=== PATIENT | female | born 1940 | race Caucasian/White ===

== ENCOUNTER 2017-06-22 13:00 | Outpatient (RCR) | payer MEDICARE, OTHER, SELFPAY ==
--- NOTE | 2017-05-19 13:55 | HP.PTEVAL_ITS ---
Patient's Visit Information YARITZA CHRISTINA is a 76 year old F referred to Physical Therapy by Fouzia PATRICK with a diagnosis of BACK PAIN. Date of Evaluation: 05/19/17 Physical Therapist: Satya Helms PT, - Visit Plan Frequency: 2x /Week Duration: 4 Weeks Plan: POSTURAL EX'S ,DLS,FLEXION.MODALITIES PRN - Subjective Subjective: This 76 y/o female presents physical therapy with back pain for many years. Patient has symmtrical lumbar pain with radicular symptoms left leg with. Seen Dr Adame for pain managemnt for epidural injections also had MRI.Patient symptoms worse with standing 10mins,walking,but with pushing cart better,lifting ,bending.Symptoms better with sitting,resting. Denies parathesia/ tingling. Bowel/bladder good. Sleeping good at night. No prior treatment otherthan epidural injection. NO trauma. SOCIAL: . VOCATION: retired - Pain Bilateral Back Pain Intensity (Out of 10): 4 Pain Intensity Range: 10 Left Lower Extremity Pain Intensity (Out of 10): 4 Pain Intensity Range: 10 - Objective POSTURE: mild foward posture,rounded shoulders. PALAPTION: tender paraspinals/ erector spinals. GAIT: normal lesly,reciprocal patten. NEURO: reflexes L3-4, L4-5,L5-S1,2/3 DENIES PARATHESIA/TINGLING. SYMMTRIES : align. MMT: quads/hams 4/5,4-/5 hip flexion,ankle 4/5. LUMBAR ROM: flexion min loss,extension mod loss ,side glides MOD pain left. FLEXABLITY: hams min tight - Special Tests L/S Slump test left side: Negative L/S Slump test right side: Negative L/S Left Straight Leg Raise: Negative L/S Right Straight Leg Raise: Negative Lumbar Standing: Flexion - Mechanical Response: No effect Lumbar Standing: Flexion - Symptoms During Testing: No effect Lumbar Standing: Flexion - Symptoms After Testing: No effect Lumbar Standing: Extension - Mechanical Response: No effect Lumbar Standing: Extension - Symptoms During Testing: Increases Lumbar Standing: Extension - Symptoms After Testing: No worse - Goals Goal 1:: Independant with HEP Goal Time Frame: 4-6 Weeks Goal 2:: 4Independant with posture/body mechanics for ADL'S Goal Time Frame: 4-6 Weeks Goal 3:: Decrease lumbar pain by 50% or greateer to improve with ADL'S Goal Time Frame: 4-6 Weeks Goal 4:: Patient to improve lumbar ROM WFL for function of recovery Goal Time Frame: 4-6 Weeks Goal 5:: Patient perform ADL'S and and light housework taskls with min limitations - Rehabilitation Potential Physical Therapy Diagnosis: This patient has lumbar pain and radicular symptoms left 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 Rehabilitation Potential: Good - Anticipated Interventions Patient/Client Instruction: Educate patient on: Condition, Plan of Care For the Purpose of:: To decrease pain, To increase ROM, To improve muscle performance and motor function, To improve ability to perform ADL's, To increase tolerance to activity/condition/position, To improve performance and independence with ADL's, To improve health of tissue, To decrease soft tissue restriction, To increase flexibility/ROM, To reduce risk of recurrence, To improve ability to perform tasks related to life management Therapeutic Exercise to Include: Strength training, Postural training, Flexibilty training, Dynamic Lumbar Stabilization For the Purpose of:: To decrease pain, To increase ROM, To improve muscle performance and motor function, To improve ability to perform ADL's, To increase tolerance to activity/condition/position, To improve ability of physical actions for home/community/work/leisure, To improve health of tissue, To decrease soft tissue restriction, To increase flexibility/ROM, To foster healthy habits, To improve ability to perform tasks related to life management TENS: Yes Cryotherapy (ice pack, ice massage): Yes Thermo therapy (hot pack): Yes Ultrasound (thermal/non thermal): Yes For the Purpose of:: To decrease pain, To improve nutrient delivery to tissue, To increase oxygenation perfusion, To improve muscle performance and motor function, To improve health of tissue, To decrease soft tissue restriction Thank you for the opportunity to evaluate your patient. For Medicare and Medicare HMO plans, please review the plan of care and approve it. It will need to be FAXED BACK to us at [phone] for Medicare purposes. Please let me know if there are questions or concerns regarding this plan of care. Physician Signature: Date:
--- NOTE | 2017-06-22 13:34 | HP.PTDCSUM ---
HP - PT D/C Summary It has been my pleasure to treat YARITZA CHRISTINA under orders from DR.ABASAL Myles for the diagnosis of BACK PAIN for a total of 9 visit(s). Discharge Date: 06/22/17 Please see the following information for a summary of their discharge status. - Subjective Subjective: Doing some better today. Can walk and stand longer ..with less pain but fave to have freguent rest and to ex's. Plan for nother injection - Pain Bilateral Back Pain Intensity (Out of 10): 3 Left Lower Extremity Pain Intensity (Out of 10): 3 - Overall Improvement % Improvement: 60 - Objective Objective/Function: POSTURE: ROUNDED SHOULDERS HEAD FOWARD. PALAPTION: TENDER RIGHT L-S. GAIT: NORMAL CADANCE. MMT: QUADS/HAMS 4/5,HIP 4-/5. LUMBAR ROM: FLEXION MIN LOSS,EXTENSION MOD LOSS - Goals Goal 1:: Independant with HEP Goal Progress: Goal Met Goal 2:: 4Independant with posture/body mechanics for ADL'S Goal Progress: Goal Met Goal 3:: Decrease lumbar pain by 50% or greateer to improve with ADL'S Goal Progress: Goal Met Goal 4:: Patient to improve lumbar ROM WFL for function of recovery Goal Progress: Progressing Goal 5:: Patient perform ADL'S and and light housework taskls with min limitations Goal Progress: Progressing - Plan Plan: D/C PLAN FOR ANOTHER INJECTION AND HEP - D/C Information Discharge Comments: HEP If there are questions or concerns regarding this patient's physical therapy, please feel free to call me at [phone]. Thank you for the referral of this patient. Sincerely, Satya Helms, PT,
== END 2017-06-22 19:00 | disposition home or self-care (01) ==
LOC: PT 13:00
PROVIDERS: Family Provider Internal Medicine; PCP Internal Medicine; Visit Provider Anesthesiology Pain Medicine
DX: M54.9 Dorsalgia, unspecified (principal)
CPT/HCPCS: 97035; 97110; 97162; 97530

== ENCOUNTER → 2017-06-25 08:27 | Outpatient (CLI) | payer MEDICARE, OTHER, SELFPAY ==
[2017-06-25 09:32] LABS: AST(SGOT) 18 U/L (15-37); Alanine Aminotransfer ALT/SGPT 18 U/L (13-56); Albumin, Serum 3.5 g/dL (3.2-5.0); Alkaline Phosphatase 84 U/L (45-117); Bilirubin, Direct 0.11 mg/dL (0.00-0.30); Cholesterol 148 mg/dL (200); Globulin 4.4 g/dL (2.2-4.2); High Density Lipoprotein 57 mg/dL; Protein, Total 7.9 g/dL (6.4-8.2); Triglycerides 77 mg/dL; Very Low Density Lipoprotein 15 mg/dL (5-40)
== END ==
PROVIDERS: Family Provider Internal Medicine; PCP Internal Medicine; Visit Provider Physician Assistant Medical
DX: E78.5 Hyperlipidemia, unspecified (principal); I10 Essential (primary) hypertension; I71.4 Abdominal aortic aneurysm, without rupture; R01.1 Cardiac murmur, unspecified; I34.8 Other nonrheumatic mitral valve disorders; I25.10 Atherosclerotic heart disease of native coronary artery without angina pectoris; Z79.899 Other long term (current) drug therapy
CPT/HCPCS: 36415; 80061; 80076

== ENCOUNTER → 2017-08-24 09:55 | Outpatient (CLI) | payer MEDICARE, OTHER, SELFPAY ==
--- NOTE | 2017-08-24 09:56 | RAD_ITS ---
STUDY: X-RAY - LUMBAR SPINE REASON FOR EXAM: Female, 76 years old. Low back pain TECHNIQUE: 7 view(s) of the lumbar spine were obtained. COMPARISON: None FINDINGS: Normal lumbar lordosis. There is no substantial scoliosis. There is a normal alignment of the vertebrae. Aortobiiliac stent graft. Degenerative findings of the hips. Loss of intervertebral disc height at L5-S1. Vacuum disc phenomenon at L5-S1. There is multilevel endplate spondylosis of the lumbar vertebrae. There is multi-level degenerative disc disease with multi-level disc space narrowing. There are atherosclerotic vascular calcifications. The soft tissue structures are unremarkable. RAD/L/S Spine Comp/w Bending Views IMPRESSION: Degenerative changes of the spine, as detailed above. Electronically Signed: Corbin Gandhi MD at 17:07 EDT , Service support ,
== END ==
PROVIDERS: Family Provider Internal Medicine; PCP Internal Medicine; Visit Provider Orthopaedic Surgery
DX: M54.5 Low back pain (principal)
CPT/HCPCS: 72114

== ENCOUNTER → 2017-09-10 07:50 | Outpatient (CLI) | payer MEDICARE, OTHER, SELFPAY ==
--- NOTE | 2017-09-10 07:54 | AAVD_ITS ---
Reason For Study: AAA with repair Aorta Measurements Aorta Doppler Measurements Proximal aorta measures2.0 x 1.9cm. in cross- Peak systolic flow velocities within the proximal sectional axis. aorta measure 32.6 cm/sec. Proximal aorta measures1.9cm. in longitudinal Prox stent - 92.1 cm/s axis. Dist stent - 95.8 cm/s Mid/Dist AAA measuring 4.6 x 4.4 cm with visible Post stent - 42.9 cm/s. patent stent. Left Iliac Artery Left iliac artery measures 1.1 cm. in the longitudinal axis. Left iliac artery measures 1.2 x 1.2 cm. in the cross-sectional axis. Peak systolic velocity in the left iliac artery measures 50.4 cm/sec. Right Iliac Artery Right iliac artery measures 1.3 cm. in the longitudinal axis. Right iliac artery measures 1.2 x 1.3 cm. in the cross-sectional axis. Peak systolic velocity in the right iliac artery measures 51.5 cm/sec. Procedure Aorta IVC Iliac vasculature or bypass grafts 45626. Exam performed in department. Interpretation Summary 1. 4.6cm aortic aneurysm. Ordering Physician: KAYA DELCID Referring Physician: KAYA DELCID Performed By: Meme Arguello RVT
== END ==
PROVIDERS: Family Provider Internal Medicine; PCP Internal Medicine; Visit Provider Surgery Vascular Surgery
DX: I71.4 Abdominal aortic aneurysm, without rupture (principal)
CPT/HCPCS: 93978

== ENCOUNTER → 2017-12-28 14:17 | Outpatient (CLI) | payer MEDICARE, OTHER, SELFPAY | PROVIDERS: Family Provider Internal Medicine; PCP Internal Medicine; Visit Provider Orthopaedic Surgery | DX: M54.5 Low back pain (principal) | CPT/HCPCS: 72114 ==

== ENCOUNTER → 2018-02-08 15:08 | Outpatient (CLI) | payer MEDICARE, OTHER, SELFPAY ==
--- NOTE | 2018-02-08 15:10 | RAD_ITS ---
STUDY: X-RAY - LUMBAR SPINE REASON FOR EXAM: Female, 77 years old. Postop. TECHNIQUE: 2 weightbearing view(s) of the lumbar spine were obtained. COMPARISON: 6 images of the lumbar spine December 28, 2017. FINDINGS: Again seen are prior L4 and L5 laminectomies as well as prior posterior bilateral fusion L3-S1 with metal hardware. Transpedicular screws at those levels are connected on either side by longitudinal rods, and there are numerous bone graft chips surrounding the posterior elements L3-S1. Normal lumbar lordosis. There is a stable S-shaped scoliosis, with 21 degree levoscoliosis centered at L2 and 30 degree dextroscoliosis centered at L3. There is borderline anterolisthesis of L2 on L3, and stable 2 mm retrolisthesis of L3 on L4. There is stable mild leftward subluxation of L2 on L3. There is multilevel endplate spondylosis of the lumbar vertebrae. There is multi-level degenerative disc disease with multi-level disc space narrowing. There is no demonstrated fracture. Note again made of a bifurcating aortoiliac endograft RAD/Lumbar Spine 2 or 3 Views IMPRESSION: Stable x-ray examination of the lumbar spine since December 28, 2017, as noted. Electronically Signed: Ab Cabrera MD at 18:10 EDT , Service support ,
== END ==
PROVIDERS: Family Provider Internal Medicine; PCP Internal Medicine; Referring Provider Orthopaedic Surgery; Visit Provider Orthopaedic Surgery
DX: M54.5 Low back pain (principal)
CPT/HCPCS: 72100

== ENCOUNTER 2018-04-14 12:00 | Outpatient (RCR) | payer MEDICARE, OTHER, SELFPAY ==
--- NOTE | 2018-02-16 14:00 | HP.PTEVAL ---
Patient's Visit Information YARITZA CHRISTINA is a 77 year old F referred to Physical Therapy by Michelle Bernstein with a diagnosis of S/P L3-S1 LAMINECTOMY/FUSION. Date of Evaluation: 02/16/18 Physical Therapist: Satya Helms, PT, - Visit Plan Frequency: 2x /Week Duration: 4 Weeks Plan: POSTURAL EX'S,DLS ABD/BACK, LE STRENNGTHENING,LE FLEXABLITY - Subjective Subjective: This 77 y/o female presents to physical therapy with s/p L3 -S1 LAMINECTOMY /FUSION with michael /srews November [address] [place] [address] November 04 2017. Patient d/c home fww and bone stimulator. Patient went to sister n law home until end of November. Patient stopped using fww and currently no device and return to home. Patient has lumbar pain with radicular symptoms many years. Tried PT and pain injections,then MRI. Bowel/bladder -. Denies parathesia/tingling.Coughing/Sneezing-.Symptoms decribed as stiffness and ust weakness. Patient surgery affects QOL and fubction at home.Precaution: NO BLT. SOCIAL: single. VOCATION: reired - Objective POSTURE: mild foward posture. GAIT: noraml lesly reciprocal pattern. NEURO: reflexes 2/3 L3-4,L4-5,L5-S1. PALAPTION: unremarkable. MMT: quad/hams 4/5,hip flexion 4-/5,ankle 4/5. LUMBAR ROM: flexon mod loss,extnsion severe loss,side glides mod loss. FLEXABLITY: HAMS MIN TIGHT - Special Tests L/S Slump test left side: Negative L/S Slump test right side: Negative L/S Left Straight Leg Raise: Negative L/S Right Straight Leg Raise: Negative - Goals Goal 1:: Patient to be Independant with HEP Goal Time Frame: 4-6 Weeks Goal 2:: Patient to improve posture for ADLS' Goal Time Frame: 4-6 Weeks Goal 3:: Patient increase strength BLE by 4+/5 to improve function with gait and ADL'S Goal Time Frame: 4-6 Weeks Goal 4:: Patient improve ADL'S and housework tasks with min limiations Goal Time Frame: 4-6 Weeks Goal 5:: Patient improve back owestry score by 5 points to improve QOL. Goal Time Frame: 4-6 Weeks - Rehabilitation Potential Physical Therapy Diagnosis: Patient underwent s/p L3-S1 LAMINECTOMY/FUSION on November 01 with decrease function and ADL's with weakness thus benifit from skilled PT Rehabilitation Potential: Good - Anticipated Interventions Patient/Client Instruction: Educate patient on: Condition, Plan of Care For the Purpose of:: To decrease pain, To increase ROM, To improve muscle performance and motor function, To improve ability to perform ADL's, To increase tolerance to activity/condition/position, To improve performance and independence with ADL's, To improve ability of physical actions for home/community/work/leisure, To increase flexibility/ROM, To improve ability to perform tasks related to life management Therapeutic Exercise to Include: Strength training, Body mechanics, Postural training, Flexibilty training, Dynamic Lumbar Stabilization For the Purpose of:: To decrease pain, To increase ROM, To improve muscle performance and motor function, To increase tolerance to activity/condition/position, To improve ability of physical actions for home/community/work/leisure, To improve health of tissue, To decrease soft tissue restriction, To improve ability to perform tasks related to life management Cryotherapy (ice pack, ice massage): Yes Thermo therapy (hot pack): Yes For the Purpose of:: To decrease pain, To increase ROM, To improve nutrient delivery to tissue, To increase oxygenation perfusion, To improve health of tissue, To decrease soft tissue restriction Thank you for the opportunity to evaluate your patient. For Medicare and Medicare HMO plans, please review the plan of care and approve it. It will need to be FAXED BACK to us at [phone] for Medicare purposes. Please let me know if there are questions or concerns regarding this plan of care. Physician Signature: Date:
--- NOTE | 2018-03-17 12:54 | HP.PTREVAL ---
Michelle Bernstein, It has been my pleasure to treat YARITZA CHRISTINA over the last 10 visits for S/P L3-S1 LAMINECTOMY/FUSION. Please see the progress note below for an update on the physical therapy plan of care! Subjective: Patient reports overall better with ADL'S and function. with housework tasks.. limited with walking extexnded Objective/Function: POSTURE: mild foward posture. GAIT: mild foward posture reciprocal pattern. NEURO: denies parathesia/tingling,reflexes L3-4,L4-5,L5-S1. MMT: 4/5 quads/hams ,hip flexion 4/5 ankle 4/5. LUMBAR ROM: flexion min/mod loss,extension mod loss. -SLR Plan Plan: POSTURAL EX'S,DLS ABD/BACK, LE STRENGTHENING,LE FLEXIBLITY Goals Goal 1:: Patient to be Independant with HEP Goal Time Frame: 4-6 Weeks Goal Progress: Progressing Goal 2:: Patient to improve posture for ADLS' Goal Time Frame: 4-6 Weeks Goal Progress: Progressing Goal 3:: Patient increase strength BLE by 4+/5 to improve function with gait and ADL'S Goal Time Frame: 4-6 Weeks Goal Progress: Progressing Goal 4:: Patient improve ADL'S and housework tasks with min limiations Goal Time Frame: 4-6 Weeks Goal Progress: Progressing Goal 5:: Patient improve back owestry score by 5 points to improve QOL. Goal Time Frame: 4-6 Weeks Goal Progress: Progressing Anticipated Interventions Patient/Client Instruction: Educate patient on: Condition, Plan of Care For the Purpose of:: To decrease pain, To increase ROM, To improve muscle performance and motor function, To improve ability to perform ADL's, To increase tolerance to activity/condition/position, To improve performance and independence with ADL's, To improve ability of physical actions for home/community/work/leisure, To increase flexibility/ROM, To improve ability to perform tasks related to life management Therapeutic Exercise to Include: Strength training, Body mechanics, Postural training, Flexibilty training, Dynamic Lumbar Stabilization For the Purpose of:: To decrease pain, To increase ROM, To improve muscle performance and motor function, To increase tolerance to activity/condition/position, To improve ability of physical actions for home/community/work/leisure, To improve health of tissue, To decrease soft tissue restriction, To improve ability to perform tasks related to life management Cryotherapy (ice pack, ice massage): Yes Thermo therapy (hot pack): Yes For the Purpose of:: To decrease pain, To increase ROM, To improve nutrient delivery to tissue, To increase oxygenation perfusion, To improve health of tissue, To decrease soft tissue restriction Please do not hesitate to contact me at [phone] by phone or if you have questions or concerns regarding this new plan of care! Sincerely, Satya Helms PT,
--- NOTE | 2018-04-14 13:39 | HP.PTDCSUM ---
HP - PT D/C Summary It has been my pleasure to treat YARITZA CHRISTINA under orders from Michelle Bernstein, for the diagnosis of S/P L3-S1 LAMINECTOMY/FUSION for a total of 17 visit(s). Discharge Date: 04/14/18 Please see the following information for a summary of their discharge status. - Subjective Subjective: Doing well .. Patient staed return to all ADL'S and housework tasks. - Pain Back Pain Intensity (Out of 10): 2 Hip Soreness Pain Intensity (Out of 10): 2 - Overall Improvement % Improvement: 70 - Objective Objective/Function: POSTURE: mild foward. GAIT: normal lesly reciprocal pattern. MMT: quads/hams/hip flexion 4/5 ,ankle 4/5. LUMBAR ROM: flexion min ,extension mod loss. FLEXABLITY: hams min - Goals Goal 1:: Patient to be Independant with HEP Goal Progress: Goal Met Goal 2:: Patient to improve posture for ADLS' Goal Progress: Goal Met Goal 3:: Patient increase strength BLE by 4+/5 to improve function with gait and ADL'S Goal Progress: Goal Met Goal 4:: Patient improve ADL'S and housework tasks with min limiations Goal Progress: Goal Met Goal 5:: Patient improve back owestry score by 5 points to improve QOL. Goal Progress: Goal Met - Plan Plan: D/C TO HEP - D/C Information Discharge Comments: HEP If there are questions or concerns regarding this patient's physical therapy, please feel free to call me at [phone]. Thank you for the referral of this patient. Sincerely, Satya Helms, PT,
== END 2018-04-14 19:00 | disposition home or self-care (01) ==
LOC: PT 12:00
PROVIDERS: Family Provider Internal Medicine; PCP Internal Medicine; Referring Provider Orthopaedic Surgery; Visit Provider Orthopaedic Surgery
DX: Z98.890 Other specified postprocedural states (principal)
CPT/HCPCS: 97110; 97162; 97530

== ENCOUNTER → 2018-04-26 14:52 | Outpatient (CLI) | payer MEDICARE, OTHER, SELFPAY ==
[2018-01-03 13:03] VITALS: BMI 27.4
--- NOTE | 2018-04-26 14:54 | RAD_ITS ---
STUDY: X-RAY - LUMBAR SPINE REASON FOR EXAM: Female, 77 years old. Pain TECHNIQUE: 2 view(s) of the lumbar spine were obtained. COMPARISON: 02/08/2018 FINDINGS: There are stable postsurgical changes from prior L4 and L5 laminectomies and prior posterior bilateral fusion L3-S1. The hardware is intact and alignment is satisfactory. There is no acute fracture or dislocation. There are stable multilevel degenerative changes. Again noted is an aortoiliac endograft RAD/Lumbar Spine 2 or 3 Views IMPRESSION: No acute fracture or dislocation in the lumbar spine. Stable postsurgical and degenerative changes. Electronically Signed: Kory Sauceda, at 15:26 EST Tel , Service support ,
--- OUTSIDE RECORDS SUMMARY | 2018-06-12 20:41 | XMS RPT_ITS ---
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 - Goals Goal 1:: Patient to be Independant with HEP Goal Progress: Goal Met Goal 2:: Patient to improve posture for ADLS' Goal Progress: Goal Met Goal 3:: Patient increase strength BLE by 4+/5 to improve function with gait and ADL'S Goal Progress: Goal Met Goal 4:: Patient improve ADL'S and housework tasks with min limiations Goal Progress: Goal Met Goal 5:: Patient improve back owestry score by 5 points to improve QOL. Goal Progress: Goal Met - Plan Plan: D/C TO HEP - D/C Information Discharge Comments: HEP If there are questions or concerns regarding this patient's physical therapy, please feel free to call me at [phone]. Thank you for the referral of this patient. Sincerely, Satya Helms PT, <Electronically signed by Satya Helms PT, Cert. MDT, OCS> 04/14/18 1539 CC: Michelle Bernstein MD; Dianna Stokes DO JOLEENA Signed RE-EVALUATION - PT (1) Observed: 03/21/2018 Status: F Source: [place] 7:02 PM [facility] REPOSITORY [facility] [address] [place] [address]. [address] [place] [address] Fax REEVALUATION / MEDICARE RECERTIFICATION PHYSICAL THERAPY MR#: [id number] Acct: [id number] Name: MYESHA CHRISTINA Rep #: [id number] : 1940 77 From: Satya Helms PT, Cert. 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 Please see the progress note below for an update on the physical therapy plan of care! Subjective: Patient reports overall better with ADL'S and function. with housework tasks.. limited with walking extexnded Objective/Function: POSTURE: mild foward posture. GAIT: mild foward posture reciprocal pattern. NEURO: denies parathesia/tingling,reflexes L3-4,L4-5,L5-S1. MMT: 4/5 quads/hams ,hip flexion 4/5 ankle 4/5. LUMBAR ROM: flexion min/mod loss,extension mod loss. -SLR Plan Plan: POSTURAL EX'S,DLS ABD/BACK, LE STRENGTHENING,LE FLEXIBLITY Goals Goal 1:: Patient to be Independant with HEP Goal Time Frame: 4-6 Weeks Goal Progress: Progressing Goal 2:: Patient to improve posture for ADLS' Goal Time Frame: 4-6 Weeks Goal Progress: Progressing Goal 3:: Patient increase strength BLE by 4+/5 to improve function with gait and ADL'S Goal Time Frame: 4-6 Weeks Goal Progress: Progressing Goal 4:: Patient improve ADL'S and housework tasks with min limiations Goal Time Frame: 4-6 Weeks Goal Progress: Progressing Goal 5:: Patient improve back owestry score by 5 points to improve QOL. Goal Time Frame: 4-6 Weeks Goal Progress: Progressing Anticipated Interventions Patient/Client Instruction: Educate patient on: Condition, Plan of Care For the Purpose of:: To decrease pain, To increase ROM, To improve muscle performance and motor function, To improve ability to perform ADL's, To increase tolerance to activity/condition/position, To improve performance and independence with ADL's, To improve ability of physical actions for home/community/work/leisure, To increase flexibility/ROM, To improve ability to perform tasks related to life management Therapeutic Exercise to Include: Strength training, Body mechanics, Postural training, Flexibilty training, Dynamic Lumbar Stabilization For the Purpose of:: To decrease pain, To increase ROM, To improve muscle performance and motor function, To increase tolerance to activity/condition/position, To improve ability of physical actions for home/community/work/leisure, To improve health of tissue, To decrease soft tissue restriction, To improve ability to perform tasks related to life management Cryotherapy (ice pack, ice massage): Yes Thermo therapy (hot pack): Yes For the Purpose of:: To decrease pain, To increase ROM, To improve nutrient delivery to tissue, To increase oxygenation perfusion, To improve health of tissue, To decrease soft tissue restriction Please do not hesitate to contact me at [phone] by phone or if you have questions or concerns regarding this new plan of care! Sincerely, Satya Helms PT, <Electronically signed by Cert. SAM Blum PT, OCS> 03/21/181901 CC: Michelle Bernstein MD; Dianna Stokes DO YARI Signed For Medicare only, by signing this I certify the plan of care. Physicians Signature Date INITAL EVALUATION (1) Observed: 02/18/2018 Status: F Source: [place] [facility] 7:58 AM [facility] REPOSITORY [facility] [address] [place] [address] Fax REHABILITATION SERVICES INITIAL EVALUATION MR#: [id number] Acct: [id number] Name: MYESHA CHRISTINA Rep #: [id number] : 1940 77 From: Cert. 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 Date of Evaluation: 02/16/18 Physical Therapist: Satya Helms PT, - Visit Plan Frequency: 2x /Week Duration: 4 Weeks Plan: POSTURAL EX'S,DLS ABD/BACK, LE STRENNGTHENING,LE FLEXABLITY - Subjective Subjective: This 77 y/o female presents to physical therapy with s/p L3 -S1 LAMINECTOMY /FUSION with michael /srews November [address] [place] [address] November 04 2017. Patient d/c home fww and bone stimulator. Patient went to sister n law home until end of November. Patient stopped using fww and currently no device and return to home. Patient has lumbar pain with radicular symptoms many years. Tried PT and pain injections,then MRI. Bowel/bladder -. Denies parathesia/tingling.Coughing/Sneezing-.Symptoms decribed as stiffness and ust weakness. Patient surgery affects QOL and fubction at home.Precaution: NO BLT. SOCIAL: single. VOCATION: reired - Objective POSTURE: mild foward posture. GAIT: [place] lesly reciprocal pattern. NEURO: reflexes 2/3 L3-4,L4-5,L5-S1. PALAPTION: unremarkable. MMT: quad/hams 4/5,hip flexion 4-/5,ankle 4/5. LUMBAR ROM: flexon mod loss,extnsion severe loss,side glides mod loss. FLEXABLITY: HAMS MIN TIGHT - Special Tests L/S Slump test left side: Negative L/S Slump test right side: Negative L/S Left Straight Leg Raise: Negative L/S Right Straight Leg Raise: Negative - Goals Goal 1:: Patient to be Independant with HEP Goal Time Frame: 4-6 Weeks Goal 2:: Patient to improve posture for ADLS' Goal Time Frame: 4-6 Weeks Goal 3:: Patient increase strength BLE by 4+/5 to improve function with gait and ADL'S Goal Time Frame: 4-6 Weeks Goal 4:: Patient improve ADL'S and housework tasks with min limiations Goal Time Frame: 4-6 Weeks Goal 5:: Patient improve back owestry score by 5 points to improve QOL. Goal Time Frame: 4-6 Weeks - Rehabilitation Potential Physical Therapy Diagnosis: Patient underwent s/p L3-S1 LAMINECTOMY/FUSION on November 01 with decrease function and ADL's with weakness thus benifit from skilled PT Rehabilitation Potential: Good - Anticipated Interventions Patient/Client Instruction: Educate patient on: Condition, Plan of Care For the Purpose of:: To decrease pain, To increase ROM, To improve muscle performance and motor function, To improve ability to perform ADL's, To increase tolerance to activity/condition/position, To improve performance and independence with ADL's, To improve ability of physical actions for home/community/work/leisure, To increase flexibility/ROM, To improve ability to perform tasks related to life management Therapeutic Exercise to Include: Strength training, Body mechanics, Postural training, Flexibilty training, Dynamic Lumbar Stabilization For the Purpose of:: To decrease pain, To increase ROM, To improve muscle performance and motor function, To increase tolerance to activity/condition/position, To improve ability of physical actions for home/community/work/leisure, To improve health of tissue, To decrease soft tissue restriction, To improve ability to perform tasks related to life management Cryotherapy (ice pack, ice massage): Yes Thermo therapy (hot pack): Yes For the Purpose of:: To decrease pain, To increase ROM, To improve nutrient delivery to tissue, To increase oxygenation perfusion, To improve health of tissue, To decrease soft tissue restriction Thank you for the opportunity to evaluate your patient. For Medicare and Medicare HMO plans, please review the plan of care and approve it. It will need to be FAXED BACK to us at [phone] for Medicare purposes. Please let me know if there are questions or concerns regarding this plan of care. Physician Signature: Date: <Electronically signed by Satya Helms PT, Cert. SAM, OCS> 02/18/18 0758 CC: Michelle Bernstein MD; Dianna Stokes DO YARI Signed For Medicare only, by signing this I certify the plan of care. Physicians Signature Date ORTHOPEDIC VISIT Observed: 02/13/2018 Status: F Source: [place] 3:29 PM [facility] REPOSITORY [facility] Orthopaedics AND Sports Medicine [address] [place] [address] [address] [address] OFFICE VISIT Date of Service: 02/08/18 MR#: [id number] Acct: [id number] Name: MYESHA CHRISTINA Rep #: [id number] : 1940 Provider: Michelle Bernstein MD Age/Sex: 77/F Location: [facility] Status: Signed Intake Intake Visit Reasons: LOW BACK Is patient in pain?: Yes Allergies atorvastatin [From Lipitor] Adverse Reaction (Severe, Verified 02/08/18 15:50) myalgias ciprofloxacin [From Cipro] Adverse Reaction (Unknown, Verified 02/08/18 15:50) Unknown Medications amlodipine 2.5 mg tablet 2.5 mg PO QDAY #90 tab 06/18/17 [Rx Confirmed 01/03/18] aspirin 81 mg tablet,delayed release 81 mg PO QDAY tab 06/28/17 [History Confirmed 01/03/18] coenzyme Q10 100 mg capsule 100 mg PO QDAY 06/28/17 [History Confirmed 01/03/18] nitroglycerin 0.4 mg sublingual tablet 0.4 mg SUBLINGUAL Q5M PRN 06/28/17 [History Confirmed 01/03/18] rizatriptan 10 mg tablet 10 mg PO QDAY PRN tab 06/28/17 [History Confirmed 01/03/18] sertraline 50 mg tablet 50 mg PO QDAY 06/28/17 [History Confirmed 01/03/18] cholecalciferol (vitamin D3) 50,000 unit capsule 50,000 unit PO .2xweek cap 06/30/17 [History Confirmed 01/03/18] hydrocodone 5 mg-acetaminophen 325 mg tablet 1 tab PO QDAY PRN tab 06/30/17 [History Confirmed 01/03/18] rosuvastatin 10 mg tablet 10 mg PO QDAY #90 tab 11/23/17 [Rx Confirmed 01/03/18] clopidogrel 75 mg tablet 75 mg PO QDAY #90 tab 07/12/18 [Rx Confirmed 01/03/18] lisinopril 20 mg tablet 20 mg PO QDAY #90 tab 12/14/17 [Rx Confirmed 01/03/18] metoprolol succinate ER 25 mg tablet,extended release 24 hr 25 mg PO QDAY #90 tab 02/08/18 [Rx] [facility] Medical History Presence of stent in coronary artery (Chronic 11/2010) SVT (supraventricular tachycardia) (Acute) Palpitations (Acute) Mitral valve annular calcification (Chronic) Heart murmur, systolic (Chronic) Premature ventricular contraction (Acute) Atherosclerotic heart disease of [place] coronary artery without angina pectoris (Chronic) HLD (hyperlipidemia) (Chronic) Benign essential HTN (Chronic) Abdominal aortic aneurysm without rupture (Chronic) COPD (chronic obstructive pulmonary disease) (Acute) Family history of ischemic heart disease (Acute) History of upper gastrointestinal bleeding (Acute) Osteoarthritis (Acute) Peptic ulcer disease (Acute) Spinal stenosis (Acute) Family history of hypertension (Chronic) Family history of sudden cardiac (Chronic) CAD (coronary artery disease) (Inactive) COLD (chronic obstructive lung disease) (Inactive) History of upper gastrointestinal bleeding (Inactive) Hx of peptic ulcer (Inactive) Surgical History History of hemorrhoidectomy (Resolved) Hx of appendectomy (Resolved) Family History Mother Sudden cardiac Father CAD (coronary artery disease) CVA (cerebral vascular accident) Social History Smoking Status: Former smoker alcohol intake: never substance use type: does not use HPI LOW BACK: Details: Ms. Christina returns today in follow up 3 months status post L3-S1 laminectomy with instrumented fusion dos 11/01/17 at [facility]. She is improved from preop and her left leg pain is resolved. She does have right sided back pain and thigh discomfort. She is overall pleased. She denies bowel or bladder issues, fevers or chills. Patient notes that she continues to wear her bone stimulator for 2 hours a day. Patient takes tylenol for her pain. Denies numbness, tingling or other associated symptoms. ROS Const Reports system reviewed and no additional complaints, except as docu Eyes Reports system reviewed and no additional complaints, except as docu ENT Reports system reviewed and no additional complaints, except as docu Card Reports system reviewed and no additional complaints, except as docu Resp Reports system reviewed and no additional complaints, except as docu GI Reports system reviewed and no additional complaints, except as docu Reports system reviewed and no additional complaints, except as docu Musc Reports back pain, Reports muscle weakness, Reports radiating pain into limb Skin/Breast Reports system reviewed and no additional complaints, except as docu Neuro Yes system reviewed and no additional complaints, except as docu Psych Reports system reviewed and no additional complaints, except as docu Endo Reports system reviewed and no additional complaints, except as docu Ortho Exam Spine Neuro: Yes Straight Leg Raise (negative bilaterally) General: alert, oriented x3 Skin: Yes healed Capillary Refill <2sec: Yes Gait: normal gait, other (able to heel and toe walk) Motor: strength 5/5 throughout Sensory Exam: no sensory deficits noted DTR's: Rt Patellar: 1+, Lt Patellar: 1+, Rt Ankle: 1+, Lt Ankle: 1+ SPINE TESTING CERVICAL THORACIC LUMBAR SLR: Negative Musculoskeletal General: Yes normal gait Thoracic/Lumbar Spine: surgical scar(s) present, thoraco-lumbar ROM limited, other (no significant tenderness throughout the lumbar spine) Strength 0=absent - 5=normal R Hip Flexor (L1-3): 5, L Hip Flexor (L1-3): 5, R Quadriceps (L2-4): 5, L Quadriceps (L2-4): 5, R Anterior Tibialis (L4-5): 5, L Anterior Tibialis (L4-5): 5, R Hamstrings (L5-S1): 5, L Hamstrings (L5-S1): 5, GS (S1): 5, L GS (S1): 5, R Peroneals (S1): 5, L Peroneals (S1): 5 Assessment AND Plan Problems 1. S/P lumbar fusion Z98.1 Plan Imaging: XR lumbar spine 02/08/2018 - stable instrumentation I/R/P: 1. status post L3-S1 laminectomy with instrumented fusion, 11/01/2017 2. history of AAA with stent 3. history of cardiac stent on plavix Ms. Christina is doing well. Recommend initiation of physical therapy. She will gradually increase her activities as tolerated. Follow up in 3 months with standing lumbar radiographs, AP and lateral, or sooner if issues arise. Plan of care discussed. All questions answered. She is in understanding. Orders Orders: Coding Level of Care Code Off vis,est,level 4 Diagnoses S/P lumbar fusion Z98.1 02/13/18 1529 <Electronically signed by Michelle Bernstein MD> Date Michelle Bernstein MD Cosigner Signature: Date (if applicable) CC: Fouzia Adame MD LUMBAR SPINE 2 OR 3 Observed: 02/08/2018 Status: F Source: [place] VIEWS 3:10 PM [facility] REPOSITORY [facility] Imaging Services [address] [place] [address] Lumbar Spine 2 or 3 Views MR#: [id number] Acct: [id number] Name: MYESHA CHRISTINA Rep #: [id number] : 1940 F 77 From: Davi Cabrera MD PCP: Dianna Stokes DO Status: REG CLI Study: Lumbar Spine 2 or 3 Views Date of Exam: 02/08/18 Exam# [id number] Ordering Dr: Michelle Bernstein MD STUDY: X-RAY - LUMBAR SPINE REASON FOR EXAM: Female, 77 years old. Postop. TECHNIQUE: 2 weightbearing view(s) of the lumbar spine were obtained. COMPARISON: 6 images of the lumbar spine December 28, 2017. FINDINGS: Again seen are prior L4 and L5 laminectomies as well as prior posterior bilateral fusion L3-S1 with metal hardware. Transpedicular screws at those levels are connected on either side by longitudinal rods, and there are numerous bone graft chips surrounding the posterior elements L3-S1. Normal lumbar lordosis. There is a stable S-shaped scoliosis, with 21 degree levoscoliosis centered at L2 and 30 degree dextroscoliosis centered at L3. There is borderline anterolisthesis of L2 on L3, and stable 2 mm retrolisthesis of L3 on L4. There is stable mild leftward subluxation of L2 on L3. There is multilevel endplate spondylosis of the lumbar vertebrae. There is multi-level degenerative disc disease with multi-level disc space narrowing. There is no demonstrated fracture. Note again made of a bifurcating aortoiliac endograft RAD/Lumbar Spine 2 or 3 Views IMPRESSION: Stable x-ray examination of the lumbar spine since December 28, 2017, as noted. Electronically Signed: Ab Cabrera MD at 18:10 EDT , Service support , CC: Michelle Bernstein MD; Dianna Stokes DO Patroller: Signed CARDIOLOGY VISIT Observed: 01/04/2018 Status: F Source: [place] REPORT 7:56 AM [facility] REPOSITORY [facility] [address] [place] [address] OFFICE VISIT Date of Service: 01/03/18 MR#: [id number] Acct: [id number] Name: MYESHA CHRISTINA Rep #: [id number] : 1940 Provider: FELIX Zeng Age/Sex: 77/F Location: [facility] Status: Signed HPI HPI Details: MYESHA CHRISTINA, is a 77 F who presents to the office today for a cardiovascular outpatient follow-up. She has a history of coronary artery disease with stenting to her circumflex and RCA in 2010, aortic valve stenosis, SVT, hypertension, hyperlipidemia, and abdominal aortic aneurysm repair by Dr. Powers of [facility] in 2014. Pt. denies chest, arm, jaw, or neck discomfort. Her exercise tolerance is stable. Pt. denies symptoms of CHF, palpitations, lightheadedness, dizziness, near syncope, or syncopal episodes. Pt. denies edema or claudication issues. Pt. denies orthopnea, PND, fever, chills, blood in urine, blood in stool, or myalgia. Her energy level is improving. She states since her back surgery her pain has completely resolved. She denies any cardiac issues during or after her surgery. Intake Vital Signs01/03/18 Height 5 ft 3 in 01/03/18 Weight: 155 lb 01/03/18 Body Mass Index (BMI) 27.4 01/03/18 Blood Pressure 118/64 01/03/18 Blood Pressure Location Lt brachial Intake Visit Reasons: 6 M FU Security And Compliance Project Manager Required: No Accompanied by: none Is patient in pain?: No Allergies atorvastatin [From Lipitor] Adverse Reaction (Severe, Verified 01/03/18 13:04) myalgias ciprofloxacin [From Cipro] Adverse Reaction (Unknown, Verified 01/03/18 13:04) Unknown Medications amlodipine 2.5 mg tablet 2.5 mg PO QDAY #90 tab 06/18/17 [Rx Confirmed 01/03/18] aspirin 81 mg tablet,delayed release 81 mg PO QDAY tab 06/28/17 [History Confirmed 01/03/18] coenzyme Q10 100 mg capsule 100 mg PO QDAY 06/28/17 [History Confirmed 01/03/18] metoprolol succinate ER 25 mg tablet,extended release 24 hr 25 mg PO QDAY tab 06/28/17 [History Confirmed 01/03/18] nitroglycerin 0.4 mg sublingual tablet 0.4 mg SUBLINGUAL Q5M PRN 06/28/17 [History Confirmed 01/03/18] rizatriptan 10 mg tablet 10 mg PO QDAY PRN tab 06/28/17 [History Confirmed 01/03/18] sertraline 50 mg tablet 50 mg PO QDAY 06/28/17 [History Confirmed 01/03/18] cholecalciferol (vitamin D3) 50,000 unit capsule 50,000 unit PO .2xweek cap 06/30/17 [History Confirmed 01/03/18] hydrocodone 5 mg-acetaminophen 325 mg tablet 1 tab PO QDAY PRN tab 06/30/17 [History Confirmed 01/03/18] rosuvastatin 10 mg tablet 10 mg PO QDAY #90 tab 11/23/17 [Rx Confirmed 01/03/18] clopidogrel 75 mg tablet 75 mg PO QDAY #90 tab 11/25/17 [Rx Confirmed 01/03/18] lisinopril 20 mg tablet 20 mg PO QDAY #90 tab 12/14/17 [Rx Confirmed 01/03/18] [facility] Medical History Presence of stent in coronary artery (Chronic 11/2010) SVT (supraventricular tachycardia) (Acute) Palpitations (Acute) Mitral valve annular calcification (Chronic) Heart murmur, systolic (Chronic) Premature ventricular contraction (Acute) Atherosclerotic heart disease of [place] coronary artery without angina pectoris (Chronic) HLD (hyperlipidemia) (Chronic) Benign essential HTN (Chronic) Abdominal aortic aneurysm without rupture (Chronic) COPD (chronic obstructive pulmonary disease) (Acute) Family history of ischemic heart disease (Acute) History of upper gastrointestinal bleeding (Acute) Osteoarthritis (Acute) Peptic ulcer disease (Acute) Spinal stenosis (Acute) Family history of hypertension (Chronic) Family history of sudden cardiac (Chronic) CAD (coronary artery disease) (Inactive) COLD (chronic obstructive lung disease) (Inactive) History of upper gastrointestinal bleeding (Inactive) Hx of peptic ulcer (Inactive) Surgical History History of hemorrhoidectomy (Resolved) Hx of appendectomy (Resolved) Family History Mother Sudden cardiac Father CAD (coronary artery disease) CVA (cerebral vascular accident) Social History Smoking Status: Former smoker alcohol intake: never substance use type: does not use ROS Const Const: Negative for fatigue, weakness, body ache, fever(s) or chills ENT ENT: Negative for dizziness Cardio Chest Pain: No Palpitations: No Edema: None Muscle aches with walking: None Resp Respiratory: Negative for SOB with activity, SOB at rest, SOB orthopnea\SOB lying down or paroxysmal nocturnal dyspnea GI GI: Negative nausea, black,tarry stools, bright, red blood in stools or vomiting blood/hematemesis : Negative for hematuria or frequent nighttime urination/ nocturia Musc Musc: Negative for muscle aches/ myalgia Skin Skin: Negative non-healing lesions or rash Neuro Neuro: Negative for weakness, dizziness, lightheadedness, near syncope, syncope or orthostatic symptoms Endo Endo: Negative for fatigue Allergy Allergy/Immunology: Negative for rash Cardiology Exam Const Appearance: cooperative, healthy appearing, comfortable, no acute distress, well developed and well groomed Nutritional Appearance: average body habitus Orientation: alert, awake and oriented x3 Head Head: normal to inspection, normocephalic and atraumatic Ears: hearing grossly normal bilaterally Nose: external nose normal Face and Sinus: face symmetric Mouth: oral mucosae normal Eyes General: appearance normal, both eyes and all related structures Eyelids: eyelids normal Conjunctivae: conjunctivae normal Pupils: PERRL EOM: EOM intact bilaterally Neck Neck: normal visual inspection and full ROM Carotids: normal carotid upstroke Chest Chest inspection: normal inspection of the chest and symmetric chest movement Auscultation: Bilateral: Clear to Auscultation Cardio Palpation: normal PMI Rate: regular rate Rhythm: regular rhythm Heart sounds: S1 normal, S2 normal and positive S4 Murmur: Grade 3/6, harsh, mid systolic, LLSB, LVOT and sternal notch GI GI: normal to inspection, soft, no hepatosplenomegaly and bowel sounds present Neuro General: alert, awake and oriented x3 Skin Skin: no rashes or lesions noted Extremities Pulses: Normal: Right Radial Pulse, Left Radial Pulse Lower Extremity Edema: None: Bilateral Musculoskel back discomfort Psych Psychological: normal affect Supplemental Info As you may recall she had a transthoracic echocardiogram performed on 02/02/2017. She had left ventricular regional wall motion abnormalities with an overall preserved LVEF of 65%. There was mild left atrial enlargement with mild mitral annular calcification, mild MR, mild to moderate TR, and mild aortic valve stenosis. There was trivial NV. She had a calcified aortic root. Her estimated RV systolic pressure was 25 mmHg. She had a stress test performed on 11/28/2013. This was a pharmacologic stress nuclear imaging study. It was considered negative for myocardial ischemia or previous myocardial injury/infarction. She had a diagnostic cardiac catheterization performed on 11/21/2010. At that time her left ventricle had hypokinesis of the basal inferior segment with an estimated LVEF of 60%, the left main was normal, the LAD had proximal 50-75% stenosis, the left circumflex had distal subtotal occlusion leading to distal small vascular branches filling late and potentially from an element of right to left collateral flow. The OM 2 had proximal 95% stenosis. The RCA was a dominant vessel with proximal 75% stenosis and subsequent proximal to mid 95% stenosis. There was ywyol-cv-[id number] collateral flow to the LCx distribution. A PINEDA vessel was noted to be patent. She has had previous percutaneous intervention in the past. This was performed at [facility] in [place], [place]. At that point in time she received a successful PCI of the OM vessel with a drug-eluting stent superimposed upon notation of a previous PCI and patent stent to the RCA. She also had an abdominal CT scan performed on 11/01/2014. At that point time according to the report she had an aortobiiliac stent graft with no evidence of endoleak. Holter monitor performed in September 2010. At that time she was in sinus rhythm with an average heart rate of approximately 92 bpm. She had a rare PACs and PVCs and one 5 beat run of a probable atrial tachycardia. She had no wide-complex runs. There were no prolonged pauses. Assessment AND Plan 1. Atherosclerosis of [place] coronary artery of [place] heart without angina pectoris I25.10 PTCA/RAYSHAWN to L CFX AND RCA 11/24 Plan Patient denies any chest pain, arm pain, jaw pain, neck pain, shortness of breath, or fatigue suggestive of angina at this time. We will continue to monitor this. We will not make any medication regimen changes and will continue risk factor modification. It is unclear if patient has undergone bypass surgery. Her report states patent PINEDA. However, patient denies any previous bypass surgery. 2. Presence of stent in coronary artery Z95.5 PTCA/RAYSHAWN to L CFX AND RCA 11/24 Plan She will continue current treatment plan as outlined above. 3. Abdominal aortic aneurysm without rupture I71.4 Plan This was evaluated most recently August 2017 prior to back surgery. Per report her aortic aneurysm measured 4.6 cm. She will continue to follow-up with [facility] for further/ongoing evaluation. We will continue both blood pressure and heart rate support. 4. Nonrheumatic aortic valve stenosis I35.0 Plan Her echocardiogram in January 2017 showed ejection fraction of 65% and mild mitral valve stenosis. Her activity level is improving. She denies any shortness of breath, chest pain, or dizziness. She will continue current medications and we will continue to monitor this through history, exam, and repeat echocardiogram. 5. SVT (supraventricular tachycardia) I47.1 Plan She denies any known recurrence or palpitations. She will continue current medications and we will continue to monitor. 6. Benign essential HTN I10 Plan Patient's blood pressure is well-controlled today in the office. We will continue to monitor this. We will not make any medication regimen changes. 7. Hyperlipidemia, unspecified hyperlipidemia type E78.5 Plan Her lipid panel March 2018 showed cholesterol: 148, HDL: 57, LDL: 76, and triglycerides: 77. She is expected to repeat both liver and lipid panel at her earliest convenience. She will continue with current statin medication. We will wait for results of these laboratory tests for further recommendation. Plan Detail Additional Comments Thank you for allowing us to participate in the patient's plan of care, if you have any questions please do not hesitate to call. This note was generated using a voice recognition system and there may be incorrect words, spelling, or punctuation that were not noted upon reviewing the office note prior to saving. Follow Up 14 Months (PFM) 6 Months (GLOVE EXAMINER/PA) Coding Level of Care Code Off vis,est,level 3 Diagnoses Atherosclerosis of [place] coronary artery of [place] heart without angina pectoris I25.10 Jackson vs. 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 transplanted heart: [place] heart Presence of stent in coronary artery Z95.5 Abdominal aortic aneurysm without rupture I71.4 Nonrheumatic aortic valve stenosis I35.0 SVT (supraventricular tachycardia) I47.1 Benign essential HTN I10 Hyperlipidemia, unspecified hyperlipidemia type E78.5 Hyperlipidemia type: unspecified 01/04/18 0756 <Electronically signed by Felipe PEREZ> Date Felipe PREEZ Cosigner Signature: Date (if applicable) CC: Dianna Stokes DO ORTHOPEDIC VISIT Observed: 01/01/2018 Status: F Source[facility] Orthopaedics AND Sports Medicine [address] [facility] [address] [place] [address] OFFICE VISIT Date of Service: 12/28/17 MR#: [id number] Acct: [id number] Name: MYESHA CHRISTINA Rep #: [id number] : 1940 Provider: Michelle Bernstein MD Age/Sex: 77/F Location: [facility].SMO Status: Signed Intake Intake Visit Reasons: lumbar back Allergies atorvastatin [From Lipitor] Adverse Reaction (Severe, Verified 08/24/17 10:05) myalgias ciprofloxacin [From Cipro] Adverse Reaction (Unknown, Verified 08/24/17 10:05) Unknown Medications amlodipine 2.5 mg tablet 2.5 mg PO QDAY #90 tab 06/18/17 [Rx Confirmed 06/30/17] aspirin 81 mg tablet,delayed release 81 mg PO QDAY tab 06/28/17 [History Confirmed 06/30/17] coenzyme Q10 100 mg capsule 100 mg PO QDAY 06/28/17 [History Confirmed 06/30/17] gabapentin 300 mg capsule 300 mg PO QDAY cap 06/28/17 [History Confirmed 06/30/17] metoprolol succinate ER 25 mg tablet,extended release 24 hr 25 mg PO QDAY tab 06/28/17 [History Confirmed 06/30/17] nitroglycerin 0.4 mg sublingual tablet 0.4 mg SUBLINGUAL Q5M PRN 06/28/17 [History Confirmed 06/30/17] rizatriptan 10 mg tablet 10 mg PO QDAY PRN tab 06/28/17 [History Confirmed 06/30/17] sertraline 50 mg tablet 50 mg PO QDAY 06/28/17 [History Confirmed 06/30/17] cholecalciferol (vitamin D3) 50,000 unit capsule 50,000 unit PO .2xweek cap 06/30/17 [History Confirmed 06/30/17] hydrocodone 5 mg-acetaminophen 325 mg tablet 1 tab PO QDAY PRN tab 06/30/17 [History Confirmed 06/30/17] rosuvastatin 10 mg tablet 10 mg PO QDAY #90 tab 11/23/17 [Rx] clopidogrel 75 mg tablet 75 mg PO QDAY #90 tab 11/25/17 [Rx] lisinopril 20 mg tablet 20 mg PO QDAY #90 tab 12/14/17 [Rx] PFSH Medical History Presence of stent in coronary artery (Chronic 11/2010) SVT (supraventricular tachycardia) (Acute) Palpitations (Acute) Mitral valve annular calcification (Chronic) Heart murmur, systolic (Chronic) Premature ventricular contraction (Acute) Atherosclerotic heart disease of [place] coronary artery without angina pectoris (Chronic) HLD (hyperlipidemia) (Chronic) Benign essential HTN (Chronic) Abdominal aortic aneurysm without rupture (Chronic) COPD (chronic obstructive pulmonary disease) (Acute) Family history of ischemic heart disease (Acute) History of upper gastrointestinal bleeding (Acute) Osteoarthritis (Acute) Peptic ulcer disease (Acute) Spinal stenosis (Acute) Family history of hypertension (Chronic) Family history of sudden cardiac (Chronic) CAD (coronary artery disease) (Inactive) COLD (chronic obstructive lung disease) (Inactive) History of upper gastrointestinal bleeding (Inactive) Hx of peptic ulcer (Inactive) Surgical History History of hemorrhoidectomy (Resolved) Hx of appendectomy (Resolved) Family History Mother Sudden cardiac Father CAD (coronary artery disease) CVA (cerebral vascular accident) Social History Smoking Status: Former smoker alcohol intake: never substance use type: does not use HPI lumbar back: Details: MYESHA CHRISTINA returns today in follow up nearly 2 months status post L3-S1 laminectomy with instrumented fusion on 08/24/2017. She is doing well with 99% improvement of her preoperative symptoms. She denies fevers or chills or bowel or bladder issues. She states she has not been bending, twisting or lifting. Ortho Exam Spine Neuro: Yes Straight Leg Raise (negative bilaterally) General: alert, oriented x3 Skin: Yes healed Gait: normal gait Motor: strength 5/5 throughout DTR's: Rt Patellar: 2+, Lt Patellar: 2+, Rt Ankle: 2+, Lt Ankle: 2+ Coordination: Romberg test normal SPINE TESTING CERVICAL THORACIC LUMBAR SLR: Negative Musculoskeletal General: Yes normal gait and normal posture Thoracic/Lumbar Spine: surgical scar(s) present (healed lumbar incision), other (no significant tenderness over the lumbar spine) Strength 0=absent - 5=normal R Hip Flexor (L1-3): 5, L Hip Flexor (L1-3): 5, R Quadriceps (L2-4): 5, L Quadriceps (L2-4): 5, R Anterior Tibialis (L4-5): 5, L Anterior Tibialis (L4-5): 5, R Hamstrings (L5-S1): 5, L Hamstrings (L5-S1): 5, GS (S1): 5, L GS (S1): 5, R Peroneals (S1): 5, L Peroneals (S1): 5 Assessment AND Plan Problems 1. S/P spinal fusion Z98.1 Plan Imaging: XR lumbar spine - 12/28/2017 stable instrumentation I/R/P: 1. s/p L3-S1 laminectomy with instrumented fusion, 11/01/2017 2. history of AAA with stent 3. history of cardiac stent on plavix Ms. Christina is doing well. Her radiographs are stable with stable deformity and instrumentation. Continue restrictions. Follow up in 1 month with lumbar radiographs or sooner if issues arise. Plan of care discussed. All questions answered. She is in understanding. Orders Orders: Coding Level of Care Code Global Post Op Diagnoses S/P spinal fusion Z98.1 01/01/181 <Electronically signed by Michelle Bernstein MD> Date Michelle Bernstein MD Cosigner Signature: Date (if applicable) CC: Fouzia Adame MD L/S SPINE COMP/W Observed: 12/28/2017 Status: F Source: [place] [facility] 2:22 PM [facility] REPOSITORY [facility] Imaging Services [address] [place] [address] L/S Spine Comp/w Bending Views MR#: [id number] Acct: [id number] Name: MYESHA CHRISTINA Rep #: [id number] : 1940 F 77 From: George Marin MD PCP: Dianna Stokes DO Status: REG CLI Study: L/S Spine Comp/w Bending Views Date of Exam: 12/28/17 Exam# [id number] Ordering Dr: Michelle Bernstein MD STUDY: X-RAY - LUMBOSACRAL SPINE REASON FOR EXAM: Female, 77 years old. Postop TECHNIQUE: 6 view(s) of the lumbosacral spine were obtained. COMPARISON: Prior study of August 24, 2017 FINDINGS: There is straightening of the normal lumbar lordosis. There is a mild thoracolumbar levoscoliosis. There is normal alignment of the vertebrae. There are posterior spinal fusion changes with interpeduncular screws from L3 to S1. There is multilevel disc space narrowing. Normal bilateral sacral ala, sacroiliac joints, and visualized sacrum. There is an aortoiliac endograft. RAD/L/S Spine Comp/w Bending Views IMPRESSION: Posterior spinal fusion changes with interpeduncular screws noted from L3 to S1. Multilevel disc space narrowing. Minimal thoracolumbar levoscoliosis. Vertebral body alignment appears similar to the previous study. There is no evidence of fracture or spondylolisthesis. An aortoiliac endograft is incidentally noted. Electronically Signed: George Marin MD at 23:16 EDT , Service support , CC: Michelle Bernstein MD; Dianna Stokes DO Patroller: Signed HEMOGRAM (CBC AND Collected: 11/04/2017 Status: F Source: [facility]) 1:36 AM [facility] REPOSITORY TYPE CODE TESTS RESULT OUT OF REFERENCE UNITS RANGE LAB WBC 3.98-10.04 K/uL WBC Count High 14.33 LAB RBC 3.93-5.22 M/uL Low RBC Count 2.97 LAB HGB 11.2-15.7 g/dL Low Hemoglobin 9.1 LAB HCT 34.1-44.9 % Low Hematocrit 29.1 LAB MCV 79.4-94.8 fL Mean Cell High Volume 98.0 LAB MCH 25.6-32.2 pg Mean Cell Hgb 30.6 LAB MCHC 32.2-35.5 g/dL Low Mean Cell Hgb Conc 31.3 LAB RDW 11.7-14.4 % RBC High Distribution 14.7 LAB PLT 182-369 K/uL Platelet Count 220 LAB MPV 9.4-12.3 fL Mean Platelet Volume 9.6 LAB NRBC 0.0-0.2 /100 WBC NUCLEATED RBC 0.0 Performed By: #### HEMOGC, PTPTT, C7C, IPB, MGO #### [facility] [address] [place] [address] [place] [address] PT*PTT Collected: 11/04/2017 Status: F Source: [facility] 1:36 AM [facility] REPOSITORY TYPE CODE TESTS RESULT OUT OF RANGE REFERENCE UNITS LAB PT 11.9-14.2 sec High PT 15.0 LAB INR 0.9-1.1 High INR 1.2 LAB PTT 24.0-34.3 sec High PTT 34.9 Performed By: #### HEMOGC, PTPTT, C7C, IPB, MGO #### [facility] [address] [place] [address] [place] [address] CHM7,CA Collected: 11/04/2017 Status: F Source: [facility] 1:36 AM [facility] REPOSITORY TYPE CODE TESTS RESULT OUT OF REFERENCE UNITS RANGE LAB BUN 7-22 mg/dL BUN 13 LAB NA 133-143 mmol/L Sodium 138 LAB K 3.5-5.0 mmol/L Potassium 3.7 LAB CL 98-108 mmol/L Chloride 104 LAB CO2 22-30 mmol/L Carbon Dioxide 25 LAB GLUC 70-99 mg/dL Glucose High 115 LAB CREA 0.50-1.20 mg/dL Creatinine 0.63 LAB GAP 7-17 mmol/L Anion Gap 13 LAB BC BUN/CREA Ratio 21 LAB CA 8.6-10.5 mg/dL Calcium 8.8 LAB OSMC 278-305 mOsm/kg Osmolality 290 (Calc) LAB GFR >60 mL/min/1.73 sqM Est GFR,non >60 [place] LAB GFRA >60 mL/min/1.73 sqM Est GFR, >60 Performed By: #### HEMOGC, PTPTT, C7C, IPB, MGO #### [facility] [address] [place] [id number] [place] [address] [place] [id number] INORGANIC PHOSPHATE Collected: 11/04/2017 Status: F Source: [facility] 1:36 AM [facility] REPOSITORY TYPE CODE TESTS RESULT OUT OF REFERENCE UNITS RANGE LAB IP 2.2-4.6 mg/dL Low Inorg Phosphate 1.4 Performed By: #### HEMOGC, PTPTT, C7C, IPB, MGO #### [facility] [address] [place] [id number] [place] [address] [address] [place] [id number] MAGNESIUM Collected: 11/04/2017 Status: F Source: [facility] 1:36 AM [facility] REPOSITORY TYPE CODE TESTS RESULT OUT OF REFERENCE UNITS RANGE LAB MG 1.6-2.6 mg/dL Magnesium 2.0 Performed By: #### HEMOGC, PTPTT, C7C, IPB, MGO #### [facility] [address] [place] [address] [facility] [address] [place] [id number] HEMOGRAM (CBC AND Collected: 11/03/2017 Status: F Source: [facility] PL[facility]LET) 12:09 AM [facility] REPOSITORY TYPE CODE TESTS RESULT OUT OF REFERENCE UNITS RANGE LAB WBC 3.98-10.04 K/uL WBC Count High 13.38 LAB RBC 3.93-5.22 M/uL Low RBC Count 2.89 LAB HGB 11.2-15.7 g/dL Low Hemoglobin 9.0 LAB HCT 34.1-44.9 % Low Hematocrit 28.9 LAB MCV 79.4-94.8 fL Mean Cell High Volume 100.0 LAB MCH 25.6-32.2 pg Mean Cell Hgb 31.1 LAB MCHC 32.2-35.5 g/dL Low Mean Cell Hgb Conc 31.1 LAB RDW 11.7-14.4 % RBC High Distribution 14.7 LAB PLT 182-369 K/uL Platelet Count 201 LAB MPV 9.4-12.3 fL Mean Platelet Volume 9.9 LAB NRBC 0.0-0.2 /100 WBC NUCLEATED RBC 0.0 Performed By: #### HEMOGC, C7C, IPB, MGO, PTPTT #### [facility] [address] [place] [id number] [place] [address] [address] [place] [address] CHM7,CA Collected: 11/03/2017 Status: F Source: [facility] 12:09 AM [facility] REPOSITORY TYPE CODE TESTS RESULT OUT OF REFERENCE UNITS RANGE LAB BUN 7-22 mg/dL BUN 21 LAB NA 133-143 mmol/L Sodium 135 LAB K 3.5-5.0 mmol/L Potassium 3.9 LAB CL 98-108 mmol/L Chloride 103 LAB CO2 22-30 mmol/L Carbon Dioxide 23 LAB GLUC 70-99 mg/dL Glucose High 128 LAB CREA 0.50-1.20 mg/dL Creatinine 0.81 LAB GAP 7-17 mmol/L Anion Gap 13 LAB BC BUN/CREA Ratio 26 LAB CA 8.6-10.5 mg/dL Calcium 8.7 LAB OSMC 278-305 mOsm/kg Osmolality 288 (Calc) LAB GFR >60 mL/min/1.73 sqM Est GFR,non >60 [place] LAB GFRA >60 mL/min/1.73 sqM Est GFR, >60 Performed By: #### HEMOGC, C7C, IPB, MGO, PTPTT #### [facility] [address] [place] [address] [address] [place] [id number] INORGANIC PHOSPHATE Collected: 11/03/2017 Status: F Source: [facility] 12:09 AM [facility] REPOSITORY TYPE CODE TESTS RESULT OUT OF REFERENCE UNITS RANGE LAB IP 2.2-4.6 mg/dL Inorg Phosphate 2.3 Performed By: #### HEMOGC, C7C, IPB, MGO, PTPTT #### [facility] [address] [place] [id number] [place] [address] [address] [place] [id number] MAGNESIUM Collected: 11/03/2017 Status: F Source: [facility] 12:09 AM [facility] REPOSITORY TYPE CODE TESTS RESULT OUT OF REFERENCE UNITS RANGE LAB MG 1.6-2.6 mg/dL Magnesium 1.8 Performed By: #### HEMOGC, C7C, IPB, MGO, PTPTT #### [facility] [address] [place] [id number] [facility] [address] [place] [address] PT*PTT Collected: 11/03/2017 Status: F Source: [facility] 12:09 AM [facility] REPOSITORY TYPE CODE TESTS RESULT OUT OF RANGE REFERENCE UNITS LAB PT 11.9-14.2 sec High PT 15.0 LAB INR 0.9-1.1 High INR 1.2 LAB PTT 24.0-34.3 sec High PTT 34.7 Performed By: #### HEMOGC, C7C, IPB, MGO, PTPTT #### [facility] [address] [place] [address] [place] [address] XR SPINE LUMBOSACRAL 5 Observed: 11/02/2017 Status: F Source: [facility] VIEWS 5:47 PM [facility] REPOSITORY EXAM: XR SPINE LUMBOSACRAL 4 VIEWS, 11/02/2017 17:19 PM COMPARISON: October 06, 2017 CLINICAL INDICATIONS: postop RELEVANT CLINICAL HISTORY: AP/LAT and oblique; FINDINGS: 4 views obtained. Posterior instrumentation has been performed from L3 through S1 with bilateral rods and paired pedicle screws at L3, L4, L5, and S1. Laminectomy is noted with a dorsal drain in place. Retrolisthesis of L3 on L4 is noted measuring approximately 4.5 mm. Multilevel degenerative disc disease is evident. IMPRESSION: Posterior instrumentation from L3 to S1 as described. CHEST PORTABLE Observed: 11/02/2017 Status: F Source: [facility] 11:08 AM [facility] REPOSITORY EXAM: XR CHEST PORTABLE, 11/02/2017 10:33 AM COMPARISON: No prior studies available for comparison. CLINICAL INDICATIONS: post op O2 requirement FINDINGS: (Adequate technique) Life Support Devices: None Chest Wall: Normal Katharine: Normal Mediastinum: Normal contour. Retrocardiac lucency which could relate to a hiatal hernia. Pleural Spaces: No definite pleural effusion. No definite pneumothorax. Lungs: Clear Cardiac Silhouette: Normal, without overall or specific chamber enlargement, or abnormal calcification Thoracic Aorta: Normal Pulmonary Vessels: Normal, without PVH IMPRESSION: No acute cardiopulmonary findings. Moderate-sized hiatal hernia. I personally viewed and interpreted these images and I have reviewed and approved this report. *PTT Collected: 11/02/2017 Status: X Source: [facility] 2:14 AM [facility] REPOSITORY TYPE CODE TESTS RESULT OUT OF REFERENCE UNITS RANGE LAB PTPTT PT*PTT This result has been cancelled. Performed By: #### PTPTT #### [facility] (DEFAULT) [address] [place] [address] PROGRESS Observed: 10/30/2017 Status: COMPLETED Source: [place] 10:19 AM [facility] REPOSITORY HNO ID: [id number] Author: Gianfranco Powers Service: (none) Author Type: Physician Type: Progress Notes Filed: 10/30/2017 10:23 AM Note Text: This patient is seen today to discuss her recent testing for her abdominal aortic aneurysm. She had a recent study performed which shows that her aneurysm sac has not changed in size. She has no evidence of any type of abdominal or back pain and given the fact that she has no evidence of sac growth we can probably follow this at another year. I discussed with her the fact that this is a good sign and the fact that her aneurysm is not growing will allow us to continue to follow the fashion that we are doing currently. I tell her next follow-up will be in 1 year. I tell her that since we are able to follow-up with ultrasound this year and it showed no growth we can do that next year but that should growth occurred any time we will have to resort to CT scanning. Much of the visit is spent in discussion of her issues with her back that she is going to have treated with some what sounds like a relatively significant procedure at [facility] next week. She states that she is confident that this is going to help her get back on to her feet and that she is looking forward to being in less pain. We discussed the intricacies of back surgery and I cautioned her not to be too disappointed if she even gets partial relief of her pain because that sometimes is all that can be done especially and degenerative conditions. She is very upbeat about the whole process and I'm hoping that she is going to do very well I tell her that we will put her in the computer to call her in 1 year and follow up with her with another abdominal aortic ultrasound at that time.I spent 15 minutes in the visit, with more than 50% of the total ubdx-fc-[id number] time of the visit in counseling / coordination of care. DEXTER Observed: 10/29/2017 Status: COMPLETED Source: [place] 12:00 PM [facility] REPOSITORY Office Visit (KOBEMIL) MYESHA CHRISTINA ([id number]) 1940 F Date Time Provider Department 10/29/17 12:00 PM GIANFRANCO POWERS During your visit today, we recorded the following information about you: Pulse Respiration Blood pressure Weight 78/minute 16/minute 118/66 70.3 kg Height 1.6 m Gianfranco Powers MD 10/30/2017 10:23 AM Signed This patient is seen today to discuss her recent testing for her abdominal aortic aneurysm. She had a recent study performed which shows that her aneurysm sac has not changed in size. She has no evidence of any type of abdominal or back pain and given the fact that she has no evidence of sac growth we can probably follow this at another year. I discussed with her the fact that this is a good sign and the fact that her aneurysm is not growing will allow us to continue to follow the fashion that we are doing currently. I tell her next follow-up will be in 1 year. I tell her that since we are able to follow-up with ultrasound this year and it showed no growth we can do that next year but that should growth occurred any time we will have to resort to CT scanning. Much of the visit is spent in discussion of her issues with her back that she is going to have treated with some what sounds like a relatively significant procedure at [facility] next week. She states that she is confident that this is going to help her get back on to her feet and that she is looking forward to being in less pain. We discussed the intricacies of back surgery and I cautioned her not to be too disappointed if she even gets partial relief of her pain because that sometimes is all that can be done especially and degenerative conditions. She is very upbeat about the whole process and I'm hoping that she is going to do very well I tell her that we will put her in the computer to call her in 1 year and follow up with her with another abdominal aortic ultrasound at that time.I spent 15 minutes in the visit, with more than 50% of the total loav-ll-tvla time of the visit in counseling / coordination of care. Referring Provider: DIANNA STOEKS [[id number]] Allergies As of Date: 10/29/2017 Noted Allergy Reaction CIPROCINONIDE 11/07/2015 16 - Unknown LIPITOR (ATORVASTATIN CALCIUM) 11/07/2015 16 - Unknown Date Reviewed: 10/29/2017 Reviewed by: Daiana Johnson LPN - Fully Assessed Reason for Visit: Aneurysm [496] Cmt: Myesha is here for yearly pykp2av up AAA. Abd Aortic us done 09/10/17 Primary Visit Diagnosis:History of abdominal aortic aneurysm (AAA) repair [Z98.890] Other Visit Diagnosis:AAA (abdominal aortic aneurysm) without rupture (HCC) [I71.4] Order(s):US IVC [[id number]] Order #: [id number] FUTURE Prescriptions as of 10/29/2017 Sig: GABAPENTIN 300 MG CAPSULE METOPROLOL SUCCINATE ER 25 MG* NITROSTAT 0.4 MG SUBLINGUAL T* CRESTOR 10 MG TABLET Take 10 mg by mouth once gretchen* LISINOPRIL 20 MG TABLET Take 20 mg by mouth twice karoline* RIZATRIPTAN 10 MG TABLET 1 tablet(s) at onset of heada* AMLODIPINE 2.5 MG TABLET Take 2.5 mg by mouth once karoline* VITAMIN D2 ORAL Take 1.25 mg by mouth once da* ASPIRIN ORAL Take 81 mg by mouth once gretchen* COENZYME Q10 100 MG TABLET Take 1 tablet by mouth once d* CLOPIDOGREL 75 MG TABLET Take 75 mg by mouth once gretchen* KENALOG 0.1 % TOPICAL OINTMENT Apply to eczema rash eruption* ALEVE 220 MG TABLET 1 capsule(s) By mouth Daily p* ZOLOFT 50 MG TABLET Take one(1) tablet daily. HYDROCODONE 5 MG-ACETAMINOPHE* MELOXICAM 7.5 MG TABLET METOPROLOL TARTRATE ORAL Take by mouth once daily. 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 Follow-up and Disposition History Recorded Letter Text Encounter Status:Closed by GIANFRANCO POWERS MD on 10/30/17 MRI SPINE CERVICAL Observed: 10/07/2017 Status: F Source: [facility] WITHOUT CONTRAST 1:13 PM [facility] REPOSITORY EXAM: MRI SPINE CERVICAL WITHOUT CONTRAST, 10/06/2017 17:06 PM COMPARISON: None. CLINICAL INDICATIONS: 77 years Female Neck pain, chronic, xray bone or disc margin destruction; M54.2:Cervicalgia TECHNIQUE: A series of sagittal and axial multisequence images of the cervical spine were obtained using standard protocol without the administration of gadolinium-based intravenous contrast. FINDINGS: Prevertebral and paraspinal soft tissues are unremarkable. Limited evaluation of the posterior fossa contents demonstrates no gross abnormality. Seven nonrib-bearing cervical type vertebrae are identified. Reversal of the normal cervical lordosis centered at C4. There is a 3 mm anterolisthesis of C3-C4, and 2 mm anterolistheses of C4-5 and C7-T1. The vertebral bodies demonstrate normal height and signal. There are mild degenerative changes manifested by osteophytosis. No suspicious focal lesions. Moderate degenerative changes of the intervertebral discs are noted, manifested by signal and height loss. The visualized portions of the spinal cord are normal in signal and morphology. Level by level evaluation: C1-C2: Atlanto-axial relationship is within normal limits. C2-C3: No significant disc herniation or central canal stenosis. No significant neural foraminal narrowing. C3-C4: A disc osteophyte complex and 2-3 mm anterolisthesis are present which exert mass effect on the ventral aspect of the thecal sac, and partially efface the CSF overlying the cord. Bony osteophytic spurs are present near the neural foramen bilaterally, right greater than left. No stenosis of the central canal. Facet and uncovertebral hypertrophy result in moderate-severe right and moderate left neural foraminal narrowing. C4-C5: An 3 mm anterolisthesis, in conjunction with posterior element hypertrophy, results in at least moderate stenosis of the central canal, which measures as narrow as 7 mm in anteroposterior dimension. Facet and uncovertebral hypertrophy result in moderate bilateral neural foraminal narrowing. C5-C6: A small disc osteophyte complex and 3 mm anterolisthesis result in severe stenosis of the central canal which measures as narrow as 6 mm in anteroposterior dimension. Facet and uncovertebral hypertrophy result in severe right and moderate left neural foraminal narrowing. C6-C7: A disc herniation is present which exerts mass effect on the ventral aspect of the thecal sac, and partially effaces the CSF overlying the cord. No stenosis of the central canal. Facet and uncovertebral hypertrophy result in moderate right and mild left neural foraminal narrowing. C7-T1: A 2 mm anterolisthesis results in mild unroofing of the intervertebral disc. No central canal stenosis. No significant neural foraminal narrowing. IMPRESSION: Multilevel degenerative changes of the cervical spine, worst at C4-5 and C5-6 where there are moderate and severe central canal stenoses, respectively. No underlying cord signal abnormality. Varying degrees of neural foraminal narrowing are present throughout the cervical spine, detailed above. I personally viewed and interpreted these images and I have reviewed and approved this report. SPINE LUMBOSACRAL 5 Observed: 10/06/2017 Status: F Source: [facility] VIEWS 5:16 PM [facility] REPOSITORY EXAM: XR SPINE LUMBOSACRAL 5 VIEWS, 10/06/2017 16:39 PM COMPARISON: August 24, 2017 CLINICAL INDICATIONS: standing ap, lateral, flexion and extension RELEVANT CLINICAL HISTORY: M48.062:Spinal stenosis, lumbar region with neurogenic claudication FINDINGS: 5 images obtained flexion and extension views were obtained There are 5 lumbar vertebral bodies identified. Bony mineralization is diminished. There is a stable compression deformity of L2. There is multilevel disc disease, osteophyte formation and facet disease. On the frontal film there is a dextroscoliotic curve. No spondylolysis or spondylolisthesis. No spinal instability with flexion or extension. An aortic and iliac graft is in place. IMPRESSION: Osteopenia Multilevel disc disease, osteophyte formation and facet disease No spinal instability with flexion or extension Stable compression deformity of L2 with a dextroscoliotic curve. Observed: 10/06/2017 Status: F Source: [facility] TYPE AND CROSS - 2:55 PM [facility] PRE-OP [facility] REPOSITORY ABO/RH(D): A NEGATIVE ANTIBODY SCREEN: NEGATIVE UNIT NUMBER: [id number] BLOOD COMPONENT TYPE: Apheresis Red Cells, Leukoreduced_[id number] STATUS OF UNIT: REL FROM [facility]OC TRANSFUSION STATUS: OK TO TRANSFUSE CROSSMATCH RESULT: Electronically Compatible Performed By: #### XMPO #### [facility] [address] [place] [address] [address] [place] [address] URINALYSIS W REFLEX Collected: 10/06/2017 Status: F Source: [facility] CULTURE -DEN RD 2:14 PM [facility] REPOSITORY TYPE CODE TESTS RESULT OUT OF RANGE REFERENCE UNITS LAB WEB CONTENT COORDINATOR Clear Appearance Urine Clear LAB SPGR 1.001-1.035 Specific [place] urine 1.020 LAB UGL Negative mg/dL Glucose Urine Negative LAB UKET Negative Ketones Abnormal Urine Trace LAB UBLD Negative Blood Urine Negative LAB UPH 5.0-7.0 pH Urine 5.5 LAB UPR Negative mg/dL Protein Urine Negative LAB UNTR Negative Nitrites Urine Negative LAB ULEU Negative Leukocyte Abnormal Esterase Trace LAB COLR Yellow Color Yellow LAB UURO <2.0 EU/dL Urobilinogen 0.2 urine LAB UWBC 0-5 /HPF WBC Urine Abnormal 6-9 LAB URBC 0-2 /HPF RBC Urine 0-2 LAB BACT Absent Bacteria Abnormal Trace LAB EPIS /HPF Squamous Epithelial 1+ LAB UCOM COMMENT URINE Mucus Performed By: #### URN1C #### [facility], [place] [address] [place], [place] [address] Observed: 10/06/2017 Status: F Source: [facility] URINE CULTURE -E 2:14 PM [facility] REPOSITORY SOURCE: URINE-CLEAN CATCH: RESULT: NO SIGNIFICANT GROWTH. Routine cultures are evaluated for significant uropathogens >10,000 CFU/mL. REPORT STATUS: 10/08/2017 FINAL Performed By: #### UR #### [address] [address] Blood Cultures processed at: [facility] PT/PTT - STAR Collected: 10/06/2017 Status: F Source: [facility] 2:13 PM [facility] REPOSITORY TYPE CODE TESTS RESULT OUT OF RANGE REFERENCE UNITS LAB PT 11.9-14.2 sec PT 13.5 LAB INR 0.9-1.1 INR 1.0 LAB PTT 24.0-34.3 sec PTT 25.6 Performed By: #### PTPTTC, A1CB #### [facility] [address] [place] [address] [facility] [address] [place], [place] [address] #### CBCDFM, CAC, CHM7C, IPC, MGCC #### [facility] [address] [place] [id number] CBC WITH DIFF Collected: 10/06/2017 Status: F Source: [facility] 2:13 PM [facility] REPOSITORY TYPE CODE TESTS RESULT OUT OF REFERENCE UNITS RANGE LAB WBC 3.98-10.04 K/uL WBC Count 8.86 LAB RBC 3.93-5.22 M/uL RBC Count 3.94 LAB HGB 11.2-15.7 g/dL Hemoglobin 12.3 LAB HCT 34.1-44.9 % Hematocrit 39.2 LAB MCV 79.4-94.8 fL Mean Cell 99.5 High Volume LAB MCH 25.6-32.2 pg Mean Cell 31.2 Hgb LAB MCHC 32.2-35.5 g/dL Mean Cell 31.4 Low Hgb Conc LAB RDW 11.7-14.4 % RBC 14.4 Distribution LAB PLT 182-369 K/uL Platelet 308 Count LAB MPV 9.4-12.3 fL Mean 9.9 Platelet Volume LAB NRBC 0.0-0.2 /100 WBC NUCLEATED 0.0 RBC LAB DTYPE Electronic DIFFERENTIAL TYPE Differential LAB IGRE % IMMATURE 0.3 GRANS % LAB SEGS % NEUTROPHIL 59.2 SEGMENTED LAB LYM % LYMPHOCYTE 27.2 % LAB MON % MONOCYTE % 9.9 LAB EOS % EOSINOPHIL 2.8 % LAB BASO % BASOPHIL % 0.6 LAB IGABS 0.00-0.03 K/uL IMMATURE <0.04 High GRANS ABSOLUTE LAB SBANS 1.56-6.13 K/uL SEGS + 5.24 Bands,Absolute LAB ALYM 1.18-3.74 K/uL Abs Lymph 2.41 LAB AMONO 0.24-0.86 K/uL Abs Turner 0.88 High LAB AEOS 0.04-0.36 K/uL Abs Eos 0.25 LAB ABASO 0.01-0.08 K/uL Abs Baso 0.05 Performed By: #### MARINAC, A1CB #### [facility] [address] [place] [address] [address] [place] [address] #### CBCDFM, CAC, CHM7C, IPC, MGCC #### [facility] [address] [place] [address] CALCIUM - [address] Collected: 10/06/2017 Status: F Source: [facility] LAB 2:13 PM [facility] REPOSITORY TYPE CODE TESTS RESULT OUT OF REFERENCE UNITS RANGE LAB CA 8.6-10.5 mg/dL Calcium 9.9 Performed By: #### RENAY, A1CB #### [facility] [address] [place] [address] #### CBCDFM, CAC, CHM7C, IPC, MGCC #### [facility] [address] [place] [address] CHEM 7 - [address] Collected: 10/06/2017 Status: F Source: [facility] LAB 2:13 PM [facility] REPOSITORY TYPE CODE TESTS RESULT OUT OF REFERENCE UNITS RANGE LAB NA 133-143 mmol/L Sodium 140 LAB K 3.5-5.0 mmol/L Potassium 4.1 LAB CL 98-108 mmol/L Chloride 105 LAB CO2 22-30 mmol/L Carbon Dioxide 27 LAB BUN 7-22 mg/dL BUN 16 LAB CREA 0.50-1.20 mg/dL Creatinine 0.98 LAB GLUC 70-99 mg/dL Glucose 92 LAB GAP 7-17 mmol/L Anion Gap 12 LAB GFR >60 mL/min/1.73 Low sqM Est GFR,non 55 [place] LAB GFRA >60 mL/min/1.73 sqM Est GFR, >60 LAB OSMC 278-305 mOsm/kg Osmolality 294 (Calc) Performed By: #### PTPTTC, A1CB #### [facility] [address] [place] [address] #### CBCDFM, CAC, CHM7C, IPC, MGCC #### [facility] [address] [place] [id number] INORG PHOSPHATE - Collected: 10/06/2017 Status: F Source: [facility] [address] LAB 2:13 PM [facility] REPOSITORY TYPE CODE TESTS RESULT OUT OF REFERENCE UNITS RANGE LAB IP 2.2-4.6 mg/dL Inorg Phosphate 3.4 Performed By: #### PTPTTC, A1CB #### [facility] [address] [place] [address] [address] [place] [address] #### CBCDFM, CAC, CHM7C, IPC, MGCC #### [place] [address] MAGNESIUM - [address] Collected: 10/06/2017 Status: F Source: [facility] LAB 2:13 PM [facility] REPOSITORY TYPE CODE TESTS RESULT OUT OF REFERENCE UNITS RANGE LAB MG 1.6-2.6 mg/dL Magnesium 2.2 Performed By: #### PTPTTC, A1CB #### [facility] [address] [place] [address] [address] [place] [address] #### CBCDFM, CAC, CHM7C, IPC, MGCC #### [facility] [address] [place] [address] HEMOGLOBIN A1C Collected: 10/06/2017 Status: F Source: [facility] 2:13 PM [facility] REPOSITORY TYPE CODE TESTS RESULT OUT OF REFERENCE UNITS RANGE LAB A1C 4.7-5.6 % Hemoglobin A1C 5.6 LAB EAG mg/dL Estimated 114 Average Glucose Performed By: #### PTPTTC, A1CB #### [facility] [address] [place] [address] [facility] [address] [place], [place] [id number] #### CBCDFM, CAC, CHM7C, IPC, MGCC #### [address] [address] Observed: 10/06/2017 Status: F Source: [facility] SCREEN: RESP STAPH 2:13 PM [facility] (HIGH RISK SURGERY) [facility] NARES: Negative Negative This test was performed using a real time PCR assay. Results should be interpreted in conjunction with other clinical and laboratory findings. A positive result does not necessarily indicate the pr esence of viable organism. This test should not be used as a test of cure. For E-swab specimens, this test was developed and its performance characteristics determined by the Clinical Microbiology Laboratory at [facility]. It has not b een cleared or approved by the FDA.The laboratory is regulated under CLIA as qualified to perform high-complexity testing. This test is used for clinical purposes. It should not be regarded as investigational or for research. Performed By: #### SCRSB #### [address] [address] ABD AORTIC/IVC DUPLEX Observed: 09/12/2017 Status: F Source: [facility] 12:17 PM [facility] REPOSITORY [facility] Cardiovascular Services [address] [place] [address] Abd Aortic/IVC Duplex scan 09/10/17 0757 MR#: [id number] Acct: [id number] Name: MYESHA CHRISTINA Rep #: [id number] : 1940 76 From: Ruslan Claire MD Attending Dr: GIANFRANCO POWERS MD Status: REG CLI Ordering Dr: Gianfranco Powers MD Date: 09/10/17 Location: CVS Sex: F C Admitted: Reason For Study: AAA with repair Aorta Measurements Aorta Doppler Measurements Proximal aorta measures2.0 x 1.9cm. in cross- Peak systolic flow velocities within the proximal sectional axis. aorta measure 32.6 cm/sec. Proximal aorta measures1.9cm. in longitudinal Prox stent - 92.1 cm/s axis. Dist stent - 95.8 cm/s Mid/Dist AAA measuring 4.6 x 4.4 cm with visible Post stent - 42.9 cm/s. patent stent. Left Iliac Artery Left iliac artery measures 1.1 cm. in the longitudinal axis. Left iliac artery measures 1.2 x 1.2 cm. in the cross-sectional axis. Peak systolic velocity in the left iliac artery measures 50.4 cm/sec. Right Iliac Artery Right iliac artery measures 1.3 cm. in the longitudinal axis. Right iliac artery measures 1.2 x 1.3 cm. in the cross-sectional axis. Peak systolic velocity in the right iliac artery measures 51.5 cm/sec. Procedure Aorta IVC Iliac vasculature or bypass grafts [id number]. Exam performed in department. Interpretation Summary 1. 4.6cm aortic aneurysm. Ordering Physician: GIANFRANCO POWERS Referring Physician: GIANFRANCO POWERS Performed By: Meme Arguello RVT 09/12/17 121 Date Ruslan Claire MD CC: GIANFRANCO POWERS MD; Dianna Stokes DO Date Dictated: 09/10/17 0757 Date Transcribed: 09/12/171216 Patroller: Signed ORTHOPEDIC VISIT Observed: 08/25/2017 Status: F Source: CRICKET REPORT 3:36 PM [facility] REPOSITORY [facility] Orthopaedics AND Sports Medicine [address] [place] [address] OFFICE VISIT Date of Service: 08/24/17 MR#: [id number] Acct: [id number] Name: MYESHA CHRISTINA Duran Rep #: [id number] : 1940 Provider: Michelle Bernstein MD Age/Sex: 76/F [place] [facility] [place]: Signed Intake Intake Visit Reasons: LOW BACK Is patient in pain?: Yes Pain scale (1-10): 10 Allergies atorvastatin [From Lipitor] Adverse Reaction (Severe, Verified 08/24/17 10:05) myalgias ciprofloxacin [From Cipro] Adverse Reaction (Unknown, Verified 08/24/17 10:05) Unknown Medications amlodipine 2.5 mg tablet 2.5 mg PO QDAY #90 tab 06/18/17 [Rx Confirmed 06/30/17] aspirin 81 mg tablet,delayed release 81 mg PO QDAY tab 06/28/17 [History Confirmed 06/30/17] clopidogrel 75 mg tablet 150 mg PO QDAY 06/28/17 [History Confirmed 06/30/17] coenzyme Q10 100 mg capsule 100 mg PO QDAY 06/28/17 [History Confirmed 06/30/17] gabapentin 300 mg capsule 300 mg PO QDAY cap 06/28/17 [History Confirmed 06/30/17] lisinopril 20 mg tablet 20 mg PO QDAY 06/28/17 [History Confirmed 06/30/17] metoprolol succinate ER 25 mg tablet,extended release 24 hr 25 mg PO QDAY tab 06/28/17 [History Confirmed 06/30/17] nitroglycerin 0.4 mg sublingual tablet 0.4 mg SUBLINGUAL Q5M PRN 06/28/17 [History Confirmed 06/30/17] rizatriptan 10 mg tablet 10 mg PO QDAY PRN tab 06/28/17 [History Confirmed 06/30/17] rosuvastatin 10 mg tablet 10 mg PO QDAY 06/28/17 [History Confirmed 06/30/17] sertraline 50 mg tablet 50 mg PO QDAY 06/28/17 [History Confirmed 06/30/17] cholecalciferol (vitamin D3) 50,000 unit capsule 50,000 unit PO .2xweek cap 06/30/17 [History Confirmed 06/30/17] hydrocodone 5 mg-acetaminophen 325 mg tablet 1 tab PO QDAY PRN tab 06/30/17 [History Confirmed 06/30/17] PFSH Medical History Presence of stent in coronary artery (Chronic 11/2010) SVT (supraventricular tachycardia) (Acute) Palpitations (Acute) Mitral valve annular calcification (Chronic) Heart murmur, systolic (Chronic) Premature ventricular contraction (Acute) Atherosclerotic heart disease of [place] coronary artery without angina pectoris (Chronic) HLD (hyperlipidemia) (Chronic) Benign essential HTN (Chronic) Abdominal aortic aneurysm without rupture (Chronic) COPD (chronic obstructive pulmonary disease) (Acute) Family history of ischemic heart disease (Acute) History of upper gastrointestinal bleeding (Acute) Osteoarthritis (Acute) Peptic ulcer disease (Acute) Spinal stenosis (Acute) Family history of hypertension (Chronic) Family history of sudden cardiac (Chronic) CAD (coronary artery disease) (Inactive) COLD (chronic obstructive lung disease) (Inactive) History of upper gastrointestinal bleeding (Inactive) Hx of peptic ulcer (Inactive) Surgical History History of hemorrhoidectomy (Resolved) Hx of appendectomy (Resolved) Family History Mother Sudden cardiac Father CAD (coronary artery disease) CVA (cerebral vascular accident) Social History Smoking Status: Former smoker alcohol intake: never substance use type: does not use HPI LOW BACK: Details: MYESHA CHRISTINA is a 76 year old RHD F here today referred by Dr Adame for low back pain. Patient notes that she has had low back pain for many years with her pain progressively worsening recently. She notes that she has 25% back pain and 75% left anterior thigh and anterior calf pain and fatigue. She has some left medial thigh dysesthesia and bilateral plantar foot cramping. Her pain is worse with walking and standing and improved with sitting and laying or bending forward. She has had physical therapy in 05/2017 without relief. She ambulates with a cane. She has seen chiropractor, which was not helpful. Patient has seen Dr Adame for a left L4-L5, L5-S1 epidural injection on 05/06/17 and a right L5-S1 epidural injection in June which were not helpful. Patient is taking neurontin and Ola for pain. She has been on norco for [address] Adame prescribes. She deneis bowel or bladder issues or difficulty with hand dexterity. She denies constitutional symptoms. She has had a history of AAA with stenting in 2014. She is followed by a vascular surgeon, last seen in 11/2016. She also has cardiac stents placed in 2010, for which she is on plavix. She has a russian rubber and had an echocardiograph in 06/2017. She takes vit D. 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 She does not smoke. ROS Const Reports system reviewed and no additional complaints, except as docu Eyes Reports system reviewed and no additional complaints, except as docu ENT Reports system reviewed and no additional complaints, except as docu Card Reports system reviewed and no additional complaints, except as docu Resp Reports system reviewed and no additional complaints, except as docu GI Reports system reviewed and no additional complaints, except as docu Reports system reviewed and no additional complaints, except as docu Musc Reports back pain, Reports radiating pain into limb, Reports muscle weakness Skin/Breast Reports system reviewed and no additional complaints, except as docu Neuro Yes system reviewed and no additional complaints, except as docu Psych Reports system reviewed and no additional complaints, except as docu Endo Reports system reviewed and no additional complaints, except as docu Ortho Exam Spine Neuro: Yes 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 normal tandem gait) Motor: strength 5/5 throughout Sensory Exam: no sensory deficits noted DTR's: Rt Triceps: 2+, Lt Triceps: 2+, Rt Biceps: 2+, Lt Biceps: 2+, Rt Brachioradialis: 2+, Lt Brachioradialis: 2+, Rt Patellar: 2+, Lt Patellar: 2+, Rt Ankle: 2+, Lt Ankle: 2+ Plantar Reflexes: Downgoing: bilateral Coordination: Romberg test normal, tandem gait normal Details: pain with axial loading to the shoulders into her spine. SPINE TESTING CERVICAL THORACIC LUMBAR Musculoskeletal General: Yes normal gait and deformity Cervical Spine: cervical ROM normal Thoracic/Lumbar Spine: straight leg raise negative bilaterally, pain with thoraco-lumbar ROM, paraspinal tenderness, thoraco-lumbar ROM limited Strength 0=absent - 5=normal Deltoid R (C5): 5, Deltoid L (C5): 5, R Bicep (C5-6): 5, L Bicep (C5-6): 5, R Wrist Extensor (C6): 5, L Wrist Extensor (C6): 5, R Tricep (C7): 5, L Tricep (C7): 5, R Finger Flexors (C8): 5, L Finger Flexors (C8): 5, R First Dorsal Interossei (C8): 5, L First Dorsal Interossei (C8): 5, R Hip Flexor (L1-3): 5, L Hip Flexor (L1-3): 5, R Quadriceps (L2-4): 5, L Quadriceps (L2-4): 5, R Anterior Tibialis (L4-5): 5, L Anterior Tibialis (L4- 5): 5, R Hamstrings (L5-S1): 5, L Hamstrings (L5-S1): 5, GS (S1): 5, L GS (S1): 5, R Peroneals (S1): 5, L Peroneals (S1): 5 Assessment AND Plan Problems 1. Spinal stenosis, lumbar region with neurogenic claudication M48.062 Plan Imaging: XR lumbar spine reveals diffuse spondylosis with degenerative lumbar scoliosis MRI lumbar spine 04/21/2017 reveals diffuse spondylosis with L3-4, L4-5 and L5-S1 central and bilateral lateral recess stenosis. I/R/P: 1. back pain 2. left leg pain 3. history of AAA with stent 4. history of cardiac stent on plavix Ms. Christina presents with back pain and left leg pain with neurogenic claudication in the setting of lumbar spinal stenosis with degnerative scoliosis. The natural history and course of the symptomatology of spinal stenosis and scoliosis was discussed in detail with the patient. I answered all questions regarding the mode of onset, pathophysiology, symptoms, imaging findings, treatment options (both non-operative and operative) regarding her diagnosis. She has failed nonoperative treatment to include physical therapy, medications and injections. Discussed L2-ilium versus more limited surgery, to include a L3-S1 laminectomy with instrumented fusion, possible interbody graft, allograft and autograft. Given her comorbidities, the patient wishes to proceed with the limited procedure, understanding the risks of progression of deformity. She will need an MRI cervical spine given her upper motor neuron findings of myers's. She will need OPAC and follow up at [facility] for surgery at [facility] in [place]. Plan of care discussed. All questions answered. The patient verbalized understanding of the disease process and agreed to the treatment plan formulated for this visit. Orders Orders: Coding Level of Care Code Off vis,new,level 4 Diagnoses Spinal stenosis, lumbar region with neurogenic claudication M48.062 08/25/17 1536 <Electronically signed by Michelle Bernstein MD> Date Michelle Bernstein MD [facility] Signature: Date (if applicable) CC: Fouzia Adame MD L/S SPINE COMP/W Observed: 08/24/2017 Status: F Source: [place] BENDING VIEWS 9:56 AM [facility] REPOSITORY [facility] Imaging Services [address] [place] [address] L/S Spine Comp/w Bending Views MR#: [id number] Acct: [id number] Name: MYESHA CHRISTINA Rep #: [id number] : 1940 F 76 From: Corbin Gandhi MD PCP: Dianna Stokes DO Status: REG CLI Study: L/S Spine Comp/w Bending Views Date of Exam: 08/24/17 Exam# [id number] Ordering Dr: Michelle Bernstein MD STUDY: X-RAY - LUMBAR SPINE REASON FOR EXAM: Female, 76 years old. Low back pain TECHNIQUE: 7 view(s) of the lumbar spine were obtained. COMPARISON: None FINDINGS: Normal lumbar lordosis. There is no substantial scoliosis. There is a normal alignment of the vertebrae. Aortobiiliac stent graft. Degenerative findings of the hips. Loss of intervertebral disc height at L5-S1. Vacuum disc phenomenon at L5-S1. There is multilevel endplate spondylosis of the lumbar vertebrae. There is multi-level degenerative disc disease with multi-level disc space narrowing. There are atherosclerotic vascular calcifications. The soft tissue structures are unremarkable. RAD/L/S Spine Comp/w Bending Views IMPRESSION: Degenerative changes of the spine, as detailed above. Electronically Signed: Corbin Gandhi MD at 17:07 EDT , Service support , CC: Michelle Bernstein MD; Dianna Stokes DO Patroller: Signed CARDIOLOGY VISIT Observed: 06/30/2017 Status: F Source: [place] REPORT 5:51 PM [facility] REPOSITORY [facility] [address] [place] [address] OFFICE VISIT Date of Service: 06/30/17 MR#: [id number] Acct: [id number] Name: MYESHA CHRISTINA Rep #: [id number] : 1940 Provider: Hari Macias MD Age/Sex: 76/F Location: [facility] [place] [facility] Status: Signed HPI HPI Details: MYESHA CHRISTINA, is a 76 F who presents to the office today for for outpatient cardiovascular follow-up. From a cardiovascular standpoint, she states she has been doing well with respect and not having ongoing chest discomfort, difficulty breathing, ongoing palpitations, near syncope or syncope. She states her main concern is her chronic back discomfort for which she is pending an outpatient consultation for consideration for some form of back surgery . She did have an ECG today based on her cardiovascular history and the possibility of upcoming noncardiac surgery. She was noted to be in sinus rhythm. She had no acute ECG changes. As you may recall she had a transthoracic echocardiogram performed on 02/02/2017. She had left ventricular regional wall motion abnormalities with an overall preserved LVEF of 65%. There was mild left atrial enlargement with mild mitral annular calcification, mild MR, mild to moderate TR, and mild aortic valve stenosis. There was trivial NV. She had a calcified aortic root. Her estimated RV systolic pressure was 25 mmHg. She had a stress test performed on 11/28/2013. This was a pharmacologic stress nuclear imaging study. It was considered negative for myocardial ischemia or previous myocardial injury/infarction. She had a diagnostic cardiac catheterization performed on 11/21/2010. At that time her left ventricle had hypokinesis of the basal inferior segment with an estimated LVEF of 60%, the left main was normal, the LAD had proximal 50-75% stenosis, the left circumflex had distal subtotal occlusion leading to distal small vascular branches filling late and potentially from an element of right to left collateral flow. The OM 2 had proximal 95% stenosis. The RCA was a dominant vessel with proximal 75% stenosis and subsequent proximal to mid 95% stenosis. There was [id number] collateral flow to the LCx distribution. A PINEDA vessel was noted to be patent. She has had previous percutaneous intervention in the past. This was performed at [facility] in [place], [place]. At that point in time she received a successful PCI of the OM vessel with a drug-eluting stent superimposed upon notation of a previous PCI and patent stent to the RCA. She also had an abdominal CT scan performed on 11/01/2014. At that point time according to the report she had an aortobiiliac stent graft with no evidence of endoleak. Intake Vital Signs06/30/17 Height 5 ft 3 in 06/30/17 Weight: 156 lb 4 oz 06/30/17 Body Mass Index (BMI) 27.6 06/30/17 Blood Pressure 126/78 Intake Visit Reasons: 6 M FU Allergies atorvastatin [From Lipitor] Adverse Reaction (Severe, Verified 06/30/17 13:11) myalgias ciprofloxacin [From Cipro] Adverse Reaction (Unknown, Verified 06/30/17 13:11) Unknown Medications amlodipine 2.5 mg tablet 2.5 mg PO QDAY #90 tab 06/18/17 [Rx Confirmed 06/30/17] aspirin 81 mg tablet,delayed release 81 mg PO QDAY tab 06/28/17 [History Confirmed 06/30/17] clopidogrel 75 mg tablet 150 mg PO QDAY 06/28/17 [History Confirmed 06/30/17] coenzyme Q10 100 mg capsule 100 mg PO QDAY 06/28/17 [History Confirmed 06/30/17] gabapentin 300 mg capsule 300 mg PO QDAY cap 06/28/17 [History Confirmed 06/30/17] lisinopril 20 mg tablet 20 mg PO QDAY 06/28/17 [History Confirmed 06/30/17] metoprolol succinate ER 25 mg tablet,extended release 24 hr 25 mg PO QDAY tab 06/28/17 [History Confirmed 06/30/17] nitroglycerin 0.4 mg sublingual tablet 0.4 mg SUBLINGUAL Q5M PRN 06/28/17 [History Confirmed 06/30/17] rizatriptan 10 mg tablet 10 mg PO QDAY PRN tab 06/28/17 [History Confirmed 06/30/17] rosuvastatin 10 mg tablet 10 mg PO QDAY 06/28/17 [History Confirmed 06/30/17] sertraline 50 mg tablet 50 mg PO QDAY 06/28/17 [History Confirmed 06/30/17] cholecalciferol (vitamin D3) 50,000 unit capsule 50,000 unit PO .2xweek cap 06/30/17 [History Confirmed 06/30/17] hydrocodone 5 mg-acetaminophen 325 mg tablet 1 tab PO QDAY PRN tab 06/30/17 [History Confirmed 06/30/17] PFS Medical History Presence of stent in coronary artery (Chronic 11/2010) SVT (supraventricular tachycardia) (Acute) Palpitations (Acute) Mitral valve annular calcification (Chronic) Heart murmur, systolic (Chronic) Premature ventricular contraction (Acute) Atherosclerotic heart disease of [place] coronary artery without angina pectoris (Chronic) HLD (hyperlipidemia) (Chronic) Benign essential HTN (Chronic) Abdominal aortic aneurysm without rupture (Chronic) COPD (chronic obstructive pulmonary disease) (Acute) Family history of ischemic heart disease (Acute) History of upper gastrointestinal bleeding (Acute) Osteoarthritis (Acute) Peptic ulcer disease (Acute) Spinal stenosis (Acute) Family history of hypertension (Chronic) Family history of sudden cardiac (Chronic) CAD (coronary artery disease) (Inactive) COLD (chronic obstructive lung disease) (Inactive) History of upper gastrointestinal bleeding (Inactive) Hx of peptic ulcer (Inactive) Surgical History History of hemorrhoidectomy (Resolved) Hx of appendectomy (Resolved) Family History Mother Sudden cardiac Father CAD (coronary artery disease) CVA (cerebral vascular accident) Social History Smoking Status: Former smoker alcohol intake: never substance use type: does not use ROS Const Const: Negative for fatigue, weakness, weight gain, weight loss, frequent falls or excessive sweating Eyes Eyes: Negative for change in vision, blurry vision or transient loss of vision ENT ENT: Negative for dizziness, Negative for balance problems Cardio Chest Pain: No Palpitations: Positive for No Edema: None Muscle aches with walking: Left Additional Details: Patient has been dealing with back issues, spinal stenosis,bulging discs, arthritis. Patient seeing Dr. Adame for pain management. Resp Respiratory: Negative for SOB with activity or SOB at rest GI GI: Negative vomiting or vomiting blood/hematemesis : Negative for hematuria Musc Musc: Negative for balance problems, muscle aches/ myalgia, muscle weakness or joint pain Skin Skin: Negative non-healing lesions or rash Neuro Neuro: Negative for weakness, Negative for blurry vision, Negative for dizziness, Negative for lightheadedness, Negative for frequent falls, Negative for orthostatic symptoms Spencer Hematologic/Lymphatic: Negative for easy bleeding Endo Endo: Negative for fatigue or excessive sweating Psych Psych: Negative for anxiety or depression Allergy Allergy/Immunology: Negative for hives, Negative for rash Cardiology Exam Const Appearance: cooperative, healthy appearing, comfortable, no acute distress, well developed and well groomed Nutritional Appearance: average body habitus Orientation: alert, awake and oriented x3 Head Head: normal to inspection, normocephalic and atraumatic Ears: hearing grossly normal bilaterally Nose: external nose normal Face and Sinus: face symmetric Mouth: oral mucosae normal Eyes General: appearance normal, both eyes and all related structures Eyelids: eyelids normal Conjunctivae: conjunctivae normal Pupils: PERRL EOM: EOM intact bilaterally Neck Neck: normal visual inspection and full ROM Carotids: normal carotid upstroke Chest Chest inspection: normal inspection of the chest and symmetric chest movement Auscultation: Bilateral: Clear to Auscultation Cardio Palpation: normal PMI Rate: regular rate Rhythm: regular rhythm Heart sounds: S1 normal, S2 normal and positive S4 Murmur: Grade 3/6, harsh, mid systolic, LLSB, LVOT and sternal notch GI GI: normal to inspection, soft, no hepatosplenomegaly and bowel sounds present Neuro General: alert, awake and oriented x3 Skin Skin: no rashes or lesions noted Extremities Pulses: Normal: Right Radial Pulse, Left Radial Pulse Lower Extremity Edema: None: Bilateral Musculoskel back discomfort Psych Psychological: normal affect Assessment AND Plan 1. Heart murmur, systolic R01.1 Plan She continues with a cardiac murmur. This appears compatible with her underlying valvular heart disease. She will continue to be followed. 2. 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 This will be followed by history, exam, and echocardiogram in the future. 3. Atherosclerosis of [place] coronary artery of [place] heart without angina pectoris I25.10 PTCA/RAYSHAWN to L CFX AND RCA 11/24 Plan She has had no obvious recurrence of angina pectoris. She will continue risk factor modification and medical management. Orders Orders: 4. Presence of stent in coronary artery Z95.5 PTCA/RAYSHAWN to L CFX AND RCA 11/24 Plan She does have previous stents in both the RCA and the LCx distribution. Again she appears without acute symptoms. She will continue risk factor modification and medical management. Orders Orders: 5. SVT (supraventricular tachycardia) I47.1 Plan She has had no obvious palpitations or rapid rates. She will continue to be followed with respect any history of underlying cardiac dysrhythmias. Of note she did have a Holter monitor performed in September 2010. At that time she was in sinus rhythm with an average heart rate of approximately 92 bpm. She had a rare PACs and PVCs and one 5 beat run of a probable atrial tachycardia. She had no wide-complex runs. There were no prolonged pauses. Orders Orders: 6. Abdominal aortic aneurysm without rupture I71.4 Plan She continues to follow with [facility] for her abdominal aortic aneurysm repair. 7. Hyperlipidemia, unspecified hyperlipidemia type E78.5 Plan Her lipid labs were recently assessed. They appear to be under good control. She will continue medical therapy and follow-up. 8. Benign essential HTN I10 Plan Her blood pressure appears to be under good control as well. Again she will continue medical management and follow-up. Plan Detail Additional Comments She will be scheduled for an outpatient visit approximately 6 months unless needed sooner. In the interim if she elects to proceed with noncardiac surgery consideration will be given at that time as to whether she requires further cardiac evaluation prior to noncardiac surgery or not. She was asked to keep the office informed with respect to her plans with respect to possible noncardiac surgery. Thank you for allowing me to participate in the care of your patient. Please don't hesitate to call if any issues arise. This note was generated using a voice recognition system and there may be incorrect words, spelling or punctuation that were not noted when reviewing the office note prior to saving. 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 transplanted heart: [place] heart Presence of stent in coronary artery Z95.5 SVT (supraventricular tachycardia) I47.1 Abdominal aortic aneurysm without rupture I71.4 Hyperlipidemia, unspecified hyperlipidemia type E78.5 Hyperlipidemia type: unspecified Benign essential HTN I10 Coding Level of Care Code Off vis,est,level 4 Diagnoses Heart murmur, systolic R01.1 Nonrheumatic aortic valve stenosis I35.0 Cardiac valve disease etiology: nonrheumatic Atherosclerosis of [place] coronary artery of [place] heart without angina pectoris I25.10 [place] vs. transplanted heart: [place] heart Presence of stent in coronary artery Z95.5 SVT (supraventricular tachycardia) I47.1 Abdominal aortic aneurysm without rupture I71.4 Hyperlipidemia, unspecified hyperlipidemia type E78.5 Hyperlipidemia type: unspecified Benign essential HTN I10 06/30/17 1751 <Electronically signed by Hari Macias MD> Date Hari Macias MD Cosigner Signature: Date (if applicable) CC: Dianna Stokes DO 12 LEAD EKG PERFORMED Observed: 06/30/2017 Status: F Source: [place] [facility] 1:25 PM [facility] REPOSITORY [facility] [address] [facility] [place] [address] 12 Lead EKG performed by [facility] 06/30/17 1324 MR#: [id number] Acct: [id number] Name: MYESHA CHRISTINA Rep #: [id number] : 1940 76 From: Hari Macias MD Attending Dr: Hari Macias MD Status: DEP AMB Ordering Dr: Hari Macias MD Date: 06/30/17 Location: [facility] [place] [facility] Sex: F C Admitted: BMS/12 Lead EKG performed by [facility] ECG Report Interpretation Sinus Rhythm Electronically signed on 06/30/2017 at 17:53 by Hari Macias 06/30/17 1759 Date Hari Macias MD CC: Dianna Stokes DO Date Dictated: 06/30/171323 Date Transcribed: 06/30/171323 Patroller: PM Signed LIVER PROFILE Collected: 06/25/2017 Status: F Source: [place] 8:31 AM [facility] REPOSITORY Order Comment: Order Date: 01/20/17 Order Info: 0788-1 - *Hepatic Function Panel Order Info: 91150-3 - *Lipid Profile CC PCP Comments: 12 hours fasting, may have water. TYPE CODE TESTS RESULT OUT OF RANGE REFERENCE UNITS LAB L501.1500 6.4-8.2 g/dL Normal T PROT 7.9 LAB L501.1800 3.2-5.0 g/dL Normal ALB 3.5 LAB L501.1950 2.2-4.2 g/dL High GLOB 4.4 LAB L501.4100 15-37 U/L Normal AST 18 LAB L501.4305 45-117 U/L Normal ALK P 84 LAB L501.4405 13-56 U/L Normal ALT 18 Result Comment: Please note revised ALT reference range effective 2017. LAB L501.4600 0.20-1.00 mg/dL Normal T BILI 0.30 LAB L501.4700 0.00-0.30 mg/dL Normal D BILI 0.11 Performed By: #### L500.3400 #### [facility] [place], [address] LIPID PROFILE Collected: 06/25/2017 Status: F Source: [place] 8:31 AM [facility] REPOSITORY Order Comment: Order Date: 01/20/17 Order Info: 0788-1 - *Hepatic Function Panel Order Info: 01022-6 - *Lipid Profile CC PCP Comments: 12 hours fasting, may have water. TYPE CODE TESTS RESULT OUT OF RANGE REFERENCE UNITS LAB L501.4900 200 mg/dL Normal CHOL 148 Result Comment: <200 mg/dL Desirable 200-240 mg/dL Borderline >240 mg/dL High Risk LAB L501.5000 mg/dL Normal TRIG 77 Result Comment: The drugs N-Acetylcysteine and Metamizole may falsely depress this assay. Serum Triglycerides Reference Interval Normal <150 mg/dL Borderline high 150 - 199 mg/dL High 200 - 499 mg/dL Very High > or = 500 mg/dL LAB L501.6400 mg/dL Normal HDL 57 Result Comment: The drugs N-Acetylcysteine and Metamizole may falsely depress this assay. Reference Range HDL <40 mg/dL Low HDL Cholesterol HDL >or= 60 mg/dL High HDL Cholesterol LAB L501.6500 0-130 mg/dL Normal LDL 76 LAB L501.6600 5-40 mg/dL Normal VLDL 15 Performed By: #### L500.4100 #### [facility] [address] [place], [address] PT D/C SUMMARY (1) Observed: 06/25/2017 Status: F Source: [place] 7:28 AM [facility] REPOSITORY [facility] [address] [place] [address]. [address] [place], [place] [address] Fax REHABILITATION SERVICES DISCHARGE SUMMARY MR#: [id number] Acct: [id number] Name: MYESHA CHRISTINA Rep #: [id number] : 1940 76 From: Satya Helms PT, Cert. 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 Discharge Date: 06/22/17 Please see the following information for a summary of their discharge status. - Subjective Subjective: Doing some better today. Can walk and stand longer ..with less pain but fave to have freguent rest and to ex's. Plan for nother injection - Pain Bilateral Back Pain Intensity (Out of 10): 3 Left Lower Extremity Pain Intensity (Out of 10): 3 - Overall Improvement % Improvement: 60 - Objective Objective/Function: POSTURE: ROUNDED SHOULDERS HEAD FOWARD. PALAPTION: TENDER RIGHT L-S. GAIT: NORMAL CADANCE. MMT: QUADS/HAMS 4/5,HIP 4-/5. LUMBAR ROM: FLEXION MIN LOSS,EXTENSION MOD LOSS - Goals Goal 1:: Independant with HEP Goal Progress: Goal Met Goal 2:: 4Independant with posture/body mechanics for ADL'S Goal Progress: Goal Met Goal 3:: Decrease lumbar pain by 50% or greateer to improve with ADL'S Goal Progress: Goal Met Goal 4:: Patient to improve lumbar ROM WFL for function of recovery Goal Progress: Progressing Goal 5:: Patient perform ADL'S and and light housework taskls with min limitations Goal Progress: Progressing - Plan Plan: D/C PLAN FOR ANOTHER INJECTION AND HEP - D/C Information Discharge Comments: HEP If there are questions or concerns regarding this patient's physical therapy, please feel free to call me at [phone]. Thank you for the referral of this patient. Sincerely, Satya Helms PT, <Electronically signed by Satya Helms PT, Cert. MDT, [facility]> 06/25/17 0728 CC: Fouzia Adame MD; Dianna Stokes DO YARI Signed ALLERGIES ALLERGIES DATE TYPE / CODE NAME / CODE REACTION SEVERITY SOURCE 04/26/2018 Drug ciprofloxacin/F0060 Unknown Unknown [facility] Allergy/416 00639(RXNORM) [facility] [id number]([facility] ED CT) Repository 04/26/2018 Drug atorvastatin/A09796 MYALGIAS SV [facility] Allergy/416 6321(RXNORM) [facility] 485367([facility] ED CT) Repository 11/07/2015 DRUG CIPROCINONIDE UNKNOWN [facility] INGREDI/419 Other [facility] 109703([facility] Repository ED CT) 11/07/2015 DRUG ATORVASTATIN UNKNOWN [facility] INGREDI/419 CALCIUM Other [facility] 017030([facility] Repository ED CT) NG/06027525 CIPROCINONIDE [facility] 6([facility] CT) Repository NG/27552623 ATORVASTATIN [facility] Repository ENCOUNTERS ENCOUNTERS ADMIT/DISCHARGE ACCOUNT NUMBER ADMITTING ENCOUNTER LOCATION SOURCE CLASS 05/24/2018 [id number] Ambulatory [facility] ding:HPRAD Repository 05/24/2018/05/24/19 [id number] Ambulatory BMSBuilding: [facility] 19 BMS[facility] Repository 04/26/2018 [id number] Ambulatory [facility] ding:HPRAD Repository 04/26/2018/04/26/20 [id number] Ambulatory BMSBuilding: [facility] 18 BMS[facility] Repository 04/14/2018/04/14/20 [id number] Ambulatory [address] ding:PT Repository 02/08/2018 [id number] Ambulatory [facility] ding:HPRAD Repository 02/08/2018/02/09/20 [id number] Ambulatory BMSBuilding: [facility] 18 BMS.[facility] Repository 01/03/2018/01/04/20 [id number] Ambulatory BMSBuilding: [facility] 18 BMS.[facility] Repository 12/28/2017 [id number] Ambulatory [facility] ding:HPRAD Repository 12/28/2017/12/29/19 [id number] Ambulatory BMSBuilding: [facility] 18 BMS[facility] Repository 11/15/2017 [id number] Ambulatory Building:[facility] Repository 11/01/2017/11/05/19 [id number] , Inpatient Building:[address] [place] [address] Encounter Room: [place] [address]Bed: [facility] Repository 10/29/2017/10/30/19 [id number] Ambulatory [address] Other [facility] Repository 10/29/2017/10/30/19 [id number] Ambulatory [place] [address] System MEDICAL Repository CENTERBuildi ng:AGWM 10/06/2017 [id number] Ambulatory Building:[facility] Repository 10/06/2017 [id number] Ambulatory Building:CRD [facility] Repository 10/06/2017 [id number] Ambulatory Building:DIAZ [facility] Repository 10/06/2017 [id number] Ambulatory Building:[facility] Repository 10/06/2017 [id number] Ambulatory Building:[facility] Repository 10/01/2017 [id number] Ambulatory [facility] MEDICAL Repository CENTERBuildi ng:AGWM 09/10/2017 [id number] Ambulatory [facility] ding:[facility]S Repository 08/24/2017 [id number] Ambulatory [facility] ding:HPRAD Repository 08/24/2017/08/25/19 [id number] Ambulatory BMSBuilding: [facility] 18 [facility]MS[facility] Repository 08/24/2017 [id number] Ambulatory Building:IMG [facility] Repository 06/30/2017/06/30/19 [id number] Ambulatory BMSBuilding: [facility] 18 [facility] Repository 06/28/2017 [id number] Ambulatory BMSBuilding: [facility] BMS.[facility] Repository 06/25/2017 [id number] Ambulatory [facility] ding:LAB Repository 06/22/2017/06/22/19 [id number] Ambulatory [address] ding:PT Repository PAYERS PAYERS ENCOUNTER GUARANTOR PAYER SUBSCRIBER SOURCE 05/24/2018 MYESHA E Primary MYESHA E [facility] [id number] CR Insurance:MEDICARE DEWITTDOB: [address] [place], PART A BPolic [id number] [facility] [address]Qnv: Number: Repository [id number] () Date:2018-05-24 05/24/2018 Secondary MYESHA E [facility] Insurance:PHYSICIAN DEWITTDOB: Community [place] COPolicy [id number] [facility] Number: Repository [id number] Date:9701-10-82UY [address] [address]OW: 05/24/2018 Tertiary NOT GIVENUNK [facility] Insurance:SELF PAY [facility] Number: Effective Repository Date:2018-05-24 05/24/2018 MYESHA E Primary MYESHA E [facility] [id number] CR Insurance:MEDICARE DEWITTDOB: Community [address] [place] [address], PART A [id number] [address]Vfz: Number: Repository [id number] (HP) Date:2018-05-19 05/24/2018 Secondary MYESHA E [facility] Insurance:PHYSICIAN DEWITTDOB: Community MUTUAL INS [facility] [id number] Hospital Number: Repository [id number] Date:3179-02-25QG [address] [address]GJ: 05/24/2018 Tertiary NOT GIVENUNK [place] Insurance:SELF PAY [facility] Number: Effective Repository Date:2018-05-24 04/26/2018 MYESHA E Primary MYESHA E [employer] [id number] CR Insurance:MEDICARE DEWITTDOB[facility] [place] [place] [facility] [id number] [facility] [address]Spp: Number: Repository [id number] (HP) Date:2018-04-26 04/26/2018 Secondary MYESHA E Cricket Insurance:PHYSICIAN DEWITTDOB: Community MUTUAL INS [facility] [id number] Hospital Number: Repository [id number] Date:2587-76-34BC[address] [address]IC: 04/26/2018 Tertiary NOT GIVENUNK [place] Insurance:SELF PAY [facility] Number: Effective Repository Date:2018-04-26 04/26/2018 MYESHA E Primary MYESHA E [employer] [id number] CR Insurance:MEDICARE DEWITTDOB: Community [address] [place], [place] [address], PART A [facility] [id number] Santa Fe Medical Center [address]Suy: Number: Repository [id number] (HP) Date:2018-02-08 04/26/2018 Secondary MYESHA E Cricket Insurance:PHYSICIAN DEWITTDOB: Community [facility] [id number] Hospital Number: Repository [id number] Date:3792-94-53WZ [facility] [address], [place] [address]GH: 04/26/2018 Tertiary NOT GIVENUNK [employer] Insurance:SELF PAY [facility] Number: Effective Repository Date:2018-04-26 04/14/2018 MYESHA E Primary MYESHA E Cricket [id number] CR Insurance:MEDICARE DEWITTDOB: [address] A [facility] [id number] Santa Fe Medical Center [address]Kfh: Number: Repository [id number] () Date:2005-09-14 04/14/2018 Secondary MYESHA E Cricket Insurance:PHYSICIAN DEWITTDOB: [facility] [id number] Hospital Number: Repository [id number] Date:0533-85-19DQ [address] [address]PZ: 04/14/2018 Tertiary NOT GIVENUNK [place] Insurance:SELF PAY [facility] Number: Effective Repository Date:2018-02-08 02/08/2018 MYESHA E Primary MYESHA E Cricket [id number] Insurance:MEDICARE DEWITTDOB: [facility] PART A [facility] [id number], Number: [place] [address]Gmf: [id number] Date:2018-02-08 () 02/08/2018 Secondary MYESHA E Cricket Insurance:PHYSICIAN DEWITTDOB: [facility] [id number] Hospital Number: Repository [id number] Date:3119-28-62LN [facility] [address], [place] [address]XE: 02/08/2018 Tertiary NOT GIVENUNK Cricket Insurance:SELF PAY [facility] Number: Effective Repository Date:2018-02-08 02/08/2018 MYESHA E Primary MYESHA E [employer] [id number] CR Insurance:MEDICARE DEWITTDOB: [address] A [facility] [id number] Santa Fe Medical Center [address]Zkv: Number: Repository [id number] () Date:2017-12-28 02/08/2018 Secondary MYESHA E [place] Insurance:PHYSICIAN DEWITTDOB: [facility] [id number] Hospital Number: Repository [id number] Date:1122-15-16US [address] [address]WZ: 02/08/2018 Tertiary NOT GIVENUNK [place] Insurance:SELF PAY [facility] Number: Effective Repository Date:2018-02-08 01/03/2018 MYESHA E Primary MYESHA E Cricket [id number] Insurance:MEDICARE DEWITTDOB: [facility] A [facility] [id number], Number: [place] [address]Gdx: [id number] Date:2017-06-30 () 01/03/2018 Secondary MYESHA E [place] Insurance:PHYSICIAN DEWITTDOB: [facility] [id number] Hospital Number: Repository [id number] Date:8907-00-09RR [address] [address]DH: 01/03/2018 Tertiary NOT GIVENUNK Cricket Insurance:SELF PAY [facility] Number: Effective Repository Date:2018-01-03 12/28/2017 MYESHA E Primary MYESHA E [place] [id number] CR Insurance:MEDICARE DEWITTDOB: [address] A [facility] [id number] Santa Fe Medical Center [address]Zju: Number: Repository [id number] () Date:2017-12-28 12/28/2017 Secondary MYESHA E [place] Insurance:PHYSICIAN DEWITTDOB: [facility] [id number] Hospital Number: Repository [id number] Date:3739-06-04XC [address], [place] [address]MG: 12/28/2017 Tertiary NOT GIVENUNK Cricket Insurance:SELF PAY [facility] Number: Effective Repository Date:2017-12-28 12/28/2017 MYESHA E Primary MYESHA E Cricket [id number] CR Insurance:MEDICARE DEWITTDOB: [address], PART A [facility] [id number] Santa Fe Medical Center [address]Gif: Number: Repository [id number] () Date:2017-11-15 12/28/2017 Secondary MYESHA E Cricket Insurance:PHYSICIAN DEWITTDOB: [facility] [id number] Hospital Number: Repository [id number] Date:7355-61-78BG [address] [address]NS: 12/28/2017 Tertiary NOT GIVENUNK [place] Insurance:SELF PAY [facility] Number: Effective Repository Date:2017-12-28 11/15/2017 MYESHA E Primary MYESHA E [employer] DEWITTDOB: Insurance:MEDICARE A DEWITTDOB: [place] [id number] AND [facility] Number: [id number] [facility] 316[place] [id number] [address], [place] Date:3260-48-08[place]wo[place], [place] Repository [address]Urr: (330) Name:CARE [id number]: () [phone] () 11/15/2017 Secondary MYESHA E [place] Insurance:GENERIC DEWITTDOB: [facility] [id number] [facility] Number: 70 [facility] [id number] [place] Repository Date:9607-17-57Vwqm [address]Bik: (330) Name:MANAGED CARE [phone] () 11/01/2017 MYESHA E Primary MYESHA E [employer] [employer] DEWITTDOB: Insurance:MEDICARE A [facility]: [place] AND BPolicy Number: [id number] [facility] CR 316BIG [id number] 70 CR 316[facility] [place] Date:5422-99-12Bqhh [place], [place] Repository [address]Zea: (330) Name:CARE [id number]: (HP) [phone] () 11/01/2017 Secondary MYESHA E [facility] Insurance:GENERIC DEWITTDOB: [facility] [id number] [facility] Medical Number: 70 [address] [id number] [place], [place] Repository Date:6237-99-80Wrtj [address]Wyb: (330) Name:MANAGED CARE [phone] () 10/29/2017 MYESHA E Primary MYESHA E [facility][1]B: Insurance:MEDICARE A [facility]: [facility] AND BPolicy Number: [id number] [facility] [id number] [address] [place] [address], Date: [place] [address]Ceg: () 10/06/2017 MYESHA E Primary [facility] E [facility] Insurance:[facility]ARE A [facility]: [place] AND BPolicy Number: [id number] [facility] 316BIG [id number] 70 316[facility], [place] Date:6461-96-09Futg [place], [place] Repository [address]Dho: (330) Name:CARE [address]Epr: (HP) [phone] () 10/06/2017 Secondary MYESHA E [facility] Insurance:GENERIC DEWITTDOB: [facility] [id number] [facility] Medical Number: 70 [address] [id number] [place], [place] Repository Date:2964-25-56Zsds 6[address]Cwo: (330) Name:MANAGED CARE [phone] () 10/06/2017 MYESHA E Primary MYESHA E [facility] DEWITTDOB: Insurance:MEDICARE A DEWITTDOB: [place] AND BPolicy Number: [id number] [facility] 316BIG [id number] [address] Date:3223-96-97EcupAd[place], [place] Repository [address]Igm: (330) Name:CARE [id number]: () [phone] () 10/06/2017 Secondary MYESHA E [facility] Insurance:GENERIC DEWITTDOB: [place] [facility] [id number] [facility] Medical Number: 70 CR 316[place] [id number], [place] Repository Date:1570-32-90Ahvq [address]Agy: (330) Name:MANAGED CARE [phone] () 10/06/2017 MYESHA E Primary MYESHA E [facility] DEWITTDOB: Insurance:MEDICARE A DEWITTDOB: [place] AND BPolicy Number: [id number] [facility] 316BIG [id number] [address] Date:4780-30-57MalzAd[place], [place] Repository [address]Qrv: (330) Name:CARE 04352Rut: () [phone] () 10/06/2017 Secondary MYESHA E [facility] Insurance:GENERIC DEWITTDOB: [facility] [id number] [facility] Medical Number: 70 CR [address] [id number], [place] Repository Date:5911-78-21Aqtd [address]Dvt: (330) Name:MANAGED CARE [phone] () 10/06/2017 MYESHA Garzon Primary MYESHA Garzon [facility] DEWITTDOB: Insurance:MEDICARE A DEWITTDOB: [place] AND BPolicy Number: [id number] [facility] 316BIG [id number] 70 [address], [place] Date:7440-80-20Vsfb [place] Repository [address]Hmq: (330) Name:CARE [id number]: (HP) [phone] () 10/06/2017 Secondary [facility] Insurance:GENERIC DEWITTDOB: [facility] [id number] [facility] Medical Number: 70 CR [address] [id number], [place] Repository Date:1708-47-96Hjre [address]Cov: (330) Name:MANAGED CARE [phone] () 10/06/2017 MYESHA E Primary MYESHA E [facility] DEWITTDOB: Insurance:MEDICARE A DENETTDOB: [place] AND BPolicy Number: [id number] [facility] 316BIG [id number] [address] Date:9803-72-95TlbiAd[place], [place] Repository [address]Ztq: (330) Name:CARE [address]Ufm: (HP) [phone] () 10/06/2017 Secondary [facility] Insurance:GENERIC DEWITTDOB: [facility] [id number] [facility] Medical Number: 70 CR 316[facility] [id number], [place] Repository Date:2929-89-99Cqdy [address]Wil: (330) Name:MANAGED CARE [phone] () 10/01/2017 MYESHA E Primary MYESHA E [facility] DEWITTDOB: Insurance:MEDICARE DEWITTDOB: Health System BPolicy Number: [id number] [facility] [id number], Date: [place] [address]Xed: () 09/10/2017 MYESHA E Primary MYESHA E [place] [id number] CR Insurance:MEDICARE DEWITTDOB: [address], PART A BPolicy [id number] Santa Fe Medical Center [address]Njv: Number: Repository [id number] (HP) Date:2017-08-30 09/10/2017 Secondary MYESHA E [place] Insurance:PHYSICIAN DEWITTDOB: Community MUTUAL INS COP[employer]icy [id number] Hospital Number: Repository [id number] Date:6732-32-05NH [address] [address]NK: 09/10/2017 Tertiary NOT GIVENUNK Cricket Insurance:SELF PAY [facility] Hospital Number: Effective Repository Date:2017-08-30 08/24/2017 Myesha E Primary Myesha E Cricket [id number] Cr Insurance:MEDICARE DewittDOB: [address], PART A olic [id number] Santa Fe Medical Center [address]Fvm: Number: Repository [id number] (HP) Date:2017-08-23 08/24/2017 Secondary Myesha E Cricket Insurance:PHYSICIAN DewittDOB: Community MUTUAL INS COPolicy [id number] Hospital Number: Repository [id number] Date:9835-10-05KJ [address] [address]ED: 08/24/2017 Tertiary NOT GIVENUNK [place] Insurance:SELF PAY [facility] Number: Effective Repository Date:2017-08-23 08/24/2017 Myesha E Primary Myesha E [place] [id number] Cr Insurance:MEDICARE DewittDOB: Community [address] [place] [address], PART A olicy [id number] Santa Fe Medical Center [address]Xsc: Number: Repository [id number] (HP) Date:2017-06-24 08/24/2017 Secondary Myesha E Cricket Insurance:PHYSICIAN DewittDOB: Community MUTUAL INS COP[employer] [id number] Hospital Number: Repository [id number] Date:4729-05-14OQ[address] [address]EV: 08/24/2017 Tertiary NOT GIVENUNK Cricket Insurance:SELF PAY [facility] Number: Effective Repository Date:2017-08-24 06/30/2017 Myesha E Primary Myesha Harley [id number] Cr Insurance:MEDICARE DewittDOB: Community [address] [place], PART A olicy [id number] Santa Fe Medical Center [address]Ufy: Number: Repository [id number] (HP) Date:2017-04-24 06/30/2017 Secondary Myesha E [place] Insurance:PHYSICIAN DewittDOB: Community MUTUAL INS [facility] [id number] Hospital Number: Repository [id number] Date:5474-65-53SU [address] [address]ET: 06/30/2017 Tertiary NOT GIVENUNK [place] Insurance:SELF PAY [facility] Number: Effective Repository Date:2017-04-24 06/28/2017 Myesha E Primary Myesha E Cricket [id number] Cr Insurance:MEDICARE DewittDOB: Community [address] [place], PART A [facility] [id number] Santa Fe Medical Center [address]Vvt: Number: Repository [id number] (HP) Date:2017-06-28 06/28/2017 Secondary Myesha E [place] Insurance:PHYSICIAN DewittDOB: Community MUTUAL INS [facility] [id number] Hospital Number: Repository [id number] Date:1468-01-73KX [address] [address]ZV: 06/28/2017 Tertiary NOT GIVENUNK [place] Insurance:SELF PAY [facility] Number: Effective Repository Date:2017-06-28 06/25/2017 Myesha E Primary Myesha E Cricket [id number] Cr Insurance:MEDICARE DewittDOB: Community [address] [place], PART A [facility] [id number] Santa Fe Medical Center [address]Iuj: Number: Repository [id number] (HP) Date:2017-06-25 06/25/2017 Secondary Myesha E [place] Insurance:PHYSICIAN DewittDOB: Community [facility]UAL INS [facility] [id number] Hospital Number: Repository [id number] Date:3738-44-81NJ[address] [address]PL: 06/25/2017 Tertiary NOT GIVENUNK Cricket Insurance:SELF PAY [facility] Number: Effective Repository Date:2017-06-25 06/22/2017 Myesha E Primary Myesha E [place] [id number] Cr Insurance:MEDICARE DewittDOB: Community [facility] [place], PART A BPolicy [id number] Santa Fe Medical Center [address]Swx: Number: Repository [id number] () Date:2005-09-14 06/22/2017 Secondary Myesha E [place] Insurance:PHYSICIAN DewittDOB: Community [facility] INS [facility] [id number] Hospital Number: Repository [id number] Date:0208-65-81DB[address] [address]MW: 06/22/2017 Tertiary NOT GIVENUNK Cricket Insurance:SELF PAY [facility] Number: Effective Repository Date:2017-05-12
== END ==
PROVIDERS: Family Provider Internal Medicine; PCP Internal Medicine; Referring Provider Orthopaedic Surgery; Visit Provider Orthopaedic Surgery
DX: Z98.1 Arthrodesis status (principal)
CPT/HCPCS: 72100

== ENCOUNTER → 2018-05-24 08:08 | Outpatient (CLI) | payer MEDICARE, OTHER, SELFPAY ==
--- NOTE | 2018-05-24 08:10 | RAD_ITS ---
STUDY: X-RAY - LUMBAR SPINE REASON FOR EXAM: Female, 77 years old. Back pain. TECHNIQUE: 2 view(s) of the lumbar spine were obtained. COMPARISON: 2 views of the lumbar spine April 26, 2018. FINDINGS: Again seen are changes of prior L4-5 laminectomies and bilateral posterior fusion L3-S1 with metal hardware. Bilateral transpedicular screws at those levels are connected on either side the longitudinal metal rods. Normal lumbar lordosis. There is stable mild leftward subluxation of L2 on L3 and a 27.5 degree dextroscoliosis centered at L3. There is a stable grade 1 spondylolisthesis of L5 on S1. There is stable multilevel endplate spondylosis of the lumbar vertebrae. There is multi-level degenerative disc disease with stable multi-level disc space narrowing. There is no demonstrated osseous destructive lesion or acute fracture. There is stable degenerative arthrosis at the inferior left sacroiliac joint. A bifurcated aortoiliac stent graft is again noted. Clusters of multiple surgical clips again seen in each groin. RAD/Lumbar Spine 2 or 3 Views IMPRESSION: Stable x-ray examination of the lumbar spine, as described. Electronically Signed: Ab Cabrera MD at 20:03 EST , Service support ,
== END ==
PROVIDERS: Family Provider Internal Medicine; PCP Internal Medicine; Referring Provider Orthopaedic Surgery; Visit Provider Orthopaedic Surgery
DX: M54.5 Low back pain (principal)
CPT/HCPCS: 72100

== ENCOUNTER → 2018-07-01 08:47 | Outpatient (CLI) | payer MEDICARE, OTHER, SELFPAY ==
[2018-01-03 13:03] VITALS: BMI 27.4
[2018-07-01 09:46] LABS: AST(SGOT) 21 U/L (15-37); Alanine Aminotransfer ALT/SGPT 19 U/L (13-56); Albumin, Serum 3.4 g/dL (3.2-5.0); Alkaline Phosphatase 94 U/L (45-117); Bilirubin, Direct 0.12 mg/dL (0.00-0.30); Cholesterol 142 mg/dL (200); Globulin 4.1 g/dL (2.2-4.2); High Density Lipoprotein 48 mg/dL; Protein, Total 7.5 g/dL (6.4-8.2); Triglycerides 135 mg/dL; Very Low Density Lipoprotein 27 mg/dL (5-40)
== END ==
PROVIDERS: Family Provider Internal Medicine; PCP Internal Medicine; Referring Provider Physician Assistant Medical; Visit Provider Physician Assistant Medical
DX: E78.5 Hyperlipidemia, unspecified (principal); Z79.899 Other long term (current) drug therapy
CPT/HCPCS: 36415; 80061; 80076

== ENCOUNTER → 2018-10-25 | Outpatient (CLI) | payer MEDICARE, OTHER, SELFPAY ==
[2018-10-25 08:53] VITALS: BMI 26.7
--- NOTE | 2018-10-25 08:58 | RAD_ITS ---
HISTORY: PAIN TECHNIQUE: Lumbar spine 2 views Number of images including paperwork: 2 COMPARISON: 05/24/2018 FINDINGS: VERTEBRAE: No acute fracture. VERTEBRAL ALIGNMENT: No traumatic subluxation. Lumbar scoliosis appears similar. DISKS AND JOINTS: Multilevel severe discogenic degenerative changes are present. Spinal fusion with posterior rods and pedicle screws is noted from L3-S1 with laminectomies at L4 and L5. Hardware appears unchanged compared to previous. SOFT TISSUES: Unremarkable paraspinous soft tissues. Aortoiliac stent graft. RAD/Lumbar Spine 2 or 3 Views IMPRESSION: Postoperative and degenerative changes of the lumbar spine, similar to previous. at 0531 Reported and signed by: Annmarie Brown MD Electronically Signed: Annmarie Brown MD at 5:31 EDT Tel , Service support ,
== END | disposition home or self-care (01) ==
LOC: HPRAD 08:55
PROVIDERS: Family Provider Internal Medicine; PCP Internal Medicine; Referring Provider Orthopaedic Surgery; Visit Provider Orthopaedic Surgery
DX: M54.5 Low back pain (principal)
CPT/HCPCS: 72100

== ENCOUNTER → 2019-02-10 | Outpatient (CLI) | payer MEDICARE, OTHER, SELFPAY ==
[2018-10-25 08:53] VITALS: BMI 26.7
[2019-02-10 10:36] LABS: AST(SGOT) 20 U/L (15-37); Alanine Aminotransfer ALT/SGPT 17 U/L (13-56); Albumin, Serum 3.4 g/dL (3.2-5.0); Alkaline Phosphatase 92 U/L (45-117); Bilirubin, Direct 0.07 mg/dL (0.00-0.30); Cholesterol 150 mg/dL (200); Globulin 4.5 g/dL (2.2-4.2); High Density Lipoprotein 50 mg/dL; Protein, Total 7.9 g/dL (6.4-8.2); Triglycerides 130 mg/dL; Very Low Density Lipoprotein 26 mg/dL (5-40)
== END | disposition home or self-care (01) ==
LOC: LAB 07:53
PROVIDERS: Physician Assistant Medical; Family Provider Internal Medicine; PCP Internal Medicine; Referring Provider Internal Medicine Cardiovascular Disease; Visit Provider Internal Medicine Cardiovascular Disease
DX: E78.5 Hyperlipidemia, unspecified (principal)
CPT/HCPCS: 36415; 80061; 80076

== ENCOUNTER → 2019-07-25 | Outpatient (CLI) | payer MEDICARE, OTHER, SELFPAY ==
[2019-02-22 13:04] VITALS: BMI 26.2
--- NOTE | 2019-07-25 09:41 | ECHOD_ITS ---
Reason For Study: MURMUR Procedure This was a 2D Doppler, Color Flow transthoracic echocardiogram. Exam performed in department. Left Ventricle Mild eccentric left ventricular hypertrophy. The estimated ejection fraction is 75 %. Stage 1 diastolic dysfunction. No regional wall motion abnormalities noted. Right Ventricle Normal size and thickness. Normal systolic function. Atria Normal left atrium. Normal right atrium. Normal atrial septum. Mitral Valve Anterior leaflet diffuse mitral valve thickening. Tricuspid Valve Normal tricuspid valve. Trivial tricuspid valve insufficiency. Right ventricular systolic pressure estimated to be 29 mmHg. Aortic Valve Trisinus/trileaflet aortic valve. Mild focal aortic valve thickening. Mild aortic stenosis. Pulmonic Valve Normal pulmonic valve. Great Vessels Calcified aortic root. Normal arch. Normal inferior vena cava. Inferior vena cava collapse with sniff. Pericardium/Pleural No pericardial effusion. MMode/2D Measurements & Calculations LVIDd: 4.4 cm IVSd: 1.3 cm LVOT diam: 2.0 cm RVDd: 3.0 cm LVPWd: 0.93 cm LVOT area: 3.3 cm2 Ao root diam: 3.0 cm LAV(MOD-bp): 29.5 ml EDV(MOD-sp4): 44.8 ml ESV(MOD-sp4): 14.7 ml LAV(MOD-bp) Indexed: 16.8 ml/m2 EF(MOD-sp4): 67.2 % LAV(MOD-sp2): 22.2 ml LAV(MOD-sp4): 39.1 ml EDV(MOD-sp2): 43.7 ml SV(MOD-sp4): 30.1 ml SV(MOD-sp2): 25.7 ml EF(MOD-sp2): 59.0 % LA dimension(2D): 4.2 cm LA A4 area: 16.2 cm2 RA A4 area: 12.2 cm2 Time Measurements MV dec time: 0.30 sec Doppler Measurements & Calculations MV E max quinn: 69.7 cm/sec Lat Peak E' Quinn: 4.5 cm/sec Med Peak E' Quinn: 2.6 cm/sec MV A max quinn: 114.4 cm/sec E/E' lat: 15.4 E/E' med: 26.3 MV E/A: 0.61 Ao V2 max: 194.6 cm/sec LV V1 max: 109.5 cm/sec SV(LVOT): 71.3 ml Ao max P.2 mmHg LV V1 max P.8 mmHg Ao V2 mean: 148.3 cm/sec LV V1 mean P.9 mmHg Ao mean P.4 mmHg LV V1 mean: 82.6 cm/sec Ao V2 VTI: 42.1 cm LV V1 VTI: 21.9 cm MAISHA(I,D): 1.7 cm2 MAISHA(V,D): 1.8 cm2 PA V2 max: 74.9 cm/sec TR max quinn: 242.3 cm/sec TR max P.5 mmHg Interpretation Summary Mild eccentric left ventricular hypertrophy. The estimated ejection fraction is 75 %. Mild aortic stenosis. Stage 1 diastolic dysfunction. Trivial tricuspid valve insufficiency. Right ventricular systolic pressure estimated to be 29 mmHg. Compared to echo report dated 02/02/2017, no appreciable changes noted. Ordering Physician: Hari Macias Referring Physician: MARIJA STOKES Performed By: Amy Pedro, CLYDECS, RVT
== END | disposition home or self-care (01) ==
LOC: CVS 09:41
PROVIDERS: PCP Internal Medicine; Referring Provider Internal Medicine Cardiovascular Disease; Visit Provider Internal Medicine Cardiovascular Disease
DX: I25.10 Atherosclerotic heart disease of native coronary artery without angina pectoris (principal); I35.0 Nonrheumatic aortic (valve) stenosis; R01.1 Cardiac murmur, unspecified
CPT/HCPCS: 93306

== ENCOUNTER → 2019-11-02 09:53 | Outpatient (CLI) | payer MEDICARE, OTHER, SELFPAY ==
[2019-02-22 13:04] VITALS: BMI 26.2
[2019-11-02 10:11] LABS: Potassium 4.8 mmol/L (3.5-5.1)
== END ==
PROVIDERS: PCP Internal Medicine; Referring Provider Internal Medicine; Visit Provider Internal Medicine
DX: E87.5 Hyperkalemia (principal)
CPT/HCPCS: 84132

== ENCOUNTER → 2019-12-14 | Outpatient (CLI) | payer MEDICARE, OTHER, SELFPAY ==
[2019-02-22 13:04] VITALS: BMI 26.2
--- NOTE | 2019-12-14 08:42 | BI_ITS ---
MAMMOGRAPHY - BILATERAL SCREENING REASON FOR EXAM: Female, 79 years old. Routine annual screening examination. PERTINENT HISTORY: Sister with breast cancer. TECHNIQUE: Digital bilateral breast [place] (3D mammographic acquisition) in the CC and MLO projections. 2-D mediolateral oblique (MLO) and craniocaudad (CC) views of both breasts were obtained. CAD: Full Field Digital Mammography with Computer Added Detection was performed. COMPARISON: Comparison is made with prior examination dated 08/03/2016 and 07/25/2015. FINDINGS: Breast Composition: There are scattered areas of fibroglandular density. There are no dominant masses or suspicious calcifications. No other significant abnormalities are identified. There has been no significant change since the prior study. BI/SCREEN MAMM (CAD) W/[place] BILAT IMPRESSION: Stable bilateral screening mammogram. Yearly follow-up mammogram recommended. (A) ASSESSMENT CATEGORY: BIRADS Category 1: Negative. A letter regarding these results will be sent to the patient by the facility within 30 days. Approximately 10% of breast cancers are not detected by mammography. A normal mammogram should not delay biopsy of a clinically suspicious abnormality. [id number] Electronically Signed: Dick Trivdei, at 10:03 EDT , Service support ,
== END | disposition home or self-care (01) ==
LOC: OPBI 08:41
PROVIDERS: PCP Internal Medicine; Referring Provider Internal Medicine; Visit Provider Internal Medicine
DX: Z12.31 Encounter for screening mammogram for malignant neoplasm of breast (principal)
CPT/HCPCS: 77063; 77067

== ENCOUNTER 2020-01-02 06:47 | Inpatient (IN) | payer MEDICARE, OTHER, SELFPAY ==
[2019-02-22 13:04] VITALS: BMI 26.2
[2020-01-02] VITALS (24 sets, daily range): BP systolic 95–153; BP diastolic 56–98; PULSE 58–114; RESP 12–27; TEMP 30.4–36.6; O2SAT 86–99; BMI 29.2; BMI 27.1
[2020-01-02] MEDS: Ondansetron 4 MG/2 ML Vial IV (06:55)
--- NOTE | 2020-01-02 07:11 | EKG12_ITS ---
Test Reason : BACK PAIN Blood Pressure : / mmHG Vent. Rate : 080 BPM Atrial Rate : 080 BPM P-R Int : 146 ms QRS Dur : 082 ms QT Int : 402 ms P-R-T Axes : 029 011 041 degrees QTc Int : 463 ms Normal sinus rhythm Normal ECG Confirmed by JOSS BURNETT ([id number]), desk editor KANWAL NGUYỄN ([id number]) on 01/08/2020 9:59:23 AM Referred By: ANGELLA Confirmed By:JOSS BURNETT
--- NOTE | 2020-01-02 07:11 | CT_ITS ---
STUDY: CT ABDOMEN AND PELVIS WITH CONTRAST REASON FOR EXAM: Female, 79 years old. Abdominal pain, nausea/vomiting, hemoptysis today. Prior AAA repair, hypertension. RADIATION DOSAGE (If Supplied By Facility): CTDIvol = ( 25.19 ) mGy, DLP = ( 1024.61 ) mGycm TECHNIQUE: Transaxial images were obtained from the dome of the diaphragm to the symphysis pubis without oral contrast. IV 100mL Isovue-300 was administered. Sagittal and coronal images were reconstructed. Individualized dose optimization techniques were used for this CT. COMPARISON: 11/25/2016. FINDINGS: The visualized lung bases are unremarkable. The visualized portions of the heart are within normal limits. Normal liver. Normal gallbladder and extrahepatic biliary system. Normal spleen. Normal pancreas. Normal bilateral adrenal glands. Normal right kidney. Normal left kidney. There is a large hiatal hernia composed mostly of the fundus of the stomach. There is marked thickening of the gastric wall at the gastric antrum with heterogeneous enhancing mucosa suggesting gastric ulcer. Normal small intestine. There are multiple colonic diverticula consistent with diverticulosis. There is non-visualization of the appendix. Normal abdominal aorta. Normal inferior vena cava. Normal retroperitoneum. Normal urinary bladder. Normal abdominal wall. There are diffuse degenerative changes of the visualized lumbar spine. Abdominal aorta: There is an aortobiiliac stent graft in good position evidence of endoleak. The transverse section of the aneurysm sac measures 5 x 5.4 cm has not significantly changed in size since the previous study it measured previously 5 x 5.2 cm. Celiac and superior mesenteric arteries: No demonstrated narrowing. Inferior mesenteric artery: Is occluded Right renal artery(arteries): There is moderate diffuse narrowing. Left renal artery(arteries): There is moderate diffuse narrowing. Right common iliac artery: There is a stent in good position. No demonstrated narrowing. Right external iliac artery: There is a stent in good position.No demonstrated narrowing. Right internal iliac artery: Is occluded at the origin and reconstituted distally by collaterals. Left common iliac artery: No demonstrated narrowing. Left external iliac artery: No demonstrated narrowing. Left internal iliac artery: No demonstrated narrowing. CT/Abdomen/Pelvis W IV Cont ONLY IMPRESSION: There is an aortobiiliac stent graft in good position evidence of endoleak. The transverse section of the aneurysm sac measures 5 x 5.4 cm has not significantly changed in size since the previous study it measured previously 5 x 5.2 cm. There is marked thickening of the gastric wall at the gastric antrum with heterogeneous enhancing mucosa suggesting gastric ulcer. Colon diverticulosis. Electronically Signed: Jimmy Sanchez, at 8:33 EDT Tel , Service support ,
[2020-01-02] MEDS: 0.9% Normal Saline 1,000 ML 1000 ML IV (07:16)
[2020-01-02] MEDS: HYDROmorphone 1 MG/ML Syringe IV (07:21)
[2020-01-02 07:35] LABS: ALB/GLOB Ratio 0.8 RATIO (0.9-2.4); AST(SGOT) 15 U/L (15-37); Alanine Aminotransfer ALT/SGPT 17 U/L (13-56); Albumin, Serum 3.3 g/dL (3.2-5.0); Alkaline Phosphatase 79 U/L (45-117); Anion Gap 7 (5-15); BUN 28 mg/dL (7-18); BUN/Creat Ratio 21.1 RATIO (10-20); Calcium,Total 9.2 mg/dL (8.5-10.1); Chloride 108 mmol/L (98-107); Creatinine, Serum 1.33 mg/dL (0.55-1.02); EST Glomerular Filtration Rate 41 mL/min (>60); Est Glom Filt Rate - Afr Amer 50 mL/min (>60); Estimated Creatinine Clearance 28.37 ml/min; Globulin 3.9 g/dL (2.2-4.2); Glucose 251 mg/dL (74-106); Potassium 4.3 mmol/L (3.5-5.1); Protein, Total 7.2 g/dL (6.4-8.2); Sodium Level 142 mmol/L (136-145)
[2020-01-02 07:38] LABS: Absolute Lymphocyte Count 3.28 X10^3/uL (0.83-4.51); Basophil# 0.09 X10^3/uL; Basophil% 0.5 % (0-1); Eosinophil# 0.23 X10^3/uL; Eosinophils% 1.4 % (0-5); Hematocrit 37.4 % (37-47); Hemoglobin 11.4 g/dL (12.0-15.0); Lymphocyte # 3.28 X10^3/ul (4.0); Lymphocyte % 19.4 % (19-41); Mean Corp Hgb Conc 30.5 g/dL (32-36); Mean Corpuscular Hgb 31.5 pg (27.0-32.0); Mean Corpuscular Volume 103.3 fL (81-99); Mean Platelet Vol. 9.5 fl (6.2-12.0); Monocyte# 1.21 X10^3/uL; Monocyte% 7.1 % (0-10); NRBC Flagged by Analyzer 0 % (0-5); Neutrophil # 12.01 X10^3/uL (2.7-7.7); Platelet Count 375 K/mm3 (150-450); RBC Distribution Width CV 15.3 % (11.6-14.6); RBC Distribution Width SD 58.6 fl (35.1-43.9); Red Blood Count 3.62 M/mm3 (4.2-5.4); White Blood Count 16.9 K/mm3 (4.4-11.0)
[2020-01-02 08:13] LABS: Lipase 103 U/L (73-393)
[2020-01-02 08:38] LABS: Lactic Acid 4.1 mmol/L (0.4-1.9)
--- NOTE | 2020-01-02 08:41 | ED.VISSUMM ---
- ER Visit Summary Date of Service: 01/02/20 Chief Complaint: [Nausea and vomiting] History of Present Illness: The patient is a 79 F [presents to the emergency department with vomiting that started around 3 AM. Patient states that she is vomit about 3 times in all have been bloody. Patient complains of pain in her back that started once she got situated on the ambulance cot. Patient has history of bleeding ulcer in 2011. Patient with history of coronary artery disease, hypertension, high cholesterol. Patient also tells me she had a triple AAA repair 2 years ago. Patient has history of coronary artery disease with 3 cardiac stents. Patient also had back surgery. Patient currently on Plavix and aspirin.] Physical Examination: [HEENT-PERRLA, EOMI. Cranial nerves II through XII grossly intact. TMs clear. Mucous membranes moist. No adenopathy. Cardiovascular-regular rate and rhythm without murmur or ectopy Lungs-clear to auscultation, chest wall stable without crepitus or subcu emphysema Abdomen-normoactive bowel sounds, soft. Patient has some mild epigastric tenderness on palpation. There is no rebound, rigidity, or peritoneal signs. Extremities-intact ?4, normal range of motion, normal pulses, atraumatic] Test Results: [EKG obtained on arrival showed a sinus rhythm with a ventricular rate of 80 bpm with no acute ST segment changes. CBC with differential showed a white count 16.9, hemoglobin 11, hematocrit 37, platelets 375. Chemistries unremarkable. BUN 28 and creatinine 1.37. Troponin was less than 0.015. Lactate was elevated 4.1. CT scan of the abdomen pelvis with IV contrast ordered showed no evidence of endoleak of her graft repair. Patient was noted to have marked thickening of the gastric wall at the gastric antrum with heterogenous enhancing mucosa suggesting gastric ulcer. Patient also noted to have colonic diverticulosis.] Emergency Department Course and Treatment: [IV line was established. Patient was given a liter normal same fluid bolus. Second IV was ordered. Patient had a type and screen ordered. Patient was started on Protonix 40 mg IV. Case was discussed with general surgeon on-call Dr. Primo Snyder who will see patient in consultation. I will discuss with hospitalist to admit to ICU. I was asked to start patient on Carafate by general surgeon.] Initially on arrival first blood pressure was in the 90 systolic however with fluids her systolic is now in the 120s. Treatment Plan: [Admit] Disposition: [Admit] Impression: [Upper GI bleed Bleeding ulcer Lactic acidosis] This note was generated with [employer] dictation software. It may contain incorrect words, spelling, and punctuation that were not noted in review of the chart prior to signing ED Disposition - Plan for ED Patient: Referrals: Dianna Lua DO [Primary Care Provider] -
[2020-01-02] MEDS: Sucralfate 1 GM Tablet PO ×4 (09:14→21:54)
--- NOTE | 2020-01-02 10:06 | NURSING ---
icu 7 [facility] upper gi bleed
[2020-01-02 12:01] LABS: Reflex Lactate? Y
[2020-01-02] MEDS: 0.9% Normal Saline 1,000 ML 100 ML IV ×2 (12:05→21:52)
--- NOTE | 2020-01-02 12:19 | CON.PCM_ITS ---
Reason for Consult Date of Consultation: 01/02/20 Reason for Consultation: Upper GI bleed History of Present Illness: The patient is a 79-year-old female, with a history as outlined below, who presented to the emergency department on January 01 with complaints of nausea and bloody emesis. The patient reported that she awoke from sleep early this morning, not feeling well, and subsequently developed emesis with dark clotted blood present. The patient does have a history of coronary artery disease and is currently on both Plavix and aspirin. She does report having having been diagnosed with a gastric ulcer in 2011. At that time, she did report that she did require transfusion of multiple units of packed red blood cells. She denies any shortness of breath or cough that is productive of sputum. She denies any recent sick contact exposure. The patient was initially noted to be afebrile on presentation. Blood pressures were rather tenuous at first. Laboratory evaluation revealed a white blood cell count of 17,000. Chemistry profile was notable for a creatinine of 1.33. Lactate was elevated to 4.1. Troponin was negative. CT abdomen/pelvis revealed thickening of the gastric wall at the gastric antrum with enhancing mucosa suggesting gastric ulcer. The patient was subsequently placed on PPI therapy and given supplemental IV fluid hydration. She was then admitted to the medical intensive care unit for further management. Past Medical History Past Medical History (Chronic Problems): Chronic Problems (Last Reviewed 01/02/20 @ 16:[address] Primo Snyder MD) Nonrheumatic aortic valve stenosis (Chronic) Abdominal aortic aneurysm without rupture (Chronic) Presence of stent in coronary artery (Chronic ~11/2010) PTCA/RAYSHAWN to L CFX & RCA 11/24 Mitral valve annular calcification (Chronic) Heart murmur, systolic (Chronic) Atherosclerotic heart disease of [place] coronary artery without angina pectoris (Chronic) PTCA/RAYSHAWN to L CFX & RCA 11/24 HLD (hyperlipidemia) (Chronic) Benign essential HTN (Chronic) Abdominal aortic aneurysm without rupture (Chronic) Medical History: Medical History (Last Reviewed 01/02/20 @ 16:[address] Primo Snyder MD) SVT (supraventricular tachycardia) (Acute) I47.1 Palpitations (Acute) R00.2 Mitral valve annular calcification (Chronic) I05.9 Heart murmur, systolic (Chronic) R01.1 Premature ventricular contraction (Acute) I49.3 Atherosclerotic heart disease of [place] coronary artery without angina pectoris (Chronic) I25.10 PTCA/RAYSHAWN to L CFX & RCA 11/24 HLD (hyperlipidemia) (Chronic) E78.5 Benign essential HTN (Chronic) I10 Abdominal aortic aneurysm without rupture (Chronic) I71.4 COPD (chronic obstructive pulmonary disease) J44.9 Family history of ischemic heart disease Z82.49 History of upper gastrointestinal bleeding Z87.19 Osteoarthritis M19.90 Peptic ulcer disease K27.9 Spinal stenosis M48.00 Family history of hypertension Z82.49 Family history of sudden cardiac Z82.41 CAD (coronary artery disease) (Inactive) I25.10 COLD (chronic obstructive lung disease) (Inactive) J44.9 History of upper gastrointestinal bleeding (Inactive) Z87.19 Hx of peptic ulcer (Inactive) Z87.11 Allergies atorvastatin [From Lipitor] Adverse Reaction (Severe, Verified 01/02/20 06:52) myalgias ciprofloxacin [From Cipro] Adverse Reaction (Unknown, Verified 01/02/20 06:52) Unknown Home Medications: Ambulatory Orders Medication Instructions Recorded aspirin 81 mg tablet,delayed 81 mg PO QDAY tab 06/28/17 release coenzyme Q10 100 mg capsule 100 mg PO QDAY 06/28/17 nitroglycerin 0.4 mg sublingual 0.4 mg SUBLINGUAL Q5M PRN 06/28/17 tablet rizatriptan 10 mg tablet 10 mg PO QDAY PRN tab 06/28/17 sertraline 50 mg tablet 50 mg PO QDAY 06/28/17 cholecalciferol (vitamin D3) 1,250 50,000 unit PO DAILY cap 06/30/17 mcg (50,000 unit) capsule Amlodipine Besylate 2.5 mg PO QDAY 01/02/20 Clopidogrel Bisulfate [Clopidogrel] 75 mg PO DAILY 01/02/20 Lisinopril 20 mg PO QDAY 01/02/20 Metoprolol Succinate [Toprol Xl] 25 mg PO DAILY 01/02/20 Rosuvastatin Calcium 10 mg PO DAILY 01/02/20 Surgical History: Surgical History (Last Reviewed 01/02/20 @ 16:[address] Primo Snyder MD) Presence of stent in coronary artery (Chronic) Onset Date: ~11/2010 Z95.5 PTCA/RAYSHAWN to L CFX & RCA 07 History of hemorrhoidectomy Z98.890 Hx of appendectomy Z98.890, Z90.49 Surgical History: noncontributory Smoking Status: Former smoker - *Family History Maternal Family History: Family History (Last Reviewed 08/24/19 @ 13:21 by BALTA Alvarez) Mother Sudden cardiac Father CAD (coronary artery disease) CVA (cerebral vascular accident) Review of Systems Constitutional: Reports: Malaise, Fatigue Eyes: Denies: Blurred vision, Double vision HEENT: Denies: Head Aches, Sinus Congestion, Sinus Drainage Cardiovascular: Denies: Chest Pain, Palpitations Respiratory: Denies: Cough, Shortness of breath at rest, Sputum production Gastrointestinal: Reports: Abdominal Pain, Nausea, Vomiting Genitourinary: Denies: Dysuria Musculoskeletal: Denies: Joint Pain, Joint Tenderness Skin: Denies: Rash, Wounds Neurological: Denies: Numbness, Tingling, Focal weakness Psychiatric: Denies: Anxiety, Depression, Homicidal Ideations, Suicidal Ideations Hematologic/ Lymphatic: Reports: Anemia, Hx of blood transfusion Patient Problems: Active and Suspected Problems (Last Reviewed 01/02/20 @ 16:[address] Primo Snyder MD) GI bleed (Acute) Objective: The patient's most recent lab work, culture data and imaging studies have all been personally reviewed. - Physical Exam Vitals/I&O's: Vital Signs Temp Pulse Resp BP Pulse Ox 97.6 F L 75 16 123/58 H 94 01/02/20 09:33 01/02/20 09:33 01/02/20 09:33 01/02/20 09:33 01/02/20 09:33 Oxygen Flow Rate (L/min) 2 Oxygen Delivery Method Nasal Cannula Weight: 153 lb 0.013 oz Body Mass Index (BMI) 27.1 Intake and Output for Last 24 Hours 12/31/19 01/01/20 01/02/20 23:59 23:59 23:59 Intake Total 1110 / 1110 Balance 1110 / 1110 General: Alert, Cooperative, No apparent distress HEENT: Atraumatic, Normocephalic Oral: No Gingival or Mucosal Lesions/ Ulcerations Neck: Supple, No Nodes, Trachea Midline Lungs: Normal air movement, No rhonchi, No wheeze, No rales Cardiovascular: Regular rate, Regular Rhythm Abdomen: Bowel Sounds Present, Soft, Non Tender Extremities: No clubbing, No cyanosis, No edema Skin: No breakdown Musculoskeletal: No Tenderness to Palpation of Joints or Extremities Lymphatic: No Cervical, Supraclavicular, or Inguinal Adenopathy Neurological: Cranial nerves II-XII grossly intact, Neuro grossly intact Psych/Mental Status: Normal Affect, Appropriate Labs (Last 48 Hours) 01/02/20 01/02/20 01/02/20 06:50 06:50 06:50 WBC 16.9 H RBC 3.62 L Hgb 11.4 L Hct 37.4 MCV 103.3 H MCH 31.5 MCHC 30.5 L RDW Std Deviation 58.6 H RDW Coeff of Alexy 15.3 H Plt Count 375 MPV 9.5 Immature Gran % (Auto) 0.600 Neut % (Auto) 71.0 H Lymph % (Auto) 19.4 [place] % (Auto) 7.1 Eos % (Auto) 1.4 Baso % (Auto) 0.5 Absolute Neuts (auto) 12.0 H Absolute Lymphs (auto) 3.28 Nucleated RBC % 0 Sodium 142 Potassium 4.3 Chloride 108 H Carbon Dioxide 27.0 Anion Gap 7 BUN 28 H Creatinine 1.33 H Estim Creat Clear Calc 28.37 Est GFR (MDRD) Af Amer 50 L Est GFR (MDRD) Non-Af 41 L BUN/Creatinine Ratio 21.1 H Glucose 251 H Lactic Acid Calcium 9.2 Total Bilirubin 0.30 AST 15 ALT 17 Alkaline Phosphatase 79 Troponin I < 0.015 Total Protein 7.2 Albumin 3.3 Globulin 3.9 Albumin/Globulin Ratio 0.8 L Lipase Blood Type A NEGATIVE Antibody Screen NEGATIVE 01/02/20 01/02/20 06:50 07:57 WBC RBC Hgb Hct MCV MCH MCHC RDW Std Deviation RDW Coeff of Alexy Plt Count MPV Immature Gran % (Auto) Neut % (Auto) Lymph % (Auto) [place] % (Auto) Eos % (Auto) Baso % (Auto) Absolute Neuts (auto) Absolute Lymphs (auto) Nucleated RBC % Sodium Potassium Chloride Carbon Dioxide Anion Gap BUN Creatinine Estim Creat Clear Calc Est GFR (MDRD) Af Amer Est GFR (MDRD) Non-Af BUN/Creatinine Ratio Glucose Lactic Acid 4.1 H* Calcium Total Bilirubin AST ALT Alkaline Phosphatase Troponin I Total Protein Albumin Globulin Albumin/Globulin Ratio Lipase 103 Blood Type Antibody Screen Clinical Impression(s) from Imaging Studies Abdomen/Pelvis CT 01/02/20 07:11 IMPRESSION: There is an aortobiiliac stent graft in good position evidence of endoleak. The transverse section of the aneurysm sac measures 5 x 5.4 cm has not significantly changed in size since the previous study it measured previously 5 x 5.2 cm. There is marked thickening of the gastric wall at the gastric antrum with heterogeneous enhancing mucosa suggesting gastric ulcer. Colon diverticulosis. Electronically Signed: Jimmy Sanchez, at 8:33 EDT Tel , Service support , ADDENDUM: 01/02/20 0904 Current Medications Sodium Chloride () 1,000 mls @ 100 mls/hr IV .Q10H [facility] Last Admin: 01/02/20 12:05 Dose: 100 mls/hr Documented by: Pantoprazole Sodium 80 mg/ (Sodium Chloride) 100 mls @ 10 mls/hr CONT INF Q10H [facility] Sodium Chloride () 500 mls @ 15 mls/hr IV PRN PRN PRN Reason: Blood Transfusion Sodium Chloride () 250 mls @ 15 mls/hr IV .[id number] PRN PRN Reason: Saline Flush Sodium Chloride () 250 mls @ 15 mls/hr IV .[id number] PRN PRN Reason: Additional IVPB Infusion Melatonin (Melatonin) 3 mg PO QHS PRN PRN PRN Reason: INSOMNIA Ondansetron HCl (Zofran) 4 mg IV Q8H PRN PRN PRN Reason: NAUSEA/VOMITING Sodium Chloride () 10 - 40 ml IV UD PRN PRN Reason: SALINE FLUSH Sucralfate (Carafate) 1 gm PO 1HR_ACHS [facility] Assessment/Plan Active and Suspected Problems (Last Reviewed 01/02/20 @ 16:[address] Primo Snyder MD) GI bleed (Acute) RECOMMENDATIONS: 1. Monitor H&H closely, with plans to transfuse if hemoglobin drops below 7 g/dL. 2. Await general surgery evaluation. 3. Continue PPI therapy and Carafate. 4. Patient to remain n.p.o., pending evaluation by surgery. IMPRESSIONS: 1. Upper gastrointestinal bleed The patient does have a self-reported history of gastric ulcers. Although the patient did have an elevated white blood cell count along with an elevated lactate, I do suspect that this is related to her acute presentation, including acute GI blood loss. She has remained afebrile and hemodynamically stable. There is no readily identifiable source of possible infection. General surgery has been contacted to evaluate the patient. At the current time, she is not a candidate for transfusion of blood products. I would recommend that she be continued on PPI therapy as ordered. Continue to monitor H&H closely. If hemoglobin drops below 7 g/dL, will plan to transfuse at that time. 2. History of coronary artery disease/hypertension/hyperlipidemia/history of abdominal aortic aneurysm status post repair Complicates care, management, recovery and prognosis. Continue home medications as indicated. This note was generated with [employer] dictation software. It may contain incorrect words, spelling, and punctuation that were not noted in checking the note before signing. Inpatient E&M: 08535 Init Hosp L3
[2020-01-02 13:19] LABS: Lactic Acid 2.4 mmol/L (0.4-1.9)
--- NOTE | 2020-01-02 14:23 | HP.PCM_ITS ---
History of Present Illness Date of Admission: 01/02/20 Chief Complaint: UGIB The patient is a 79 year old F with a PMH as below presents with an upper GI bleed this morning. She states that last night she felt fine however this morning around 3 AM she woke up and had a bout of emesis that was dark brown. At first she did not think anything of it because she had had some dark chocolate the night before so she went back to sleep however a few hours later she threw up again and had blood clots and some bright red blood and therefore she called the squad. While waiting for the ambulance to arrive she said that she also started feeling lightheaded and dizzy. In the ER she was found to be a little hypotensive at a systolic of 95 which improved with IV fluids. She was also little hypoxic to 86 on room air and started on oxygen via nasal cannula. Her heart rate never responded likely secondary to the metoprolol that she takes. Has any abdominal pain, fevers or chills. Has had a GI bleed in the past that was secondary to a gastric ulcer, and she does take aspirin and Plavix secondary to stents however those are at least 8 to 10 years old. Past Medical History Past Medical History (Chronic Problems): Chronic Problems (Last Reviewed 08/24/19 @ 13:21 by ABLTA Alvarez) Nonrheumatic aortic valve stenosis (Chronic) Abdominal aortic aneurysm without rupture (Chronic) Presence of stent in coronary artery (Chronic ~11/2010) PTCA/RAYSHAWN to L CFX & RCA 11/24 Mitral valve annular calcification (Chronic) Heart murmur, systolic (Chronic) Atherosclerotic heart disease of [place] coronary artery without angina pectoris (Chronic) PTCA/RAYSHAWN to L CFX & RCA 11/24 HLD (hyperlipidemia) (Chronic) Benign essential HTN (Chronic) Abdominal aortic aneurysm without rupture (Chronic) Medical History: Medical History (Last Reviewed 08/24/19 @ 13:21 by BALTA Alvarez) SVT (supraventricular tachycardia) (Acute) I47.1 Palpitations (Acute) R00.2 Mitral valve annular calcification (Chronic) I05.9 Heart murmur, systolic (Chronic) R01.1 Premature ventricular contraction (Acute) I49.3 Atherosclerotic heart disease of [place] coronary artery without angina pectoris (Chronic) I25.10 PTCA/RAYSHAWN to L CFX & RCA 07 HLD (hyperlipidemia) (Chronic) E78.5 Benign essential HTN (Chronic) I10 Abdominal aortic aneurysm without rupture (Chronic) I71.4 COPD (chronic obstructive pulmonary disease) J44.9 Family history of ischemic heart disease Z82.49 History of upper gastrointestinal bleeding Z87.19 Osteoarthritis M19.90 Peptic ulcer disease K27.9 Spinal stenosis M48.00 Family history of hypertension Z82.49 Family history of sudden cardiac Z82.41 CAD (coronary artery disease) (Inactive) I25.10 COLD (chronic obstructive lung disease) (Inactive) J44.9 History of upper gastrointestinal bleeding (Inactive) Z87.19 Hx of peptic ulcer (Inactive) Z87.11 Allergies atorvastatin [From Lipitor] Adverse Reaction (Severe, Verified 01/02/20 06:52) myalgias ciprofloxacin [From Cipro] Adverse Reaction (Unknown, Verified 01/02/20 06:52) Unknown Home Medications: Ambulatory Orders Medication Instructions Recorded aspirin 81 mg tablet,delayed 81 mg PO QDAY tab 06/28/17 release coenzyme Q10 100 mg capsule 100 mg PO QDAY 06/28/17 nitroglycerin 0.4 mg sublingual 0.4 mg SUBLINGUAL Q5M PRN 06/28/17 tablet rizatriptan 10 mg tablet 10 mg PO QDAY PRN tab 06/28/17 sertraline 50 mg tablet 50 mg PO QDAY 06/28/17 cholecalciferol (vitamin D3) 1,250 50,000 unit PO DAILY cap 06/30/17 mcg (50,000 unit) capsule Amlodipine Besylate 2.5 mg PO QDAY 01/02/20 Clopidogrel Bisulfate [Clopidogrel] 75 mg PO DAILY 01/02/20 Lisinopril 20 mg PO QDAY 01/02/20 Metoprolol Succinate [Toprol Xl] 25 mg PO DAILY 01/02/20 Rosuvastatin Calcium 10 mg PO DAILY 01/02/20 Surgical History: Surgical History (Last Reviewed 08/24/19 @ 13:21 by BALTA Alvarez) Presence of stent in coronary artery (Chronic) Onset Date: ~11/2010 Z95.5 PTCA/RAYSHAWN to L CFX & RCA 07 History of hemorrhoidectomy Z98.890 Hx of appendectomy Z98.890, Z90.49 Smoking Status: Current some day smoker Tobacco Use: Cigarettes Alcohol: None Drugs: None - *Family History Maternal Family History: Family History (Last Reviewed 08/24/19 @ 13:21 by BALTA Alvarez) Mother Sudden cardiac Father CAD (coronary artery disease) CVA (cerebral vascular accident) Review of Systems Constitutional: Denies: Chills, Fever, Weight Change HEENT: Denies: Head Aches, Sinus Congestion, Sinus Drainage Cardiovascular: Reports: Light Headedness. Denies: Chest Pain, Palpitations Respiratory: Denies: Cough, Shortness of breath at rest, Sputum production Gastrointestinal: Reports: Hematemesis. Denies: Abdominal Pain, Nausea, Vomiting Genitourinary: Denies: Dysuria Musculoskeletal: Denies: Joint Pain, Joint Tenderness Skin: Denies: Rash, Wounds Neurological: Denies: Numbness, Tingling, Focal weakness Psychiatric: Denies: Anxiety, Depression Hematologic/ Lymphatic: Denies: Easy Bruising, Easy Bleeding VTE Information - Inpt Only VTE Present on Admission: No - Physical Exam Vitals/I&O's: Vital Signs Temp Pulse Resp BP Pulse Ox 97.1 F L 68 18 119/71 97 01/02/20 12:00 01/02/20 13:00 01/02/20 13:00 01/02/20 13:00 01/02/20 13:00 Oxygen Flow Rate (L/min) 2 Oxygen Delivery Method Nasal Cannula Weight: 153 lb 0.013 oz Body Mass Index (BMI) 27.1 Intake and Output for Last 24 Hours 12/31/19 01/01/20 01/02/20 23:59 23:59 23:59 Intake Total 1110 / 1110 Balance 1110 / 1110 General: Alert, Oriented x3, Cooperative, No apparent distress HEENT: Atraumatic, PERRLA, EOMI, Normocephalic Oral: Moist Mucosa Neck: Supple, No JVD Lungs: Clear to auscultation, Normal air movement, No rhonchi, No wheeze, No rales Cardiovascular: Regular rate, Regular Rhythm, Normal S1, Normal S2, No murmurs Abdomen: Soft, Non Tender, Non-Distended, No Hepato-splenomegaly Extremities: No edema, Capillary Refill Less than 3 Seconds Skin: No rashes, No breakdown Neurological: Neuro grossly intact, Sensory exam intact to light touch and pain Psych/Mental Status: Normal Affect, Appropriate Microbiology Past 72 Hours 01/02/20 13:15 Stool Stool Occult Blood (ANNE-MARIE) - Final Occult Blood Positive Laboratory Results 01/02/20 06:50: WBC 16.9 H, RBC 3.62 L, Hgb 11.4 L, Hct 37.4, MCV 103.3 H, MCH 31.5, MCHC 30.5 L, RDW Std Deviation 58.6 H, RDW Coeff of Alexy 15.3 H, Plt Count 375, MPV 9.5, Immature Gran % (Auto) 0.600, Neut % (Auto) 71.0 H, Lymph % (Auto) 19.4, [place] % (Auto) 7.1, Eos % (Auto) 1.4, Baso % (Auto) 0.5, Absolute Neuts (auto) 12.0 H, Absolute Lymphs (auto) 3.28, Nucleated RBC % 0 01/02/20 06:50: Sodium 142, Potassium 4.3, Chloride 108 H, Carbon Dioxide 27.0, Anion Gap 7, BUN 28 H, Creatinine 1.33 H, Estim Creat Clear Calc 28.37, Est GFR (MDRD) Af Amer 50 L, Est GFR (MDRD) Non-Af 41 L, BUN/Creatinine Ratio 21.1 H, Glucose 251 H, Calcium 9.2, Total Bilirubin 0.30, AST 15, ALT 17, Alkaline Phosphatase 79, Troponin I < 0.015, Total Protein 7.2, Albumin 3.3, Globulin 3.9, Albumin/Globulin Ratio 0.8 L 01/02/20 06:50: Blood Type A NEGATIVE, Antibody Screen NEGATIVE 01/02/20 06:50: Lipase 103 01/02/20 07:57: Lactic Acid 4.1 H* 01/02/20 12:25: Lactic Acid 2.4 H* Current Medications Sodium Chloride () 1,000 mls @ 100 mls/hr IV .Q10H [facility] Last Admin: 01/02/20 12:05 Dose: 100 mls/hr Documented by: Pantoprazole Sodium 80 mg/ (Sodium Chloride) 100 mls @ 10 mls/hr CONT INF Q10H [facility] Last Admin: 01/02/20 12:40 Dose: 10 mls/hr Documented by: Sodium Chloride () 500 mls @ 15 mls/hr IV PRN PRN PRN Reason: Blood Transfusion Sodium Chloride () 250 mls @ 15 mls/hr IV .[id number] PRN PRN Reason: Saline Flush Sodium Chloride () 250 mls @ 15 mls/hr IV .[id number] PRN PRN Reason: Additional IVPB Infusion Melatonin (Melatonin) 3 mg PO QHS PRN PRN PRN Reason: INSOMNIA Ondansetron HCl (Zofran) 4 mg IV Q8H PRN PRN PRN Reason: NAUSEA/VOMITING Sodium Chloride () 10 - 40 ml IV UD PRN PRN Reason: SALINE FLUSH Sucralfate (Carafate) 1 gm PO 1HR_ACHS [facility] Last Admin: 01/02/20 12:47 Dose: 1 gm Documented by: Assessment/Plan All Active Problems (Last Reviewed 08/24/19 @ 13:21 by BALTA Alvarez) SVT (supraventricular tachycardia) (Acute) Palpitations (Acute) Premature ventricular contraction (Acute) 1. Upper GI bleed -Likely secondary to aspirin and Plavix for her stents -We will hold her antiplatelets and both her blood pressure medications and place her on IV fluids -Initial hemoglobin on admission was 11.4 will have a recheck at 2 PM -He does have an elevated leukocytosis while being afebrile, CTA of the abdomen was unremarkable any source of infection therefore this likely reactive to the upper GI bleed will continue to monitor, this is likely the same issue with her lactic acid that was elevated that is now improved to 2.4 -Appreciate surgical assistance, plan for EGD in the morning -Continue with IV Protonix drip as well as p.o. Carafate -We will place in the ICU as a precaution, appreciate mortgage loan closer -Fecal occult sample was positive 2. CAD status post stents in 2010/HTN/HLD -We will hold her aspirin and Plavix and likely she can discontinue this as this is her second GI bleed and her stents are over 8 years old -We will hold her blood pressure medications for now -Can continue with her Crestor 3. Anxiety/depression -Stable -Continue Zoloft DVT: SCDs Inpatient E&M: 76629 Init Hosp L3
[2020-01-02 14:29] LABS: Hematocrit 33.3 % (37-47); Hemoglobin 10.2 g/dL (12.0-15.0)
--- NOTE | 2020-01-02 16:17 | PCM.CONS.GEN ---
Problem List (1) GI bleed Status: Acute Qualifiers: GI bleed type/associated pathology: gastritis Gastritis type: unspecified gastritis Qualified Code(s): K29.71 - Gastritis, unspecified, with bleeding Reason for Consult Date of Consultation: 01/02/20 History of Present Illness: The patient is a 79 year old F with a PMH as below presents with an upper GI bleed this morning. She states that last night she felt fine however this morning around 3 AM she woke up and had a bout of emesis that was dark brown. At first she did not think anything of it because she had had some dark chocolate the night before so she went back to sleep however a few hours later she threw up again and had blood clots and some bright red blood and therefore she called the squad. While waiting for the ambulance to arrive she said that she also started feeling lightheaded and dizzy. In the ER she was found to be a little hypotensive at a systolic of 95 which improved with IV fluids. She was also little hypoxic to 86 on room air and started on oxygen via nasal cannula. Her heart rate never responded likely secondary to the metoprolol that she takes. Has any abdominal pain, fevers or chills. Has had a GI bleed in the past that was secondary to a gastric ulcer, and she does take aspirin and Plavix secondary to stents however those are at least 8 to 10 years old Past Medical History Past Medical History (Chronic Problems): Chronic Problems (Last Reviewed 08/24/19 @ 13:21 by BALTA Alvarez) Nonrheumatic aortic valve stenosis (Chronic) Abdominal aortic aneurysm without rupture (Chronic) Presence of stent in coronary artery (Chronic ~11/2010) PTCA/RAYSHAWN to L CFX & RCA 11/24 Mitral valve annular calcification (Chronic) Heart murmur, systolic (Chronic) Atherosclerotic heart disease of [place] coronary artery without angina pectoris (Chronic) PTCA/RAYSHAWN to L CFX & RCA 11/24 HLD (hyperlipidemia) (Chronic) Benign essential HTN (Chronic) Abdominal aortic aneurysm without rupture (Chronic) Medical History: Medical History (Last Reviewed 01/02/20 @ 16:[address] Primo Snyder MD) SVT (supraventricular tachycardia) (Acute) I47.1 Palpitations (Acute) R00.2 Mitral valve annular calcification (Chronic) I05.9 Heart murmur, systolic (Chronic) R01.1 Premature ventricular contraction (Acute) I49.3 Atherosclerotic heart disease of [place] coronary artery without angina pectoris (Chronic) I25.10 PTCA/RAYSHAWN to L CFX & RCA 07/11 HLD (hyperlipidemia) (Chronic) E78.5 Benign essential HTN (Chronic) I10 Abdominal aortic aneurysm without rupture (Chronic) I71.4 COPD (chronic obstructive pulmonary disease) J44.9 Family history of ischemic heart disease Z82.49 History of upper gastrointestinal bleeding Z87.19 Osteoarthritis M19.90 Peptic ulcer disease K27.9 Spinal stenosis M48.00 Family history of hypertension Z82.49 Family history of sudden cardiac Z82.41 CAD (coronary artery disease) (Inactive) I25.10 COLD (chronic obstructive lung disease) (Inactive) J44.9 History of upper gastrointestinal bleeding (Inactive) Z87.19 Hx of peptic ulcer (Inactive) Z87.11 Allergies atorvastatin [From Lipitor] Adverse Reaction (Severe, Verified 01/02/20 06:52) myalgias ciprofloxacin [From Cipro] Adverse Reaction (Unknown, Verified 01/02/20 06:52) Unknown Home Medications: Ambulatory Orders Medication Instructions Recorded aspirin 81 mg tablet,delayed 81 mg PO QDAY tab 06/28/17 release coenzyme Q10 100 mg capsule 100 mg PO QDAY 06/28/17 nitroglycerin 0.4 mg sublingual 0.4 mg SUBLINGUAL Q5M PRN 06/28/17 tablet rizatriptan 10 mg tablet 10 mg PO QDAY PRN tab 06/28/17 sertraline 50 mg tablet 50 mg PO QDAY 06/28/17 cholecalciferol (vitamin D3) 1,250 50,000 unit PO DAILY cap 06/30/17 mcg (50,000 unit) capsule Amlodipine Besylate 2.5 mg PO QDAY 01/02/20 Clopidogrel Bisulfate [Clopidogrel] 75 mg PO DAILY 01/02/20 Lisinopril 20 mg PO QDAY 01/02/20 Metoprolol Succinate [Toprol Xl] 25 mg PO DAILY 01/02/20 Rosuvastatin Calcium 10 mg PO DAILY 01/02/20 Surgical History: Surgical History (Last Reviewed 01/02/20 @ 16:[address] Primo Snyder MD) Presence of stent in coronary artery (Chronic) Onset Date: ~11/2010 Z95.5 PTCA/RAYSHAWN to L CFX & RCA 11/24 History of hemorrhoidectomy Z98.890 Hx of appendectomy Z98.890, Z90.49 Surgical History: noncontributory Smoking Status: Current some day smoker Tobacco Use: Cigarettes Alcohol: None Drugs: None - *Family History Maternal Family History: Family History (Last Reviewed 08/24/19 @ 13:21 by BALTA Alvarez) Mother Sudden cardiac Father CAD (coronary artery disease) CVA (cerebral vascular accident) Review of Systems Constitutional: Denies: Chills, Fever, Weight Change Cardiovascular: Reports: Light Headedness. Denies: Chest Pain, Chest Pressure, Chest Tightness, Palpitations Respiratory: Reports: Shortness of Breath. Denies: Cough, Hemoptysis, Shortness of breath upon exertion, Wheezing Gastrointestinal: Reports: Hematemesis, Melena Genitourinary: Denies: Dysuria, Frequency, Hematuria, Urgency Patient Problems: Active and Suspected Problems (Last Reviewed 08/24/19 @ 13:21 by BALTA Alvarez) GI bleed (Acute) - Physical Exam Vitals/I&O's: Vital Signs Temp Pulse Resp BP Pulse Ox 97.1 F L 75 17 128/65 H 94 01/02/20 12:00 01/02/20 15:00 01/02/20 15:00 01/02/20 15:00 01/02/20 15:00 Oxygen Flow Rate (L/min) 2 Oxygen Delivery Method Nasal Cannula Weight: 153 lb 0.013 oz Body Mass Index (BMI) 27.1 Intake and Output for Last 24 Hours 12/31/19 01/01/20 01/02/20 23:59 23:59 23:59 Intake Total 1110 / 1110 Balance 1110 / 1110 General: Alert, Oriented x3 Neck: Supple, No JVD Lungs: Clear to auscultation Cardiovascular: Regular rate, Regular Rhythm, No murmurs Abdomen: Bowel Sounds Present, Soft, Non Tender, Non-Distended Microbiology Past 72 Hours 01/02/20 13:15 Stool Stool Occult Blood (ANNE-MARIE) - Final Occult Blood Positive Laboratory Results 01/02/20 06:50: WBC 16.9 H, RBC 3.62 L, Hgb 11.4 L, Hct 37.4, MCV 103.3 H, MCH 31.5, MCHC 30.5 L, RDW Std Deviation 58.6 H, RDW Coeff of Alexy 15.3 H, Plt Count 375, MPV 9.5, Immature Gran % (Auto) 0.600, Neut % (Auto) 71.0 H, Lymph % (Auto) 19.4, [place] % (Auto) 7.1, Eos % (Auto) 1.4, Baso % (Auto) 0.5, Absolute Neuts (auto) 12.0 H, Absolute Lymphs (auto) 3.28, Nucleated RBC % 0 01/02/20 06:50: Sodium 142, Potassium 4.3, Chloride 108 H, Carbon Dioxide 27.0, Anion Gap 7, BUN 28 H, Creatinine 1.33 H, Estim Creat Clear Calc 28.37, Est GFR (MDRD) Af Amer 50 L, Est GFR (MDRD) Non-Af 41 L, BUN/Creatinine Ratio 21.1 H, Glucose 251 H, Calcium 9.2, Total Bilirubin 0.30, AST 15, ALT 17, Alkaline Phosphatase 79, Troponin I < 0.015, Total Protein 7.2, Albumin 3.3, Globulin 3.9, Albumin/Globulin Ratio 0.8 L 01/02/20 06:50: Blood Type A NEGATIVE, Antibody Screen NEGATIVE 01/02/20 06:50: Lipase 103 01/02/20 07:57: Lactic Acid 4.1 H* 01/02/20 12:25: Lactic Acid 2.4 H* 01/02/20 14:15: Hgb 10.2 L, Hct 33.3 L Current Medications Sodium Chloride () 1,000 mls @ 100 mls/hr IV .Q10H [facility] Last Admin: 01/02/20 12:05 Dose: 100 mls/hr Documented by: Pantoprazole Sodium 80 mg/ (Sodium Chloride) 100 mls @ 10 mls/hr CONT INF Q10H [facility] Last Admin: 01/02/20 12:40 Dose: 10 mls/hr Documented by: Sodium Chloride () 500 mls @ 15 mls/hr IV PRN PRN PRN Reason: Blood Transfusion Sodium Chloride () 250 mls @ 15 mls/hr IV .[id number] PRN PRN Reason: Saline Flush Sodium Chloride () 250 mls @ 15 mls/hr IV .[id number] PRN PRN Reason: Additional IVPB Infusion Melatonin (Melatonin) 3 mg PO QHS PRN PRN PRN Reason: INSOMNIA Ondansetron HCl (Zofran) 4 mg IV Q8H PRN PRN PRN Reason: NAUSEA/VOMITING Sodium Chloride () 10 - 40 ml IV UD PRN PRN Reason: SALINE FLUSH Sucralfate (Carafate) 1 gm PO 1HR_ACHS NIKKI Last Admin: 01/02/20 16:12 Dose: 1 gm Documented by: Assessment/Plan All Active Problems (Last Reviewed 08/24/19 @ 13:21 by BALTA Alvarez) GI bleed (Acute) SVT (supraventricular tachycardia) (Acute) Palpitations (Acute) Premature ventricular contraction (Acute) At this point I do not have any plans to do an upper endoscopy on her. We will continue to observe her hopefully she will not need to be transfused at the present time she appears to be very comfortable and stable. I am going to allow her to have clear liquids. Office Visits / Consults: [id number] IP Consult L3
[2020-01-02] MEDS: Menthol/Camphor/Phenol 225ml Bottle 1 APPLIC TOPICAL (23:20)
[2020-01-03] VITALS (26 sets, daily range): BP systolic 87–135; BP diastolic 53–70; PULSE 87–110; RESP 12–26; TEMP 36.4–37.6; O2SAT 87–97
[2020-01-03 04:02] LABS: Absolute Lymphocyte Count 1.32 X10^3/uL (0.83-4.51); Absolute Neutrophil Count 14.8 X10^3/uL (2.0-7.7); Basophil# 0.02 X10^3/uL; Basophil% 0.1 % (0-1); Hematocrit 26.5 % (37-47); Hemoglobin 8.1 g/dL (12.0-15.0); Lymphocyte # 1.32 X10^3/ul (4.0); Lymphocyte % 7.4 % (19-41); Mean Corp Hgb Conc 30.6 g/dL (32-36); Mean Corpuscular Hgb 31.2 pg (27.0-32.0); Mean Corpuscular Volume 101.9 fL (81-99); Mean Platelet Vol. 9.7 fl (6.2-12.0); Monocyte# 1.53 X10^3/uL; Monocyte% 8.6 % (0-10); NRBC Flagged by Analyzer 0 % (0-5); Neutrophil # 14.77 X10^3/uL (2.7-7.7); Neutrophil % 83.3 % (47-70); POSITIVE DIFFERENTIAL YES; POSITIVE MORPHOLOGY YES; Platelet Count 240 K/mm3 (150-450); RBC Distribution Width CV 15.8 % (11.6-14.6); RBC Distribution Width SD 58.7 fl (35.1-43.9); White Blood Count 17.8 K/mm3 (4.4-11.0)
[2020-01-03 04:17] LABS: Differential Indicated SCAN CRITERIA MET
[2020-01-03 04:29] LABS: Anion Gap 4 (5-15); BUN 34 mg/dL (7-18); BUN/Creat Ratio 39.5 RATIO (10-20); Calcium,Total 7.7 mg/dL (8.5-10.1); Chloride 113 mmol/L (98-107); Creatinine, Serum 0.86 mg/dL (0.55-1.02); EST Glomerular Filtration Rate 68 mL/min (>60); Est Glom Filt Rate - Afr Amer 82 mL/min (>60); Estimated Creatinine Clearance 43.88 ml/min; Glucose 118 mg/dL (74-106); Sodium Level 142 mmol/L (136-145)
[2020-01-03 04:41] LABS: Differential Comment SCANNED; Hypochromasia 2+; Macrocytosis 2+
--- NOTE | 2020-01-03 06:12 | PCM.PN.INT ---
Subjective: The patient was seen and examined at the bedside this morning. Events from the last 24 hours have been reviewed. The patient is currently afebrile, hemodynamically stable and maintaining appropriate oxygen saturations on 2 L/min via nasal cannula. The patient did develop left-sided abdominal pain this morning and had 2 blood pressure readings with systolics in the 80s. Hemoglobin this morning was noted to be 8.1 g/dL. The patient remains on PPI therapy. General surgery was contacted regarding the aforementioned. They did not have any additional plans to proceed with endoscopic evaluation. The patient's hemodynamics improved without intervention. Objective: The patient's most recent lab work, culture data and imaging studies have all been personally reviewed. General: Alert, Cooperative, No apparent distress HEENT: Atraumatic, PERRLA, Normocephalic Oral: No Gingival or Mucosal Lesions/ Ulcerations Neck: Supple, No Nodes, Trachea Midline Lungs: No rhonchi, No wheeze, No rales Cardiovascular: Normal S1, Normal S2, No murmurs, Tachycardic Abdomen: Bowel Sounds Present, Soft, Non-Distended, Tender Extremities: No clubbing, No cyanosis, No edema Skin: No breakdown Musculoskeletal: No Tenderness to Palpation of Joints or Extremities, No Muscle Wasting Lymphatic: No Cervical, Supraclavicular, or Inguinal Adenopathy Neurological: Cranial nerves II-XII grossly intact, Neuro grossly intact Psych/Mental Status: Normal Affect, Appropriate Vital Signs Temp Pulse Resp BP Pulse Ox 98.3 F 98 23 H 115/63 94 01/03/20 04:00 01/03/20 06:00 01/03/20 06:00 01/03/20 06:00 01/03/20 06:00 Oxygen Flow Rate (L/min) 2 Oxygen Delivery Method Nasal Cannula Weight: 153 lb 0.013 oz Body Mass Index (BMI) 27.1 Intake and Output for Last 24 Hours 01/01/20 01/02/20 01/03/20 23:59 23:59 23:59 Intake Total 2300.33 / 2390.33 150 / 150 Balance 2300.33 / 2390.33 150 / 150 Labs (Last 48 Hours) 01/02/20 01/02/20 01/02/20 06:50 06:50 06:50 WBC 16.9 H RBC 3.62 L Hgb 11.4 L Hct 37.4 MCV 103.3 H MCH 31.5 MCHC 30.5 L RDW Std Deviation 58.6 H RDW Coeff of Alexy 15.3 H Plt Count 375 MPV 9.5 Immature Gran % (Auto) 0.600 Neut % (Auto) 71.0 H Lymph % (Auto) 19.4 [place] % (Auto) 7.1 Eos % (Auto) 1.4 Baso % (Auto) 0.5 Absolute Neuts (auto) 12.0 H Absolute Lymphs (auto) 3.28 Nucleated RBC % 0 Differential Comment Diff Path Review Hypochromasia Macrocytosis Sodium 142 Potassium 4.3 Chloride 108 H Carbon Dioxide 27.0 Anion Gap 7 BUN 28 H Creatinine 1.33 H Estim Creat Clear Calc 28.37 Est GFR (MDRD) Af Amer 50 L Est GFR (MDRD) Non-Af 41 L BUN/Creatinine Ratio 21.1 H Glucose 251 H Lactic Acid Calcium 9.2 Total Bilirubin 0.30 AST 15 ALT 17 Alkaline Phosphatase 79 Troponin I < 0.015 Total Protein 7.2 Albumin 3.3 Globulin 3.9 Albumin/Globulin Ratio 0.8 L Lipase Blood Type A NEGATIVE Antibody Screen NEGATIVE 01/02/20 01/02/20 01/02/20 06:50 07:57 12:25 WBC RBC Hgb Hct MCV MCH MCHC RDW Std Deviation RDW Coeff of Alexy Plt Count MPV Immature Gran % (Auto) Neut % (Auto) Lymph % (Auto) [place] % (Auto) Eos % (Auto) Baso % (Auto) Absolute Neuts (auto) Absolute Lymphs (auto) Nucleated RBC % Differential Comment Diff Path Review Hypochromasia Macrocytosis Sodium Potassium Chloride Carbon Dioxide Anion Gap BUN Creatinine Estim Creat Clear Calc Est GFR (MDRD) Af Amer Est GFR (MDRD) Non-Af BUN/Creatinine Ratio Glucose Lactic Acid 4.1 H* 2.4 H* Calcium Total Bilirubin AST ALT Alkaline Phosphatase Troponin I Total Protein Albumin Globulin Albumin/Globulin Ratio Lipase 103 Blood Type Antibody Screen 01/02/20 01/03/20 01/03/20 14:15 03:40 03:40 WBC 17.8 H RBC 2.60 L Hgb 10.2 L 8.1 L Hct 33.3 L 26.5 L MCV 101.9 H MCH 31.2 MCHC 30.6 L RDW Std Deviation 58.7 H RDW Coeff of Alexy 15.8 H Plt Count 240 MPV 9.7 Immature Gran % (Auto) 0.600 Neut % (Auto) 83.3 H Lymph % (Auto) 7.4 L [place] % (Auto) 8.6 Eos % (Auto) 0.0 Baso % (Auto) 0.1 Absolute Neuts (auto) 14.8 H Absolute Lymphs (auto) 1.32 Nucleated RBC % 0 Differential Comment SCANNED Diff Path Review May foll Hypochromasia 2+ Macrocytosis 2+ Sodium 142 Potassium 4.0 Chloride 113 H Carbon Dioxide 25.0 Anion Gap 4 L BUN 34 H Creatinine 0.86 Estim Creat Clear Calc 43.88 Est GFR (MDRD) Af Amer 82 Est GFR (MDRD) Non-Af 68 BUN/Creatinine Ratio 39.5 H Glucose 118 H Lactic Acid Calcium 7.7 L Total Bilirubin AST ALT Alkaline Phosphatase Troponin I Total Protein Albumin Globulin Albumin/Globulin Ratio Lipase Blood Type Antibody Screen Microbiology 01/02/20 13:15 Stool Stool Occult Blood (ANNE-MARIE) - Final Occult Blood Positive Clinical Impression(s) from Imaging Studies Abdomen/Pelvis CT 01/02/20 07:11 IMPRESSION: There is an aortobiiliac stent graft in good position evidence of endoleak. The transverse section of the aneurysm sac measures 5 x 5.4 cm has not significantly changed in size since the previous study it measured previously 5 x 5.2 cm. There is marked thickening of the gastric wall at the gastric antrum with heterogeneous enhancing mucosa suggesting gastric ulcer. Colon diverticulosis. Electronically Signed: Marquez Laura, at 8:33 EDT Tel , Service support , ADDENDUM: 01/02/20 0904 Medical Necessity - Tobacco Use Smoking Status: Current some day smoker Tobacco Use: Cigarettes Assessment/Plan All Active Problems (Last Reviewed 01/02/20 @ 16:[address] Primo Snyder MD) GI bleed (Acute) SVT (supraventricular tachycardia) (Acute) Palpitations (Acute) Premature ventricular contraction (Acute) RECOMMENDATIONS: 1. Monitor H&H closely, with plans to transfuse if hemoglobin drops below 7 g/dL. 2. Transition from continuous infusion PPI to twice daily dosing. Continue Carafate. 3. Dietary advancement per general surgery recommendations. 4. Timing for any endoscopic evaluation per general surgery. 5. Repeat CT abdomen/pelvis with any worsening of abdominal pain. 6. Encourage incentive spirometer use and mobilize patient as tolerated. IMPRESSIONS: 1. Upper gastrointestinal bleed The patient does have a self-reported history of gastric ulcers. Although the patient did have an elevated white blood cell count along with an elevated lactate, I do suspect that this is related to her acute presentation, including acute GI blood loss. She has remained afebrile and hemodynamically stable. There is no readily identifiable source of possible infection. General surgery is following without plans for endoscopic evaluation at this time. She will be continued on twice daily PPI therapy. Blood counts will be monitored closely, with plans to transfuse if hemoglobin drops below 7 g/dL. 2. History of coronary artery disease/hypertension/hyperlipidemia/history of abdominal aortic aneurysm status post repair Complicates care, management, recovery and prognosis. Continue home medications as indicated. This note was generated with [employer] dictation software. It may contain incorrect words, spelling, and punctuation that were not noted in checking the note before signing. Inpatient E&M: 02895 Subs Hosp L2
[2020-01-03] MEDS: Sucralfate 1 GM Tablet PO ×4 (06:29→21:46)
--- NOTE | 2020-01-03 06:57 | CPS ---
patient weaned from 2 lpm to room air.
--- NOTE | 2020-01-03 06:57 | CPS ---
patient was 87% on room air. patient increased to 1 lpm.
--- NOTE | 2020-01-03 09:26 | PCM.PN.HOSP ---
Patient Problems: Active and Suspected Problems (Last Reviewed 01/02/20 @ 16:[address] Primo Snyder MD) GI bleed (Acute) Subjective: Doing well, no issues overnight. No further upper GI bleeding. She did have a bloody bowel movement yesterday. Nothing this morning. She is a little bit lightheaded and becomes tachycardic when sitting upright. Vitals/I&O's: Vital Signs Temp Pulse Resp BP Pulse Ox 98.0 F 102 H 12 102/64 96 01/03/20 08:32 01/03/20 08:32 01/03/20 08:32 01/03/20 08:32 01/03/20 08:32 Oxygen Flow Rate (L/min) 1 Oxygen Delivery Method Nasal Cannula Weight: 155 lb 13.869 oz Body Mass Index (BMI) 27.1 Intake and Output for Last 24 Hours 01/01/20 01/02/20 01/03/20 23:59 23:59 23:59 Intake Total 2300.33 / 2390.33 1099.66 / 1099.66 Balance 2300.33 / 2390.33 1099.66 / 1099.66 General: Alert, Oriented x3, Cooperative, No apparent distress HEENT: Atraumatic, PERRLA, EOMI, Normocephalic Oral: Moist Mucosa Neck: Supple, No JVD Lungs: Clear to auscultation, Normal air movement, No rhonchi, No wheeze, No rales Cardiovascular: Regular rate, Regular Rhythm, Normal S1, Normal S2, No murmurs Abdomen: Soft, Non Tender, Non-Distended, No Hepato-splenomegaly Extremities: No edema, Capillary Refill Less than 3 Seconds Skin: No rashes, No breakdown Neurological: Neuro grossly intact, Sensory exam intact to light touch and pain Psych/Mental Status: Normal Affect, Appropriate Microbiology Past 72 Hours 01/02/20 13:15 Stool Stool Occult Blood (ANNE-MARIE) - Final Occult Blood Positive Laboratory Results 01/02/20 12:25: Lactic Acid 2.4 H* 01/02/20 14:15: Hgb 10.2 L, Hct 33.3 L 01/03/20 03:40: WBC 17.8 H, RBC 2.60 L, Hgb 8.1 L, Hct 26.5 L, MCV 101.9 H, MCH 31.2, MCHC 30.6 L, RDW Std Deviation 58.7 H, RDW Coeff of Alexy 15.8 H, Plt Count 240, MPV 9.7, Immature Gran % (Auto) 0.600, Neut % (Auto) 83.3 H, Lymph % (Auto) 7.4 L, [place] % (Auto) 8.6, Eos % (Auto) 0.0, Baso % (Auto) 0.1, Absolute Neuts (auto) 14.8 H, Absolute Lymphs (auto) 1.32, Nucleated RBC % 0, Differential Comment SCANNED, Diff Path Review September foll, Hypochromasia 2+, Macrocytosis 2+ 01/03/20 03:40: Sodium 142, Potassium 4.0, Chloride 113 H, Carbon Dioxide 25.0, Anion Gap 4 L, BUN 34 H, Creatinine 0.86, Estim Creat Clear Calc 43.88, Est GFR (MDRD) Af Amer 82, Est GFR (MDRD) Non-Af 68, BUN/Creatinine Ratio 39.5 H, Glucose 118 H, Calcium 7.7 L Current Medications Sodium Chloride () 500 mls @ 15 mls/hr IV PRN PRN PRN Reason: Blood Transfusion Sodium Chloride () 250 mls @ 15 mls/hr IV .[id number] PRN PRN Reason: Saline Flush Sodium Chloride () 250 mls @ 15 mls/hr IV .[id number] PRN PRN Reason: Additional IVPB Infusion Pantoprazole Sodium 40 mg/ (Sodium Chloride) 110 mls @ 330 mls/hr IV Q12 NIKKI Melatonin (Melatonin) 3 mg PO QHS PRN PRN PRN Reason: INSOMNIA Ondansetron HCl (Zofran) 4 mg IV Q8H PRN PRN PRN Reason: NAUSEA/VOMITING Petrolatum (Sarna, Men-Phor) 1 applic TOPICAL 4X/DAY PRN PRN; Protocol PRN Reason: back pain Last Admin: 01/02/20 23:20 Dose: 1 applicatio Documented by: Sodium Chloride () 10 - 40 ml IV UD PRN PRN Reason: SALINE FLUSH Sucralfate (Carafate) 1 gm PO 1HR_ACHS NIKKI Last Admin: 01/03/20 06:29 Dose: 1 gm Documented by: STROKE Vital Signs/Narrative: Vital Signs Temp Pulse Resp BP BP Pulse Ox 01/03/20 08:32 98.0 F 102 H 12 102/64 96 01/03/20 08:00 93 01/03/20 07:36 92 01/03/20 07:22 100 01/03/20 07:00 98 18 112/69 97 01/03/20 06:57 87 01/03/20 06:45 96 01/03/20 06:00 98 23 H 115/63 94 Medical Necessity - Tobacco Use Smoking Status: Current some day smoker Tobacco Use: Cigarettes Assessment/Plan All Active Problems (Last Reviewed 01/02/20 @ 16:[address] Primo Snyder MD) GI bleed (Acute) SVT (supraventricular tachycardia) (Acute) Palpitations (Acute) Premature ventricular contraction (Acute) 1. Upper GI bleed -Likely secondary to aspirin and Plavix for her stents -We will hold her antiplatelets and both her blood pressure medications and place her on IV fluids -Initial hemoglobin on admission was 11.4, she did go down to 8.1 today and given the fact that she is a cardiac patient will transfuse her 1 unit -She does have an elevated leukocytosis while being afebrile, CTA of the abdomen was unremarkable any source of infection therefore this likely reactive to the upper GI bleed will continue to monitor, this is likely the same issue with her lactic acid that was elevated that is now improved to 2.4 -Appreciate surgical assistance, will plan for outpatient scope -Continue with IV Protonix twice daily as well as p.o. Carafate -Transfer to PCU -Fecal occult sample was positive 2. CAD status post stents in 2010/HTN/HLD -We will hold her aspirin and Plavix and likely she can discontinue this as this is her second GI bleed and her stents are over 8 years old -We will hold her blood pressure medications for now -Can continue with her Crestor 3. Anxiety/depression -Stable -Continue Zoloft DVT: SCDs Inpatient E&M: 29307 Subs Hosp L2
[2020-01-03 12:50] LABS: Pathologist Review Reviewed
--- NOTE | 2020-01-03 13:10 | CASEMGMT ---
ZEYAD HOFFMAN assessment: Face to Face with patient for initial transition planning/care coordination assessment. ZEYAD HOFFMAN introduced self and role at [facility], pt voices understanding and consents to assessment at this time. Pt is sitting up in chair in no distress at this time. Pt is A/Ox4 at this time and answers all questions appropriately at this time. Care providers, pharmacy, and demographics verified at this time. Presentation: Vomiting since 033- per pt, lg qty of blood, sudden onset back pain Admitting dx: Upper GI bleed PCP: Chanell Specialists: Colleen, cardio; imani Bernstein Preferred Pharmacy: [facility] Insurance: MCR A/B, [employer] Prescription Benefit: Yes Living Will/HPOA: Pt states does not have LW/HPOA but would like to complete at this time. Dale KNIGHT aware, voices understanding. LNOK: Rosendo Ashley, daughter Living Arrangements: Pt states lives alone in 2 story home and states no concerns at home at this time. Pt states is independent with ADL's. Transportation: Pt states drives self and states no transportation concerns at this time. DME/HHC: Pt has the following DME: cane, walker, and grab bars. Pt states no need for any further DME. Pt states no hx of HHC or SNF in the past. Pt states no concerns with going home at time of discharge. Pt states is retired. Pt states smokes occasionally and does not drink ETOH. Pt states no further concerns/needs at this time. CM to follow for any further discharge planning/needs. Advised pt to ask for CM if any further questions/concerns/needs arise, voices understanding. Pt Goal: Home Plan[place] ZEYAD HOFFMAN
--- NOTE | 2020-01-03 13:34 | PN.SURG_ITS ---
Patient Problems: Active and Suspected Problems (Last Reviewed 01/02/20 @ 16:[address] Primo Snyder MD) GI bleed (Acute) Subjective: Patient complaining of lower abdominal discomfort. She has had no further bloody bowel movements or hematochezia or hematemesis Objective: Abdomen is soft no guarding no rebound exam really does not correlate with her complaint of pain. - Physical Exam Vitals/I&O's: Vital Signs Temp Pulse Resp BP Pulse Ox 98.5 F 95 16 102/65 96 01/03/20 12:39 01/03/20 12:39 01/03/20 12:39 01/03/20 12:39 01/03/20 12:39 Oxygen Flow Rate (L/min) 1 Oxygen Delivery Method Nasal Cannula Weight: 155 lb 13.869 oz Body Mass Index (BMI) 27.1 Intake and Output for Last 24 Hours 01/01/20 01/02/20 01/03/20 23:59 23:59 23:59 Intake Total 2300.33 / 2390.33 1209.66 / 1209.66 Balance 2300.33 / 2390.33 1209.66 / 1209.66 Microbiology Past 72 Hours 01/02/20 13:15 Stool Stool Occult Blood (ANNE-MARIE) - Final Occult Blood Positive Laboratory Results 01/02/20 06:55: Crossmatch See Detail 01/02/20 14:15: Hgb 10.2 L, Hct 33.3 L 01/03/20 03:40: WBC 17.8 H, RBC 2.60 L, Hgb 8.1 L, Hct 26.5 L, MCV 101.9 H, MCH 31.2, MCHC 30.6 L, RDW Std Deviation 58.7 H, RDW Coeff of Alexy 15.8 H, Plt Count 240, MPV 9.7, Immature Gran % (Auto) 0.600, Neut % (Auto) 83.3 H, Lymph % (Auto) 7.4 L, [place] % (Auto) 8.6, Eos % (Auto) 0.0, Baso % (Auto) 0.1, Absolute Neuts (auto) 14.8 H, Absolute Lymphs (auto) 1.32, Nucleated RBC % 0, Differential Comment SCANNED, Diff Path Review Reviewed, Hypochromasia 2+, Macrocytosis 2+ 01/03/20 03:40: Sodium 142, Potassium 4.0, Chloride 113 H, Carbon Dioxide 25.0, Anion Gap 4 L, BUN 34 H, Creatinine 0.86, Estim Creat Clear Calc 43.88, Est GFR (MDRD) Af Amer 82, Est GFR (MDRD) Non-Af 68, BUN/Creatinine Ratio 39.5 H, Glucose 118 H, Calcium 7.7 L Current Medications Sodium Chloride () 500 mls @ 15 mls/hr IV PRN PRN PRN Reason: Blood Transfusion Sodium Chloride () 250 mls @ 15 mls/hr IV .[id number] PRN PRN Reason: Saline Flush Sodium Chloride () 250 mls @ 15 mls/hr IV .[id number] PRN PRN Reason: Additional IVPB Infusion Pantoprazole Sodium 40 mg/ (Sodium Chloride) 110 mls @ 330 mls/hr IV Q12 [facility] Last Infusion: 01/03/20 12:29 Dose: Infused Documented by: Melatonin (Melatonin) 3 mg PO QHS PRN PRN PRN Reason: INSOMNIA Ondansetron HCl (Zofran) 4 mg IV Q8H PRN PRN PRN Reason: NAUSEA/VOMITING Petrolatum (Sarna, Men-Phor) 1 applic TOPICAL 4X/DAY PRN PRN; Protocol PRN Reason: back pain Last Admin: 01/02/20 23:20 Dose: 1 applicatio Documented by: Sodium Chloride () 10 - 40 ml IV UD PRN PRN Reason: SALINE FLUSH Sucralfate (Carafate) 1 gm PO 1HR_ACHS [facility] Last Admin: 01/03/20 11:44 Dose: 1 gm Documented by: Medical Necessity - Tobacco Use Smoking Status: Current some day smoker Tobacco Use: Cigarettes Assessment/Plan All Active Problems (Last Reviewed 01/02/20 @ 16:[address] Primo Snyder MD) GI bleed (Acute) SVT (supraventricular tachycardia) (Acute) Palpitations (Acute) Premature ventricular contraction (Acute) Would consider repeating CT scan of the abdomen and pelvis with both IV and p.o. contrast if she continues to have abdominal discomfort. With no active signs of bleeding I am not sure I am going to add much by doing an upper scope on her at this time.
--- NOTE | 2020-01-03 13:58 | CASEMGMT ---
SW completed Healthcare Power of Local [employer] and a Healthcare Living Will with patient. Copies were made and given to patient along with originals. A copy of each was also placed in patient's chart. Imelda RODRIGUEZ
[2020-01-03] MEDS: 0.9% Saline Lock 10 ML Syringe IV (21:46)
[2020-01-04 02:30] LABS: Bacteria 0 SEEN /hpf (None Seen); Mucous, Urine 0 SEEN /hpf (<or=2+); Red Blood Cells-Urine 0 SEEN /hpf (0-5); Squamous Epithelial Cells - UA 0 SEEN /hpf (5-10); White Blood Cells 0 SEEN /hpf (0-5)
[2020-01-04 02:32] LABS: Color, Urine Yellow (Yellow); Glucose, Dipstick Normal (Normal); Ketone-Dipstick Negative (Negative); Leukocyte Esterase-Dipstick Negative /ul (Negative); Nitrite-Dipstick Negative (Negative); Occult Blood-Urine Negative /ul (Negative); Protein-Dipstick 15 mg/dl (Negative); Specific Gravity, Urine 1.015 (1.002-1.030); Urine Bilirubin Dipstick Negative (Negative); Urine Clarity Sl. Cloudy (Clear); Urine Urobilinogen Normal (Normal)
[2020-01-04 02:44] LABS: Amorphous Sediment 1+
[2020-01-04 03:00] VITALS: PULSE 99
[2020-01-04 03:35] VITALS: BP 113/58; PULSE 93; RESP 16; TEMP 36.9; O2SAT 94
[2020-01-04 05:57] LABS: Absolute Lymphocyte Count 1.27 X10^3/uL (0.83-4.51); Absolute Neutrophil Count 9.3 X10^3/uL (2.0-7.7); Basophil# 0.04 X10^3/uL; Basophil% 0.3 % (0-1); Eosinophil# 0.05 X10^3/uL; Eosinophils% 0.4 % (0-5); Hemoglobin 8.7 g/dL (12.0-15.0); Lymphocyte # 1.27 X10^3/ul (4.0); Lymphocyte % 10.9 % (19-41); Mean Corp Hgb Conc 31.1 g/dL (32-36); Mean Corpuscular Hgb 31.4 pg (27.0-32.0); Mean Corpuscular Volume 101.1 fL (81-99); Mean Platelet Vol. 9.6 fl (6.2-12.0); Monocyte# 0.96 X10^3/uL; Monocyte% 8.2 % (0-10); NRBC Flagged by Analyzer 0 % (0-5); Neutrophil # 9.26 X10^3/uL (2.7-7.7); Neutrophil % 79.6 % (47-70); Platelet Count 191 K/mm3 (150-450); RBC Distribution Width CV 16.3 % (11.6-14.6); RBC Distribution Width SD 61.3 fl (35.1-43.9); Red Blood Count 2.77 M/mm3 (4.2-5.4); White Blood Count 11.7 K/mm3 (4.4-11.0)
[2020-01-04 06:16] LABS: BUN 22 mg/dL (7-18); BUN/Creat Ratio 32.3 RATIO (10-20); Calcium,Total 8.1 mg/dL (8.5-10.1); Chloride 112 mmol/L (98-107); Creatinine, Serum 0.68 mg/dL (0.55-1.02); EST Glomerular Filtration Rate 89 mL/min (>60); Est Glom Filt Rate - Afr Amer 107 mL/min (>60); Estimated Creatinine Clearance 37.74 ml/min; Glucose 90 mg/dL (74-106); Potassium 3.7 mmol/L (3.5-5.1); Sodium Level 141 mmol/L (136-145)
[2020-01-04 06:17] LABS: Anion Gap 2 (5-15)
[2020-01-04] MEDS: Sucralfate 1 GM Tablet PO (06:30)
[2020-01-04 06:51] VITALS: PULSE 91
[2020-01-04 07:41] VITALS: O2SAT 94
[2020-01-04 09:35] VITALS: BP 109/61; PULSE 90; RESP 14; TEMP 36.8; O2SAT 95
--- NOTE | 2020-01-04 10:15 | DCINST_ITS ---
- Discharge Diagnoses Current Active Problems: Current Active and Chronic Problems (Last Reviewed 01/02/20 @ 16:[address] Primo Snyder MD) GI bleed (Acute) You will use the following diet at home:: Cardiac Your food should be the consistency of: Regular Your liquids should be the consistency of: Regular/Thin Discharge Activity: Return to Normal Activity Call your doctor if you observe: Fever of 101 or Higher, Shortness of breath, Dizziness, Fainting spells, Swelling in the ankles, Chest pain, Increased palpitations (irregular heartbeat) Additional Instructions: Hold your asprin and plavix and follow-up with your PCP and corporate administrative assistant to discuss restarting the antiplatellets in the setting of a GI bleed. Repeat a CBC in the next few days by your PCP to evaluate your anemia. Allergies/Adverse Reactions: Allergies atorvastatin [From Lipitor] Adverse Reaction (Severe, Verified 01/02/20 06:52) myalgias ciprofloxacin [From Cipro] Adverse Reaction (Unknown, Verified 01/02/20 06:52) Unknown Medications to take at Discharge aspirin 81 mg tablet,delayed release 81 mg PO QDAY tab 06/28/17 coenzyme Q10 100 mg capsule 100 mg PO QDAY 06/28/17 nitroglycerin 0.4 mg sublingual tablet 0.4 mg SUBLINGUAL Q5M PRN 06/28/17 rizatriptan 10 mg tablet 10 mg PO QDAY PRN tab 06/28/17 sertraline 50 mg tablet 50 mg PO QDAY 06/28/17 cholecalciferol (vitamin D3) 1,250 mcg (50,000 unit) capsule 50,000 unit PO DAILY cap 06/30/17 Amlodipine Besylate 2.5 mg PO QDAY 01/02/20 Clopidogrel Bisulfate [Clopidogrel] 75 mg PO DAILY 01/02/20 Lisinopril 20 mg PO QDAY 01/02/20 Metoprolol Succinate [Toprol Xl] 25 mg PO DAILY 01/02/20 Rosuvastatin Calcium 10 mg PO DAILY 01/02/20 Pantoprazole Sodium [Protonix] 40 mg PO BID #60 tab 01/04/20 Sucralfate [Carafate] 1 gm PO 1HR_ACHS #30 tab 01/04/20 The following prescriptions were given: Sucralfate [Carafate] 1 gm PO 1HR_ACHS #30 tab Transmission Status: Pending to [facility][id number] Pantoprazole Sodium [Protonix] 40 mg PO BID #60 tab Transmission Status: Pending to [facility] #[id number] Primary Care Physician: Dianna Lua DO [Primary Care Provider] - Please follow up with your Primary Care Physician in: 3-5 days Test Results: Test results from this visit will be discussed in further detail at your follow- up appointment, if applicable. Please Follow Up With: Primo Snyder MD When: 1-2 weeks
--- NOTE | 2020-01-04 10:39 | PCM.PN.INT ---
Subjective: Patient did well overnight. Patient states her abdominal discomfort is much improved compared to previous. Patient has maintained adequate blood pressure on room air. Patient is no longer reporting orthostatic type symptomatology. General: Alert, Oriented x3, Cooperative, No apparent distress HEENT: Atraumatic, PERRLA, EOMI, Normocephalic, - - No scleral icterus or injection noted Oral: Moist Mucosa, No Gingival or Mucosal Lesions/ Ulcerations Neck: Supple, No JVD, No Nodes, Trachea Midline Lungs: Clear to auscultation, Normal air movement, No rhonchi, No wheeze, No rales, - - Fair effort. Symmetric expansion. Cardiovascular: Regular rate, Regular Rhythm, Normal S1, Normal S2, No murmurs, No rub noted, No Gallop Abdomen: Bowel Sounds Present, Soft, Non Tender, Non-Distended Extremities: No clubbing, No cyanosis, No edema, Capillary Refill Less than 3 Seconds Skin: No rashes, No breakdown Musculoskeletal: No Tenderness to Palpation of Joints or Extremities Lymphatic: No Cervical, Supraclavicular, or Inguinal Adenopathy Neurological: Cranial nerves II-XII grossly intact, Neuro grossly intact, Motor Exam 5/5 strength throughout Psych/Mental Status: Alert and oriented to time, place, person, mood and affect Vital Signs Temp Pulse Resp BP Pulse Ox 36.8 C 90 14 109/61 95 01/04/20 09:35 01/04/20 09:35 01/04/20 09:35 01/04/20 09:35 01/04/20 09:35 Oxygen Flow Rate (L/min) 1 Oxygen Delivery Method Room Air Weight: 69.7 kg Body Mass Index (BMI) 27.1 Intake and Output for Last 24 Hours 01/02/20 01/03/20 01/04/20 23:59 23:59 23:59 Intake Total 2300.33 / 2390.33 2279.66 / 2279.66 230 / 230 Output Total 200 / 200 Balance 2300.33 / 2390.33 2279.66 / 2279.66 30 / 30 Labs (Last 48 Hours) 01/02/20 01/02/20 01/02/20 06:55 12:25 14:15 WBC RBC Hgb 10.2 L Hct 33.3 L MCV MCH MCHC RDW Std Deviation RDW Coeff of Alexy Plt Count MPV Immature Gran % (Auto) Neut % (Auto) Lymph % (Auto) [place]ckenzie % (Auto) Eos % (Auto) Baso % (Auto) Absolute Neuts (auto) Absolute Lymphs (auto) Nucleated RBC % Differential Comment Diff Path Review Hypochromasia Macrocytosis Sodium Potassium Chloride Carbon Dioxide Anion Gap BUN Creatinine Estim Creat Clear Calc Est GFR (MDRD) Af Amer Est GFR (MDRD) Non-Af BUN/Creatinine Ratio Glucose Lactic Acid 2.4 H* Calcium Urine Color Urine Clarity Urine pH Ur Specific [place] Urine Protein Urine Glucose (UA) Urine Ketones Urine Occult Blood Urine Nitrite Urine Bilirubin Urine Urobilinogen Ur Leukocyte Esterase Urine RBC Urine WBC Ur Squamous Epith Cells Amorphous Sediment Urine Bacteria Urine Mucus Crossmatch See Detail 01/03/20 01/03/20 01/04/20 03:40 03:40 02:20 WBC 17.8 H RBC 2.60 L Hgb 8.1 L Hct 26.5 L MCV 101.9 H MCH 31.2 MCHC 30.6 L RDW Std Deviation 58.7 H RDW Coeff of Alexy 15.8 H Plt Count 240 MPV 9.7 Immature Gran % (Auto) 0.600 Neut % (Auto) 83.3 H Lymph % (Auto) 7.4 L Mckenzie % (Auto) 8.6 Eos % (Auto) 0.0 Baso % (Auto) 0.1 Absolute Neuts (auto) 14.8 H Absolute Lymphs (auto) 1.32 Nucleated RBC % 0 Differential Comment SCANNED Diff Path Review Reviewed Hypochromasia 2+ Macrocytosis 2+ Sodium 142 Potassium 4.0 Chloride 113 H Carbon Dioxide 25.0 Anion Gap 4 L BUN 34 H Creatinine 0.86 Estim Creat Clear Calc 43.88 Est GFR (MDRD) Af Amer 82 Est GFR (MDRD) Non-Af 68 BUN/Creatinine Ratio 39.5 H Glucose 118 H Lactic Acid Calcium 7.7 L Urine Color Yellow Urine Clarity Sl. Cloudy Urine pH 6.0 Ur Specific [place]ettie 1.015 Urine Protein 15 H Urine Glucose (UA) Normal Urine Ketones Negative Urine Occult Blood Negative Urine Nitrite Negative Urine Bilirubin Negative Urine Urobilinogen Normal Ur Leukocyte Esterase Negative Urine RBC 0 SEEN Urine WBC 0 SEEN Ur Squamous Epith Cells 0 SEEN Amorphous Sediment 1+ Urine Bacteria 0 SEEN Urine Mucus 0 SEEN Crossmatch 01/04/20 01/04/20 05:35 05:35 WBC 11.7 H RBC 2.77 L Hgb 8.7 L Hct 28.0 L MCV 101.1 H MCH 31.4 MCHC 31.1 L RDW Std Deviation 61.3 H RDW Coeff of Alexy 16.3 H Plt Count 191 MPV 9.6 Immature Gran % (Auto) 0.600 Neut % (Auto) 79.6 H Lymph % (Auto) 10.9 L Mckenzie % (Auto) 8.2 Eos % (Auto) 0.4 Baso % (Auto) 0.3 Absolute Neuts (auto) 9.3 H Absolute Lymphs (auto) 1.27 Nucleated RBC % 0 Differential Comment Diff Path Review Hypochromasia Macrocytosis Sodium 141 Potassium 3.7 Chloride 112 H Carbon Dioxide 27.0 Anion Gap 2 L BUN 22 H Creatinine 0.68 Estim Creat Clear Calc 37.74 Est GFR (MDRD) Af Amer 107 Est GFR (MDRD) Non-Af 89 BUN/Creatinine Ratio 32.3 H Glucose 90 Lactic Acid Calcium 8.1 L Urine Color Urine Clarity Urine pH Ur Specific [place]ettie Urine Protein Urine Glucose (UA) Urine Ketones Urine Occult Blood Urine Nitrite Urine Bilirubin Urine Urobilinogen Ur Leukocyte Esterase Urine RBC Urine WBC Ur Squamous Epith Cells Amorphous Sediment Urine Bacteria Urine Mucus Crossmatch Microbiology 01/02/20 13:15 Stool Stool Occult Blood (ANNE-MARIE) - Final Occult Blood Positive Medical Necessity - Tobacco Use Smoking Status: Current some day smoker Tobacco Use: Cigarettes Assessment/Plan All Active Problems (Last Reviewed 01/02/20 @ 16:[address] Primo Snyder MD) GI bleed (Acute) SVT (supraventricular tachycardia) (Acute) Palpitations (Acute) Premature ventricular contraction (Acute) RECOMMENDATIONS: 1. Consider recheck of H&H as an outpatient 2. Transition to PPI p.o twice daily. Continue Carafate. 3. Dietary advancement per general surgery recommendations. 4. Timing for any endoscopic evaluation per general surgery. 5. No need for outpatient follow-up with pulmonary/critical care 6. Encourage incentive spirometer use and mobilize patient as tolerated. IMPRESSIONS: 1. Upper gastrointestinal bleed The patient does have a self-reported history of gastric ulcers. Although the patient did have an elevated white blood cell count along with an elevated lactate, I do suspect that this is related to her acute presentation, including acute GI blood loss. She has remained afebrile and hemodynamically stable. There is no readily identifiable source of possible infection. General surgery is following without plans for endoscopic evaluation at this time. She will be continued on twice daily PPI therapy. Blood counts will be monitored closely, with plans to transfuse if hemoglobin drops below 7 g/dL. Reviewed with patient the signs and symptoms of repeat bleeding. Patient voiced understanding. No indication for outpatient follow-up with pulmonary/critical care at this time. 2. History of coronary artery disease/hypertension/hyperlipidemia/history of abdominal aortic aneurysm status post repair Complicates care, management, recovery and prognosis. Continue home medications as indicated. Inpatient E&M: 23512 Subs Hosp L2
--- NOTE | 2020-01-04 11:32 | PHA.DC.MC ---
Pharmacy Service has performed discharge medication reconciliation and counseling for this patient. The patient was counseled on the following discharge medications and changes in medications for homegoing were reviewed. 1. PROTONIX 2. CARAFATE The Reason for Use, instructions for use, and potential side effects were reviewed for all new medications. The patient's questions regarding all of their medications were answered. The patient was able to verbally demonstrate an understanding of their discharge medications. Home Medications aspirin 81 mg tablet,delayed release 81 mg PO QDAY tab 06/28/17 coenzyme Q10 100 mg capsule 100 mg PO QDAY 06/28/17 nitroglycerin 0.4 mg sublingual tablet 0.4 mg SUBLINGUAL Q5M PRN 06/28/17 rizatriptan 10 mg tablet 10 mg PO QDAY PRN tab 06/28/17 sertraline 50 mg tablet 50 mg PO QDAY 06/28/17 cholecalciferol (vitamin D3) 1,250 mcg (50,000 unit) capsule 50,000 unit PO DAILY cap 06/30/17 Amlodipine Besylate 2.5 mg PO QDAY 01/02/20 Clopidogrel Bisulfate [Clopidogrel] 75 mg PO DAILY 01/02/20 Lisinopril 20 mg PO QDAY 01/02/20 Metoprolol Succinate [Toprol Xl] 25 mg PO DAILY 01/02/20 Rosuvastatin Calcium 10 mg PO DAILY 01/02/20 Pantoprazole Sodium [Protonix] 40 mg PO BID #60 tab 01/04/20 Sucralfate [Carafate] 1 gm PO 1HR_ACHS #30 tab 01/04/20 The patient's discharge medication list was reviewed for discrepancies and discrepancies were resolved.
--- NOTE | 2020-01-04 13:19 | PCM.DC.SUM ---
Discharge Date and Diagnosis Date of Admission: 01/02/20 Date of Discharge: 01/04/20 - Secondary Discharge Diagnosis Chronic Problems: Chronic Problems (Last Reviewed 01/02/20 @ 16:[address] Primo Snyder MD) Nonrheumatic aortic valve stenosis (Chronic) Abdominal aortic aneurysm without rupture (Chronic) Presence of stent in coronary artery (Chronic ~11/2010) PTCA/RAYSHAWN to L CFX & RCA 11/24 Mitral valve annular calcification (Chronic) Heart murmur, systolic (Chronic) Atherosclerotic heart disease of [place] coronary artery without angina pectoris (Chronic) PTCA/RAYSHAWN to L CFX & RCA 11/24 HLD (hyperlipidemia) (Chronic) Benign essential HTN (Chronic) Abdominal aortic aneurysm without rupture (Chronic) Hospital Course and Treatment Imaging Results: Clinical Impression(s) from Imaging Studies Abdomen/Pelvis CT 01/02/20 07:11 IMPRESSION: There is an aortobiiliac stent graft in good position evidence of endoleak. The transverse section of the aneurysm sac measures 5 x 5.4 cm has not significantly changed in size since the previous study it measured previously 5 x 5.2 cm. There is marked thickening of the gastric wall at the gastric antrum with heterogeneous enhancing mucosa suggesting gastric ulcer. Colon diverticulosis. Electronically Signed: Jimmy Sanchez, at 8:33 EDT Tel , Service support , ADDENDUM: 01/02/20 0904 Consults: Surgery ICU Operations: None Procedures: None Summary of Care Provided: Per HPI: The patient is a 85 year old M with PMH as below who presents from home with weakness. Per the , he was able to walk normally on Wednesday with his walker however yesterday he started having a hard time getting around and today she had a very difficult time getting him into the car. He does not have any fevers or chills. No shortness of breath or cough. In the ER he was found to have a leukocytosis of 15 and on admission was tachycardic. A UA is significant for a urinary tract infection. He was started on Rocephin and urine and blood cultures were obtained. Hospital Course: 1. Upper GI [id number]-old female presented with acute upper GI bleed with hematemesis. She says that she has had a GI bleed in the past however she was currently on aspirin Plavix secondary to coronary artery stents. Her hemoglobin on admission was 11.4 and it did trend down although at 8.1, given her cardiac history she was transfused 1 unit responded to 8.7. She felt much better on the day of discharge and requested to go home. General surgery was consulted on admission however they did not feel it necessary to perform an EGD during the admission. She was discharged on Protonix 40 mg p.o. twice daily as well as Carafate with outpatient follow-up with general surgery for an EGD. She also need to follow-up with her PCP to obtain a CBC to evaluate her anemia. I also recommend that she follow-up with cardiology, as I have held her aspirin and her Plavix on discharge since her stents were over 8 years old. She have discussion with both her PCP and her charge authorizer about restarting any antiplatelets in a week or so if she has no further GI bleeding. I discussed with her the plan for discharge and she expressed understanding of the risks and benefits of going home today. 2. CAD status post stents in 2010, hypertension, hyperlipidemia, anxiety, depression are all chronic illnesses which complicate her care. Her home medications were continued where appropriate - Physical Exam Vitals/I&O's: Vital Signs Temp Pulse Resp BP Pulse Ox 98.3 F 90 14 109/61 95 01/04/20 09:35 01/04/20 09:35 01/04/20 09:35 01/04/20 09:35 01/04/20 09:35 Oxygen Flow Rate (L/min) 1 Oxygen Delivery Method Room Air Weight: 153 lb 10.595 oz Body Mass Index (BMI) 27.1 Intake and Output for Last 24 Hours 01/02/20 01/03/20 01/04/20 23:59 23:59 23:59 Intake Total 2300.33 / 2390.33 2279.66 / 2279.66 230 / 230 Output Total 200 / 200 Balance 2300.33 / 2390.33 2279.66 / 2279.66 30 / 30 General: Alert, Oriented x3, Cooperative, No apparent distress HEENT: Atraumatic, PERRLA, EOMI, Normocephalic Oral: Moist Mucosa Neck: Supple, No JVD Lungs: Clear to auscultation, Normal air movement, No rhonchi, No wheeze, No rales Cardiovascular: Regular rate, Regular Rhythm, Normal S1, Normal S2, No murmurs Abdomen: Soft, Non Tender, Non-Distended, No Hepato-splenomegaly Extremities: No edema, Capillary Refill Less than 3 Seconds Skin: No rashes, No breakdown Neurological: Neuro grossly intact, Sensory exam intact to light touch and pain Psych/Mental Status: Normal Affect, Appropriate Microbiology Past 72 Hours 01/02/20 13:15 Stool Stool Occult Blood (ANNE-MARIE) - Final Occult Blood Positive Laboratory Results 01/02/20 06:55: Crossmatch See Detail 01/04/20 02:20: Urine Color Yellow, Urine Clarity Sl. Cloudy, Urine pH 6.0, Ur Specific [place] 1.015, Urine Protein 15 H, Urine Glucose (UA) Normal, Urine Ketones Negative, Urine Occult Blood Negative, Urine Nitrite Negative, Urine Bilirubin Negative, Urine Urobilinogen Normal, Ur Leukocyte Esterase Negative, Urine RBC 0 SEEN, Urine WBC 0 SEEN, Ur Squamous Epith Cells 0 SEEN, Amorphous Sediment 1+, Urine Bacteria 0 SEEN, Urine Mucus 0 SEEN 01/04/20 05:35: WBC 11.7 H, RBC 2.77 L, Hgb 8.7 L, Hct 28.0 L, MCV 101.1 H, MCH 31.4, MCHC 31.1 L, RDW Std Deviation 61.3 H, RDW Coeff of Alexy 16.3 H, Plt Count 191, MPV 9.6, Immature Gran % (Auto) 0.600, Neut % (Auto) 79.6 H, Lymph % (Auto) 10.9 L, [place] % (Auto) 8.2, Eos % (Auto) 0.4, Baso % (Auto) 0.3, Absolute Neuts (auto) 9.3 H, Absolute Lymphs (auto) 1.27, Nucleated RBC % 0 01/04/20 05:35: Sodium 141, Potassium 3.7, Chloride 112 H, Carbon Dioxide 27.0, Anion Gap 2 L, BUN 22 H, Creatinine 0.68, Estim Creat Clear Calc 37.74, Est GFR (MDRD) Af Amer 107, Est GFR (MDRD) Non-Af 89, BUN/Creatinine Ratio 32.3 H, Glucose 90, Calcium 8.1 L Discharge Activity: Return to Normal Activity Call your doctor if you observe: Fever of 101 or Higher, Shortness of breath, Dizziness, Fainting spells, Swelling in the ankles, Chest pain, Increased palpitations (irregular heartbeat) Home Medications: Medications to take at Discharge aspirin 81 mg tablet,delayed release 81 mg PO QDAY tab 06/28/17 coenzyme Q10 100 mg capsule 100 mg PO QDAY 06/28/17 nitroglycerin 0.4 mg sublingual tablet 0.4 mg SUBLINGUAL Q5M PRN 06/28/17 rizatriptan 10 mg tablet 10 mg PO QDAY PRN tab 06/28/17 sertraline 50 mg tablet 50 mg PO QDAY 06/28/17 cholecalciferol (vitamin D3) 1,250 mcg (50,000 unit) capsule 50,000 unit PO DAILY cap 06/30/17 Amlodipine Besylate 2.5 mg PO QDAY 01/02/20 Clopidogrel Bisulfate [Clopidogrel] 75 mg PO DAILY 01/02/20 Lisinopril 20 mg PO QDAY 01/02/20 Metoprolol Succinate [Toprol Xl] 25 mg PO DAILY 01/02/20 Rosuvastatin Calcium 10 mg PO DAILY 01/02/20 Pantoprazole Sodium [Protonix] 40 mg PO BID #60 tab 01/04/20 Sucralfate [Carafate] 1 gm PO 1HR_ACHS #30 tab 01/04/20 Following Prescriptions Were Given to Patient: Sucralfate [Carafate] 1 gm PO 1HR_ACHS #30 tab Transmission Status: Received by [facility]/pharmacy #[id number] Pantoprazole Sodium [Protonix] 40 mg PO BID #60 tab Transmission Status: Received by [facility]/pharmacy #[id number] Primary Care Physician: Dianna Lua DO [Primary Care Provider] - Please follow up with your Primary Care Physician in: 3-5 days Please Follow Up With: Primo Snyder MD When: 1-2 weeks Disposition: Home Minutes spent on discharge:: 35 Patient Condition:: Stable Medical Necessity - Tobacco Use Smoking Status: Current some day smoker Tobacco Use: Cigarettes Meaningful Use Info Meaningful Use Diagnoses (Choose all that apply): None applicable Inpatient E&M: 37633 [facility]
--- NOTE | 2020-01-04 13:24 | PN.SURG_ITS ---
Subjective: No further GI bleeding at this time. Tolerating p.o. Objective: Abdomen is soft. - Physical Exam Vitals/I&O's: Vital Signs Temp Pulse Resp BP Pulse Ox 98.3 F 90 14 109/61 95 01/04/20 09:35 01/04/20 09:35 01/04/20 09:35 01/04/20 09:35 01/04/20 09:35 Oxygen Flow Rate (L/min) 1 Oxygen Delivery Method Room Air Weight: 153 lb 10.595 oz Body Mass Index (BMI) 27.1 Intake and Output for Last 24 Hours 01/02/20 01/03/20 01/04/20 23:59 23:59 23:59 Intake Total 2300.33 / 2390.33 2279.66 / 2279.66 230 / 230 Output Total 200 / 200 Balance 2300.33 / 2390.33 2279.66 / 2279.66 30 / 30 Microbiology Past 72 Hours 01/02/20 13:15 Stool Stool Occult Blood (ANNE-MARIE) - Final Occult Blood Positive Laboratory Results 01/02/20 06:55: Crossmatch See Detail 01/04/20 02:20: Urine Color Yellow, Urine Clarity Sl. Cloudy, Urine pH 6.0, Ur Specific Elizabeth 1.015, Urine Protein 15 H, Urine Glucose (UA) Normal, Urine Ketones Negative, Urine Occult Blood Negative, Urine Nitrite Negative, Urine Bilirubin Negative, Urine Urobilinogen Normal, Ur Leukocyte Esterase Negative, Urine RBC 0 SEEN, Urine WBC 0 SEEN, Ur Squamous Epith Cells 0 SEEN, Amorphous Sediment 1+, Urine Bacteria 0 SEEN, Urine Mucus 0 SEEN 01/04/20 05:35: WBC 11.7 H, RBC 2.77 L, Hgb 8.7 L, Hct 28.0 L, MCV 101.1 H, MCH 31.4, MCHC 31.1 L, RDW Std Deviation 61.3 H, RDW Coeff of Alexy 16.3 H, Plt Count 191, MPV 9.6, Immature Gran % (Auto) 0.600, Neut % (Auto) 79.6 H, Lymph % (Auto) 10.9 L, [place] % (Auto) 8.2, Eos % (Auto) 0.4, Baso % (Auto) 0.3, Absolute Neuts (auto) 9.3 H, Absolute Lymphs (auto) 1.27, Nucleated RBC % 0 01/04/20 05:35: Sodium 141, Potassium 3.7, Chloride 112 H, Carbon Dioxide 27.0, Anion Gap 2 L, BUN 22 H, Creatinine 0.68, Estim Creat Clear Calc 37.74, Est GFR (MDRD) Af Amer 107, Est GFR (MDRD) Non-Af 89, BUN/Creatinine Ratio 32.3 H, Glucose 90, Calcium 8.1 L Medical Necessity - Tobacco Use Smoking Status: Current some day smoker Tobacco Use: Cigarettes Assessment/Plan All Active Problems (Last Reviewed 01/02/20 @ 16:[address] Primo Snyder MD) GI bleed (Acute) SVT (supraventricular tachycardia) (Acute) Palpitations (Acute) Premature ventricular contraction (Acute) Believe it is safe for her to be discharged today. I will follow back up with her in the office in 1 week and schedule her for an upper endoscopy at that time. Inpatient E&M: 48390 Subs Hosp L2
--- NOTE | 2020-01-05 11:04 | CASEMGMT ---
ZEYAD HOFFMAN DC PHONE CALL DC DATE: 01.04.2020 DC DISPOSITION: Home DC DIAGNOSIS: GHISLAINE ECKERT/STRATA: 02/16 F/U APPTS MADE PRIOR TO DC: yes and patient has called cardiology office for follow up on resuming her medications. Pt states office will call her back today. She has made appointment for Wednesday with Dr. Lua's office for labwork and COVID testing. PRESCRIPTIONS ACQUIRED BY PT: yes -Intro role of CM to patient via phone. Pt did have questions re: f/u appointments. Reviewed what she has arranged already, and discussed that patient states COVID testing was handwritten on pt's dc instructions. ZEYAD HOFFMAN called to Dr. Raymond who states this was for Dr. Snyder as pt will likely need EGD. ZEYAD HOFFMAN called to Dr. Lua's nurse who states they can do testing in office when pt comes in for her CBC. -Patient was updated that CBC and COVID testing can be completed @ PCP office when she goes, and she can let Dr. Snyder know this testing was done. Reviewed that appointment with Dr. Snyder on 01.11.20 is for f/u and he will then evaluate for scheduling of EGD. -No further questions. Patient voiced being grateful for the call and help in clarifying dc plan with follow up. No other concerns noted at this time, and no care improvement suggestions were given. Dunia STEWART RN ACM
== END 2020-01-04 12:57 | disposition home or self-care (01) | DRG 378 ==
LOC: ED 07:51 → ICU 10:14 → PCU 01-03 11:25
PROVIDERS: Admitting Provider Family Medicine; Emergency Provider Emergency Medicine; PCP Internal Medicine; Visit Provider Family Medicine
DX: K25.4 Chronic or unspecified gastric ulcer with hemorrhage (principal); E87.2 Acidosis; D62 Acute posthemorrhagic anemia; I25.10 Atherosclerotic heart disease of native coronary artery without angina pectoris; I10 Essential (primary) hypertension; E78.00 Pure hypercholesterolemia, unspecified; Z95.5 Presence of coronary angioplasty implant and graft; Z86.79 Personal history of other diseases of the circulatory system; Z79.02 Long term (current) use of antithrombotics/antiplatelets; Z79.82 Long term (current) use of aspirin; Z79.899 Other long term (current) drug therapy; F17.210 Nicotine dependence, cigarettes, uncomplicated; F32.9 Major depressive disorder, single episode, unspecified; F41.9 Anxiety disorder, unspecified; T45.525A Adverse effect of antithrombotic drugs, initial encounter; T39.015A Adverse effect of aspirin, initial encounter
CPT/HCPCS: 74177; 80048; 80053; 81001; 82274; 83605; 83690; 84484; 85014; 85018; 85025; 86850; 86900; 86901; 86920; 93005; 94762; 97162; 97166; 99285; 99406; J7030; P9016; Q9967; A4216; J2405

== ENCOUNTER → 2020-01-10 | Outpatient (CLI) | payer MEDICARE, OTHER, SELFPAY ==
[2020-01-02 12:00] VITALS: BMI 27.1
--- NOTE | 2020-01-10 09:39 | RAD_ITS ---
STUDY: X-RAY - LEFT HAND REASON FOR EXAM: Female, 79 years old. LEFT HAND SWELLING, REDNESS AND WARMTH TO TOUCH SINCE IV START IN ELBOW LAST WEEK, ? CELLULITIS, GOUT OR FX TECHNIQUE: 3 view(s) of the hand. COMPARISON: None. FINDINGS: Normal radiocarpal articulation. Normal distal radioulnar joint. Normal visualized carpal bones. Normal carpal articulations Normal carpometacarpal articulation of the thumb. Normal second through fifth carpometacarpal joints. Normal metacarpi. 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 Normal interphalangeal joint of the thumb. Normal proximal and distal phalanges of the thumb. Normal metacarpophalangeal joints of the second through fifth fingers. Normal proximal and distal interphalangeal joints of the second through fifth fingers. Normal phalanges of the second through fifth fingers. Diffuse soft tissue swelling. RAD/Hand Min 3 Views IMPRESSION: Diffuse soft tissue swelling. Degenerative changes of the first metacarpal phalangeal joint. Electronically Signed: Dick Trivedi, at 10:15 EDT , Service support ,
[2020-01-10 10:55] LABS: Erythrocyte Sedimentation Rate 33 mm/hr (0-30)
[2020-01-10 10:57] LABS: BNP,B-Type NATRIURETIC PEPTIDE 507.1 pg/mL (0-100)
[2020-01-10 10:58] LABS: Hematocrit 31.6 % (37-47); Hemoglobin 9.6 g/dL (12.0-15.0)
[2020-01-10 10:59] LABS: Uric Acid 3.5 mg/dL (2.6-6.0)
== END | disposition home or self-care (01) ==
PROVIDERS: PCP Internal Medicine; Referring Provider Nurse Practitioner; Visit Provider Nurse Practitioner
DX: L03.119 Cellulitis of unspecified part of limb (principal); D64.9 Anemia, unspecified; E87.70 Fluid overload, unspecified
CPT/HCPCS: 73130; 83880; 84550; 85014; 85018; 85652; 86141

== ENCOUNTER → 2020-01-17 10:15 | Outpatient (CLI) | payer MEDICARE, OTHER, SELFPAY ==
[2020-01-11 13:37] VITALS: BMI 27.1
--- NOTE | 2020-01-14 10:39 | HP_ITS ---
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 Accompanied by: Friend Is patient in pain?: No Allergies atorvastatin [From Lipitor] Adverse Reaction (Severe, Verified 01/12/20 09:02) myalgias ciprofloxacin [From Cipro] Adverse Reaction (Unknown, Verified 01/12/20 09:02) Unknown Medications aspirin 81 mg tablet,delayed release 81 mg PO QDAY tab 06/28/17 [History Confirmed 01/12/20] coenzyme Q10 100 mg capsule 100 mg PO QDAY 06/28/17 [History Confirmed 01/12/20] nitroglycerin 0.4 mg sublingual tablet 0.4 mg SUBLINGUAL Q5M PRN 06/28/17 [History Confirmed 01/12/20] rizatriptan 10 mg tablet 10 mg PO QDAY PRN tab 06/28/17 [History Confirmed 01/12/20] sertraline 50 mg tablet 50 mg PO QDAY 06/28/17 [History Confirmed 01/12/20] Amlodipine Besylate 2.5 mg PO QDAY 01/02/20 [History Confirmed 01/12/20] Clopidogrel Bisulfate [Clopidogrel] 75 mg PO DAILY 01/02/20 [History Confirmed 01/12/20] Lisinopril 20 mg PO QDAY 01/02/20 [History Confirmed 01/12/20] Metoprolol Succinate [Toprol Xl] 25 mg PO DAILY 01/02/20 [History Confirmed 01/12/20] Rosuvastatin Calcium 10 mg PO DAILY 01/02/20 [History Confirmed 01/12/20] Pantoprazole Sodium [Protonix] 40 mg PO BID #60 tab 01/04/20 [Rx Confirmed 01/12/20] Sucralfate [Carafate] 1 gm PO 1HR_ACHS #30 tab 01/04/20 [Rx Confirmed 01/12/20] cefdinir 300 mg capsule 300 mg PO BID 01/11/20 [History Confirmed 01/12/20] [facility] Medical History Nonrheumatic aortic valve stenosis (Chronic) Abdominal aortic aneurysm without rupture (Chronic) SVT (supraventricular tachycardia) (Acute) Palpitations (Acute) Mitral valve annular calcification (Chronic) Heart murmur, systolic (Chronic) Premature ventricular contraction (Acute) Atherosclerotic heart disease of [place] coronary artery without angina pectoris (Chronic) HLD (hyperlipidemia) (Chronic) Benign essential HTN (Chronic) Abdominal aortic aneurysm without rupture (Chronic) COPD (chronic obstructive pulmonary disease) (Acute) Cellulitis of left arm (Acute) Family history of ischemic heart disease (Acute) History of upper gastrointestinal bleeding (Acute) Osteoarthritis (Acute) Peptic ulcer disease (Acute) Spinal stenosis (Acute) Upper GI bleed (Acute) Family history of hypertension (Chronic) Family history of sudden cardiac (Chronic) CAD (coronary artery disease) (Inactive) COLD (chronic obstructive lung disease) (Inactive) History of upper gastrointestinal bleeding (Inactive) Hx of peptic ulcer (Inactive) Surgical History Presence of stent in coronary artery (Chronic ~11/2010) History of hemorrhoidectomy (Resolved) Hx of appendectomy (Resolved) Family History Mother Sudden cardiac Father CAD (coronary artery disease) CVA (cerebral vascular accident) Social History (Updated 01/14/20 @ 10:[address] Primo Snyder MD) Smoking Status: Former smoker alcohol intake: never substance use type: does not use HPI HPI HPI: YARITZA CHRISTINA, is a 79 F who presents to the office today for HPI HPI Surgical H&P: Yes HPI: YARITZA CHRISTINA, is a 79 F who presents to the office today for Follow-up from a hospitalization for an upper GI bleed. Patient was admitted to [facility] and I saw her on 01/02/2020. She had several bouts of emesis that were dark brown. Her initial observation showed that she was hypotensive she responded to medical management in the hospital. She has had a GI bleed in the past which was secondary to a gastric ulcer and she does take aspirin and Plavix secondary to stents being placed approximately 8 to 10 years ago. Since being at the house her stools have been normal. She is not complaining of any abdominal pain. ROS General General: Yes fatigue; no weight change, appetite, colon cancer, breast cancer or weakness HEENT HEENT: No difficulty swallowing, eye injury, eye surgery, swollen glands or hoarseness Endo Endocrine: No thyroid disease, diabetes mellitus, thyroid cancer, Hair loss, heat intolerance or cold intolerance Skin Skin: No rash or changing moles Breast Breast: No left breast lump, right breast lump, nipple discharge, breast pain, abnormal mammogram, abnormal US or breast enlargement Musc Musculoskeletal: Yes arthritis; no back problems, rheumatoid arthritis, gout or joint pain Cardio Cardiovascular: Yes murmur, heart disease, high blood pressure and heart stent; no pacemaker, atrial fibrillation, heart attack, palpitations, shortness of breat with exertion or chest pain Psych Psychiatric: Yes depression; no anxiety or hearing voices Resp Respiratory: No shortness of breath, No sleep apnea, No cough, No COPD, No asthma, No emphysema, No wheezing Gastro Gastrointestinal: No abdominal pain, No nausea or vomiting, No diarrhea, No constipation, No blood in stool, No acid reflux, Yes hemorrhoids, No ulcers, No gallbladder problem, Yes black,tarry stools [place] Hematologic: Yes blood thinners, No blood disorders, No bleeding, No anemia, No blood clots Neuro Neurologic: No system reviewed and no additional complaints, except as docu, No as per HPI, No abnormal walking, No abnormal hearing, No abnormal movements, No abnormal speech, No behavioral changes, No burning sensations, No confusion, No seizure-like activity, No unsteadiness, No dizziness, No localized weakness, No frequent falls, No headache(s), No lack of coordination, No loss of vision, No memory loss, No numbness, No other visual disturbances, No radiating pain, No restless legs, No sensory deficit, No fainting, No tingling, No tremor(s), No weakness, No other Exam Const General: no acute distress, well developed, well hydrated Orientation: oriented to person, oriented to place, oriented to time [facility] Head: normocephalic, atraumatic Ears: external ears normal Mouth: moist mucous membranes Eyes Sclera: sclerae normal Pupils: normal by confrontation Neck Neck: no lymphadenopathy noted Neck mass: No Thyroid: thyroid normal, symmetrical Chest Chest palpation & inspection: normal inspection of the chest Breast Palpation: No nipple discharge Resp Effort & Inspection: normal respiratory effort Auscultation: clear to auscultation bilaterally Percussion: percussion normal Cardio Rate: regular rate Rhythm: regular rhythm Heart Sounds: murmur GI Palpation: soft, no hepatosplenomegaly, no masses, nontender Rectal Exam: other Other: Rectal exam deferred. Extrem General: normal to inspection, no clubbing, cyanosis or edema Assessment & Plan Problems 1. Gastrointestinal hemorrhage associated with gastritis, unspecified gastritis type K29.71 Plan I have discussed the above with the patient. I have offered the patient esophagogastroduodenoscopy for evaluation. I have explained the risks/benefits of the procedure and described the procedure. I have discussed the risks with the patient, including but not limited to: infection, bleeding, perforation of the GI tract requiring emergency surgery, inability to complete the procedure, injury to any internal organs, complications of anesthesia, etc. - the patient understands and agrees to proceed. I have answered all the patient's questions to the patient's satisfaction and the patient has no further questions. The patient has been given instructions for the colon cleansing preparation. Coding Level of Care Code Off vis,est,level 3 Diagnoses Gastrointestinal hemorrhage associated with gastritis, unspecified gastritis type K29.71 ??GI bleed type/associated pathology: gastritis ??Gastritis type: unspecified gastritis COVID (Procedure Consent) Procedure Criteria Procedure Criteria: Yes Elective The surgeon/proceduralist and patient have discussed in detail the risk of exposure to and/or potential harm posed by the COVID-19 virus with having a surgery/procedure at this time versus the risk of? delaying the surgery/procedure. It is not possible to know either the risk of delaying the surgery or procedure or chance of getting an infection with perfect accuracy, but a joint decision was made between the patient and the surgeon/proceduralist ?to proceed at this time with the scheduled surgery/procedure as indicated on the consent form. 01/14/20 1039 <Electronically signed by Primo armijo MD> Date _ Primo Snyder MD
== END ==
PROVIDERS: Anesthesiology; PCP Internal Medicine; Referring Provider Internal Medicine; Visit Provider Surgery
DX: Z11.59 Encounter for screening for other viral diseases (principal)
CPT/HCPCS: 87635; C9803; U0003

== ENCOUNTER 2020-02-26 08:09 | Day surgery (SDC) | payer MEDICARE, OTHER, SELFPAY ==
[2020-01-11 13:37] VITALS: BMI 27.1
--- NOTE | 2020-01-14 10:39 | HP_ITS ---
Intake Vital Signs 01/11/20 BMI 27.1 01/11/20 Height 5 ft 3 in 01/11/20 Weight: 158 lb 01/11/20 BMI 28.0 01/11/20 BP 105/68 01/11/20 Blood Pressure Location Rt brachial 01/11/20 Position Sitting 01/11/20 Respiration 18 01/11/20 Pulse 70 01/11/20 Pulse Source Monitor 01/11/20 Temp 97.7 F L 01/11/20 Temp Source Temporal 01/11/20 Pulse Oximetry (%) 97 01/11/20 Oxygen Delivery Method room air Intake Visit Reasons: ONE WEEK F/U HOSP/ [facility] Chief Complaint: One week f/u hospital stay for GI Bleed Government Minister Required: No Accompanied by: Friend Is patient in pain?: No Allergies atorvastatin [From Lipitor] Adverse Reaction (Severe, Verified 01/12/20 09:02) myalgias ciprofloxacin [From Cipro] Adverse Reaction (Unknown, Verified 01/12/20 09:02) Unknown Medications aspirin 81 mg tablet,delayed release 81 mg PO QDAY tab 06/28/17 [History Confirmed 01/12/20] coenzyme Q10 100 mg capsule 100 mg PO QDAY 06/28/17 [History Confirmed 01/12/20] nitroglycerin 0.4 mg sublingual tablet 0.4 mg SUBLINGUAL Q5M PRN 06/28/17 [History Confirmed 01/12/20] rizatriptan 10 mg tablet 10 mg PO QDAY PRN tab 06/28/17 [History Confirmed 01/12/20] sertraline 50 mg tablet 50 mg PO QDAY 06/28/17 [History Confirmed 01/12/20] Amlodipine Besylate 2.5 mg PO QDAY 01/02/20 [History Confirmed 01/12/20] Clopidogrel Bisulfate [Clopidogrel] 75 mg PO DAILY 01/02/20 [History Confirmed 01/12/20] Lisinopril 20 mg PO QDAY 01/02/20 [History Confirmed 01/12/20] Metoprolol Succinate [Toprol Xl] 25 mg PO DAILY 01/02/20 [History Confirmed 01/12/20] Rosuvastatin Calcium 10 mg PO DAILY 01/02/20 [History Confirmed 01/12/20] Pantoprazole Sodium [Protonix] 40 mg PO BID #60 tab 01/04/20 [Rx Confirmed 01/12/20] Sucralfate [Carafate] 1 gm PO 1HR_ACHS #30 tab 01/04/20 [Rx Confirmed 01/12/20] cefdinir 300 mg capsule 300 mg PO BID 01/11/20 [History Confirmed 01/12/20] [facility] Medical History Nonrheumatic aortic valve stenosis (Chronic) Abdominal aortic aneurysm without rupture (Chronic) SVT (supraventricular tachycardia) (Acute) Palpitations (Acute) Mitral valve annular calcification (Chronic) Heart murmur, systolic (Chronic) Premature ventricular contraction (Acute) Atherosclerotic heart disease of [place] coronary artery without angina pectoris (Chronic) HLD (hyperlipidemia) (Chronic) Benign essential HTN (Chronic) Abdominal aortic aneurysm without rupture (Chronic) COPD (chronic obstructive pulmonary disease) (Acute) Cellulitis of left arm (Acute) Family history of ischemic heart disease (Acute) History of upper gastrointestinal bleeding (Acute) Osteoarthritis (Acute) Peptic ulcer disease (Acute) Spinal stenosis (Acute) Upper GI bleed (Acute) Family history of hypertension (Chronic) Family history of sudden cardiac (Chronic) CAD (coronary artery disease) (Inactive) COLD (chronic obstructive lung disease) (Inactive) History of upper gastrointestinal bleeding (Inactive) Hx of peptic ulcer (Inactive) Surgical History Presence of stent in coronary artery (Chronic ~11/2010) History of hemorrhoidectomy (Resolved) Hx of appendectomy (Resolved) Family History Mother Sudden cardiac Father CAD (coronary artery disease) CVA (cerebral vascular accident) Social History (Updated 01/14/20 @ 10:[address] Primo Snyder MD) Smoking Status: Former smoker alcohol intake: never substance use type: does not use HPI HPI Surgical H&P: Yes HPI: YARITZA CHRISTINA, is a 79 F who presents to the office today for Follow-up from a hospitalization for an upper GI bleed. Patient was admitted to [facility] and I saw her on 01/02/2020. She had several bouts of emesis that were dark brown. Her initial observation showed that she was hypotensive she responded to medical management in the hospital. She has had a GI bleed in the past which was secondary to a gastric ulcer and she does take aspirin and Plavix secondary to stents being placed approximately 8 to 10 years ago. Since being at the house her stools have been normal. She is not complaining of any abdominal pain. ROS General General: Yes fatigue; no weight change, appetite, colon cancer, breast cancer or weakness HEENT HEENT: No difficulty swallowing, eye injury, eye surgery, swollen glands or hoarseness Endo Endocrine: No thyroid disease, diabetes mellitus, thyroid cancer, Hair loss, heat intolerance or cold intolerance Skin Skin: No rash or changing moles Breast Breast: No left breast lump, right breast lump, nipple discharge, breast pain, abnormal mammogram, abnormal US or breast enlargement Musc Musculoskeletal: Yes arthritis; no back problems, rheumatoid arthritis, gout or joint pain Cardio Cardiovascular: Yes murmur, heart disease, high blood pressure and heart stent; no pacemaker, atrial fibrillation, heart attack, palpitations, shortness of breat with exertion or chest pain Psych Psychiatric: Yes depression; no anxiety or hearing voices Resp Respiratory: No shortness of breath, No sleep apnea, No cough, No COPD, No asthma, No emphysema, No wheezing Gastro Gastrointestinal: No abdominal pain, No nausea or vomiting, No diarrhea, No constipation, No blood in stool, No acid reflux, Yes hemorrhoids, No ulcers, No gallbladder problem, Yes black,tarry stools [place] Hematologic: Yes blood thinners, No blood disorders, No bleeding, No anemia, No blood clots Neuro Neurologic: No system reviewed and no additional complaints, except as docu, No as per HPI, No abnormal walking, No abnormal hearing, No abnormal movements, No abnormal speech, No behavioral changes, No burning sensations, No confusion, No seizure-like activity, No unsteadiness, No dizziness, No localized weakness, No frequent falls, No headache(s), No lack of coordination, No loss of vision, No memory loss, No numbness, No other visual disturbances, No radiating pain, No restless legs, No sensory deficit, No fainting, No tingling, No tremor(s), No weakness, No other Exam Const General: no acute distress, well developed, well hydrated Orientation: oriented to person, oriented to place, oriented to time [facility] Head: normocephalic, atraumatic Ears: external ears normal Mouth: moist mucous membranes Eyes Sclera: sclerae normal Pupils: normal by confrontation Neck Neck: no lymphadenopathy noted Neck mass: No Thyroid: thyroid normal, symmetrical Chest Chest palpation & inspection: normal inspection of the chest Breast Palpation: No nipple discharge Resp Effort & Inspection: normal respiratory effort Auscultation: clear to auscultation bilaterally Percussion: percussion normal Cardio Rate: regular rate Rhythm: regular rhythm Heart Sounds: murmur GI Palpation: soft, no hepatosplenomegaly, no masses, nontender Rectal Exam: other Other: Rectal exam deferred. Extrem General: normal to inspection, no clubbing, cyanosis or edema Assessment & Plan Problems 1. Gastrointestinal hemorrhage associated with gastritis, unspecified gastritis type K29.71 Plan I have discussed the above with the patient. I have offered the patient esophagogastroduodenoscopy for evaluation. I have explained the risks/benefits of the procedure and described the procedure. I have discussed the risks with the patient, including but not limited to: infection, bleeding, perforation of the GI tract requiring emergency surgery, inability to complete the procedure, injury to any internal organs, complications of anesthesia, etc. - the patient understands and agrees to proceed. I have answered all the patient's questions to the patient's satisfaction and the patient has no further questions. The patient has been given instructions for the colon cleansing preparation. Coding Level of Care Code Off vis,est,level 3 Diagnoses Gastrointestinal hemorrhage associated with gastritis, unspecified gastritis type K29.71 ??GI bleed type/associated pathology: gastritis ??Gastritis type: unspecified gastritis COVID (Procedure Consent) Procedure Criteria Procedure Criteria: Yes Elective The surgeon/proceduralist and patient have discussed in detail the risk of exposure to and/or potential harm posed by the COVID-19 virus with having a surgery/procedure at this time versus the risk of? delaying the surgery/procedure. It is not possible to know either the risk of delaying the surgery or procedure or chance of getting an infection with perfect accuracy, but a joint decision was made between the patient and the surgeon/proceduralist ?to proceed at this time with the scheduled surgery/procedure as indicated on the consent form. 01/14/20 1039 <Electronically signed by Primo armijo MD> Date _ Primo Snyder MD I have re-examined the patient. There are no clinical changes since date of exam.
[2020-02-26 08:44] VITALS: BP 123/75; PULSE 64; RESP 18; TEMP 36.9; O2SAT 94; BMI 26.0
[2020-02-26] MEDS: Lactated Ringers 1,000 ML 100 ML IV (08:53)
--- NOTE | 2020-02-26 09:00 | HP_ITS ---
Intake Vital Signs 01/11/20 BMI 27.1 01/11/20 Height 5 ft 3 in 01/11/20 Weight: 158 lb 01/11/20 BMI 28.0 01/11/20 BP 105/68 01/11/20 Blood Pressure Location Rt brachial 01/11/20 Position Sitting 01/11/20 Respiration 18 01/11/20 Pulse 70 01/11/20 Pulse Source Monitor 01/11/20 Temp 97.7 F L 01/11/20 Temp Source Temporal 01/11/20 Pulse Oximetry (%) 97 01/11/20 Oxygen Delivery Method room air Intake Visit Reasons: ONE WEEK F/U HOSP/ [facility] Chief Complaint: One week f/u hospital stay for GI Bleed Resident Care Supervisor Required: No Accompanied by: Friend Is patient in pain?: No Allergies atorvastatin [From Lipitor] Adverse Reaction (Severe, Verified 01/12/20 09:02) myalgias ciprofloxacin [From Cipro] Adverse Reaction (Unknown, Verified 01/12/20 09:02) Unknown Medications aspirin 81 mg tablet,delayed release 81 mg PO QDAY tab 06/28/17 [History Confirmed 01/12/20] coenzyme Q10 100 mg capsule 100 mg PO QDAY 06/28/17 [History Confirmed 01/12/20] nitroglycerin 0.4 mg sublingual tablet 0.4 mg SUBLINGUAL Q5M PRN 06/28/17 [History Confirmed 01/12/20] rizatriptan 10 mg tablet 10 mg PO QDAY PRN tab 06/28/17 [History Confirmed 01/12/20] sertraline 50 mg tablet 50 mg PO QDAY 06/28/17 [History Confirmed 01/12/20] Amlodipine Besylate 2.5 mg PO QDAY 01/02/20 [History Confirmed 01/12/20] Clopidogrel Bisulfate [Clopidogrel] 75 mg PO DAILY 01/02/20 [History Confirmed 01/12/20] Lisinopril 20 mg PO QDAY 01/02/20 [History Confirmed 01/12/20] Metoprolol Succinate [Toprol Xl] 25 mg PO DAILY 01/02/20 [History Confirmed 01/12/20] Rosuvastatin Calcium 10 mg PO DAILY 01/02/20 [History Confirmed 01/12/20] Pantoprazole Sodium [Protonix] 40 mg PO BID #60 tab 01/04/20 [Rx Confirmed 01/12/20] Sucralfate [Carafate] 1 gm PO 1HR_ACHS #30 tab 01/04/20 [Rx Confirmed 01/12/20] cefdinir 300 mg capsule 300 mg PO BID 01/11/20 [History Confirmed 01/12/20] [facility] Medical History Nonrheumatic aortic valve stenosis (Chronic) Abdominal aortic aneurysm without rupture (Chronic) SVT (supraventricular tachycardia) (Acute) Palpitations (Acute) Mitral valve annular calcification (Chronic) Heart murmur, systolic (Chronic) Premature ventricular contraction (Acute) Atherosclerotic heart disease of [place] coronary artery without angina pectoris (Chronic) HLD (hyperlipidemia) (Chronic) Benign essential HTN (Chronic) Abdominal aortic aneurysm without rupture (Chronic) COPD (chronic obstructive pulmonary disease) (Acute) Cellulitis of left arm (Acute) Family history of ischemic heart disease (Acute) History of upper gastrointestinal bleeding (Acute) Osteoarthritis (Acute) Peptic ulcer disease (Acute) Spinal stenosis (Acute) Upper GI bleed (Acute) Family history of hypertension (Chronic) Family history of sudden cardiac (Chronic) CAD (coronary artery disease) (Inactive) COLD (chronic obstructive lung disease) (Inactive) History of upper gastrointestinal bleeding (Inactive) Hx of peptic ulcer (Inactive) Surgical History Presence of stent in coronary artery (Chronic ~11/2010) History of hemorrhoidectomy (Resolved) Hx of appendectomy (Resolved) Family History Mother Sudden cardiac Father CAD (coronary artery disease) CVA (cerebral vascular accident) Social History (Updated 01/14/20 @ 10:[address] Primo Snyder MD) Smoking Status: Former smoker alcohol intake: never substance use type: does not use HPI HPI Surgical H&P: Yes HPI: YARITZA CHRISTINA, is a 79 F who presents to the office today for Follow-up from a hospitalization for an upper GI bleed. Patient was admitted to [facility] and I saw her on 01/02/2020. She had several bouts of emesis that were dark brown. Her initial observation showed that she was hypotensive she responded to medical management in the hospital. She has had a GI bleed in the past which was secondary to a gastric ulcer and she does take aspirin and Plavix secondary to stents being placed approximately 8 to 10 years ago. Since being at the house her stools have been normal. She is not complaining of any abdominal pain. ROS General General: Yes fatigue; no weight change, appetite, colon cancer, breast cancer or weakness HEENT HEENT: No difficulty swallowing, eye injury, eye surgery, swollen glands or hoarseness Endo Endocrine: No thyroid disease, diabetes mellitus, thyroid cancer, Hair loss, heat intolerance or cold intolerance Skin Skin: No rash or changing moles Breast Breast: No left breast lump, right breast lump, nipple discharge, breast pain, abnormal mammogram, abnormal US or breast enlargement Musc Musculoskeletal: Yes arthritis; no back problems, rheumatoid arthritis, gout or joint pain Cardio Cardiovascular: Yes murmur, heart disease, high blood pressure and heart stent; no pacemaker, atrial fibrillation, heart attack, palpitations, shortness of breat with exertion or chest pain Psych Psychiatric: Yes depression; no anxiety or hearing voices Resp Respiratory: No shortness of breath, No sleep apnea, No cough, No COPD, No asthma, No emphysema, No wheezing Gastro Gastrointestinal: No abdominal pain, No nausea or vomiting, No diarrhea, No constipation, No blood in stool, No acid reflux, Yes hemorrhoids, No ulcers, No gallbladder problem, Yes black,tarry stools Spencer Hematologic: Yes blood thinners, No blood disorders, No bleeding, No anemia, No blood clots Neuro Neurologic: No system reviewed and no additional complaints, except as docu, No as per HPI, No abnormal walking, No abnormal hearing, No abnormal movements, No abnormal speech, No behavioral changes, No burning sensations, No confusion, No seizure-like activity, No unsteadiness, No dizziness, No localized weakness, No frequent falls, No headache(s), No lack of coordination, No loss of vision, No memory loss, No numbness, No other visual disturbances, No radiating pain, No restless legs, No sensory deficit, No fainting, No tingling, No tremor(s), No weakness, No other Exam Const General: no acute distress, well developed, well hydrated Orientation: oriented to person, oriented to place, oriented to time [facility] Head: normocephalic, atraumatic Ears: external ears normal Mouth: moist mucous membranes Eyes Sclera: sclerae normal Pupils: normal by confrontation Neck Neck: no lymphadenopathy noted Neck mass: No Thyroid: thyroid normal, symmetrical Chest Chest palpation & inspection: normal inspection of the chest Breast Palpation: No nipple discharge Resp Effort & Inspection: normal respiratory effort Auscultation: clear to auscultation bilaterally Percussion: percussion normal Cardio Rate: regular rate Rhythm: regular rhythm Heart Sounds: murmur GI Palpation: soft, no hepatosplenomegaly, no masses, nontender Rectal Exam: other Other: Rectal exam deferred. Extrem General: normal to inspection, no clubbing, cyanosis or edema Assessment & Plan Problems 1. Gastrointestinal hemorrhage associated with gastritis, unspecified gastritis type K29.71 Plan I have discussed the above with the patient. I have offered the patient esophagogastroduodenoscopy for evaluation. I have explained the risks/benefits of the procedure and described the procedure. I have discussed the risks with the patient, including but not limited to: infection, bleeding, perforation of the GI tract requiring emergency surgery, inability to complete the procedure, injury to any internal organs, complications of anesthesia, etc. - the patient understands and agrees to proceed. I have answered all the patient's questions to the patient's satisfaction and the patient has no further questions. The patient has been given instructions for the colon cleansing preparation. Coding Level of Care Code Off vis,est,level 3 Diagnoses Gastrointestinal hemorrhage associated with gastritis, unspecified gastritis type K29.71 ??GI bleed type/associated pathology: gastritis ??Gastritis type: unspecified gastritis COVID (Procedure Consent) Procedure Criteria Procedure Criteria: Yes Elective The surgeon/proceduralist and patient have discussed in detail the risk of exposure to and/or potential harm posed by the COVID-19 virus with having a surgery/procedure at this time versus the risk of? delaying the surgery/procedure. It is not possible to know either the risk of delaying the surgery or procedure or chance of getting an infection with perfect accuracy, but a joint decision was made between the patient and the surgeon/proceduralist ?to proceed at this time with the scheduled surgery/procedure as indicated on the consent form.
--- NOTE | 2020-02-26 09:30 | EGD_PTH ---
PATIENT: YARITZA CHRISTINA LOC: EN U#:[id number] AGE/SX: 79/F ROOM: RE02/26/[address]: Dr. Primo Snyder MD : 1940 BED: DIS: 02/26/2020 SPEC #: [id number] RECD: 02/26/20 11:52 STATUS: CHELSEY REEric #: [id number] DOUGLAS: 02/26/20 09:[address]: Primo Snyder DEPT: SURGICAL PATHOLOGY RECD BY: Damari Marshall ENTERED: 02/26/20 12:16 SP TYPE: EGD BIOPSY LYNETTE DR: Dr. Dianna Lua DO Tissues: A - BOWEL BIOPSY B - Gastric mucous membrane Procedures: Surgery Specimen Level IV HEADER OPERATION: EGD ([facility]) PRE-OP DIAGNOSIS: GI hemorrhage with gastritis TISSUE SUBMITTED: A - Small bowel biopsy, rule out celiac, B - Antrum biopsy for histo and H. pylori MICROSCOPIC DIAGNOSIS A. Small bowel, biopsy: No pathologic change. See comment. B. Gastric antrum, biopsy: Minimal chronic inflammation. See comment. AM:guille 02/27/20 COMMENT A. There is no evidence of celiac sprue. Clinical correlation is suggested. B. The results of immunohistochemistry for Helicobacter pylori will be reported separately ([id number]). MICROSCOPIC DESCRIPTION Slides are reviewed. GROSS DESCRIPTION A - Received in fixative is one container labeled with the patient's name and designated small bowel biopsy. The specimen consists of one irregular fragment of light means soft tissue that measures 0.8 x 0.2 x 0.1 cm. The specimen is totally submitted in one cassette. B - Received in fixative is one container labeled with the patient's name and designated gastric antrum. The specimen consists of two irregular fragments of light means soft tissue that in aggregate measure 1 x 0.2 x 0.1 cm. The specimen is totally submitted in one cassette. / AM:guille 02/26/20 TC:3 CPT: 61817 x2
--- NOTE | 2020-02-26 09:30 | IMM_PTH ---
PATIENT: YARITZA CHRISTINA LOC: EN U#:[id number] AGE/SX: 79/F ROOM: RE02/26/[address]: Dr. Primo Snyder MD : 1940 BED: DIS: 02/26/2020 SPEC #: [id number] RECD: 02/26/20 13:38 STATUS: CHELSEY REQ #: [id number] DOUGLAS: 02/26/20 09:[address]: Primo Snyder DEPT: IMMUNOHISTOCHEMISTRY RECD BY: Shruthi Alvarez ENTERED: 02/26/20 13:39 SP TYPE: IMMUNO OTHR DR: Dr. Dianna Lua, DO Tissues: B - Stomach, NOS Procedures: H Pylori (initial) PHYSICIAN & INSTITUTION [place] [id number] SPECIMEN INFORMATION: Tissue Source: B - Antrum biopsy Clinical Info: GI hemorrhage with gastritis Specimen Number: [id number] CPT code: 30498 METHODOLOGY: Deparaffinized sections of prefer/formalin-fixed tissue or PAP/DQ stained slides are incubated with monoclonal/polyclonal antibodies/oligonucleotide probes. Localization is made via biotin free immunoperoxidase method. Appropriate controls are performed and reacted as expected. Results on target cell population are indicated in the following table: RESULTS: ANTIBODY / CLONE RESULT Block B H Pylori (polyclonal) negative These tests were developed and their performance characteristics determined by [facility]. They may not have been cleared or approved by the U.S. Food and Drug Administration. The FDA has determined that such clearance or approval is not necessary. INTERPRETATION: B. Antrum biopsy: Negative for Helicobacter pylori organisms. AM:guille 02/27/20
[2020-02-26 10:00] VITALS: BP 104/63; BP 123/75; PULSE 70; RESP 16; TEMP 36.6; O2SAT 96
--- NOTE | 2020-02-26 10:04 | OP.EGD_ITS ---
Patient Name: Myesha Gong Procedure Date: 02/26/2020 9:45 AM Date of : 1940 Age: 79 Procedure: Upper GI endoscopy Indications: Recent gastrointestinal bleeding Providers: Primo Snyder MD Referring MD: Dianna Lua Medicines: See the Anesthesia note for documentation of the administered medications Patient Profile: This is a 79 year old female. Refer to note in patient chart for documentation of history and physical. Complications: No immediate complications. Procedure: Pre-Anesthesia Assessment: - Prior to the procedure, a History and Physical was performed, and patient medications and allergies were reviewed. The patient's tolerance of previous anesthesia was also reviewed. The risks and benefits of the procedure and the sedation options and risks were discussed with the patient. All questions were answered, and informed consent was obtained. Prior Anticoagulants: The patient has taken aspirin, last dose was 1 week prior to procedure. ASA Grade Assessment: II - A patient with mild systemic disease. After reviewing the risks and benefits, the patient was deemed in satisfactory condition to undergo the procedure. After obtaining informed consent, the endoscope was passed under direct vision. Throughout the procedure, the patient's blood pressure, pulse, and oxygen saturations were monitored continuously. The Endoscope was introduced through the mouth, and advanced to the second part of duodenum. The upper GI endoscopy was accomplished without difficulty. The patient tolerated the procedure well. Scope In: 9:54:04 AM Scope Out: 9:57:09 AM Total Procedure Duration Time 0 hours 3 minutes 5 seconds Findings: A 6 cm hiatal hernia was present. The entire examined stomach was normal. Biopsies were taken with a cold forceps for Helicobacter pylori testing. The examined duodenum was normal. Biopsies for histology were taken with a cold forceps for evaluation of celiac disease. Impression: - 6 cm hiatal hernia. - Normal stomach. Biopsied. - Normal examined duodenum. Biopsied. Recommendation: - Await pathology results. - Repeat upper endoscopy (date not yet determined) for surveillance. - Return to my office in 1 week. - Continue present medications. I would recommend that the patient remain on her proton pump inhibitor until she develops any further bleeding episodes. If that were to happen then she would probably need to have capsule endoscopy. But at this point I really do not think we need to do any further investigation. Procedure Code(s): --- Professional --- 07879, Esophagogastroduodenoscopy, flexible, transoral; with biopsy, single or multiple Diagnosis Code(s): --- Professional --- K44.9, Diaphragmatic hernia without obstruction or gangrene K92.2, Gastrointestinal hemorrhage, unspecified CPT copyright 2017 [employer]. All rights reserved. The codes documented in this report are preliminary and upon income tax return preparer review may be revised to meet current compliance requirements. MD Primo Hickman MD 02/26/2020 10:03:31 AM This report has been signed electronically. Number of Addenda: 0 Note Initiated On: 02/26/2020 9:45 AM
--- NOTE | 2020-02-26 10:04 | OP.CCLET_ITS ---
02/26/2020 Dianna Lua [address] [place] [address] Re : Upper GI endoscopy procedure for Myesha Gong Dear Dr. Lua This procedure was performed on Wednesday, February 26, 2020. My impressions and recommendations are as follows: Impressions : - 6 cm hiatal hernia. - Normal stomach. Biopsied. - Normal examined duodenum. Biopsied. Recommendations : - Await pathology results. - Repeat upper endoscopy (date not yet determined) for surveillance. - Return to my office in 1 week. - Continue present medications. I would recommend that the patient remain on her proton pump inhibitor until she develops any further bleeding episodes. If that were to happen then she would probably need to have capsule endoscopy. But at this point I really do not think we need to do any further investigation. My findings are described in the full procedure note, which is enclosed. If I can be of further assistance, please feel free to contact me at Doctor phone number(s): , Fax: [phone], Work: . Sincerely, MD Primo Hickman MD 02/26/2020 10:03:31 AM This report has been signed electronically.
[2020-02-26 10:05] VITALS: BP 123/75; BP 93/68; PULSE 70; RESP 16; O2SAT 94
[2020-02-26 10:10] VITALS: BP 123/75; BP 98/61; PULSE 69; RESP 16; O2SAT 96
[2020-02-26 10:15] VITALS: BP 123/75; BP 99/69; PULSE 70; RESP 16; TEMP 36.7; O2SAT 98
== END 2020-02-26 10:42 | disposition home or self-care (01) ==
LOC: EN 08:10 → AC 08:10
PROVIDERS: Anesthesiology; PCP Internal Medicine; Referring Provider Internal Medicine; Visit Provider Surgery
PROC: 0DJ08ZZ Inspection of Upper Intestinal Tract, Via Natural or Artificial Opening Endoscopic (ICD-10-PCS; CPT 43235; principal; 2020-02-26 09:25)
DX: K29.71 Gastritis, unspecified, with bleeding (principal); K44.9 Diaphragmatic hernia without obstruction or gangrene; I25.10 Atherosclerotic heart disease of native coronary artery without angina pectoris; E78.5 Hyperlipidemia, unspecified; I10 Essential (primary) hypertension; J44.9 Chronic obstructive pulmonary disease, unspecified; M19.90 Unspecified osteoarthritis, unspecified site; D64.9 Anemia, unspecified; F32.9 Major depressive disorder, single episode, unspecified; Z95.5 Presence of coronary angioplasty implant and graft; Z87.891 Personal history of nicotine dependence; Z79.02 Long term (current) use of antithrombotics/antiplatelets; Z20.828 Contact with and (suspected) exposure to other viral communicable diseases; Z79.899 Other long term (current) drug therapy
CPT/HCPCS: 43239; 87635; 88305; 88342; C9803; J7120; J2405; U0003

== ENCOUNTER → 2020-04-10 08:56 | Outpatient (CLI) | payer MEDICARE, OTHER, SELFPAY ==
[2020-04-10 10:30] LABS: Absolute Lymphocyte Count 1.67 X10^3/uL (0.83-4.51); Absolute Neutrophil Count 4.4 X10^3/uL (2.0-7.7); Basophil# 0.06 X10^3/uL; Basophil% 0.8 % (0-1); Eosinophil# 0.36 X10^3/uL; Eosinophils% 4.9 % (0-5); Hematocrit 37.1 % (37-47); Hemoglobin 10.7 g/dL (12.0-15.0); Lymphocyte # 1.67 X10^3/ul (4.0); Lymphocyte % 22.8 % (19-41); Mean Corp Hgb Conc 28.8 g/dL (32-36); Mean Corpuscular Volume 93.5 fL (81-99); Monocyte# 0.79 X10^3/uL; Monocyte% 10.8 % (0-10); NRBC Flagged by Analyzer 0 % (0-5); Neutrophil # 4.43 X10^3/uL (2.7-7.7); Neutrophil % 60.4 % (47-70); Platelet Count 380 K/mm3 (150-450); RBC Distribution Width CV 16.3 % (11.6-14.6); RBC Distribution Width SD 55.7 fl (35.1-43.9); Red Blood Count 3.97 M/mm3 (4.2-5.4); White Blood Count 7.3 K/mm3 (4.4-11.0)
[2020-04-10 11:12] LABS: AST(SGOT) 16 U/L (15-37); Alanine Aminotransfer ALT/SGPT 18 U/L (13-56); Albumin, Serum 3.6 g/dL (3.2-5.0); Alkaline Phosphatase 94 U/L (45-117); Cholesterol 152 mg/dL (200); Globulin 4.3 g/dL (2.2-4.2); High Density Lipoprotein 48 mg/dL; Protein, Total 7.9 g/dL (6.4-8.2); Triglycerides 105 mg/dL; Very Low Density Lipoprotein 21 mg/dL (5-40)
== END ==
PROVIDERS: Nurse Practitioner Family; PCP Internal Medicine; Referring Provider Internal Medicine Cardiovascular Disease; Visit Provider Internal Medicine Cardiovascular Disease
DX: E78.00 Pure hypercholesterolemia, unspecified (principal); E78.5 Hyperlipidemia, unspecified; I10 Essential (primary) hypertension; I25.10 Atherosclerotic heart disease of native coronary artery without angina pectoris; K92.2 Gastrointestinal hemorrhage, unspecified
CPT/HCPCS: 36415; 80061; 80076; 85025

== ENCOUNTER → 2020-10-18 07:25 | Outpatient (CLI) | payer MEDICARE, OTHER, SELFPAY ==
[2020-04-17 11:05] VITALS: BMI 26.2
[2020-10-18 08:58] LABS: AST(SGOT) 19 U/L (15-37); Alanine Aminotransfer ALT/SGPT 14 U/L (13-56); Albumin, Serum 3.4 g/dL (3.2-5.0); Alkaline Phosphatase 90 U/L (45-117); Cholesterol 153 mg/dL (200); Globulin 4.4 g/dL (2.2-4.2); High Density Lipoprotein 49 mg/dL; Protein, Total 7.8 g/dL (6.4-8.2); Triglycerides 108 mg/dL; Very Low Density Lipoprotein 22 mg/dL (5-40)
== END ==
PROVIDERS: PCP Internal Medicine; Referring Provider Internal Medicine Cardiovascular Disease; Visit Provider Internal Medicine Cardiovascular Disease
DX: E78.00 Pure hypercholesterolemia, unspecified (principal)
CPT/HCPCS: 36415; 80061; 80076

== ENCOUNTER → 2020-11-06 06:20 | Outpatient (CLI) | payer MEDICARE, OTHER, SELFPAY ==
[2020-10-24 11:23] VITALS: BMI 26.7
--- NOTE | 2020-11-06 13:11 | STRESSREP ---
Stress Test Report Date: 11-06-2020 Procedure: Pharmacologic stress nuclear imaging study Indications: CAD; PCI Consent: Per the patient Procedure: The patient underwent pharmacologic (Regadenoson 0.4mg ) evaluation with a peak heart rate of 100 beats per minute (71%predicted maximal heart rate) and a peak blood pressure of 140/82 mmHg. The baseline ECG demonstrated sinus rhythm; nonspecific ST/T wave abnormality. The peak pharmacologic ECG demonstrated no obvious ECG changes. There was an isolated PVC during recovery. There was no complaint of chest discomfort during pharmacologic infusion or recovery. The examination was discontinued secondary to completion of protocol. Impression: 1. Pharmacologic (Regadenoson) evaluation 2. Peak pharmacologic ECG with continued nonspecific ST/T wave abnormality with no obvious ECG changes. 3. There were no cardiac dysrhythmias pretest, during pharmacologic infusion, or recovery. 4. Nuclear images pending Myocardial perfusion imaging study: Technique: The patient was injected with 11.5 millicuries of technetium 99m Cardiolite and subsequently rest SPECT Cardiolite nuclear imaging was obtained in the horizontal long, vertical long, and short axis views. The patient underwent pharmacologic (Regadenoson) evaluation with a peak heart rate of 100 beats per minute (71% percent predicted maximal heart rate) and a peak blood pressure of 140/82 mmHg. The patient was injected with 32.3 millicuries of technetium 99m Cardiolite and subsequently stress SPECT Cardiolite nuclear imaging was obtained in the horizontal long, vertical long, and short axis views. A gated Cardiolite study at peak stress was obtained. Interpretation: Rest and stress SPECT Cardiolite nuclear imaging status post realignment, normalization, and attenuation correction demonstrate the appearance of a small area of subtle diminished tracer uptake near the apical segments without significant change between rest and stress. There is end systolic thickening and brightening. The gated Cardiolite study demonstrates myocardial thickening and inward wall motion. The reported LVEF is 78%. Impression: 1. Rest and stress SPECT current nuclear imaging demonstrate myocardial perfusion changes appearing compatible defects of physiologic apical thinning with no myocardial perfusion changes considered diagnostic for associated stress-induced myocardial ischemia. 2. The gated Cardiolite study reports an LVEF of 78%. This note was generated with Filementation software. It may contain incorrect words, spelling, and punctuation that were not noted in checking the note before signing.
== END ==
PROVIDERS: PCP Internal Medicine; Referring Provider Physician Assistant Medical; Visit Provider Physician Assistant Medical
DX: I25.10 Atherosclerotic heart disease of native coronary artery without angina pectoris (principal)
CPT/HCPCS: 78452; 93017; A9500; A4216; J2785

== ENCOUNTER → 2020-12-31 13:05 | Outpatient (CLI) | payer MEDICARE, OTHER, SELFPAY ==
[2020-10-24 11:23] VITALS: BMI 26.7
--- NOTE | 2020-12-31 13:07 | BI_ITS ---
MAMMOGRAPHY - BILATERAL SCREENING REASON FOR EXAM: Female, 80 years old. Routine annual screening examination. PERTINENT HISTORY: Sister with breast cancer. TECHNIQUE: Digital bilateral breast [place] (3D mammographic acquisition) in the CC and MLO projections. 2-D mediolateral oblique (MLO) and craniocaudad (CC) views of both breasts were obtained. CAD: Full Field Digital Mammography with Computer Added Detection was performed. COMPARISON: Comparison is made with prior study dated 12/14/2019 and 08/03/2016. FINDINGS: Breast Composition: There are scattered areas of fibroglandular density. There are no dominant masses or suspicious calcifications. Stable small benign-appearing bilateral axillary lymph nodes. No other significant abnormalities are identified. There has been no significant change since the prior study. BI/SCRN MAMM (CAD)W/[place] BILAT IMPRESSION: Stable bilateral screening mammogram. Yearly follow-up mammogram recommended. (A) ASSESSMENT CATEGORY: BIRADS Category 2: Benign. A letter regarding these results will be sent to the patient by the facility within 30 days. Approximately 10% of breast cancers are not detected by mammography. A normal mammogram should not delay biopsy of a clinically suspicious abnormality. [id number] Electronically Signed: Dick Trivedi MD at 14:53 EDT , Service support ,
--- NOTE | 2020-12-31 13:13 | BD_ITS ---
STUDY: DUAL ENERGY X-RAY ABSORPTIOMETRY / DXA REASON FOR EXAM: Female, 80 years old. Z780. The patient is postmenopausal. TECHNIQUE: Bone Mineral Density (BMD) measurements of left forearm and bilateral hips were obtained. COMPARISON: Comparison is made with prior study dated 07/25/2015. FINDINGS: Left Femur Total: g/cm2 (0.727) / T-score (-2.8) / Z-score (0.3) Left Femoral Neck: g/cm2 (0.538) / T-score (-2.8) / Z-score (-0.5) Right Femur Total: g/cm2 (0.744) / T-score (-1.6) / Z-score (0.4) Right Femoral Neck: g/cm2 (0.570) / T-score (-2.5) / Z-score (-0.2) Left Forearm: g/cm2 (0.607) / T-score (-1.4) / Z-score (1.7) The T-Scores on the most recent prior examination were: Left Femur Total: which represents a worsening of 7.9%. Right Femur Total: which represents a worsening of 8.5%. BD/Dexa Bone Density Study IMPRESSION: The patient is considered osteoporotic as outlined below according to World [employer] Organization (WHO) criteria with a high fracture risk. There has been worsening of bone density since the previous examination. Reference Information: The T-score is the number of standard deviations above or below the standard which is normal for young adults at their peak bone mineral density. The World Health Organization (WHO) interprets the T-scores as follows: Above -1 Normal bone density Between -1 and -2.5 Osteopenia Equal to / or below -2.5 Osteoporosis As a practical clinical guideline, osteopenia may be graded as follows: Mild -1 through -1.5 Moderate -1.6 through -2.0 Severe -2.1 through -2.4 The Z-score is the number of standard deviations above or below age-matched controls. A Z-score of less than -1.5 would be considered abnormal. References: 1. NIH Osteoporosis and Related Bone Diseases www osteo.org 2. International Society for Clinical Densitometry www iscd.org 3. National Osteoporosis Foundation www nof.org Electronically Signed: Dick Trivedi MD at 13:40 EDT , Service support ,
== END ==
PROVIDERS: PCP Internal Medicine; Referring Provider Internal Medicine; Visit Provider Internal Medicine
DX: Z78.0 Asymptomatic menopausal state (principal); Z12.31 Encounter for screening mammogram for malignant neoplasm of breast
CPT/HCPCS: 77063; 77067; 77080

== ENCOUNTER → 2021-02-21 13:17 | Outpatient (CLI) | payer MEDICARE, OTHER, SELFPAY ==
[2021-02-21 13:23] VITALS: BP 122/61; PULSE 86; RESP 16; TEMP 36.7; O2SAT 97
[2021-02-21] MEDS: DENOSUMAB 60 MG/ML SC (13:26)
== END ==
PROVIDERS: PCP Internal Medicine; Referring Provider Internal Medicine; Visit Provider Internal Medicine
DX: M81.0 Age-related osteoporosis without current pathological fracture (principal)
CPT/HCPCS: 96372; J0897

== ENCOUNTER 2021-08-22 13:36 | Outpatient (CLI) | payer MEDICARE, OTHER, SELFPAY ==
[2021-08-22 13:54] VITALS: BP 111/68; PULSE 67; RESP 16; TEMP 36.4; O2SAT 97; BMI 28.3
[2021-08-22] MEDS: DENOSUMAB 60 MG/ML SC (13:59)
[2021-08-22 14:02] VITALS: BP 116/70; PULSE 70; RESP 16; TEMP 36.6; O2SAT 98
== END 2021-08-22 23:59 | disposition home or self-care (01) ==
LOC: MEDOUTP 13:37
PROVIDERS: PCP Internal Medicine; Referring Provider Internal Medicine; Visit Provider Internal Medicine
DX: M81.0 Age-related osteoporosis without current pathological fracture (principal)
CPT/HCPCS: 96372; J0897

== ENCOUNTER 2021-09-03 15:00 | Outpatient (RCR) | payer MEDICARE, OTHER, SELFPAY ==
--- NOTE | 2021-08-04 13:59 | HP.PTEVAL ---
Patient's Visit Information YARITZA CHRISTINA is a 80 year old F referred to Physical Therapy by Dr. Dianna Lua DO with a diagnosis of LBP S/P SURGERY. Date of Evaluation: 08/04/21 Physical Therapist: Satya Helms, PT, Cert MDT, OCS - Visit Plan Frequency: 2x /Week Duration: 4 Weeks Plan: PT INTERVETIONS AQUATIC THERAPY DLS ,POSTURAL'S ,LE STRENGTHENING AND ACTIVITY MODIFICATION/POSTURE - Subjective This 80 y/o female presents to physical therapy with LBP. Patient has h/o lumbar fusion with bone graft L3-S1 ~ October [address] Mike MORTENSEN . This was due to lumbar stenosis. Patient had PT for [facility] and outpatient. Patient currently has pain symmetrical lumbar and has some weakness in legs. Aggravating factors standing or walking < 5 mins, lifting affects. housework tasks. Alleviating factors sitting, resting. Patient pain affects sleeping. Patient pain affects dailiy function and housework's. Denies paresthesia/tingling. Bowel/bladder -. Coughing/sneezing. No x-rays. Patient pain affects QOL and function and housework tasks. pain is constant ache. SOCAIL: single. VOCATION: RETIRED - Pain Bilateral Back Pain Intensity (Out of 10): 8 Pain Intensity Range: 10 - Objective POSTURE: mild forward posture. NEURO: denies paresthesia/tingling reflexes L3-4,L4-5,L5-S1 2/3. PALAPTION: tender LS region. FLEXABLITY: hams min tight. LUMBAR ROM: flexion mon/mod loss , extension mod loss side glides min/mod loss. MMT: QUADS/HAMS 4/5 ,HIP FLEXION 4-/5 ,ANKLE 4/5 - Special Tests L/S Slump test left side: Negative L/S Slump test right side: Negative L/S Left Straight Leg Raise: Negative L/S Right Straight Leg Raise: Negative - Balance/Special Test Scores Oswestry Low Back Score: 21 - Goals Goal 1:: Patient to be I with Aquatic program Goal Time Frame: 4-6 Weeks Goal 2:: Patient to demonstrate 50% improvement with decrease back pain and improve function walking Goal Time Frame: 4-6 Weeks Goal 3:: Patient improve lumbar ROM for function of recovery to put on shoes Goal Time Frame: 4-6 Weeks Goal 4:: Patient to improve back oswestry score by 5 points to improve QOL Goal Time Frame: 4-6 Weeks Goal 5:: Patient be able to walk or stand > 5-10mins to performs ADLS /housework tasks Goal Time Frame: 4-6 Weeks - Rehabilitation Potential Physical Therapy Diagnosis: Patient has LBP symmetrical with radicular symptoms with h/o lumbar fusion 2019 with pain during position ,standing walking affects ADLS' and housework tasks thus benefit from skilled PT Rehabilitation Potential: Good - Anticipated Interventions Patient/Client Instruction: Educate patient on: Condition, Plan of Care For the Purpose of:: To decrease pain, To increase ROM, To improve muscle performance and motor function, To improve ability to perform ADL's, To increase tolerance to activity/condition/position, To improve performance and independence with ADL's, To improve health of tissue, To decrease soft tissue restriction, To assume or resume ADL's, To reduce risk of recurrence Therapeutic Exercise to Include: Strength training, Body mechanics, Postural training, Flexibilty training, In an aquatic setting, [place] Exercises For the Purpose of:: To decrease pain, To increase ROM, To improve muscle performance and motor function, To improve ability to perform ADL's, To improve performance and independence with ADL's, To improve ability of physical actions for home/community/work/leisure, To increase flexibility/ROM, To improve endurance, To reduce risk of recurrence Thank you for the opportunity to evaluate your patient. For Medicare and Medicare HMO plans, please review the plan of care and approve it. It will need to be FAXED BACK to us at [phone] for Medicare purposes. For Medicare only, by signing this I certify the plan of care. Please let me know if there are questions or concerns regarding this plan of care. Physician Signature: Date:
--- NOTE | 2021-09-03 15:22 | HP.PTDCSUM ---
It has been my pleasure to treat YARITZA HCRISTINA referred by Dr. Dianna Lua DO, with the diagnosis of LBP S/P SURGERY for a total of 9 visit(s). Discharge Date: 09/03/21 Please see the following information for a summary of their discharge status. Subjective: Patient doing well .Doing alt better Bilateral Back Pain Intensity (Out of 10): 0 RLE Pain Intensity (Out of 10): 0 % Improvement: 70 Objective/Function: POSTURE: WFL. GAIT: reciprocal pattern. MMT: QUAD/HAMS 4/5,HIP FLEXION 4/5,ANKLE 5/5. LUMBAR ROM: flexion mod loss ,extension mod loss ,side glides Goal 1:: Patient to be I with Aquatic program Goal Progress: Goal Met Goal 2:: Patient to demonstrate 50% improvement with decrease back pain and improve function walking Goal Progress: Goal Met Goal 3:: Patient improve lumbar ROM for function of recovery to put on shoes Goal Progress: Goal Met Goal 4:: Patient to improve back oswestry score by 5 points to improve QOL Goal Progress: Goal Met Goal 5:: Patient be able to walk or stand > 5-10mins to performs ADLS /housework tasks Goal Progress: Goal Met Plan: D/C If there are questions or concerns regarding this patient's physical therapy, please feel free to call me at [phone]. Thank you for the referral of this patient. Sincerely, Satya Helsm, PT, Cert MDT, OCS Balance/Gait/Functional tests - Balance/Special Test Scores Oswestry Low Back Score: 0
== END 2021-09-03 19:00 | disposition home or self-care (01) ==
LOC: PT 15:00
PROVIDERS: PCP Internal Medicine; Referring Provider Internal Medicine; Visit Provider Internal Medicine
DX: M48.061 Spinal stenosis, lumbar region without neurogenic claudication (principal)
CPT/HCPCS: 97110; 97113; 97530

== ENCOUNTER → 2021-11-03 | Outpatient (CLI) | payer MEDICARE, OTHER, SELFPAY ==
[2021-11-03 10:44] LABS: AST(SGOT) 25 U/L (15-37); Alanine Aminotransfer ALT/SGPT 61 U/L (13-56); Albumin, Serum 3.3 g/dL (3.2-5.0); Alkaline Phosphatase 165 U/L (45-117); Bilirubin, Direct 0.14 mg/dL (0.00-0.30); Cholesterol 150 mg/dL (200); Globulin 4.5 g/dL (2.2-4.2); High Density Lipoprotein 39 mg/dL; Protein, Total 7.8 g/dL (6.4-8.2); Triglycerides 134 mg/dL; Very Low Density Lipoprotein 27 mg/dL (5-40)
== END | disposition home or self-care (01) ==
LOC: LAB 08:53
PROVIDERS: PCP Internal Medicine; Referring Provider Internal Medicine Cardiovascular Disease; Visit Provider Internal Medicine Cardiovascular Disease
DX: E78.5 Hyperlipidemia, unspecified (principal); I25.10 Atherosclerotic heart disease of native coronary artery without angina pectoris
CPT/HCPCS: 36415; 80061; 80076

== ENCOUNTER → 2021-11-21 | Outpatient (CLI) | payer MEDICARE, OTHER, SELFPAY ==
--- NOTE | 2021-11-21 11:19 | ECHOD_ITS ---
Reason For Study: Aortic Stenosis Procedure This was a 2D Doppler, Color Flow transthoracic echocardiogram. The exam was of adequate technical quality. Exam performed in department. Left Ventricle Normal LV size. Left ventricular systolic function is hyperdynamic. The estimated ejection fraction is 75 %. Diastolic function is indeterminate. No regional wall motion abnormalities noted. Right Ventricle Normal RV size. Normal systolic function. Atria The left atrium is mildly enlarged. Normal right atrium. No doppler evidence for ASD. Mitral Valve There is mild mitral annular calcification. Extension of the mitral annular calcification on the base of the posterior mitral valve leaflet. The mitral valve chordae are thickened and/or calcified. Mild mitral valve stenosis. Trivial mitral valve insufficiency. Tricuspid Valve Normal tricuspid valve. Trivial tricuspid valve insufficiency. Right ventricular systolic pressure estimated to be 27 mmHg. Aortic Valve Trisinus/trileaflet aortic valve. Moderate focal aortic valve calcification. Mild to moderate aortic stenosis. Pulmonic Valve The pulmonic valve is not well visualized. Trivial pulmonic valve insufficiency. Great Vessels Normal sized aortic root. Pericardium/Pleural No pericardial effusion. Epicardial fat. MMode/2D Measurements & Calculations RVDd: 3.3 cm LVOT diam: 2.0 cm Ao root diam: 3.4 cm LVOT area: 3.1 cm2 LA dimension: 3.5 cm LAV(MOD-bp): 51.8 ml SV(MOD-sp4): 32.3 ml LVAd ap4: 19.8 cm2 LAV(MOD-bp) Indexed: 31.5 ml/m2 LVLd ap4: 7.1 cm LAV(MOD-sp2): 60.8 ml EDV(MOD-sp4): 46.0 ml LAV(MOD-sp4): 44.2 ml EDV(sp4-el): 46.8 ml LVAs ap4: 8.4 cm2 LVLs ap4: 6.0 cm ESV(MOD-sp4): 13.7 ml ESV(sp4-el): 10.1 ml EF(MOD-sp4): 70.2 % EF(sp4-el): 78.4 % SV(sp4-el): 36.7 ml Aortic Valve Planimetry: 1.2 cm2 LA A4 area: 17.9 cm2 RA A4 area: 15.2 cm2 Time Measurements MV dec time: 0.33 sec Doppler Measurements & Calculations MV E max quinn: 91.7 cm/sec Lat Peak E' Quinn: 5.5 cm/sec Med Peak E' Quinn: 4.3 cm/sec MV A max quinn: 132.1 cm/sec E/E' lat: 16.7 E/E' med: 21.5 MV E/A: 0.69 MV V2 max: 141.2 cm/sec MV P1/2t max quinn: 108.5 cm/sec Ao V2 max: 217.6 cm/sec MV max P.0 mmHg MV P1/2t: 106.4 msec Ao max P.0 mmHg MV V2 mean: 66.8 cm/sec MV dec slope: 298.7 cm/sec2 Ao V2 mean: 148.4 cm/sec MV mean P.2 mmHg Ao mean P.0 mmHg MV V2 VTI: 45.9 cm MVA(P1/2t): 2.1 cm2 Ao V2 VTI: 51.3 cm MVA(VTI): 1.5 cm2 MAISHA(I,D): 1.3 cm2 MAISHA(V,D): 1.3 cm2 LV V1 max: 92.4 cm/sec SV(LVOT): 66.7 ml PA V2 max: 63.4 cm/sec LV V1 max P.4 mmHg LV V1 mean P.8 mmHg LV V1 mean: 62.0 cm/sec LV V1 VTI: 21.2 cm TR max quinn: 244.6 cm/sec TR max P.9 mmHg ECHO/Echo Complete Interpretation Summary Left ventricular systolic function is hyperdynamic. The estimated ejection fraction is 75 %. The left atrium is mildly enlarged. There is mild mitral annular calcification. Extension of the mitral annular calcification on the base of the posterior mitr al valve leaflet. The mitral valve chordae are thickened and/or calcified. Mild mitral valve stenosis. Trivial mitral valve insufficiency. Trivial tricuspid valve insufficiency. Mild to moderate aortic stenosis. Trivial pulmonic valve insufficiency. Epicardial fat. Right ventricular systolic pressure estimated to be 27 mmHg. Diastolic function is indeterminate. Ordering Physician: Hari Macias Referring Physician: Dianna Lua M.D. Performed By: Rick Hernandez RCS
== END | disposition home or self-care (01) ==
LOC: CVS 10:35
PROVIDERS: PCP Internal Medicine; Referring Provider Internal Medicine Cardiovascular Disease; Visit Provider Internal Medicine Cardiovascular Disease
DX: I35.0 Nonrheumatic aortic (valve) stenosis (principal); I25.10 Atherosclerotic heart disease of native coronary artery without angina pectoris; R74.01 Elevation of levels of liver transaminase levels
CPT/HCPCS: 93306

== ENCOUNTER → 2021-12-09 | Outpatient (CLI) | payer MEDICARE, OTHER, SELFPAY ==
[2021-12-09 12:05] LABS: AST(SGOT) 18 U/L (15-37); Alanine Aminotransfer ALT/SGPT 18 U/L (13-56); Albumin, Serum 3.6 g/dL (3.2-5.0); Alkaline Phosphatase 68 U/L (45-117); Bilirubin, Direct 0.08 mg/dL (0.00-0.30); Globulin 4.3 g/dL (2.2-4.2); Protein, Total 7.9 g/dL (6.4-8.2)
== END | disposition home or self-care (01) ==
LOC: LAB 10:40
PROVIDERS: PCP Internal Medicine; Referring Provider Internal Medicine Cardiovascular Disease; Visit Provider Internal Medicine Cardiovascular Disease
DX: E78.5 Hyperlipidemia, unspecified (principal); R74.01 Elevation of levels of liver transaminase levels
CPT/HCPCS: 36415; 80076

== ENCOUNTER → 2022-02-16 | Outpatient (CLI) | payer MEDICARE, OTHER, SELFPAY ==
--- NOTE | 2022-02-16 14:37 | BI_ITS ---
MAMMOGRAPHY - BILATERAL SCREENING REASON FOR EXAM: Female, 81 years old. Routine annual screening examination. PERTINENT HISTORY: Non-contributory. TECHNIQUE: Digital bilateral breast [place] (3D mammographic acquisition) in the CC and MLO projections. 2-D mediolateral oblique (MLO) and craniocaudad (CC) views of both breasts were obtained. CAD: Full Field Digital Mammography with Computer Added Detection was performed. COMPARISON: Comparison is made with prior study 12/31/2020 and 12/14/2019. FINDINGS: Breast Composition: There are scattered areas of fibroglandular density. There are no dominant masses or suspicious calcifications. Stable small benign-appearing bilateral axillary lymph. No other significant abnormalities are identified. There has been no significant change since the prior study. BI/SCRN MAMM (CAD)W/[place] BILAT IMPRESSION: Stable bilateral screening mammogram. Yearly follow-up mammogram recommended. (A) ASSESSMENT CATEGORY: BIRADS Category 2: Benign. A letter regarding these results will be sent to the patient by the facility within 30 days. Approximately 10% of breast cancers are not detected by mammography. A normal mammogram should not delay biopsy of a clinically suspicious abnormality. [id number] Electronically Signed: Dick Trivedi MD at 15:40 EDT ,
== END | disposition home or self-care (01) ==
LOC: OPBI 14:35
PROVIDERS: PCP Internal Medicine; Visit Provider Internal Medicine
DX: Z12.31 Encounter for screening mammogram for malignant neoplasm of breast (principal)
CPT/HCPCS: 77063; 77067

== ENCOUNTER → 2022-02-18 | Outpatient (CLI) | payer MEDICARE, OTHER, SELFPAY ==
--- NOTE | 2022-02-18 10:54 | CT_ITS ---
STUDY: CT ABDOMEN AND PELVIS WITH CONTRAST REASON FOR EXAM: Female, 81 years old. One-month history of right lower quadrant pain. History of abdominal aortic aneurysm repair. RADIATION DOSAGE (If Supplied By Facility): CTDIvol = ( 15.85 ) mGy, DLP = ( 713.06 ) mGycm TECHNIQUE: Transaxial images were obtained from the dome of the diaphragm to the symphysis pubis with oral contrast. Oral and amp; IV Gastrografin and amp; 100mL Isovue-300 was administered. Sagittal and coronal images were reconstructed. Individualized dose optimization techniques were used for this CT. COMPARISON: Comparison is made with prior examination 01/02/2020. FINDINGS: Stable mild increased linear markings at the lung bases suggestive of scarring. Coronary artery calcification. Normal liver. Normal gallbladder and extrahepatic biliary system. There is a 1.3 cm cyst in the anterior lateral aspect of the spleen. Normal pancreas. Normal bilateral adrenal glands. Normal right kidney. Normal left kidney. There is a moderate-sized hiatal hernia. Normal small intestine. There are multiple colonic diverticula consistent with diverticulosis. The appendix is visualized and appears normal. There is diffuse atherosclerotic calcification of the abdominal aorta. The patient is status post endoluminal stent grafting of the abdominal aortic aneurysm. No evidence of a stent leakage. The [place] abdominal aorta has a transverse dimension of 5.4 cm. Normal inferior vena cava. Normal retroperitoneum. Normal urinary bladder. Normal abdominal wall. There are diffuse degenerative changes of the visualized lumbar spine. The patient is status post interpedicular screw and michael fixation at the L3-L4, L4-L5 and L5-S1 levels. CT/Abdomen/Pelvis WITH Contrast IMPRESSION: Status post aortic covered stent grafting of the abdominal aortic aneurysm. This is unchanged. Electronically Signed: Dick Trivedi MD at 14:57 EDT ,
== END | disposition home or self-care (01) ==
LOC: CT 10:53
PROVIDERS: PCP Internal Medicine; Referring Provider Internal Medicine; Visit Provider Internal Medicine
DX: R10.31 Right lower quadrant pain (principal)
CPT/HCPCS: 74177; Q9967

== ENCOUNTER → 2022-02-20 | Outpatient (CLI) | payer MEDICARE, OTHER, SELFPAY ==
[2022-02-20] MEDS: DENOSUMAB 60 MG/ML SC (14:00)
[2022-02-20 14:03] VITALS: BP 136/60; PULSE 64; O2SAT 96
== END | disposition home or self-care (01) ==
LOC: MEDOUTP 13:49
PROVIDERS: PCP Internal Medicine; Referring Provider Internal Medicine; Visit Provider Internal Medicine
DX: M81.8 Other osteoporosis without current pathological fracture (principal)
CPT/HCPCS: 96372; J0897

== ENCOUNTER → 2022-05-27 | Outpatient (CLI) | payer MEDICARE, OTHER, SELFPAY ==
[2022-05-27 16:28] LABS: AST(SGOT) 12 U/L (15-37); Alanine Aminotransfer ALT/SGPT 16 U/L (13-56); Albumin, Serum 3.5 g/dL (3.2-5.0); Alkaline Phosphatase 53 U/L (45-117); Bilirubin, Direct 0.08 mg/dL (0.00-0.30); Cholesterol 158 mg/dL (200); Globulin 4.1 g/dL (2.2-4.2); High Density Lipoprotein 51 mg/dL; Protein, Total 7.6 g/dL (6.4-8.2); Triglycerides 111 mg/dL; Very Low Density Lipoprotein 22 mg/dL (5-40)
== END | disposition home or self-care (01) ==
LOC: LAB 14:34
PROVIDERS: PCP Internal Medicine; Referring Provider Physician Assistant Medical; Visit Provider Physician Assistant Medical
DX: E78.5 Hyperlipidemia, unspecified (principal)
CPT/HCPCS: 36415; 80061; 80076

== ENCOUNTER → 2022-08-28 | Outpatient (CLI) | payer MEDICARE, OTHER, SELFPAY ==
[2022-08-28 12:28] VITALS: BP 115/67; PULSE 68; RESP 16; TEMP 36.4; O2SAT 97; BMI 29.2
[2022-08-28] MEDS: DENOSUMAB 60 MG/ML SC (12:31)
== END | disposition home or self-care (01) ==
LOC: MEDOUTP 12:19
PROVIDERS: PCP Internal Medicine; Referring Provider Internal Medicine; Visit Provider Internal Medicine
DX: M81.0 Age-related osteoporosis without current pathological fracture (principal)
CPT/HCPCS: 96372; J0897

== ENCOUNTER → 2022-11-10 | Outpatient (CLI) | payer MEDICARE, OTHER, SELFPAY ==
[2022-11-10 09:52] LABS: AST(SGOT) 17 U/L (15-37); Alanine Aminotransfer ALT/SGPT 18 U/L (13-56); Albumin, Serum 3.6 g/dL (3.2-5.0); Alkaline Phosphatase 66 U/L (45-117); Bilirubin, Direct 0.13 mg/dL (0.00-0.30); Cholesterol 159 mg/dL (200); Globulin 4.3 g/dL (2.2-4.2); High Density Lipoprotein 50 mg/dL; Protein, Total 7.9 g/dL (6.4-8.2); Triglycerides 88 mg/dL; Very Low Density Lipoprotein 18 mg/dL (5-40)
== END | disposition home or self-care (01) ==
PROVIDERS: PCP Internal Medicine; Referring Provider Physician Assistant Medical; Visit Provider Physician Assistant Medical
DX: E78.00 Pure hypercholesterolemia, unspecified (principal)
CPT/HCPCS: 36415; 80061; 80076

== ENCOUNTER → 2022-11-20 | Outpatient (CLI) | payer MEDICARE, OTHER, SELFPAY ==
--- NOTE | 2022-11-20 09:58 | RAD_ITS ---
HISTORY: black. TECHNIQUE: XR Chest 2 Views. COMPARISON: None. FINDINGS: CARDIOMEDIASTINAL BORDERS: Cardiac silhouette within normal limits in size. Mediastinal contour unremarkable with calcification of the aorta and moderate hiatal hernia noted. LUNGS: Minimal linear atelectasis or scarring of the left lung base. PLEURA: No pleural effusion or pneumothorax seen. OSSEOUS STRUCTURES: Scoliosis and degenerative change with lumbar fixation hardware. Abdominal aortic stent graft noted. RAD/Chest PA and Lateral IMPRESSION: No acute cardiopulmonary process identified. Moderate hiatal hernia. Electronically Signed: Cass Frank MD at 8:41 EDT ,
== END | disposition home or self-care (01) ==
LOC: RAD 09:55
PROVIDERS: PCP Internal Medicine; Referring Provider Physician Assistant Medical; Visit Provider Physician Assistant Medical
DX: R06.09 Other forms of dyspnea (principal)
CPT/HCPCS: 71046

== ENCOUNTER → 2022-12-03 | Outpatient (CLI) | payer MEDICARE, OTHER, SELFPAY ==
--- NOTE | 2022-12-03 11:50 | STRESSREP ---
Stress Test Report Date: 12/03/2022 Procedure: Pharmacologic stress nuclear imaging study Indications: Dyspnea on exertion Consent: Per the patient Procedure: The patient underwent pharmacologic (Regadenoson 0.4mg ) evaluation with a peak heart rate of 103 beats per minute (74%predicted maximal heart rate) and a peak blood pressure of 124/76 mmHg. The baseline ECG demonstrated normal sinus rhythm. The peak pharmacologic ECG demonstrated no ischemic changes. There were no cardiac dysrhythmias pretest, during pharmacologic infusion, or recovery. There was no complaint of chest discomfort during pharmacologic infusion or recovery. The patient was injected with 10.7 millicuries of technetium 99m Cardiolite and subsequently rest SPECT Cardiolite nuclear imaging was obtained in the horizontal long, vertical long, and short axis views. The patient underwent pharmacologic (Regadenoson) evaluation. The patient was injected with 33.4 millicuries of technetium 99m Cardiolite and subsequently stress SPECT Cardiolite nuclear imaging was obtained in the horizontal long, vertical long, and short axis views. A gated Cardiolite study at peak stress was obtained. The examination was stopped secondary to completion of protocol. Rest and stress SPECT Cardiolite nuclear imaging status post realignment, normalization, and attenuation correction demonstrate no fixed or reversible perfusion defect. There is end systolic thickening and brightening. The gated Cardiolite study demonstrates myocardial thickening and inward wall motion. The reported LVEF is 74%. Impression: 1. Pharmacologic (Regadenoson) evaluation 2. Peak pharmacologic ECG with no ischemic changes. 3. There were no cardiac dysrhythmias pretest, during pharmacologic infusion, or recovery. 5. Rest and stress SPECT Cardiolite nuclear imaging demonstrate relative uniform tracer uptake and myocardial perfusion appearing within normal limits. 6. The gated Cardiolite study reports an LVEF of 74%. This note was generated with Connexityation software. It may contain incorrect words, spelling, and punctuation that were not noted in checking the note before signing.
== END | disposition home or self-care (01) ==
LOC: CVS 06:37
PROVIDERS: PCP Internal Medicine; Referring Provider Physician Assistant Medical; Visit Provider Physician Assistant Medical
DX: R06.09 Other forms of dyspnea (principal); R53.83 Other fatigue
CPT/HCPCS: 78452; 93017; A9500; A4216; J2785

== ENCOUNTER → 2023-02-18 | Outpatient (CLI) | payer MEDICARE, OTHER, SELFPAY ==
--- NOTE | 2023-02-18 14:02 | BI_ITS ---
MAMMOGRAPHY - BILATERAL SCREENING REASON FOR EXAM: Female, 82 years old. Routine annual screening examination. PERTINENT HISTORY: Sister with breast cancer. TECHNIQUE: Digital bilateral breast [place] (3D mammographic acquisition) in the CC and MLO projections. 2-D mediolateral oblique (MLO) and craniocaudad (CC) views of both breasts were obtained. CAD: Full Field Digital Mammography with Computer Added Detection was performed. COMPARISON: Comparison is made with prior examination February 16, 2022 and December 31, 2020. FINDINGS: Breast Composition: There are scattered areas of fibroglandular density. There are no dominant masses or suspicious calcifications. Stable small benign-appearing bilateral axillary lymph nodes. No other significant abnormalities are identified. There has been no significant change since the prior study. BI/SCRN MAMM (CAD)W/[place] BILAT IMPRESSION: Stable bilateral screening mammogram. Yearly follow-up mammogram recommended. (A) ASSESSMENT CATEGORY: BIRADS Category 2: Benign. A letter regarding these results will be sent to the patient by the facility within 30 days. Approximately 10% of breast cancers are not detected by mammography. A normal mammogram should not delay biopsy of a clinically suspicious abnormality. [id number] Electronically Signed: Dick Trivedi MD at 15:05 EDT ,
--- NOTE | 2023-02-18 14:09 | BD_ITS ---
STUDY: DUAL ENERGY X-RAY ABSORPTIOMETRY / DXA REASON FOR EXAM: Female, 82 years old. 733.00OsteoporosisBONE DENSITY REASON FOR EXAM TECHNIQUE: Bone Mineral Density (BMD) measurements of left forearm and bilateral hips were obtained. COMPARISON: Comparison is made with prior examination dated December 31, 2020. FINDINGS: Left Femur Total: g/cm2 (0.762) / T-score (-1.5) / Z-score (0.7) Left Femoral Neck: g/cm2 (0.600) / T-score (-2.2) / Z-score (0.2) Right Femur Total: g/cm2 (0.762) / T-score (-1.5) / Z-score (0.7) Right Femoral Neck: g/cm2 (0.600) / T-score (-2.2) / Z-score (0.2) Left Forearm: g/cm2 (0.507) / T-score (-1.3) / Z-score (1.9) The T-Scores on the most recent prior examination were: Left Femur Total: which represents an improvement of 2.5%. Right Femur Total: which represents an improvement of 2.9%. BD/Dexa Bone Density Study IMPRESSION: The patient is considered osteopenic as outlined below according to World Leno Organization (WHO) criteria with a high fracture risk. There has been improvement of bone density since the previous examination. Reference Information: The T-score is the number of standard deviations above or below the standard which is normal for young adults at their peak bone mineral density. The World Health Organization (WHO) interprets the T-scores as follows: Above -1 Normal bone density Between -1 and -2.5 Osteopenia Equal to / or below -2.5 Osteoporosis As a practical clinical guideline, osteopenia may be graded as follows: Mild -1 through -1.5 Moderate -1.6 through -2.0 Severe -2.1 through -2.4 The Z-score is the number of standard deviations above or below age-matched controls. A Z-score of less than -1.5 would be considered abnormal. References: 1. NIH Osteoporosis and Related Bone Diseases www osteo.org 2. International Society for Clinical Densitometry www iscd.org 3. National Osteoporosis Foundation www nof.org Electronically Signed: Dick Trivedi MD at 14:36 EDT ,
== END | disposition home or self-care (01) ==
LOC: OPBD 13:59
PROVIDERS: PCP Internal Medicine; Referring Provider Internal Medicine; Visit Provider Internal Medicine
DX: Z12.31 Encounter for screening mammogram for malignant neoplasm of breast (principal); M81.8 Other osteoporosis without current pathological fracture
CPT/HCPCS: 77063; 77067; 77080

== ENCOUNTER 2023-02-26 11:50 | Outpatient (CLI) | payer MEDICARE, OTHER, SELFPAY ==
[2023-02-26 12:00] VITALS: BP 120/68; PULSE 84; RESP 16; TEMP 35.9; O2SAT 94; BMI 29.0
[2023-02-26] MEDS: DENOSUMAB 60 MG/ML SC (12:02)
== END 2023-02-26 11:51 | disposition home or self-care (01) ==
LOC: MEDOUTP 11:51
PROVIDERS: PCP Internal Medicine; Referring Provider Internal Medicine; Visit Provider Internal Medicine
DX: M81.0 Age-related osteoporosis without current pathological fracture (principal)
CPT/HCPCS: 96372; J0897

== ENCOUNTER → 2023-05-24 | Outpatient (CLI) | payer MEDICARE, OTHER, SELFPAY ==
[2023-05-24 10:36] LABS: AST(SGOT) 18 U/L (15-37); Alanine Aminotransfer ALT/SGPT 18 U/L (13-56); Albumin, Serum 3.5 g/dL (3.2-5.0); Alkaline Phosphatase 63 U/L (45-117); Bilirubin, Direct 0.07 mg/dL (0.00-0.30); Cholesterol 155 mg/dL (200); Globulin 4.3 g/dL (2.2-4.2); High Density Lipoprotein 53 mg/dL; Protein, Total 7.8 g/dL (6.4-8.2); Triglycerides 95 mg/dL; Very Low Density Lipoprotein 19 mg/dL (5-40)
== END | disposition home or self-care (01) ==
LOC: LAB 09:11
PROVIDERS: PCP Internal Medicine; Referring Provider Physician Assistant Medical; Visit Provider Physician Assistant Medical
DX: E78.00 Pure hypercholesterolemia, unspecified (principal)
CPT/HCPCS: 36415; 80061; 80076

== ENCOUNTER → 2023-07-14 | Outpatient (CLI) | payer MEDICARE, OTHER, SELFPAY ==
--- NOTE | 2023-07-14 12:37 | ECHOD_ITS ---
Reason For Study: AORTIC STENOSIS Procedure This was a 2D Doppler, Color Flow transthoracic echocardiogram. Exam performed in department. Left Ventricle Normal LV size. Sigmoid septum. Left ventricular systolic function is normal. The estimated ejection fraction is 65 %. Stage 1 diastolic dysfunction. No regional wall motion abnormalities noted. Right Ventricle Normal RV size. Normal systolic function. Atria Normal left atrium. Normal right atrium. Patent foramen ovale. Mitral Valve Moderate focal mitral valve calcification, bileaflet. Tricuspid Valve Normal tricuspid valve. Mild (1+) tricuspid valve insufficiency. Pulmonary artery systolic pressure is 28 mmHg. Aortic Valve Trisinus/trileaflet aortic valve. Moderate focal aortic valve calcification. Peak aortic valve gradient 23 mmHg. Mean aortic valve gradient 13 mmHg. Mild aortic stenosis. Pulmonic Valve Normal pulmonic valve. Great Vessels Normal aortic root. The pulmonary artery is normal size. Pericardium/Pleural No pericardial effusion. MMode/2D Measurements & Calculations LVIDd: 3.9 cm IVSd: 1.8 cm LVOT diam: 2.0 cm LVIDs: 2.4 cm LVPWd: 0.72 cm LVOT area: 3.3 cm2 RVDd: 3.1 cm FS: 39.3 % Ao root diam: 3.4 cm LAV(MOD-bp): 45.2 ml LVAd ap4: 20.1 cm2 LAV(MOD-bp) Indexed: 26.7 ml/m2 LVLd ap4: 7.1 cm LAV(MOD-sp2): 52.0 ml EDV(MOD-sp4): 46.8 ml LAV(MOD-sp4): 37.0 ml EDV(sp4-el): 48.3 ml LVAs ap4: 9.5 cm2 LVLs ap4: 5.9 cm ESV(MOD-sp4): 13.2 ml ESV(sp4-el): 13.2 ml EF(MOD-sp4): 71.8 % EF(sp4-el): 72.7 % LVAd ap2: 17.8 cm2 SV(MOD-sp4): 33.6 ml SV(MOD-sp2): 26.3 ml LVLd ap2: 6.8 cm EDV(MOD-sp2): 38.1 ml EDV(sp2-el): 39.3 ml LVAs ap2: 8.8 cm2 LVLs ap2: 6.0 cm ESV(MOD-sp2): 11.8 ml ESV(sp2-el): 10.9 ml EF(MOD-sp2): 69.0 % SV(sp4-el): 35.1 ml LA dimension(2D): 3.1 cm LA A4 area: 16.4 cm2 RA A4 area: 12.9 cm2 TAPSE: 2.0 cm Time Measurements MV dec time: 0.45 sec Doppler Measurements & Calculations MV E max quinn: 74.8 cm/sec Lat Peak E' Quinn: 5.6 cm/sec Med Peak E' Quinn: 3.0 cm/sec MV A max quinn: 110.0 cm/sec E/E' lat: 13.3 E/E' med: 24.9 MV E/A: 0.68 Ao V2 max: 240.3 cm/sec LV V1 max: 103.0 cm/sec MV dec slope: 167.5 cm/sec2 Ao max P.2 mmHg LV V1 max P.2 mmHg Ao V2 mean: 170.9 cm/sec LV V1 mean P.5 mmHg Ao mean P.0 mmHg LV V1 mean: 73.5 cm/sec Ao V2 VTI: 50.0 cm LV V1 VTI: 22.4 cm AV (velocity ratio): 0.45 MAISHA(I,D): 1.5 cm2 MAISHA(V,D): 1.4 cm2 SV(LVOT): 74.0 ml PA V2 max: 78.4 cm/sec TR max quinn: 247.2 cm/sec PA max PG (full): 0.99 mmHg TR max P.4 mmHg ECHO/Echo Complete Interpretation Summary Normal LV size. Left ventricular systolic function is normal. The estimated ejection fraction is 65 %. Stage 1 diastolic dysfunction. Moderate focal aortic valve calcification. Mean aortic valve gradient 13 mmHg. Mild aortic stenosis. The global longitudinal strain is mildly abnormal. The global longitudinal stra in = -15.2% (abnormal). Ordering Physician: Shanel Galindo Referring Physician: Dianna Lua M.D. Performed By: Thais Bonner RDCS
== END | disposition home or self-care (01) ==
LOC: CVS 12:36
PROVIDERS: PCP Internal Medicine; Referring Provider Physician Assistant Medical; Visit Provider Physician Assistant Medical
DX: I25.10 Atherosclerotic heart disease of native coronary artery without angina pectoris (principal); I35.0 Nonrheumatic aortic (valve) stenosis
CPT/HCPCS: 93306

== ENCOUNTER → 2023-08-16 | Outpatient (CLI) | payer MEDICARE, OTHER, SELFPAY ==
--- NOTE | 2023-08-16 08:45 | MRI_ITS ---
STUDY: MRI LUMBAR SPINE WITHOUT CONTRAST REASON FOR EXAM: Female, 82 years old. SPINAL STENOSIS PAIN WEAKNESS IN LEGS TECHNIQUE: Standardized fat and water weighted pulse sequences were obtained in the sagittal and axial planes. COMPARISON: April 21, 2017 report only FINDINGS: T12-L1: Normal endplates. Normal disc height, hydration and minimal annular bulge.. Normal bilateral facet joints. Normal central canal and bilateral lateral recesses. Normal bilateral intervertebral neural foramina. Normal lumbar lordosis. There is no substantial scoliosis. Normal conus medullaris that terminates at T12-L1 L1-2: Degenerative endplate changes. Narrowed disc space with desiccation of the disc and minimal bulging disc osteophyte complex and tiny right foraminal disc protrusion.. Normal bilateral facet joints. Normal central canal and bilateral lateral recesses. Mild left neuroforaminal encroachment and moderate narrowing on the right. L2-3: Narrowed disc space with desiccation of the disc and minimal bulging annulus.. Normal bilateral facet joints. Normal central canal and bilateral lateral recesses. Mild bilateral neural foraminal encroachment L3-4: Postop change status post bilateral laminectomy and posterior fusion . Degenerative endplate changes.. Narrowed disc space with desiccation of the disc space and tiny left posterolateral disc protrusion. Mild facet arthropathy. Normal central canal and bilateral lateral recesses. Normal bilateral intervertebral neural foramina. L4-5: Postop change status post bilateral laminectomy and posterior fusion. Narrowed disc space with minimal osteophytic ridging. Bilateral facet arthropathy. Normal central canal and bilateral lateral recesses. Mild bilateral neural foraminal encroachment. L5-S1: Postop change status post lateral laminectomy and posterior fusion. Normal endplates. Narrowed disc space with desiccation of the disc and minor bulging of the disc. Bilateral facet arthropathy.. Normal central canal and bilateral lateral recesses. Moderate bilateral neural foraminal encroachment Normal visualized sacral ala. Incidental finding of distal aortic aneurysm Normal visualized paraspinous soft tissue structures. MRI/Spine Lumbar (Routine) IMPRESSION: No evidence for acute fracture or other significant bony pathology.. Status post bilateral laminectomy and posterior fusion at L3-4 through L5-S1 Mild multilevel spinal stenosis secondary to disc disease and bony hypertrophy most pronounced at L5-S1 Electronically Signed: Ash Meyers MD at 20:09 EDT ,
== END | disposition home or self-care (01) ==
LOC: MRI 08:02
PROVIDERS: PCP Internal Medicine; Referring Provider Internal Medicine; Visit Provider Internal Medicine
DX: M48.061 Spinal stenosis, lumbar region without neurogenic claudication (principal)
CPT/HCPCS: 72148

== ENCOUNTER 2023-08-27 11:49 | Outpatient (CLI) | payer MEDICARE, OTHER, SELFPAY ==
[2023-08-27 12:02] VITALS: BP 129/81; PULSE 67; RESP 16; TEMP 36.2; O2SAT 98; BMI 29.7
[2023-08-27] MEDS: DENOSUMAB 60 MG/ML SC (12:20)
== END 2023-08-27 11:50 | disposition home or self-care (01) ==
PROVIDERS: PCP Internal Medicine; Referring Provider Internal Medicine; Visit Provider Internal Medicine
DX: M81.8 Other osteoporosis without current pathological fracture (principal)
CPT/HCPCS: 96372; J0897

== ENCOUNTER → 2024-02-10 | Outpatient (CLI) | payer MEDICARE, OTHER, SELFPAY ==
--- NOTE | 2024-02-10 10:37 | ART_ITS ---
Reason For Study: PVD Procedure A bilateral lower extremity continuous wave Doppler with analog waveform analysis,segmental pressures,and ankle brachial indexes without exercise. Left Segmental Pressures Left brachial= 144mmHg. Left posterior tibial artery = 152mmHg. Left dorsalis pedis artery = 146mmHg. Left digit = 106 mmHg. The left posterior tibial artery waveforms are triphasic. The left dorsalis pedis waveforms are triphasic. Right Segmental Pressures Right brachial= 130mmHg. Right posterior tibial artery = 155mmHg. Right dorsalis pedis artery = 144mmHg. Right digit = 108 mmHg. The right posterior tibial artery waveforms are triphasic. The right dorsalis pedis waveforms are triphasic. Indices The right ankle brachial index by the posterior tibial artery is 1.08. The right ankle brachial index by the dorsalis pedis is 1.00. The right digital-brachial index is 0.75. The left ankle brachial index by the posterior tibial artery is 1.06. The left ankle brachial index by the dorsalis pedis is 1.01. The left digital-brachial index is 0.74. VL/Lower Ext Art Exam w/o Exercis Interpretation Summary Triphasic Doppler waveforms are noted at ankle level bilaterally. Pulse-volume recordings appear satisfactory at all levels bilaterally. Resting ankle-brachial indices are norm al bilaterally. Digital-brachial indices are normal bilaterally. There is no evidence of significant arterial occlusive disease in the lower ext remities bilaterally. Ordering Physician: Dianna Lua Referring Physician: Dianna Lua Performed By: Hiram Ontiveros RVThanh
== END | disposition home or self-care (01) ==
LOC: CVS 10:34
PROVIDERS: PCP Internal Medicine; Referring Provider Internal Medicine; Visit Provider Internal Medicine
DX: I73.9 Peripheral vascular disease, unspecified (principal)
CPT/HCPCS: 93923

== ENCOUNTER 2024-02-25 12:20 | Outpatient (CLI) | payer MEDICARE, OTHER, SELFPAY ==
[2024-02-25] MEDS: DENOSUMAB 60 MG/ML SC (12:40)
[2024-02-25 12:59] VITALS: BP 143/74; PULSE 71; RESP 16; TEMP 35.8; O2SAT 96; BMI 29.5
== END 2024-02-25 23:59 | disposition home or self-care (01) ==
LOC: MEDOUTP 12:21
PROVIDERS: PCP Internal Medicine; Referring Provider Internal Medicine; Visit Provider Internal Medicine
DX: M81.8 Other osteoporosis without current pathological fracture (principal)
CPT/HCPCS: 96372; J0897

== ENCOUNTER → 2024-02-29 | Outpatient (CLI) | payer MEDICARE, OTHER, SELFPAY ==
[2024-02-29 11:00] LABS: AST(SGOT) 16 U/L (15-37); Alanine Aminotransfer ALT/SGPT 13 U/L (13-56); Albumin, Serum 3.6 g/dL (3.2-5.0); Alkaline Phosphatase 69 U/L (45-117); Bilirubin, Direct 0.13 mg/dL (0.00-0.30); Cholesterol 148 mg/dL (200); Globulin 3.8 g/dL (2.2-4.2); High Density Lipoprotein 49 mg/dL; Protein, Total 7.4 g/dL (6.4-8.2); Triglycerides 142 mg/dL; Very Low Density Lipoprotein 28 mg/dL (5-40)
== END | disposition home or self-care (01) ==
LOC: LAB 10:11
PROVIDERS: PCP Internal Medicine; Referring Provider Physician Assistant Medical; Visit Provider Physician Assistant Medical
DX: E78.00 Pure hypercholesterolemia, unspecified (principal)
CPT/HCPCS: 36415; 80061; 80076

== ENCOUNTER → 2024-03-20 | Outpatient (CLI) | payer MEDICARE, OTHER, SELFPAY ==
--- NOTE | 2024-03-20 11:17 | CT_ITS ---
STUDY: CT ABDOMEN AND PELVIS WITHOUT CONTRAST REASON FOR EXAM: Female, 83 years old. STAT flank pain, RUQ pain RADIATION DOSAGE (If Supplied By Facility): CTDIvol = ( 7.28 ) mGy, DLP = ( 339.98 ) mGycm TECHNIQUE: Transaxial images were obtained from the dome of the diaphragm to the symphysis pubis without oral contrast, and without intravenous contrast. Sagittal and coronal images were reconstructed. Individualized dose optimization techniques were used for this CT. COMPARISON: Comparison is made with prior study February 18, 2022. FINDINGS: Stable mild increased linear markings at the lung bases suggestive scarring. Coronary artery calcification. Normal liver. Normal gallbladder and extrahepatic biliary system. 1.8 cm cyst in the anterior lateral aspect of the spleen. There is diffuse atrophy of the pancreas. Normal bilateral adrenal glands. Normal right kidney. Normal left kidney. Moderate-sized hiatal hernia. Normal small intestine. There are multiple colonic diverticula consistent with diverticulosis. The appendix is visualized and appears normal. There is diffuse atherosclerotic calcification of the abdominal aorta and its major visceral branches. Endoluminal stent grafting is seen within the distal abdominal aorta., Aneurysmal dilatation of the [place] abdominal aorta with a transverse dimension of 6 cm. Endoluminal stenting is also seen in the common iliac arteries bilaterally. Normal inferior vena cava. Normal retroperitoneum. Normal urinary bladder. Normal abdominal wall. There are diffuse degenerative changes of the visualized lumbar spine. Status post intraventricular screw fixation at the L3-L4, L4-L5 and L5-S1 levels. CT/Abdomen/Pelvis without Cont IMPRESSION: Status post endoluminal stent grafting of the abdominal aortic aneurysm with a transverse dimension of 6 cm. Moderate-sized hiatal hernia. Sigmoid diverticulosis. Electronically Signed: Dick Trivedi MD at 12:05 EST ,
[2024-03-20 12:33] LABS: Erythrocyte Sedimentation Rate 19 mm/hr (0-30)
[2024-03-20 12:42] LABS: Absolute Lymphocyte Count 1.13 X10^3/uL (0.83-4.51); Basophil# 0.03 X10^3/uL; Basophil% 0.3 % (0-1); Eosinophil# 0.15 X10^3/uL; Eosinophils% 1.6 % (0-5); Hematocrit 45.3 % (37-47); Hemoglobin 13.9 g/dL (12.0-15.0); Lymphocyte # 1.13 X10^3/ul (0.83-4.51); Lymphocyte % 12.1 % (19-41); Mean Corp Hgb Conc 30.7 g/dL (32-36); Mean Corpuscular Hgb 30.4 pg (27.0-32.0); Mean Corpuscular Volume 99.1 fL (81-99); Mean Platelet Vol. 10.1 fl (6.2-12.0); Monocyte# 0.98 X10^3/uL; Monocyte% 10.5 % (0-10); NRBC Flagged by Analyzer 0 % (0-5); Neutrophil # 7.01 X10^3/uL (2.7-7.7); Platelet Count 295 K/mm3 (150-450); RBC Distribution Width CV 15.1 % (11.6-14.6); RBC Distribution Width SD 55.4 fl (35.1-43.9); Red Blood Count 4.57 M/mm3 (4.2-5.4); White Blood Count 9.4 K/mm3 (4.4-11.0)
[2024-03-20 12:51] LABS: ALB/GLOB Ratio 1.1 RATIO (0.9-2.4); AST(SGOT) 13 U/L (15-37); Alanine Aminotransfer ALT/SGPT 15 U/L (13-56); Albumin, Serum 3.9 g/dL (3.2-5.0); Alkaline Phosphatase 81 U/L (45-117); Anion Gap 6 (5-15); BUN 22 mg/dL (7-18); BUN/Creat Ratio 21.2 RATIO (10-20); Calcium,Total 9.6 mg/dL (8.5-10.1); Chloride 107 mmol/L (98-107); Creatinine, Serum 1.04 mg/dL (0.55-1.02); EST Glomerular Filtration Rate 54 mL/min (>60); Est Glom Filt Rate - Afr Amer 65 mL/min (>60); Globulin 3.7 g/dL (2.2-4.2); Glucose 108 mg/dL (74-106); Protein, Total 7.6 g/dL (6.4-8.2); Sodium Level 141 mmol/L (136-145)
== END | disposition home or self-care (01) ==
PROVIDERS: PCP Internal Medicine; Referring Provider Internal Medicine; Visit Provider Internal Medicine
DX: R10.11 Right upper quadrant pain (principal)
CPT/HCPCS: 74176; 80053; 85025; 85652; 86140

== ENCOUNTER → 2024-03-30 | Outpatient (CLI) | payer MEDICARE, OTHER, SELFPAY ==
--- NOTE | 2024-03-30 13:44 | BI_ITS ---
MAMMOGRAPHY - BILATERAL SCREENING REASON FOR EXAM: Female, 83 years old. Routine annual screening examination. PERTINENT HISTORY: Sister with breast cancer. TECHNIQUE: Digital bilateral breast [place] (3D mammographic acquisition) in the CC and MLO projections. 2-D mediolateral oblique (MLO) and craniocaudad (CC) views of both breasts were obtained. CAD: Full Field Digital Mammography with Computer Added Detection was performed. COMPARISON: Comparison is made with prior study dated February 18, 2023 and February 16, 2022. FINDINGS: Breast Composition: There are scattered areas of fibroglandular density. There are no dominant masses or suspicious calcifications. Stable small benign-appearing bilateral axillary lymph nodes. No other significant abnormalities are identified. There has been no significant change since the prior study. BI/SCRN MAMM (CAD)W/[place] BILAT IMPRESSION: Stable bilateral screening mammogram. Yearly follow-up mammogram recommended. (A) ASSESSMENT CATEGORY: BIRADS Category 2: Benign. A letter regarding these results will be sent to the patient by the facility within 30 days. Approximately 10% of breast cancers are not detected by mammography. A normal mammogram should not delay biopsy of a clinically suspicious abnormality. [id number] Electronically Signed: Dick Trivedi MD at 14:41 EST ,
== END | disposition home or self-care (01) ==
LOC: OPBI 13:44
PROVIDERS: PCP Internal Medicine; Referring Provider Internal Medicine; Visit Provider Internal Medicine
DX: Z12.31 Encounter for screening mammogram for malignant neoplasm of breast (principal)
CPT/HCPCS: 77063; 77067

== ENCOUNTER → 2024-04-18 | Outpatient (CLI) | payer MEDICARE, OTHER, SELFPAY ==
--- NOTE | 2024-04-18 07:13 | CT_ITS ---
STUDY: CTA ABDOMEN AND PELVIS WITH AND WITHOUT CONTRAST REASON FOR EXAM: Female, 83 years old. S/p EVAR -- Arterial, delayed, AND without contrast, AAA REPAIR LOOKING FOR A LEAK . TWO DELAYS DONE RADIATION DOSAGE (If Supplied By Facility): CTDIvol = ( 17.91 ) mGy, DLP = ( 2284.63 ) mGycm TECHNIQUE: Transaxial images were obtained from the dome of the diaphragm to the symphysis pubis without oral contrast. 100ML ISOVUE 370 was administered. Sagittal and coronal images were reconstructed. 3-D images were reconstructed. Individualized dose optimization techniques were used for this CT. COMPARISON: Comparison is made with prior study dated March 20, 2024. FINDINGS: Stable linear scarring at the lung bases slightly more prominent on the left side. Coronary artery calcification. Normal liver. Normal gallbladder and extrahepatic biliary system. Stable 1.8 cm cyst in the anterior midportion of the spleen. There is diffuse atrophy of the pancreas. Normal bilateral adrenal glands. Normal right kidney. Normal left kidney. There is a moderate-sized hiatal hernia. Normal small intestine. There are multiple colonic diverticula consistent with diverticulosis. The appendix is visualized and appears normal. There is diffuse atherosclerotic calcification of the abdominal aorta and its major visceral branches. Once again, there is a fusiform infrarenal abdominal aortic aneurysm with a transverse dimension of 6 cm. An endoluminal stent graft is seen with the distal limbs in the common iliac arteries bilaterally. There is no evidence of endoluminal leak.. Normal inferior vena cava. Normal retroperitoneum. Normal urinary bladder. Normal abdominal wall. There are diffuse degenerative changes of the visualized lumbar spine. The patient is status post interpedicular screw fixation at the L3-L4, L4-L5 and L5-S1 levels. CT/CTA Abd/Pelvis W/WO Contrast IMPRESSION: Status post endoluminal stent grafting of the fusiform abdominal aortic aneurysm. There is no evidence of a graft leak. The remainder of the examination is unchanged. Electronically Signed: Dick Trivedi MD at 15:02 EST ,
== END | disposition home or self-care (01) ==
LOC: CT 07:12
PROVIDERS: PCP Internal Medicine; Referring Provider Physician Assistant; Visit Provider Physician Assistant
DX: M54.6 Pain in thoracic spine (principal); R10.11 Right upper quadrant pain; Z86.79 Personal history of other diseases of the circulatory system; Z98.890 Other specified postprocedural states
CPT/HCPCS: 74174; Q9967

== ENCOUNTER → 2024-04-28 | Outpatient (CLI) | payer MEDICARE, OTHER, SELFPAY ==
--- NOTE | 2024-04-28 08:56 | NM_ITS ---
CLINICAL: 83-year-old female with history of abdominal pain. RADIONUCLIDE HEPATOBILIARY SCINTIGRAPHY COMPARISON: CTA of the abdomen pelvis report 04/18/2024 FINDINGS: Following the intravenous administration of 5.2 mCi of 99m Tc Mebrofenin, hepatobiliary images reveal: 1. Relatively prompt and homogeneous radiopharmaceutical concentration is noted by a normal sized liver. No parenchymal defects are identified. 2. Gallbladder activity is not identified during 120 minutes of sequential imaging. 3. Small intestinal tract is observed at 30 minutes post radiopharmaceutical administration. 4. Washout of the radiopharmaceutical by the hepatic parenchyma appears qualitatively normal. NM/Hepatobilliary Imaging IMPRESSION: 1. ABNORMAL 99m Tc Mebrofenin hepatobiliary imaging examination. A. Nonvisualization of the gallbladder at 120 minutes post radiopharmaceutical administration in the nonacute setting is consistent with a high probability of chronic cholecystitis in patients with intermediate to high pretest probabilities of hepatobiliary disease and who have fasted for more than 4 and less than 24 hours. (Gabriela et al, Nucl Med Pratibha Amada Press pg. 35, 1980). Electronically Signed: Benny Crowe DO at 10:13 EST ,
== END | disposition home or self-care (01) ==
LOC: NM 08:55
PROVIDERS: PCP Internal Medicine; Referring Provider Internal Medicine; Visit Provider Internal Medicine
DX: R10.11 Right upper quadrant pain (principal)
CPT/HCPCS: 78226; A9537

== ENCOUNTER 2024-05-15 15:05 | Observation (INO) | payer MEDICARE, OTHER, SELFPAY ==
--- NOTE | 2024-05-09 13:23 | EKG12_ITS ---
Test Reason : PREOP Blood Pressure : */* mmHG Vent. Rate : 74 BPM Atrial Rate : 74 BPM P-R Int : 162 ms QRS Dur : 84 ms QT Int : 422 ms P-R-T Axes : 29 14 92 degrees QTcB Int : 468 ms Normal sinus rhythm Nonspecific ST and T wave abnormality Abnormal ECG Confirmed by PEPE SINGER, IGOR ([id number]), material expeditor SOPHIE LAAR ([id number]) on 05/11/2024 2:20:14 PM Referred By: Katerine Polk Confirmed By: IGOR CANTU MD
[2024-05-09 13:35] LABS: Partial Thromboplast Time 23.8 Seconds (24.1-36.2); Prothrombin Time (Protime)PT. 13.1 SECONDS (11.7-14.9)
[2024-05-09 13:53] LABS: AST(SGOT) 19 U/L (15-37); Alanine Aminotransfer ALT/SGPT 15 U/L (13-56); Albumin, Serum 3.5 g/dL (3.2-5.0); Alkaline Phosphatase 63 U/L (45-117); Bilirubin, Direct 0.09 mg/dL (0.00-0.30); Protein, Total 7.5 g/dL (6.4-8.2)
--- NOTE | 2024-05-09 14:27 | PAT.ANESEVAL ---
Pre-Assessment Diagnosis/Proposed Procedure Planned Operative Procedure(s): Laparoscopic, Cholecystectomy with IOC Anesthesia History Anesthesia History - telesales consultant: Anesthesia History - telesales consultant Hx Hospitalization No 05/09/24 09:14 Any Problems With Anesthesia No 05/09/24 09:14 Cholinesterase deficiency No 05/09/24 09:14 You/Your Family Experience No 05/09/24 09:14 fever (hyperthermia) with Relationship Recent Exposure to Contagious No 02/26/20 08:44 Disease Does patient have nerve No 05/09/24 09:14 stimulator Patient instructed to have device shut off --Does patient have Pacemaker or ICD? When Was Last Pacemaker Check QUESTION #4 FULL TEXT: You/Your Family Experience fever (hyperthermia) with Anesthesia Last Oral Intake Last Oral intake: Last Oral Intake NPO since Meds taken in AM with sips of water? Meds patient instructed to take am of surgery PONV PONV - telesales consultant: PONV - telesales consultant Female Yes 05/09/24 09:14 HX of Motion Sickness No 05/09/24 09:14 HX of N/V After Surgery No 05/09/24 09:14 Non-Smoker No 05/09/24 09:14 Duration of Surgery greater Yes 05/09/24 09:14 than 60 minutes Number of Risk Factors 2 05/09/24 09:14 PONV Score Moderate Risk 05/09/24 09:14 Height & Weight Height & Weight: Anesthesia: Height & Weight Height 5 ft 3 in 05/04/24 09:04 Respiratory Assessment Respiratory Assessment - telesales consultant: Respiratory Tract Infection Hx - telesales consultant Hx Respiratory Tract Infection No 05/09/24 09:14 STOP Sleep Apnea STOP Sleep Apnea - telesales consultant: STOP Sleep Apnea - telesales consultant Hx Hypertension Yes: PER PT , CONTROLLED ON 05/09/24 09:14 MEDS Hx Sleep Apnea No 05/09/24 09:14 CPAP BIPAP Do you snore loudly (louder No 05/09/24 09:14 than talking or can be heard Do you often feel tired/ No 05/09/24 09:14 fatigued/ sleepy during daytime? Has anyone observed you stop No 05/09/24 09:14 breathing during sleep? STOP Results Negative 05/09/24 09:14 QUESTION #5 FULL TEXT : Do you snore loudly (louder than talking or can be heard through closed doors)? 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 Specify any problems Hx of Preganancy in last 3 No 05/09/24 09:14 Months Nurse Filling Out Transfusion MGRIDARIOITH 05/09/24 09:14 & Questions: Date: 05/09/24 05/09/24 09:14 Time: 09:17 05/09/24 09:14 Patient unable to answer at this time (ie. confused, unrespo /Reproduction History /Reproductive History - telesales consultant: /Reproductive Hx- telesales consultant Hx Now No 05/09/24 09:14 Gestational Age (in weeks): EDC: Hx Hx Para Hx Section SAB No 05/09/24 09:14 [facility] Medical History (Updated 05/09/24 @ 09:30 by Patricia Saunders) Wears hearing aid Wears glasses Depression History of steroid therapy Ambulates with cane Easy bruising Migraine headache History of hiatal hernia History of GI bleed Gastric reflux Smoker Hypertension History of echocardiogram History of stress test Cardiology follow-up encounter Elevated alanine aminotransferase (ALT) level Cellulitis of left arm Upper GI bleed Nonrheumatic aortic valve stenosis Abdominal aortic aneurysm without rupture SVT (supraventricular tachycardia) Palpitations Family history of ischemic heart disease Family history of hypertension Family history of sudden cardiac Mitral valve annular calcification Heart murmur, systolic Premature ventricular contraction Spinal stenosis Osteoarthritis Peptic ulcer disease History of upper gastrointestinal bleeding Atherosclerotic heart disease of [place] coronary artery without angina pectoris History of upper gastrointestinal bleeding HLD (hyperlipidemia) Hx of peptic ulcer CAD (coronary artery disease) COLD (chronic obstructive lung disease) Benign essential HTN Home Medications ?Medication ?Instructions ?Recorded ?Last Taken ?Type coenzyme Q10 100 mg capsule 100 mg PO QHS supplement 06/28/17 12/31/19 History nitroglycerin 0.4 mg sublingual 0.4 mg sublingual Q5M PRN cp 06/28/17 Unknown History tablet rizatriptan 10 mg tablet (Maxalt) 10 mg PO QDAY PRN migraines 06/28/17 Unknown History sertraline 50 mg tablet 50 mg PO QDAY mood 06/28/17 01/01/20 History aspirin 81 mg tablet,delayed 81 mg PO DAILY 04/17/20 05/07/24 History release (Adult Low Dose Aspirin) cholecalciferol (vitamin D3) 50 50 mcg PO DAILY 04/17/20 Unknown History mcg (2,000 unit) capsule denosumab 60 mg/mL subcutaneous 60 mg subcut [id number] 11/07/21 Unknown History syringe (Prolia) multivitamin 1 tab PO DAILY 05/26/23 Unknown History omeprazole 20 mg capsule,delayed 20 mg PO DAILY 05/26/23 Unknown History release lisinopril 20 mg tablet 20 mg PO QDAY blood pressure #90 08/27/23 Unknown Rx tabs amlodipine 2.5 mg tablet 2.5 mg PO QDAY blood pressure #90 09/06/23 Unknown Rx tabs clopidogrel 75 mg tablet 75 mg PO DAILY #90 tabs 09/06/23 05/07/24 Rx metoprolol succinate 25 mg 25 mg PO DAILY blood pressure #90 04/10/24 Unknown Rx tablet,extended release 24 hr tabs diazepam 2 mg tablet 2 - 4 mg PO BID PRN PRN low back 05/09/24 Unknown History pain pantoprazole 20 mg tablet,delayed 20 mg PO DAILY heartburn 05/09/24 Unknown History release rosuvastatin 10 mg tablet 10 mg PO QHS cholesterol 05/09/24 Unknown History Allergy/AdvReac Type Severity Reaction Status Date / Time atorvastatin (From Lipitor) AdvReac Severe myalgias Verified 05/09/24 09:06 ciprofloxacin (From Cipro) AdvReac Unknown Unknown Verified 05/09/24 09:06 Family History Mother Sudden cardiac Father CAD (coronary artery disease) CVA (cerebral vascular accident) Surgical History (Updated 05/09/24 @ 09:14 by Patricia Saunders) History of back surgery History of colonoscopy History of aortic aneurysm repair History of esophagogastroduodenoscopy (EGD) (~02/2020) Presence of stent in coronary artery (~11/2010) History of hemorrhoidectomy Hx of appendectomy Social History Smoking Status: Current some day smoker tobacco type: cigarettes alcohol intake: never substance use type: does not use Audit: Pertinent Findings Pertinent Findings EKG Perinent findings: May 09, 2024. Normal sinus rhythm. Nonspecific ST and T wave abnormalities. Stress test pertinent findings: December 03, 2022. Ejection fraction is 74%. No ischemia. No infarct. Echo (EF%) pertinent findings: July 14, 2023. Ejection fraction 65%. Pulmonary artery systolic pressure is 28 mmHg. Mild aortic stenosis. Consult pertinent findings: March 03, 2024. Mateo GIFFORD. 1. Atherosclerotic heart disease of [place] coronary artery disease. Status post PTCA and drug-eluting stent to the left circumflex and the right coronary artery. Stable patient to continue with medical management. 2. Nonrheumatic aortic valve stenosis. Currently mild. Continue to monitor with serial echoes. 3. SVT no obvious recurrence seen. 4. Hypertension continue medical management. Recommendation Anesthesia Recommendation Anesthesia recommendation: OPTIMIZED for anesthesia
[2024-05-15] VITALS (20 sets, daily range): BP systolic 146–189; BP diastolic 74–106; PULSE 65–82; RESP 14–18; TEMP 36.1–37.1; O2SAT 89–97; BMI 28.4
--- NOTE | 2024-05-15 09:50 | PCM.HP.BLA ---
History and Physical Date of Admission: 05/15/24 Date of Service: 05/04/24 MR#: [id number] Acct: [id number] Name: YARITZA CHRISTINA Rep #: [id number] : 1940 Provider: Dr. Katerine Polk MD Age/Sex: 83/F Location: [facility] Status: Signed Intake Vital Signs 03/03/2415:02 05/04/2409:04 Height 5 ft 5 ft 3 in Weight: 145 lb 2 oz BMI 25.7 BP 132/82 H Blood Pressure Location Rt brachial Position Sitting Respiration 17 Pulse 74 Pulse Source Monitor Temp 97.1 F L Temp Source Temporal Pulse Oximetry (%) 96 Oxygen Delivery Method room air Intake Visit Reasons: ABNORMAL HIDA Chief Complaint: abnormal hida Is patient in pain?: Yes Allergies atorvastatin (From Lipitor) Adverse Reaction (Severe, Verified 05/04/24 09:06) myalgiasciprofloxacin (From Cipro) Adverse Reaction (Unknown, Verified 05/04/24 09:06) Unknown Medications ?Medication ?Instructions ?Recorded ?Confirmed ?Type coenzyme Q10 100 mg capsule 100 mg PO QDAY supplement 06/28/17 05/04/24 History nitroglycerin 0.4 mg sublingual 0.4 mg sublingual Q5M PRN cp 06/28/17 05/04/24 History tablet rizatriptan 10 mg tablet (Maxalt) 10 mg PO QDAY PRN migraines 06/28/17 05/04/24 History sertraline 50 mg tablet 50 mg PO QDAY mood 06/28/17 05/04/24 History aspirin 81 mg tablet,delayed 81 mg PO DAILY 04/17/20 05/04/24 History release (Adult Low Dose Aspirin) cholecalciferol (vitamin D3) 50 50 mcg PO DAILY 04/17/20 05/04/24 History mcg (2,000 unit) capsule denosumab 60 mg/mL subcutaneous 60 mg subcut [id number] 11/07/21 05/04/24 History syringe (Prolia) multivitamin 1 tab PO DAILY 05/26/23 05/04/24 History omeprazole 20 mg capsule,delayed 20 mg PO DAILY 05/26/23 05/04/24 History release lisinopril 20 mg tablet 20 mg PO QDAY blood pressure #90 08/27/23 05/04/24 Rx tabs amlodipine 2.5 mg tablet 2.5 mg PO QDAY blood pressure #90 09/06/23 05/04/24 Rx tabs clopidogrel 75 mg tablet 75 mg PO DAILY #90 tabs 09/06/23 05/04/24 Rx rosuvastatin 10 mg tablet 10 mg PO DAILY cholesterol #90 tabs 09/06/23 05/04/24 Rx metoprolol succinate 25 mg 25 mg PO DAILY blood pressure #90 04/10/24 05/04/24 Rx tablet,extended release 24 hr tabs Have you fallen in the past year?: No PFSH Medical History Elevated alanine aminotransferase (ALT) level Cellulitis of left arm Upper GI bleed Nonrheumatic aortic valve stenosis Abdominal aortic aneurysm without rupture SVT (supraventricular tachycardia) Palpitations Family history of ischemic heart disease Family history of hypertension Family history of sudden cardiac Mitral valve annular calcification Heart murmur, systolic Premature ventricular contraction Spinal stenosis Osteoarthritis Peptic ulcer disease History of upper gastrointestinal bleeding Atherosclerotic heart disease of upper [place] coronary artery without angina pectoris COPD (chronic obstructive pulmonary disease) History of upper gastrointestinal bleeding HLD (hyperlipidemia) Hx of peptic ulcer CAD (coronary artery disease) COLD (chronic obstructive lung disease) Benign essential HTN Surgical History History of esophagogastroduodenoscopy (EGD) (~02/2020) Presence of stent in coronary artery (~11/2010) History of hemorrhoidectomy Hx of appendectomy Family History Mother Sudden cardiac deathFather CAD (coronary artery disease) CVA (cerebral vascular accident) Social History Smoking Status: Former smoker alcohol intake: never substance use type: does not use HPI HPI HPI: 83-year-old female presents due to abnormal HIDA scan. Patient showed nonfilling of the gallbladder on her HIDA scan. Patient has been eating having issues for the last several weeks eating anything but chicken little soup or homemade vegetable soup or rice. Patient states anything spicy or sausage and gravy give patient a right upper quadrant pain nausea and vomiting. Patient did have normal labs done beginning of March which normal LFTs and normal white blood cell count. Patient is on aspirin and Plavix her last stent was placed in 2010 states she is able to come off them if needed. ROS General General: Yes weight change and fatigue; No appetite, colon cancer or breast cancer HEENT HEENT: No difficulty swallowing, eye injury, eye surgery, swollen glands or hoarseness Endo Endocrine: No thyroid disease, diabetes mellitus, thyroid cancer, Hair loss, heat intolerance or cold intolerance Skin Skin: No rash or changing moles Musc Musculoskeletal: Yes back problems and arthritis; No rheumatoid arthritis, gout or joint pain Cardio Cardiovascular: Yes murmur, heart disease, high blood pressure and heart stent; No pacemaker, atrial fibrillation, heart attack, palpitations, shortness of breat with exertion or chest pain Psych Psychiatric: No depression, anxiety or hearing voices Resp Respiratory: No shortness of breath, No sleep apnea, No cough, No COPD, No asthma, No emphysema and No wheezing Gastro Gastrointestinal: Yes abdominal pain, Yes nausea or vomiting, Yes diarrhea, Yes constipation, No blood in stool, Yes acid reflux, Yes hemorrhoids, No ulcers, Yes gallbladder problem and No black,tarry stools [place] Hematologic: Yes blood thinners, No blood disorders, No bleeding, No anemia and No blood clots Neuro Neurologic: No numbness and No tingling Exam Const General: cooperative, healthy appearing, comfortable and no acute distress [facility] Head: normocephalic and atraumatic Neck Neck: supple Resp Effort & Inspection: normal respiratory effort Cardio Rate: regular rate GI Inspection: non-distended Palpation: soft, no hernias and tender (Mildly tender in the right upper quadrant, no peritoneal signs) Skin General: no rashes or lesions noted Neuro General: CN's II-XI intact bilaterally Extrem General: normal to inspection Psych Mental Status: mental status grossly normal Attitude: cooperative Assessment and Plan Assessment and Plan (1) Abnormal biliary HIDA scan: Status: Acute (2) RUQ pain: Status: Acute Plan Will have patient hold her aspirin/Plavix. Reviewed the anatomy with the patient and discussed the procedure: laparoscopic cholecystectomy with possible cholangiograms, possible open. Review risks including but not limited to bleeding, infection, hernia, bile leak, retained gallstones requiring another procedure ERCP- Endoscopic Retrograde Cholangiopancreatography, injury to another organ (bile ducts, common bile duct, small bowel, etc.) and conversion to an open procedure. All questions were answered. Katreine Polk M.D. Pager: [phone] [facility] [address] [place] [address], [address] [place] [address] Office: [phone] Coding Level of Care Code Off vis,new,level 3 Diagnoses Abnormal biliary HIDA scan R94.8 RUQ pain R10.11 Clinical Quality Measures Falls Risk Screening/Assistive Devices Have you fallen in the past year?: No 05/04/24 1052 <Electronically signed by Katerine Polk MD> Date Katerine Polk MD
--- NOTE | 2024-05-15 10:27 | PCM.PRE.AN2 ---
ASA Classification* ASA Classification ASA Classification: 3 Assessment & Plan Anesthesia* Anesthesia Assessment Anesthesia Assessment: Discussed sedation and/or anesthesia options, risks, benefits, and alternatives with patient/parents/legal guardian/POA. Questions invited. The patient/parents/legal guardian/POA seems to understand and agrees to proceed with anesthesia plan. Reviewed the physical assessment, medical history, allergy history and patient home medications list prior to surgery/procedure/anesthetic and documented any changes. Performed airway and anesthesia risk assessments. Anesthesia Type Anesthesia Type: General History Source History Obtained from:: Patient and Chart Anesthesia Focused Assessment* Temperature: 98.5 F Pulse Rate: 65 Blood Pressure: 153/82 Respiratory Rate: 16 Pulse Ox: 96 Oxygen Delivery Method: Room Air Airway Assessment Mouth opens: >3 cm Mallampati Score: IV Teeth Condition: Caps/Crowns (Patient has multiple caps. They are all tight.) Neck Range of motion (ROM): Full ROM Comment: Short thyromental distance Focused Labs Anesthesia Preop lab: CBC WBC 9.4 K/mm3 (4.4-11.0) 03/20/24 10:07 RBC 4.57 M/mm3 (4.2-5.4) 03/20/24 10:07 Hgb 13.9 g/dL (12.0-15.0) 03/20/24 10:07 Hct 45.3 % (37-47) 03/20/24 10:07 Plt Count 295 K/mm3 (150-450) 03/20/24 10:07 CHEMISTRY Potassium 5.0 mmol/L (3.5-5.1) 03/20/24 10:07 Sodium 141 mmol/L (136-145) 03/20/24 10:07 BUN 22 mg/dL (7-18) H 03/20/24 10:07 Creatinine 1.04 mg/dL (0.55-1.02) H 03/20/24 10:07 Glucose 108 mg/dL (74-106) H 03/20/24 10:07 TSH 1.41 uIU/mL (0.358-3.74) 10/24/14 07:53 COAG PT 13.1 SECONDS (11.7-14.9) 05/09/24 13:14 Pre-Assessment Diagnosis/Proposed Procedure Planned Operative Procedure(s): Laparoscopic, Cholecystectomy with IOC Anesthesia History Anesthesia History - data virtualization consultant: Anesthesia History - data virtualization consultant Hx Hospitalization No 05/09/24 09:14 Any Problems With Anesthesia No 05/09/24 09:14 Cholinesterase deficiency No 05/09/24 09:14 You/Your Family Experience No 05/09/24 09:14 fever (hyperthermia) with Relationship Recent Exposure to Contagious No 05/15/24 10:10 Disease Does patient have nerve No 05/09/24 09:14 stimulator Patient instructed to have device shut off --Does patient have Pacemaker No 05/15/24 10:10 or ICD? When Was Last Pacemaker Check QUESTION #4 FULL TEXT: You/Your Family Experience fever (hyperthermia) with Anesthesia Last Oral Intake Last Oral intake: Last Oral Intake NPO since 05:45 05/15/24 10:10 Meds taken in AM with sips of Yes 05/15/24 10:10 water? Meds patient instructed to take am of surgery Any additional information?: Yes Meds taken in AM with sips of water?: Yes PONV PONV - data virtualization consultant: PONV - data virtualization consultant Female Yes 05/09/24 09:14 HX of Motion Sickness No 05/09/24 09:14 HX of N/V After Surgery No 05/09/24 09:14 Non-Smoker No 05/09/24 09:14 Duration of Surgery greater Yes 05/09/24 09:14 than 60 minutes Number of Risk Factors 2 05/09/24 09:14 PONV Score Moderate Risk 05/09/24 09:14 Height & Weight Height & Weight: Anesthesia: Height & Weight Height 5 ft 05/15/24 10:10 Weight: 66 kg 05/15/24 10:10 Body Mass Index (BMI) 28.4 05/15/24 10:10 Respiratory Assessment Respiratory Assessment - data virtualization consultant: Respiratory Tract Infection Hx - data virtualization consultant Hx Respiratory Tract Infection No 05/09/24 09:14 STOP Sleep Apnea STOP Sleep Apnea - data virtualization consultant: STOP Sleep Apnea - data virtualization consultant Hx Hypertension Yes: PER PT , CONTROLLED ON 05/09/24 09:14 MEDS Hx Sleep Apnea No 05/09/24 09:14 CPAP BIPAP Do you snore loudly (louder No 05/09/24 09:14 than talking or can be heard Do you often feel tired/ No 05/09/24 09:14 fatigued/ sleepy during daytime? Has anyone observed you stop No 05/09/24 09:14 breathing during sleep? STOP Results Negative 05/09/24 09:14 QUESTION #5 FULL TEXT : Do you snore loudly (louder than talking or can be heard through closed doors)? Tobacco Use History Tobacco Use History - data virtualization consultant: Tobacco Use History - data virtualization consultant Tobacco Use Non-smoker 02/19/20 10:33 Smoking Status Current some day smoker 05/09/24 09:14 Hx Tobacco Use Yes 05/09/24 09:14 Years Smoking Packs Smoked per Day Smoking Cessation Date was within the last 15 years Hx Smoking Cessation Date Hx Smoking Cessation Yes 05/09/24 09:14 Counseling Any additional information?: Yes Smoking Status: Current every day smoker (Patient did not smoke today.) Hematologic Medial History Hematologic Hx - data virtualization consultant: Hematologic Medical Hx - integrated logistics support manager Hx of Blood Transfusion No 05/09/24 09:14 Hx of Transfusion in last 3 No 05/09/24 09:14 Months Date of Last Transfusion (if within last 3 months) Ever experience any problems No 05/09/24 09:14 with transfusion(s)? Specify any problems Hx of Preganancy in last 3 No 05/09/24 09:14 Months Nurse Filling Out Transfusion MGRIFFITH 05/09/24 09:14 & Questions: Date: 05/09/24 05/09/24 09:14 Time: 09:17 05/09/24 09:14 Patient unable to answer at this time (ie. confused, unrespo /Reproduction History /Reproductive History - data virtualization consultant: /Reproductive Hx- data virtualization consultant Hx Now No 05/09/24 09:14 Gestational Age (in weeks): EDC: Hx Hx Para Hx Section SAB No 05/09/24 09:14 Active Medications Active Medications: Current Medications Generic Name Dose Route Start Last Admin Trade Name Freq PRN Reason Stop Dose Admin Sodium Chloride 1,000 mls @ 15 mls/hr 05/15/24 09:50 IV 05/20/24 23:09 .Q48H [facility] Protocol PFSH Medical History Wears hearing aid Wears glasses Depression History of steroid therapy Ambulates with cane Easy bruising Migraine headache History of hiatal hernia History of GI bleed Gastric reflux Smoker Hypertension History of echocardiogram History of stress test Cardiology follow-up encounter Elevated alanine aminotransferase (ALT) level Cellulitis of left arm Upper GI bleed Nonrheumatic aortic valve stenosis Abdominal aortic aneurysm without rupture SVT (supraventricular tachycardia) Palpitations Family history of ischemic heart disease Family history of hypertension Family history of sudden cardiac Mitral valve annular calcification Heart murmur, systolic Premature ventricular contraction Spinal stenosis Osteoarthritis Peptic ulcer disease History of upper gastrointestinal bleeding Atherosclerotic heart disease of [place] coronary artery without angina pectoris History of upper gastrointestinal bleeding HLD (hyperlipidemia) Hx of peptic ulcer CAD (coronary artery disease) COLD (chronic obstructive lung disease) Benign essential HTN Home Medications ?Medication ?Instructions ?Recorded ?Last Taken ?Type coenzyme Q10 100 mg capsule 100 mg PO QHS supplement 06/28/17 12/31/19 History nitroglycerin 0.4 mg sublingual 0.4 mg sublingual Q5M PRN cp 06/28/17 Unknown History tablet rizatriptan 10 mg tablet (Maxalt) 10 mg PO QDAY PRN migraines 06/28/17 Unknown History sertraline 50 mg tablet 50 mg PO QDAY mood 06/28/17 01/01/20 History aspirin 81 mg tablet,delayed 81 mg PO DAILY 04/17/20 05/07/24 History release (Adult Low Dose Aspirin) cholecalciferol (vitamin D3) 50 50 mcg PO DAILY 04/17/20 Unknown History mcg (2,000 unit) capsule denosumab 60 mg/mL subcutaneous 60 mg subcut [id number] 11/07/21 Unknown History syringe (Prolia) multivitamin 1 tab PO DAILY 05/26/23 Unknown History omeprazole 20 mg capsule,delayed 20 mg PO DAILY 05/26/23 Unknown History release lisinopril 20 mg tablet 20 mg PO QDAY blood pressure #90 08/27/23 Unknown Rx tabs amlodipine 2.5 mg tablet 2.5 mg PO QDAY blood pressure #90 09/06/23 05/15/24 Rx tabs clopidogrel 75 mg tablet 75 mg PO DAILY #90 tabs 09/06/23 05/07/24 Rx metoprolol succinate 25 mg 25 mg PO DAILY blood pressure #90 04/10/24 05/15/24 Rx tablet,extended release 24 hr tabs diazepam 2 mg tablet 2 - 4 mg PO BID PRN PRN low back 05/09/24 Unknown History pain pantoprazole 20 mg tablet,delayed 20 mg PO DAILY heartburn 05/09/24 05/15/24 History release rosuvastatin 10 mg tablet 10 mg PO QHS cholesterol 05/09/24 Unknown History Allergy/AdvReac Type Severity Reaction Status Date / Time atorvastatin (From Lipitor) AdvReac Severe myalgias Verified 05/15/24 10:08 ciprofloxacin (From Cipro) AdvReac Unknown Unknown Verified 05/15/24 10:08 Family History Mother Sudden cardiac Father CAD (coronary artery disease) CVA (cerebral vascular accident) Surgical History History of back surgery History of colonoscopy History of aortic aneurysm repair History of esophagogastroduodenoscopy (EGD) (~02/2020) Presence of stent in coronary artery (~11/2010) History of hemorrhoidectomy Hx of appendectomy Social History Smoking Status: Current some day smoker tobacco type: cigarettes alcohol intake: never substance use type: does not use Review of Systems (Anesthesia) ROS Narrative System reviewed and no additional complaints, except as documented.
--- NOTE | 2024-05-15 11:30 | GALL_PTH ---
PATIENT: YARITZA CHRISTINA LOC: MS3 U#:[id number] AGE/SX: 83/F ROOM: DC323 RE05/15/[address]: Dr. Katerine Polk MD : 1940 BED: 1 DIS: 05/16/2024 SPEC #: [id number] RECD: 05/16/24 07:22 STATUS: CHELSEY KASSIDY #: [id number] DOUGLAS: 05/15/24 11:[address]: Katerine Polk DEPT: SURGICAL PATHOLOGY RECD BY: Velma Guzman ENTERED: 05/16/24 09:31 SP TYPE: CONSTANTINE OJEDA DR: Dr. Dianna Lua DO Tissues: Gallbladder, NOS Procedures: Surgery Specimen Level III HEADER OPERATION: Laparoscopic cholecystectomy with IOC PRE-OP DIAGNOSIS: Abnormal biliary HIDA scan, right upper quadrant pain TISSUE SUBMITTED: Gallbladder MICROSCOPIC DIAGNOSIS Gallbladder, cholecystectomy: Moderate acute and chronic cholecystitis. See comment. SCOOTER. 05/18/2024 COMMENT No stones are identified in the container or in the gallbladder. MICROSCOPIC DESCRIPTION Slides are reviewed. GROSS DESCRIPTION Received is one container labeled with the patient's name and designated gallbladder. The specimen consists of a gallbladder measuring 6.5 cm in length and up to 3.0 cm in diameter. The external surface is pink-means, smooth and glistening for the most part. Focally it is granular, hemorrhagic and contains cautery artifact. The gallbladder contains a small amount of green-yellow mucoid bile and sludge material. No stones are identified in the container or in the gallbladder. The mucosa is bile-stained and without any mass lesions. The gallbladder wall measures up to 0.3 cm in thickness. Assistant Professor Surgical Technology sections from the gallbladder and the cystic duct are submitted in one cassette. / SJ: 05/16/2024 TC:2 CPT: 28373
[2024-05-15] MEDS: Cefazolin 2 GM in Syringe IV (12:01)
--- NOTE | 2024-05-15 12:30 | RAD_ITS ---
CLINICAL HISTORY: Female, 83 years old. Abdominal pain PROCEDURE: CHOLANGIOGRAM - intraoperative FLUOROSCOPY TIME (if supplied): (0:11) minutes/seconds TECHNIQUE: 11 seconds of fluoroscopy the abdomen was utilized in the operating room during intraoperative cholangiogram and a single semiround and smooth for interpretation. FINDINGS: Cannula is seen in the cystic duct remnant. Contrast is seen throughout the biliary tree with spillage through the ampulla into the duodenum. No filling defect within the common bile duct to suggest common bile duct stone. RAD/Cholangiogram/ O R,Initial IMPRESSION: No common bile duct stone. Electronically Signed: Benny Mendoza MD at 12:00 EST ,
[2024-05-15] MEDS: Bupivacaine Mpf 0.5% 30 ML VIAL (12:58)
--- NOTE | 2024-05-15 13:00 | OP.PCM_ITS ---
Operative Report (Standard) Operative Information Date of Procedure: 05/15/24 Pre-Operative Diagnosis: Abnormal biliary HIDA scan, right upper quadrant pain Post-Operative Diagnosis: Same Surgery/Procedure Performed: Laparoscopic cholecystectomy with cholangiograms washer engineer helper: Yes Activated Sludge Operator: Estelle Hurtado Tasks completed by business banking sales assistant: Opening & closing and Retracting Type of Anesthesia: General/Supplemental RN Documented Start/Stop Times: Operation Date: 05/15/24 11:30 Case Time Into Pre-Op 05/15/24 09:49 Out of Pre-Op 05/15/24 11:47 Anesthesia Start 05/15/24 11:55 Into Room 05/15/24 11:55 Procedure Start 05/15/24 12:11 Procedure End 05/15/24 13:09 Anesthesia End 05/15/24 13:13 Out of Room 05/15/24 13:13 Into Recovery 05/15/24 13:17 Out of Recovery 05/15/24 15:15 Into Phase II Recovery 05/15/24 15:16 Procedure Start Time: 12:11 Procedure Stop Time: 13:09 Select all DRAINS/GRAFTS/IMPLANTS that apply: None Special Medications: Ancef 2 g IV x 1 Estimated Blood Loss: < 10 cc Specimen collected: Yes Description of specimen(s) removed: Gallbladder Description of surgery: Indications: this is a 83 year-old female who developed abdominal pain/nausea/vomiting and on workup was found to have right upper quadrant pain and abnormal HIDA scan with nonfilling of the gallbladder, with a normal common bile duct and normal LFTs. Laparoscopic cholecystectomy was elected. Description procedure: The patient was placed on operating table in supine position. A timeout was completed verifying correct patient, procedure, site, position and special equipment prior to beginning procedure. General Anesthesia was induced. The abdomen was prepped and draped in usual sterile fashion. An incision was made in the natural skin line above the umbilicus. The fascia was elevated and incised. The peritoneum was elevated and incised. Entry into the peritoneum was confirmed visually and no bowel was noted in the vicinity of the incision. Marquez trocar was placed. The abdomen was insufflated with carbon dioxide to a pressure of 12-15 mmHg. Patient tolerated insufflation well. The laparoscope was then inserted and abdomen inspected. No injuries from initial trocar placement were noted. Additional trochars were then inserted in the following locations 5 mm trocar in the epigastrium and 2 more 5 mm trochars along the right costal margin. The abdomen was inspected no abnormalities were found. The table is placed in reverse Trendelenburg position with the right side up. The dome of the gallbladder was grasped with atraumatic grasper passed through the lateral port and retracted over the dome of the liver. Infundibulum was then grasped with atraumatic grasper through the midclavicular port and retracted to the right lower quadrant. This maneuver exposed Calot's triangle. The peritoneum overlying the gallbladder infundibulum was then incised and cystic duct and artery identified and circumferentially dissected. Johansen catheter was used for cholangiograms. The cholangiogram showed good filling of the common bile duct into the duodenum with no filling defects, good filling of the right and left bile ducts as well. The cystic duct and artery were then doubly clipped and divided close to the gallbladder. The gallbladder then dissected from its peritoneal attachments by electrocautery. Hemostasis was checked and the gallbladder and contained stones were removed using the endoscopic retrieval bag through the umbilical port. The gallbladder is passed off table as specimen. The gallbladder fossa was irrigated with saline and hemostasis obtained. There is no evidence of bleeding from the gallbladder fossa or cystic artery leakage of bile from the cystic duct stump. Secondary trochars removed under direct vision. No bleeding was noted the trocar sites. The laparoscope was withdrawn and umbilical trocar removed. The abdomen was allowed to collapse. The fascia of the 12 mm trocar was closed with a [id number] 0 Vicryl suture. The skin was closed with sutures of 4-0 Monocryl and Steri-Strips. The patient was extubated. The patient tolerated procedure well and was taken to the postanesthesia care unit in stable condition. Surgical Findings: Normal cholangiograms Complications Complications: No
--- NOTE | 2024-05-15 13:03 | DCINST_ITS ---
Discharge Instructions Diet Discharge Diet: Light diet - advance as tolerated Activity Discharge Activity: May Not Drive (while taking narcotic pain medications.) May shower in (days): 1 Lifting Restrictions: no lifting >20 lbs x 2 wks, no strenuous exercise for 4 wks Dressing / Incision Call your doctor if your incision/area has: Continuous Slow Oozing, Sudden Increased Bleeding, Increased Pain/ Swelling, Increased Redness, Foul Smelling Discharge and Swelling at the incision site Call your doctor if you observe: Fever of 101 or Higher Remove Dressing in: 2 days Cleanse incision/area with: Soap & Water Additional Dressing/Incision Instructions:: Steri-Strips will fall off in 7 to 10 days, if they do not fall off okay to remove after 10 days. Follow Up Care Please Follow Up With: Katerine Polk MD When: Call the office for a follow-up appointment 2 weeks; after 5 PM and on the weekends call [phone] with any concerns. Test Results: Test results from this visit will be discussed in further detail at your follow- up appointment, if applicable. Discharge Plan Admission Attending Provider: Katerine Polk Primary Care Provider: Dianna Lua Instructions Additional Instructions / Restrictions: Okay to restart aspirin tonight and Plavix tomorrow morning Print Language: Icelandic Discharge Orders/Prescriptions Prescriptions: New tramadol 50 mg tablet 50 mg PO Q6H PRN (Reason: pain) 3 Days Qty: 10 0RF Continued nitroglycerin 0.4 mg tablet, sublingual 0.4 mg SUBLINGUAL Q5M PRN (Reason: cp) sertraline 50 mg tablet 50 mg PO QDAY coenzyme Q10 100 mg capsule 100 mg PO QHS rizatriptan [Maxalt] 10 mg tablet 10 mg PO QDAY PRN (Reason: migraines) aspirin [Adult Low Dose Aspirin] 81 mg tablet,delayed release (DR/EC) 81 mg PO DAILY cholecalciferol (vitamin D3) 50 mcg (2,000 unit) capsule 50 mcg PO DAILY Prolia 60 mg/mL syringe 60 mg subcut [id number] multivitamin Tablet 1 tab PO DAILY omeprazole 20 mg capsule,delayed release(DR/EC) 20 mg PO DAILY pantoprazole 20 mg tablet,delayed release (DR/EC) 20 mg PO DAILY diazepam 2 mg tablet 2 - 4 mg PO BID PRN PRN (Reason: low back pain) rosuvastatin 10 mg tablet 10 mg PO QHS lisinopril 20 mg tablet 20 mg PO QDAY Qty: 90 3RF clopidogrel 75 mg tablet 75 mg PO DAILY Qty: 90 3RF amlodipine 2.5 mg tablet 2.5 mg PO QDAY Qty: 90 3RF metoprolol succinate 25 mg tablet extended release 24 hr 25 mg PO DAILY Qty: 90 3RF Other Ambulatory Orders: 12 Lead EKG (Routine) Timeframe: [id number] Location: None Selected Ordered By: Dr. Jose Alfredo Montoya Referrals / Follow Up: Dianna Lua DO [Primary Care Provider] - Disposition Disposition (needs filled in before D/C Order can be placed): Home, Self Care
--- NOTE | 2024-05-15 13:16 | PCM.POST.ANE ---
Anesthesia: Postop Eval I Current Vital Signs Temperature: 97 F Pulse Rate: 78 Blood Pressure: 158/100 Respiratory Rate: 14 Pulse Ox: 96 Oxygen Delivery Method: Simple Mask Oxygen Flow Rate (L/min): 6 Assessment Airway patent: Yes Spontaneous unlabored respirations: Yes Mental status: Awake nausea: No Vomiting: No Anesthesia Complication: No Fluid Hydration Crystalloid volume administer (ml): 750 Total IV fluid infused: 750 Progress Note Anesthesia document: Postop Eval 1 completed: Yes
[2024-05-15] MEDS: 0.9% Normal Saline (1000mL) 1,000 ML 15 ML IV (14:00)
--- NOTE | 2024-05-15 14:12 | POSTOPAN2_ITS ---
Anesthesia Postop Eval I Sum Postop Eval Completion status Anesthesia document: Postop Eval 1 completed: Yes Anesthesia Postop Eval I Summary Anesthesia Postop Eval I Summary: Anesthesia Postop Eval I: Assessment Summary Airway patent Yes 05/15/24 13:19 [email or web address] Spontaneous unlabored Yes 05/15/24 13:19 [email or web address] [email or web address] respirations Mental status Awake 05/15/24 13:19 [email or web address] [email or web address] nausea No 05/15/24 13:19 [email or web address] [email or web address] Vomiting No 05/15/24 13:19 [email or web address] [email or web address] Anesthesia Postop Eval I: Fluid Summary Crystalloid volume administer 750 05/15/24 13:19 [email or web address] [email or web address] (ml) Colloids volume administered ( ml) Blood Product volume administered (ml) Total IV fluid infused 750 05/15/24 13:19 LAB [email or web address].HBARR Anesthesia Postop Eval I: Summary Notes Anesthesia Complication No 05/15/24 13:19 [email or web address] [email or web address].HBARR Anesthesia Complication Comment: Post-operative progress note Anesthesia: Postop Eval II Evaluation Mental status: Awake and Calm Pain Level: 1 nausea: No Vomiting: No Complications Anesthesia Complication: No
--- NOTE | 2024-05-15 14:12 | PCM.POSTANE2 ---
Anesthesia Postop Eval I Sum Postop Eval Completion status Anesthesia document: Postop Eval 1 completed: Yes Anesthesia Postop Eval I Summary Anesthesia Postop Eval I Summary: Anesthesia Postop Eval I: Assessment Summary Airway patent Yes 05/15/24 13:19 [email or web address] Spontaneous unlabored Yes 05/15/24 13:19 [email or web address] respirations Mental status Awake 05/15/24 13:19 [email or web address] nausea No 05/15/24 13:19 [email or web address] Vomiting No 05/15/24 13:19 [email or web address] Anesthesia Postop Eval I: Fluid Summary Crystalloid volume administer 750 05/15/24 13:19 [email or web address] (ml) Colloids volume administered ( ml) Blood Product volume administered (ml) Total IV fluid infused 750 05/15/24 13:19 [email or web address] Anesthesia Postop Eval I: Summary Notes Anesthesia Complication No 05/15/24 13:19 [email or web address] Anesthesia Complication Comment: Post-operative progress note Anesthesia: Postop Eval II Evaluation Mental status: Awake and Calm Pain Level: 1 nausea: No Vomiting: No Complications Anesthesia Complication: No
[2024-05-15] MEDS: Rosuvastatin Calcium 5 MG Tablet 10 MG PO (20:29)
[2024-05-15] MEDS: Acetaminophen 325 MG Tablet 650 MG PO (20:32)
[2024-05-16 00:24] VITALS: BP 124/68; PULSE 54; RESP 18; TEMP 36.6; O2SAT 97
[2024-05-16] MEDS: Acetaminophen 325 MG Tablet 650 MG PO (04:11)
[2024-05-16 04:19] VITALS: BP 118/59; PULSE 60; RESP 16; TEMP 36.7; O2SAT 94
--- NOTE | 2024-05-16 07:14 | PCM.PN.SRG ---
Subjective Subjective Patient was initially nauseous but able to eat last night, but was still pretty drowsy after the surgery to stay the night and required supplemental O2. Patient is off O2 and doing well. Objective Data Objective Data Vital Signs: Vital Signs Temp Pulse Resp BP Pulse Ox O2 Del Method O2 Flow Rate 98.1 F 60 16 118/59 L 94 Room Air 4 05/16/24 04:19 05/16/24 04:19 05/16/24 04:19 05/16/24 04:19 05/16/24 04:19 05/16/24 04:19 05/16/24 00:24 Oxygen Flow Rate (L/min) 4 Oxygen Delivery Method Room Air Weight: 145 lb 8.081 oz Body Mass Index (BMI) 28.4 Intake & Output: Intake and Output for Last 24 Hours 05/14/24 05/15/24 05/16/24 23:59 23:59 23:59 Intake Total 1020 / 1020 150 / 150 Output Total 200 / 200 Balance 820 / 820 150 / 150 Physical Exam Resp normal respiratory effort Cardio regular rate GI GI Narrative: Abdomen: Soft, nondistended, tender near incision's dressed clean dry and intact, no peritoneal signs Assessment & Plan Assessment/Plan (1) S/P laparoscopic cholecystectomy: PLAN: Plan Patient doing well tolerating diet. Okay to restart her aspirin and Plavix and DC home. Katerine Polk M.D. Pager: [phone] [facility] [address] [place] [address], [address] [place] [id number] Office: [phone]
[2024-05-16 08:17] VITALS: PULSE 72
[2024-05-16] MEDS: Metoprolol(XL)Succ 25 MG Tablet PO (08:17)
[2024-05-16] MEDS: Aspirin E.C. 81 MG Tablet PO (08:17)
[2024-05-16] MEDS: Lisinopril 20 MG Tablet PO (08:17)
[2024-05-16] MEDS: Cholecalciferol (VIT D3) 25 MCG TABLET (1,000 UNITS) 50 MCG PO (08:17)
[2024-05-16] MEDS: Clopidogrel Bisulfate 75 MG Tablet PO (08:17)
[2024-05-16] MEDS: Sertraline 50 MG Tablet PO (08:17)
[2024-05-16] MEDS: Multivitamins,Therapeutic Tablet 1 TABLET PO (08:17)
[2024-05-16] MEDS: Pantoprazole Sodium 40 MG Tablet PO (08:17)
[2024-05-16] MEDS: amLODIPine 2.5 MG Tablet PO (08:18)
[2024-05-16 09:07] VITALS: BP 115/63; PULSE 70; RESP 15; TEMP 36.4; O2SAT 92
--- NOTE | 2024-05-16 10:02 | CASEMGMT ---
ZEYAD CM into pt room, pt lying in bed in no distress. Pt states she feels safe to dc home. Pt states typically she is I in ADLs, lives alone and uses a cane. Pt states her sister and dtr are able to assist her when she is home. Pt sister will be staying with her. Pt denies any homegoing needs at this time.
== END 2024-05-16 10:53 | disposition home or self-care (01) ==
LOC: SDC 15:54 → MS3 15:54
PROVIDERS: Anesthesiology; Admitting Provider Surgery; PCP Internal Medicine; Referring Provider Surgery; Visit Provider Surgery
PROC: (CPT 47610; principal; 2024-05-15 11:10)
DX: K81.2 Acute cholecystitis with chronic cholecystitis (principal); J44.9 Chronic obstructive pulmonary disease, unspecified; I10 Essential (primary) hypertension; E78.5 Hyperlipidemia, unspecified; I25.10 Atherosclerotic heart disease of native coronary artery without angina pectoris; Z87.891 Personal history of nicotine dependence; Z79.82 Long term (current) use of aspirin; Z79.899 Other long term (current) drug therapy
CPT/HCPCS: 47563; 00790; 36415; 74300; 76000; 80076; 85610; 85730; 88304; 93005; 94668; 99221; 99252; G0378; G0463; J2405

== ENCOUNTER → 2024-06-07 | Outpatient (CLI) | payer MEDICARE, OTHER, SELFPAY ==
--- NOTE | 2024-06-07 15:30 | MRI_ITS ---
STUDY: MRI LUMBAR SPINE WITHOUT CONTRAST REASON FOR EXAM: Female, 83 years old. Leg weakness, bilateral TECHNIQUE: Standardized fat and water weighted pulse sequences were obtained in the sagittal and axial planes. COMPARISON: None FINDINGS: T12-L1: Normal endplates. Normal disc height, hydration and morphology. Normal bilateral facet joints. Normal central canal and bilateral lateral recesses. Normal bilateral intervertebral neural foramina. Normal lumbar lordosis. There is no substantial scoliosis. Normal conus medullaris that terminates at the lower L1 vertebral body level. L1-2: Modic type I degenerative vertebral marrow edema under the diaphragm plates. Pronounced disc space height narrowing. Mild ventral epidural defect due to posterior bulging annulus. No significant facet arthropathy. Normal central canal and bilateral lateral recesses. Markedly pronounced stenosis of the right intervertebral neuroforamen. Normal left intervertebral foramen. L2-3: Metastasis space height with Modic type II changes of the vertebral endplates. Mild ventral extradural defect due to posterior marginal spurs. Metallic rods and pedicular screws at L3 causing signal distortion artifact in the facet joints. Normal central canal and bilateral lateral recesses. Moderately pronounced stenosis of the right intervertebral neuroforamen. Mild stenosis of the left intervertebral foramen L3-4: Pronounced disc space height with posterior marginal spurs. Mild bronchovascular defect due to posterior marginal spur. Normal central canal and bilateral lateral recesses. Moderate stenosis of the right intervertebral foramen. Normal left intervertebral neuroforamen.. L4-5: Pronounced disc space height narrowing. Metallic rods and pedicular screws causing signal distortion artifacts. The patient is thecal sac from posterior laminectomy decompression surgery. Signal distortion artifacts on the left intervertebral foramen. Normal right intervertebral neuroforamen. L5-S1: Normal endplates. Pronounced disc space height narrowing. Postsurgical absence of the spinous processes and lamina. Capacious thecal sac. Normal bilateral lateral recesses. Metallic rods and pedicular screws partially obscuring the bilateral intervertebral foramina.. Normal visualized sacral ala. Normal visualized paraspinous soft tissue structures. MRI/Spine Lumbar (Routine) IMPRESSION: 1. Large infrarenal abdominal aortic aneurysm with a diameter of 6 cm and measuring 8 cm long. This extends from the lower L2 vertebral body level down to the upper L5 vertebral body level. This was present previously and without significant change. 2. Mild L1-L2 intervertebral osteochondritis (Modic type I), prominent posterior bulging annulus and moderately pronounced stenosis of right intervertebral neuroforamen. 3. Mild Modic type II changes of the vertebral marrow under the vertebral endplates at L2-L3 disc space level with pronounced disc space narrowing and moderate pronounced stenosis of the right intervertebral foramen. 4. Pronounced diffuse degenerative disc space narrowing at L2-L3 down to L5-S1 disc space levels with anterior end posterior marginal spurs. 5. No MRI evidence of lumbar extruded disc fragment. 6. Metallic rods and pedicular screws causing signal distortion artifacts at L3-L4, L4-L5 and L5-S1 disc space levels. 7. No significant interval change when compared to 08/16/2023. Electronically Signed: Santana Moore MD at 15:16 EST ,
--- NOTE | 2024-06-07 15:30 | MRI_ITS ---
STUDY: MRI THORACIC SPINE WITHOUT CONTRAST REASON FOR EXAM: Female, 83 years old. Acute thoracic back pain TECHNIQUE: Standardized fat and water weighted pulse sequences were obtained in the sagittal and axial planes. COMPARISON: MR lumbar spine without contrast 08/16/2023. FINDINGS: Normal kyphosis of the thoracic spine. There is no substantial scoliosis. T1-2, T2-3, T3-4, T4-5, T5-6, T6-7, T7-8, T8-9, T9-10, T10-11, T11-12: Pronounced disc space narrowing at T8-T9 disc space level with small posterior bulging annulus. Small posterior bulging annulus at T7-T8, T9-T10 and T11-T12 disc space levels. Normal vertebral body heights. No focal signal abnormalities of the osseous elements of the thoracic spine. Normal central canal and bilateral intervertebral foramina. Abnormal thoracic spinal cord containing the midline syrinx extending from the T7-T8 disc space level down to the mid T10 vertebral body level. The syrinx is maximal at the T8-T9 disc space level down to the T9-T10 disc space level. Normal conus medullaris that terminates at the lower L1 vertebral body level. The soft tissue structures are unremarkable. MRI/Spine Thoracic (Routine) IMPRESSION: 1. 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 The syrinx is maximal at the T8-T9 down to T9-T10 disc space level. 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 MRI of the thoracic spine with intravenous contrast will be very helpful in confirming benign nonneoplastic syrinx. 2. No MRI evidence of thoracic extruded disc fragment or spinal stenosis. Electronically Signed: Santana Moore MD at 15:03 EST ,
== END | disposition home or self-care (01) ==
LOC: MRI 15:20
PROVIDERS: PCP Internal Medicine; Referring Provider Internal Medicine; Visit Provider Internal Medicine
DX: R29.898 Other symptoms and signs involving the musculoskeletal system (principal); M54.6 Pain in thoracic spine
CPT/HCPCS: 72146; 72148

== ENCOUNTER 2024-09-01 10:46 | Outpatient (CLI) | payer MEDICARE, OTHER, SELFPAY ==
[2024-09-01 10:54] VITALS: BP 144/68; PULSE 67; RESP 16; TEMP 35.7; O2SAT 99; BMI 28.1
[2024-09-01] MEDS: DENOSUMAB 60 MG/ML SC (10:57)
== END 2024-09-01 23:59 | disposition home or self-care (01) ==
LOC: MEDOUTP 10:47
PROVIDERS: PCP Internal Medicine; Referring Provider Internal Medicine; Visit Provider Internal Medicine
DX: M81.8 Other osteoporosis without current pathological fracture (principal)
CPT/HCPCS: 96372; J0897

== ENCOUNTER 2024-09-10 04:05 | Emergency (ER) | payer MEDICARE, OTHER, SELFPAY ==
[2024-09-10] VITALS (8 sets, daily range): BP systolic 101–112; BP diastolic 62–80; PULSE 67–99; RESP 18–20; TEMP 36.3; O2SAT 88–96; BMI 27.8
--- NOTE | 2024-09-10 04:15 | EX.ED.DYSGE1 ---
HPI History of Present Illness Chief Complaint: GI Bleed [facility] Medical History Wears hearing aid Wears glasses Depression History of steroid therapy Ambulates with cane Easy bruising Migraine headache History of hiatal hernia History of GI bleed Gastric reflux Smoker Hypertension History of echocardiogram History of stress test Cardiology follow-up encounter Elevated alanine aminotransferase (ALT) level Cellulitis of left arm Upper GI bleed Nonrheumatic aortic valve stenosis Abdominal aortic aneurysm without rupture SVT (supraventricular tachycardia) Palpitations Family history of ischemic heart disease Family history of hypertension Family history of sudden cardiac Mitral valve annular calcification Heart murmur, systolic Premature ventricular contraction Spinal stenosis Osteoarthritis Peptic ulcer disease History of upper gastrointestinal bleeding Atherosclerotic heart disease of [place] coronary artery without angina pectoris History of upper gastrointestinal bleeding HLD (hyperlipidemia) Hx of peptic ulcer CAD (coronary artery disease) COLD (chronic obstructive lung disease) Benign essential HTN Home Medications ?Medication ?Instructions ?Recorded ?Last Taken ?Type coenzyme Q10 100 mg capsule 100 mg PO QHS supplement 06/28/17 12/31/19 History rizatriptan 10 mg tablet (Maxalt) 10 mg PO QDAY PRN migraines 06/28/17 Unknown History sertraline 50 mg tablet 50 mg PO QDAY mood 06/28/17 01/01/20 History aspirin 81 mg tablet,delayed 81 mg PO DAILY 04/17/20 05/07/24 History release (Adult Low Dose Aspirin) cholecalciferol (vitamin D3) 50 50 mcg PO DAILY 04/17/20 Unknown History mcg (2,000 unit) capsule denosumab 60 mg/mL subcutaneous 60 mg subcut [id number] 11/07/21 Unknown History syringe (Prolia) amlodipine 2.5 mg tablet 2.5 mg PO QDAY blood pressure #90 09/06/23 05/15/24 Rx tabs metoprolol succinate 25 mg 25 mg PO DAILY blood pressure #90 04/10/24 05/15/24 Rx tablet,extended release 24 hr tabs clopidogrel 75 mg tablet 75 mg PO DAILY #90 tabs 08/16/24 Unknown Rx lisinopril 20 mg tablet 20 mg PO QDAY blood pressure #90 08/16/24 Unknown Rx tabs rosuvastatin 10 mg tablet 10 mg PO QHS cholesterol #90 tabs 08/16/24 Unknown Rx metoclopramide HCl 5 mg tablet 5 mg PO Q8H PRN PRN nausea and 09/10/24 Unknown Rx (Reglan) vomiting 3 days #10 tabs pantoprazole 20 mg tablet,delayed 20 mg PO DAILY heartburn 09/10/24 Unknown History release sucralfate 1 gram tablet (Carafate) 1 g PO BID PRN upper abdominal 09/10/24 Unknown Rx pain #14 tabs Allergy/AdvReac Type Severity Reaction Status Date / Time atorvastatin (From Lipitor) AdvReac Severe myalgias Verified 09/10/24 06:26 ciprofloxacin (From Cipro) AdvReac Unknown Unknown Verified 09/10/24 06:26 ondansetron AdvReac dizziness Verified 09/10/24 06:26 Family History Mother Sudden cardiac Father CAD (coronary artery disease) CVA (cerebral vascular accident) Surgical History S/P laparoscopic cholecystectomy History of back surgery History of colonoscopy History of aortic aneurysm repair History of esophagogastroduodenoscopy (EGD) (~02/2020) Presence of stent in coronary artery (~11/2010) History of hemorrhoidectomy Hx of appendectomy Social History Smoking Status: Current some day smoker tobacco type: cigarettes alcohol intake: never substance use type: does not use EXAM Physical Exam Const Vital Signs: 09/10/24 04:07 09/10/24 04:10 09/10/24 04:53 Temperature 97.4 F L 97.4 F L Temperature Source Oral Oral Pulse Rate 99 99 Respiratory Rate 20 H 20 H Blood Pressure 102/80 102/80 Blood Pressure Mean 87 87 Pulse Ox 96 96 88 Oxygen Delivery Method Room Air Room Air Room Air Oxygen Flow Rate (L/min) 09/10/24 04:54 09/10/24 05:21 09/10/24 06:00 Temperature Temperature Source Pulse Rate 75 67 Respiratory Rate 20 H 18 Blood Pressure 104/69 112/62 Blood Pressure Mean 80 78 Pulse Ox 96 95 93 Oxygen Delivery Method Nasal Cannula Room Air Room Air Oxygen Flow Rate (L/min) 2 09/10/24 06:14 Temperature 97.4 F L Temperature Source Pulse Rate 70 Respiratory Rate 18 Blood Pressure 101/65 Blood Pressure Mean 77 Pulse Ox 95 Oxygen Delivery Method Oxygen Flow Rate (L/min) [facility] [place] Medical decision making narrative: HISTORY OF PRESENT ILLNESS: Chief complaint: Dark brown/red vomitus 83-year-old female history of gastritis, SVT, hyperlipidemia, hypertension, CAD status post stent on Plavix and aspirin, AAA, GI bleed presents with concern for vomiting dark brown/red emesis. Notes this occurred at 1 AM. She further states she has had dark brown/red emesis multiple times. States last time she had that she had taken the unit. She denies chest pain or palpitations or shortness of breath. Denies lightheadedness. Denies current nausea or abdominal pain. REVIEW OF SYSTEMS: Pertinent positives: As per HPI Pertinent negatives: As per HPI PHYSICAL EXAM: Nursing triage notes reviewed, Vital signs reviewed Constitutional: please see [facility] HENT: MMM Eyes: Pupils equal round and reactive to light, Extraocular muscles intact Neck: No stridor, no JVD, full neck ROM Lungs: Clear to auscultation, No wheezing or rales. No increased work of breathing, no conversational dyspnea, no accessory muscle use, no nasal flaring. No respiratory distress noted Heart: Regular rate and rhythm, No murmurs, No rubs and No gallops, 2+ distal pulses (radial, femoral, posterior tibial) in all extremities Abdomen: Soft, there is no tenderness, rigidity, rebound or guarding, no obvious peritoneal signs, no palpable pulsatile abdominal masses, no auscultated abdominal bruit : No CVAT Extremities: No edema Neuro: No new focal neurological deficits, cranial nerves II through XII intact, 5/5 strength in all present extremities. Intact sensation to light touch in all present extremities, 2+ reflexes bilateral patella tendons. Skin: No rash or lesions noted MEDICAL DECISION MAKING: Chief Complaint: please see HPI External records reviewed: Reviewed prior hospitalization for upper GI bleed in 2020. Reviewed prior EGD from 2020 which showed normal stomach and normal duodenum, 6 cm hiatal hernia. Factors affecting care: Gastric ulcer, gastritis, otherwise as per HPI Social determinants of health: none History obtained from others: Friend Consults: none [facility] Narrative: The patient was initially hemodynamically stable but with soft blood pressure of 102/80, afebrile and nontoxic-appearing. Exam well-appearing elderly female. Noted dark appearing vomitus material along the nose and in the mouth. I considered the following differential diagnosis: Upper GI bleed, gastritis, esophagitis, anemia, acute pancreatitis amongst others I obtained a broad lab and imaging workup to further elucidate etiology of the patient's complaints. Initially I initially treated the patient with IV fluids, Zofran and Pepcid (initially chose Pepcid as opposed to a PPI secondary to pick onset of action). ALL IMAGES (IF OBTAINED) HAVE BEEN PERSONALLY REVIEWED AND INTERPRETED BY MYSELF. CBC with no leukocytosis to suggest systemic inflammation, noted mild anemia essentially baseline, no indication for transfusion, no thrombocytopenia EKG with normal sinus rate 77, axis, no intervals, no STEMI CMP without evidence of acute kidney injury, significant electrolyte abnormality, anion gap to suggest end organ hypo-perfusion, no evidence of metabolic acidosis with a normal bicarbonate, no evidence of hepatobiliary obstructive pathology. I have personally reviewed the patient's chest x-ray. Chest x-ray is unremarkable for pulmonary edema, pneumothorax, pneumonia or focal cardiopulmonary abnormality. I have personally reviewed the patient's chest x-ray. Chest x-ray is unremarkable for pulmonary edema, pneumothorax, pneumonia or focal cardiopulmonary abnormality. Occult blood positive CTA of the abdomen and pelvis showed no evidence of active extravasation,Perforated viscus. It showed gastritis The synthesis of the patient's history, physical exam, labs images suggest no acute life-limiting etiology. Suggest gastritis as a cause of upper GI bleed. There is no indication for transfusion at this time. Do not have GI on-call at this time. With no GI on-call I did offer the patient transfer for prompt GI consultation. Patient was alert and orient x 3 refused transfer at this time and lieu of close outpatient follow-up with her local GI doctor (Dr. Gaona). I thought this was reasonable as her vitals were stable, she was asymptomatic, she is stable blood counts. Strict return precautions were discussed The patient and/or family, caregivers express understanding. The patient and/or family, caregivers agrees with the plan. Shared decision making: I will have a discussion with the patient and or visitors regarding risk/benefits of further testing or admission. They will be made aware of of the risk/benefits inherent in this decision they will be given the opportunity to voice understanding. Total critical care time today provided was at least 0 minutes. This excludes separately billable procedures. Critical care time (if documented) is secondary to the patient having high probability of clinically significant/life threatening deterioration in the patient's condition which required my urgent intervention. Impression: 1. Upper GI bleed 2. Nausea vomiting 3. Anemia Dispo: Discharge home This note was generated with [employer] dictation software. It may contain incorrect words, spelling, and punctuation that were not noted in review of the chart prior to signing. Lab Data Labs: Laboratory Results - last 24 hr 09/10/24 04:17 WBC 9.6 RBC 3.87 L Hgb 11.9 L Hct 38.0 MCV 98.2 MCH 30.7 MCHC 31.3 L RDW Std Deviation 54.7 H RDW Coeff of Alexy 15.2 H Plt Count 317 MPV 9.8 Immature Gran % (Auto) 0.400 Neut % (Auto) 69.1 Lymph % (Auto) 19.2 [place] % (Auto) 8.8 Eos % (Auto) 2.1 Baso % (Auto) 0.4 Absolute Neuts (auto) 6.6 Absolute Lymphs (auto) 1.84 Nucleated RBC % 0 Sodium 140 Potassium 4.5 Chloride 105 Carbon Dioxide 21.4 Anion Gap 14 BUN 37 H Creatinine 0.96 Estim Creat Clear Calc 37.25 L Est GFR (MDRD) Non-Af 59 L BUN/Creatinine Ratio 38.1 H Glucose 187 H Calcium 8.7 Total Bilirubin 0.31 Direct Bilirubin 0.15 AST 19 ALT 9 Alkaline Phosphatase 70 Troponin T High Sens 17 H Total Protein 6.8 Albumin 3.9 Globulin 2.9 Lipase 18 Blood Type A NEGATIVE Antibody Screen NEGATIVE Radiography Diagnostic Testing: Clinical Impression(s) from Imaging Studies Abdomen/Pelvis CTA 09/10/24 04:23 IMPRESSION: 1. Moderate sliding hiatal hernia. 2. Diffuse thickening of the stomach suggestive of gastritis. 3. Diffuse colonic diverticulosis. 4. Mild multifocal thickening of the proximal colon, probably mild inflammatory pathology. 5. No CT evidence of active bleeding during the time of the exam. 6. Uncomplicated infrarenal abdominal aortic aneurysm measuring 6.6 x 5.8 cm isolated by means of aortoiliac stent graft. Minimal linear hyperdense foci are noted within the aneurysmal sac, possibly chronic. No precontrast images are provided for better evaluation. 7. No evidence of retroperitoneal hematoma. 8. A splenic cyst is noted measuring 2 cm. 9. Moderate amount of fecal residue in the large bowels. 10. Moderate diffuse spondylosis. 11. Unremarkable low lumbar fusion metallic hardware. [facility] Chest X-Ray 09/10/24 05:05 IMPRESSION: 1. Mild cardiomegaly. 2. Retrocardiac hiatal hernia. 3. Bilateral basilar atelectatic changes/infiltrates. Reading [facility] Discharge Plan Triage Chief Complaint: GI Bleed ED Provider: Darshan Pollack Dx/Rx/DC Orders Clinical Impression: GI bleed Instructions: ED Gastritis (Adult), ED Upper GI Bleeding (Stable) Prescriptions: New sucralfate [Carafate] 1 gram tablet 1 g PO BID PRN (Reason: upper abdominal pain) Qty: 14 0RF metoclopramide HCl [Reglan] 5 mg tablet 5 mg PO Q8H PRN PRN (Reason: nausea and vomiting) 3 Days Qty: 10 0RF No Action sertraline 50 mg tablet 50 mg PO QDAY coenzyme Q10 100 mg capsule 100 mg PO QHS rizatriptan [Maxalt] 10 mg tablet 10 mg PO QDAY PRN (Reason: migraines) aspirin [Adult Low Dose Aspirin] 81 mg tablet,delayed release (DR/EC) 81 mg PO DAILY cholecalciferol (vitamin D3) 50 mcg (2,000 unit) capsule 50 mcg PO DAILY Prolia 60 mg/mL syringe 60 mg subcut [id number] pantoprazole 20 mg tablet,delayed release (DR/EC) 20 mg PO DAILY amlodipine 2.5 mg tablet 2.5 mg PO QDAY Qty: 90 3RF metoprolol succinate 25 mg tablet extended release 24 hr 25 mg PO DAILY Qty: 90 3RF lisinopril 20 mg tablet 20 mg PO QDAY Qty: 90 3RF clopidogrel 75 mg tablet 75 mg PO DAILY Qty: 90 3RF rosuvastatin 10 mg tablet 10 mg PO QHS Qty: 90 3RF Primary Care Provider: Dianna Lua Referrals: Friend,Niraj, [Med Staff - Active Staff] - Activity Restrictions/Additional Instructions: Thank you for trusting us with your care today! Your labs and images are reassuring. Specifically no significant anemia noted. Your CT scan showed no evidence of active bleeding or bowel perforation. Please take Tylenol (2 pills, 650 mg), every 6 hours as needed for pain and fever control. Please try to avoid NSAIDs (ibuprofen, Motrin, Aleve). Please take Zofran as needed for nausea and vomiting control. Please return to the emergency department if your symptoms change or worsen. Specifically develop vomiting, bloody vomiting, bloody stools, dark stools, lightheadedness, chest pain, shortness of breath or if you lose consciousness. Please follow with Gastroenterology (Dr. Gaona) for further outpatient evaluation and management. Print Language: Canadian Disposition Disposition: Home, Self Care
--- NOTE | 2024-09-10 04:23 | CT_ITS ---
PROCEDURE: CTA ABD/PELVIS W/WO CONTRAST 09/10/2024 REASON FOR EXAM: HEMATEMESIS/COFFEE-GROUND EMESIS R/O EXTRAVASATION TECHNIQUE: CTA imaging of the abdomen and pelvis with intravenous contrast. Multiplanar and multisequence images were obtained. 3D post processing, 3D reconstructions, Maximum intensity projection (MIPs) Volume rendering and Shaded surface rendering was provided. CONTRAST: Isovue 370 VOLUME: 100 mL Gauge IV One or more dose reduction techniques were used (e.g., Automated exposure control, adjustment of the mA and/or kV according to patient size, use of iterative reconstruction technique). RADIATION DOSE SUMMARY: CTDlvol: 18 mGy DLP: 895 mGycm COMPARISON: None. FINDINGS: Moderate sliding hiatal hernia. Diffuse thickening of the stomach suggestive of gastritis. Diffuse colonic diverticulosis. Mild multifocal thickening of the proximal colon, probably mild inflammatory pathology. No CT evidence of active bleeding during the time of the exam. Uncomplicated infrarenal abdominal aortic aneurysm measuring 6.6 x 5.8 cm isolated by means of aortoiliac stent graft. Minimal linear hyperdense foci are noted within the aneurysmal sac, possibly chronic. No precontrast images are provided for better evaluation. No evidence of retroperitoneal hematoma. A splenic cyst is noted measuring 2 cm. Moderate amount of fecal residue in the large bowels. Moderate diffuse spondylosis. Unremarkable low lumbar fusion metallic hardware. The visualized lung bases are unremarkable. Normal liver. Normal extrahepatic biliary system. Normal pancreas. Normal bilateral adrenal glands. Normal size of the right kidney. There is no right renal mass. There are no right renal calculi. There is no right hydronephrosis. Normal visualized right ureter. Normal size of the left kidney. There is no left renal mass. There are no left renal calculi. There is no left hydronephrosis. Normal visualized left ureter. Normal small intestine. The appendix is visualized and appears normal. There is no demonstrated peritoneal fluid. Normal inferior vena cava. Normal retroperitoneum. Normal urinary bladder. There is no pelvic mass lesion or lymphadenopathy. There is no pelvic fluid. CT/CTA Abd/Pelvis W/WO Contrast IMPRESSION: 1. Moderate sliding hiatal hernia. 2. Diffuse thickening of the stomach suggestive of gastritis. 3. Diffuse colonic diverticulosis. 4. Mild multifocal thickening of the proximal colon, probably mild inflammatory pathology. 5. No CT evidence of active bleeding during the time of the exam. 6. Uncomplicated infrarenal abdominal aortic aneurysm measuring 6.6 x 5.8 cm is olated by means of aortoiliac stent graft. Minimal linear hyperdense foci are noted within the aneurysmal sac, possibly ch ronic. No precontrast images are provided for better evaluation. 7. No evidence of retroperitoneal hematoma. 8. A splenic cyst is noted measuring 2 cm. 9. Moderate amount of fecal residue in the large bowels. 10. Moderate diffuse spondylosis. 11. Unremarkable low lumbar fusion metallic hardware. Reading [facility] [id number]
[2024-09-10] MEDS: 0.9% Normal Saline (1000mL) 1,000 ML 999 ML IV (04:28)
[2024-09-10] MEDS: Ondansetron 4 MG/2 ML Vial IV (04:28)
[2024-09-10 04:41] LABS: Absolute Lymphocyte Count 1.84 X10^3/uL (0.83-4.51); Absolute Neutrophil Count 6.6 X10^3/uL (2.0-7.7); Basophil# 0.04 X10^3/uL; Basophil% 0.4 % (0-1); Eosinophils% 2.1 % (0-5); Hemoglobin 11.9 g/dL (12.0-15.0); Lymphocyte # 1.84 X10^3/ul (0.83-4.51); Lymphocyte % 19.2 % (19-41); Mean Corp Hgb Conc 31.3 g/dL (32-36); Mean Corpuscular Hgb 30.7 pg (27.0-32.0); Mean Corpuscular Volume 98.2 fL (81-99); Mean Platelet Vol. 9.8 fl (6.2-12.0); Monocyte# 0.84 X10^3/uL; Monocyte% 8.8 % (0-10); NRBC Flagged by Analyzer 0 % (0-5); Neutrophil # 6.64 X10^3/uL (2.7-7.7); Neutrophil % 69.1 % (47-70); Platelet Count 317 K/mm3 (150-450); RBC Distribution Width CV 15.2 % (11.6-14.6); RBC Distribution Width SD 54.7 fl (35.1-43.9); Red Blood Count 3.87 M/mm3 (4.2-5.4); White Blood Count 9.6 K/mm3 (4.4-11.0)
[2024-09-10] MEDS: Famotidine 200 MG/20 ML MDV 20 MG in 0.9% Normal Saline (Pres. free 8 ML 300 MG IV (04:44)
--- NOTE | 2024-09-10 04:54 | EKG12_ITS ---
Test Reason : GI Blood Pressure : */* mmHG Vent. Rate : 77 BPM Atrial Rate : 77 BPM P-R Int : 170 ms QRS Dur : 82 ms QT Int : 432 ms P-R-T Axes : 59 17 70 degrees QTcB Int : 488 ms Sinus rhythm with Premature atrial complexes Nonspecific ST and T wave abnormality Abnormal ECG Confirmed by MARTINA SINGER, ESMER ([id number]), news video editor STELLA MANSFIELD ([id number]) on 09/13/2024 11:51:40 AM Referred By: Confirmed By: ESMER MACK MD
[2024-09-10 05:05] LABS: AST(SGOT) 19 U/L (<=31); Alanine Aminotransfer ALT/SGPT 9 U/L (<=34); Albumin, Serum 3.9 g/dL (3.4-4.8); Alkaline Phosphatase 70 U/L (35-104); Anion Gap 14 (5-15); BUN 37 mg/dL (4-19); BUN/Creat Ratio 38.1 RATIO (10-20); Bilirubin, Direct 0.15 mg/dL (0.00-0.30); Calcium,Total 8.7 mg/dL (7.6-11.0); Carbon Dioxide 21.4 mmol/L (21.0-32.0); Chloride 105 mmol/L (98-108); Creatinine, Serum 0.96 mg/dL (0.70-1.20); EST Glomerular Filtration Rate 59 (>60); Estimated Creatinine Clearance 37.25 ml/min (50-250); Globulin 2.9 g/dL (2.2-4.2); Glucose 187 mg/dL (70-99); Lipase 18 U/L (13-75); Potassium 4.5 mmol/L (3.3-5.1); Protein, Total 6.8 g/dL (5.9-8.4); Sodium Level 140 mmol/L (133-145); Total Bilirubin 0.31 mg/dL (0.00-1.30)
--- NOTE | 2024-09-10 05:05 | RAD_ITS ---
PROCEDURE: CHEST 1 VIEW (PORTABLE) 09/10/2024 REASON FOR EXAM: SOB TECHNIQUE: Frontal view of the chest. COMPARISON: None. FINDINGS: The cardiac silhouette is mildly enlarged. Retrocardiac hiatal hernia. Mild bilateral basilar atelectatic changes/pulmonary infiltrates. There is no demonstrated pleural abnormality. Normal mediastinum and sera. Normal visualized pulmonary arteries. Normal visualized aortic arch and descending thoracic aorta. Normal visualized thoracic spine. Normal visualized ribs, clavicles, and shoulders. There is no demonstrated abnormality of the visualized soft tissue structures of the upper abdomen. RAD/Chest 1 View (Portable) IMPRESSION: 1. Mild cardiomegaly. 2. Retrocardiac hiatal hernia. 3. Bilateral basilar atelectatic changes/infiltrates. Reading [facility]
[2024-09-10 05:54] LABS: Troponin T High Sensitivity 17 ng/L (<=14)
== END 2024-09-10 06:36 | disposition home or self-care (01) ==
PROVIDERS: Emergency Provider Emergency Medicine; PCP Internal Medicine; Visit Provider Emergency Medicine
DX: K92.2 Gastrointestinal hemorrhage, unspecified (principal); J44.9 Chronic obstructive pulmonary disease, unspecified; E78.5 Hyperlipidemia, unspecified; I10 Essential (primary) hypertension; I25.10 Atherosclerotic heart disease of native coronary artery without angina pectoris; K25.9 Gastric ulcer, unspecified as acute or chronic, without hemorrhage or perforation; D64.9 Anemia, unspecified; R11.2 Nausea with vomiting, unspecified; K21.9 Gastro-esophageal reflux disease without esophagitis; Z79.899 Other long term (current) drug therapy; F17.210 Nicotine dependence, cigarettes, uncomplicated; Z95.5 Presence of coronary angioplasty implant and graft; Z79.02 Long term (current) use of antithrombotics/antiplatelets; Z79.82 Long term (current) use of aspirin
CPT/HCPCS: 71045; 74174; 80048; 80076; 83690; 84484; 85025; 86850; 86900; 86901; 93005; 96361; 96374; 96375; 99284; Q9967; A4216; J2405

== ENCOUNTER 2024-09-14 15:26 | Inpatient (IN) | payer MEDICARE, OTHER, SELFPAY ==
[2024-09-14] VITALS (8 sets, daily range): BP systolic 82–122; BP diastolic 49–81; PULSE 72–87; RESP 16–18; TEMP 36.2–36.9; O2SAT 93–98; BMI 26.9
--- NOTE | 2024-09-14 15:56 | EKG12_ITS ---
Test Reason : Blood Pressure : */* mmHG Vent. Rate : 78 BPM Atrial Rate : 78 BPM P-R Int : 176 ms QRS Dur : 80 ms QT Int : 432 ms P-R-T Axes : 68 60 101 degrees QTcB Int : 492 ms Normal sinus rhythm Nonspecific ST and T wave abnormality Abnormal ECG Confirmed by PEPE SINGER, IGOR ([id number]), film or videotape editor STELLA MANSFIELD ([id number]) on 09/15/2024 8:18:22 AM Referred By: Confirmed By: IGOR CANTU MD
--- NOTE | 2024-09-14 16:05 | EX.ED.DYSGE1 ---
HPI <BALTA Henry - Last Filed: 09/14/24 17:20> History of Present Illness Chief Complaint: Weakness Narrative Narrative: Patient presenting today with her daughter due to generalized weakness that she has had over the last few days. She was here on Wednesday due to dark-colored emesis, she does have a previous history of an upper GI bleed. 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 She has not had any further vomiting since then. She reports that she has a decreased appetite and is not wanting to eat or drink much because food/liquids does not seem appetizing. She has not had a bowel movement in several days but again is not eating. She denies fevers, chills, chest pain, shortness of breath, abdominal pain, and urinary symptoms. She is on aspirin and Plavix due to CAD history. She did see Giselle the GI TRANSIT VEHICLE INSPECTOR today, her blood pressure was low in the office and she advised she come here for evaluation. PFS <BALTA Henry - Last Filed: 09/14/24 17:20> [facility] Medical History Osteoporosis Coronary artery disease Wears hearing aid Wears glasses Depression History of steroid therapy Ambulates with cane Easy bruising Migraine headache History of hiatal hernia History of GI bleed Gastric reflux Smoker Hypertension History of echocardiogram History of stress test Cardiology follow-up encounter Elevated alanine aminotransferase (ALT) level Cellulitis of left arm Upper GI bleed Nonrheumatic aortic valve stenosis Abdominal aortic aneurysm without rupture SVT (supraventricular tachycardia) Palpitations Family history of ischemic heart disease Family history of hypertension Family history of sudden cardiac Mitral valve annular calcification Heart murmur, systolic Premature ventricular contraction Spinal stenosis Osteoarthritis Peptic ulcer disease History of upper gastrointestinal bleeding Atherosclerotic heart disease of [place] coronary artery without angina pectoris History of upper gastrointestinal bleeding HLD (hyperlipidemia) Hx of peptic ulcer CAD (coronary artery disease) COLD (chronic obstructive lung disease) Benign essential HTN Home Medications ?Medication ?Instructions ?Recorded ?Last Taken ?Type coenzyme Q10 100 mg capsule 100 mg PO QHS supplement 06/28/17 12/31/19 History rizatriptan 10 mg tablet (Maxalt) 10 mg PO QDAY PRN migraines 06/28/17 Unknown History sertraline 50 mg tablet 50 mg PO QDAY mood 06/28/17 01/01/20 History aspirin 81 mg tablet,delayed 81 mg PO DAILY antiplt 04/17/20 05/07/24 History release (Adult Low Dose Aspirin) cholecalciferol (vitamin D3) 50 50 mcg PO DAILY vitamin 04/17/20 Unknown History mcg (2,000 unit) capsule denosumab 60 mg/mL subcutaneous 60 mg subcut [id number] bone health 11/07/21 Unknown History syringe (Prolia) amlodipine 2.5 mg tablet 2.5 mg PO QDAY blood pressure #90 09/06/23 05/15/24 Rx tabs metoprolol succinate 25 mg 25 mg PO DAILY blood pressure #90 04/10/24 05/15/24 Rx tablet,extended release 24 hr tabs clopidogrel 75 mg tablet 75 mg PO DAILY cholesterol #90 tabs 08/16/24 Unknown Rx lisinopril 20 mg tablet 20 mg PO QDAY blood pressure #90 08/16/24 Unknown Rx tabs rosuvastatin 10 mg tablet 10 mg PO QHS cholesterol #90 tabs 08/16/24 Unknown Rx metoclopramide HCl 5 mg tablet 5 mg PO Q8H PRN PRN nausea and 09/10/24 Unknown Rx (Reglan) vomiting 3 days #10 tabs pantoprazole 20 mg tablet,delayed 20 mg PO DAILY heartburn 09/10/24 Unknown History release sucralfate 1 gram tablet (Carafate) 1 g PO BID PRN upper abdominal 09/10/24 Unknown Rx pain #14 tabs Allergy/AdvReac Type Severity Reaction Status Date / Time atorvastatin (From Lipitor) AdvReac Severe myalgias Verified 09/14/24 15:27 ciprofloxacin (From Cipro) AdvReac Unknown Unknown Verified 09/14/24 15:27 ondansetron AdvReac dizziness Verified 09/14/24 15:27 Family History Mother Sudden cardiac Father CAD (coronary artery disease) CVA (cerebral vascular accident) Surgical History History of coronary artery stent placement S/P laparoscopic cholecystectomy History of back surgery History of colonoscopy History of aortic aneurysm repair History of esophagogastroduodenoscopy (EGD) (~02/2020) Presence of stent in coronary artery (~11/2010) History of hemorrhoidectomy Hx of appendectomy Social History housing: house Smoking Status: Current some day smoker tobacco type: cigarettes alcohol intake: never substance use type: does not use ROS <BALTA Henry - Last Filed: 09/14/24 17:20> ROS ED Constitutional Constitutional ED: Denies chills or fever(s) Cardiovascular Cardiovascular: Denies chest pain Respiratory/Chest Respiratory/Chest: Denies cough or dyspnea Gastrointestinal Gastrointestinal: Denies abdominal pain, nausea or vomiting Genitourinary Genitourinary ED: Denies dysuria, hematuria or urinary urgency Musculoskeletal Musculoskeletal: Denies arthralgias or myalgias Integumentary Denies rash Neurologic Neurologic: Reports weakness EXAM <BALTA Henry - Last Filed: 09/14/24 17:20> Physical Exam Const Vital Signs: 09/14/24 15:27 09/14/24 16:21 Temperature 98.5 F Temperature Source Oral Pulse Rate 83 Respiratory Rate 16 Respiratory Effort Normal Non-Labored Blood Pressure 82/49 L Blood Pressure Mean 60 Pulse Ox 97 Oxygen Delivery Method Room Air Positive well nourished, well developed and no apparent distress General Appearance ED: well developed HEENT Reports normocephalic, head/scalp atraumatic and dry mucous membranes Mouth ED: Yes dry mucous membranes Mouth: dry mucous membranes Eyes PERRL and EOMs intact bilaterally Neck full ROM and supple Chest Wall inspection of chest normal Resp normal respiratory effort and clear to auscultation bilaterally Cardio regular rate and regular rhythm GI soft to palpation, non-tender, non-distended and no masses GI Narrative: Rectal exam: Normal sphincter tone, melanotic stool noted on MELISSA Back/Spine normal ROM and normal to inspection Extremity normal to inspection and full ROM Neuro oriented x3, CN's II-XII intact bilaterally, moves all extremities, no focal motor deficits and no sensory deficits noted Sensorium / Orientation: awake and alert Psych mental status grossly normal and thought process normal Skin no rashes or lesions noted and no wounds <Dr. Rick Torres DO - Last Filed: 09/15/24 02:38> Physical Exam Const Vital Signs: 09/14/24 15:27 09/14/24 16:21 Temperature 98.5 F Temperature Source Oral Pulse Rate 83 Respiratory Rate 16 Respiratory Effort Normal Non-Labored Blood Pressure 82/49 L Blood Pressure Mean 60 Pulse Ox 97 Oxygen Delivery Method Room Air MDM <BALTA Henry - Last Filed: 09/14/24 17:20> [facility] Narrative Medical decision making narrative: Patient presenting today due to weakness and hypotension. She was sent over from Dr. Gaona's office, today was her first visit due to an episode of dark-colored emesis that occurred on Wednesday, she does have a previous history of upper GI bleed. She has not had any further vomiting since then but has had a decreased appetite and clinically does appear dehydrated. Her blood pressure is low here at 82/49, she will be given IV fluids. Broad workup will be obtained. CBC does show a anemia with a hemoglobin of 7.6, this is decreased from her labs on Wednesday when her hemoglobin was 11.9. Her BUN is elevated at 30, this is consistent with an upper GI bleed. Melanotic stool noted on MELISSA. She was given IV Protonix. CT scan of the abdomen and pelvis with IV contrast obtained, this shows constipation, a stable infrarenal aortic aneurysm, and no other acute findings. I spoke with Dr. Gaona, he will be able to perform a scope on her and recommends admission to the hospital. After speaking with the hospitalist, she will be admitted in stable condition, she will be transfused 1 units of blood. Her blood pressure has improved following the liter of IV fluids and she has remained stable. Lab Data Attestation: I reviewed the patient's lab results. Labs: Laboratory Results - last 24 hr 09/14/24 09/14/24 15:48 16:09 WBC 9.2 RBC 2.38 L Hgb 7.6 L Hct 23.8 L MCV 100.0 H MCH 31.9 MCHC 31.9 L RDW Std Deviation 57.8 H RDW Coeff of Alexy 16.0 H Plt Count 258 MPV 9.8 Immature Gran % (Auto) 0.500 Neut % (Auto) 73.1 H Lymph % (Auto) 15.4 L [place] % (Auto) 9.1 Eos % (Auto) 1.5 Baso % (Auto) 0.4 Absolute Neuts (auto) 6.7 Absolute Lymphs (auto) 1.41 Nucleated RBC % 0 Sodium 139 Potassium 4.0 Chloride 106 Carbon Dioxide 23.9 Anion Gap 9 BUN 30 H Creatinine 1.00 Est GFR (MDRD) Non-Af 56 L BUN/Creatinine Ratio 30.0 H Glucose 121 H Lactic Acid 1.2 Calcium 9.2 Total Bilirubin 0.24 AST 19 ALT 9 Alkaline Phosphatase 65 Total Protein 6.4 Albumin 3.8 Globulin 2.7 Albumin/Globulin Ratio 1.4 Radiography X-Ray: Read by ED Physician Diagnostic Testing: Clinical Impression(s) from Imaging Studies Abdomen/Pelvis CT 09/14/24 16:15 IMPRESSION: 1. No acute findings in the abdomen and pelvis. 2. Colonic diverticulosis without diverticulitis. 3. Stable 6.7 x 5.5 cm infrarenal aortic aneurysm. 4. Large colonic stool. Reading [facility] X-Ray 09/14/24 16:30 IMPRESSION: Stable mild cardiomegaly. No acute findings. Reading Location: [facility] EKG Initial EKG: Comments: 78 bpm, normal sinus rhythm, no ST elevation, interpreted by attending ED physician <Dr. Rick Torres, DO - Last Filed: 09/15/24 02:38> [facility] MDM Narrative Medical decision making narrative: Patient presenting today due to weakness and hypotension. She was sent over from Dr. Gaona's office, today was her first visit due to an episode of dark-colored emesis that occurred on Wednesday, she does have a previous history of upper GI bleed. She has not had any further vomiting since then but has had a decreased appetite and clinically does appear dehydrated. Her blood pressure is low here at 82/49, she will be given IV fluids. Broad workup will be obtained. CBC does show a anemia with a hemoglobin of 7.6, this is decreased from her labs on Wednesday when her hemoglobin was 11.9. Her BUN is elevated at 30, this is consistent with an upper GI bleed. Melanotic stool noted on MELISSA. She was given IV Protonix. CT scan of the abdomen and pelvis with IV contrast obtained, this shows constipation, a stable infrarenal aortic aneurysm, and no other acute findings. I spoke with Dr. Gaona, he will be able to perform a scope on her and recommends admission to the hospital. After speaking with the hospitalist, she will be admitted in stable condition, she will be transfused 1 units of blood. Her blood pressure has improved following the liter of IV fluids and she has remained stable. Supervisory Physician Note Patient was seen and examined with the Advanced Practice Provider. Nursing notes and vital signs have been reviewed. Pertinent old records have been reviewed. I agree with the essential elements of the TANA's history, physical exam, assessment, and plan. The differential diagnosis and management options were discussed with the TANA. I participated in determining and agree with the management, procedures, final impression and disposition as documented. See changes noted by me. Please see addendum or separate note for any additional details. 83-year-old female presents for evaluation of generalized weakness and hypotension. Patient has previous history of upper GI bleed. Recently had hematemesis over the weekend in which she was seen at our emergency department. Elected to discharge home and follow-up with GI. Followed up today found to be hypotensive and sent to the emergency department. Denies any recurrent hematemesis but endorses generalized weakness, fatigue, decreased appetite, constipation. Denies any abdominal pain. Not on blood thinners but on Plavix and aspirin. Gen: A&O x3, NAD Head: Normocephalic, atraumatic Eyes: No sclera icterus, conjunctiva clear, PERRL, EOMI ENT: Dry t mucous membranes Neck: Trachea midline, No JVD CV: RRR, no murmurs, no peripheral edema Resp: Lungs CTA BL, no w/r/c GI: Abd soft, non-distended, non-tender, no r/r/g Musc: Full ROM, no deformity Skin: Warm, dry Neuro: Alert, oriented, grossly intact, sensation intact Psych: Cooperative, appropriate mood and affect Differential diagnosis includes but is not limited to GI bleed, anemia, dehydration, electrolyte abnormality, UTI. MELISSA per TANA showed melanotic stool. Suspect her symptoms are likely secondary to anemia from GI bleed. NS bolus ordered. Will reassess BP after. Workup ordered including CT abdomen pelvis. CBC without leukocytosis. Patient has anemia with a hemoglobin of 7.6. This is downtrending from 11.9 on 09/10. This is likely the cause of her symptoms. BMP with elevated BUN but unremarkable creatinine. This is consistent with likely upper GI bleed. Protonix ordered. No transaminitis. CT abdomen pelvis with IV contrast shows constipation stable infrarenal aortic aneurysm. This aneurysm is 6.7 x 5.5 cm. She needs to follow-up outpatient with vascular for possible repair given size. Patient will need admission for endoscopy. Dr. Gaona was consulted and patient was discussed. Agrees with admission. Patient was admitted. Family and patient updated of all the results and confirmed understanding. Blood pressure did improve however given the significant anemia will transfuse with 1 unit. 30 minutes of critical care time utilized in managing the patient. This is due to high probability of and deterioration of the patient based on the patient's condition and excludes any separately billable procedures. Impression: 1. GI bleed, suspect upper GI bleed 2. Acute on chronic anemia secondary to #1 requiring blood transfusion 3. Hypotension secondary to 1 and 2 Lab Data Labs: Laboratory Results - last 24 hr 09/14/24 09/14/24 15:48 16:09 WBC 9.2 RBC 2.38 L Hgb 7.6 L Hct 23.8 L MCV 100.0 H MCH 31.9 MCHC 31.9 L RDW Std Deviation 57.8 H RDW Coeff of Alexy 16.0 H Plt Count 258 MPV 9.8 Immature Gran % (Auto) 0.500 Neut % (Auto) 73.1 H Lymph % (Auto) 15.4 L [place] % (Auto) 9.1 Eos % (Auto) 1.5 Baso % (Auto) 0.4 Absolute Neuts (auto) 6.7 Absolute Lymphs (auto) 1.41 Nucleated RBC % 0 Sodium 139 Potassium 4.0 Chloride 106 Carbon Dioxide 23.9 Anion Gap 9 BUN 30 H Creatinine 1.00 Est GFR (MDRD) Non-Af 56 L BUN/Creatinine Ratio 30.0 H Glucose 121 H Lactic Acid 1.2 Calcium 9.2 Total Bilirubin 0.24 AST 19 ALT 9 Alkaline Phosphatase 65 Total Protein 6.4 Albumin 3.8 Globulin 2.7 Albumin/Globulin Ratio 1.4 Radiography Diagnostic Testing: Clinical Impression(s) from Imaging Studies Abdomen/Pelvis CT 09/14/24 16:15 IMPRESSION: 1. No acute findings in the abdomen and pelvis. 2. Colonic diverticulosis without diverticulitis. 3. Stable 6.7 x 5.5 cm infrarenal aortic aneurysm. 4. Large colonic stool. Reading [facility] Chest X-Ray 09/14/24 16:30 IMPRESSION: Stable mild cardiomegaly. No acute findings. Reading Location: [id number] Discharge Plan Dx/Rx/DC Orders Clinical Impression: Acute upper GI bleed, Weakness, Anemia Disposition Disposition: [facility] Discharge Date/Time: 09/14/24 17:46
[2024-09-14 16:06] LABS: Absolute Lymphocyte Count 1.41 X10^3/uL (0.83-4.51); Absolute Neutrophil Count 6.7 X10^3/uL (2.0-7.7); Basophil# 0.04 X10^3/uL; Basophil% 0.4 % (0-1); Eosinophil# 0.14 X10^3/uL; Eosinophils% 1.5 % (0-5); Hematocrit 23.8 % (37-47); Hemoglobin 7.6 g/dL (12.0-15.0); Lymphocyte # 1.41 X10^3/ul (0.83-4.51); Lymphocyte % 15.4 % (19-41); Mean Corp Hgb Conc 31.9 g/dL (32-36); Mean Corpuscular Hgb 31.9 pg (27.0-32.0); Mean Platelet Vol. 9.8 fl (6.2-12.0); Monocyte# 0.83 X10^3/uL; Monocyte% 9.1 % (0-10); NRBC Flagged by Analyzer 0 % (0-5); Neutrophil # 6.68 X10^3/uL (2.7-7.7); Neutrophil % 73.1 % (47-70); Platelet Count 258 K/mm3 (150-450); RBC Distribution Width SD 57.8 fl (35.1-43.9); Red Blood Count 2.38 M/mm3 (4.2-5.4); White Blood Count 9.2 K/mm3 (4.4-11.0)
--- NOTE | 2024-09-14 16:15 | CT_ITS ---
PROCEDURE: ABDOMEN/PELVIS W IV CONT ONLY 09/14/2024 REASON FOR EXAM: CONSTIPATION, HX OF GI BLEED TECHNIQUE: Abdomen and pelvis CT with intravenous contrast. Coronal and Sagittal reconstruction series were provided. PATIENT PREPARATION: Per protocol ORAL CONTRAST TYPE: None. AMOUNT: mL CONTRAST: Omnipaque 350 VOLUME: 100 mL Not Provided Gauge IV One or more dose reduction techniques were used (e.g., Automated exposure control, adjustment of the mA and/or kV according to patient size, use of iterative reconstruction technique. COMPARISON: CTA abdomen and pelvis 09/11/2019 FINDINGS: Lung bases: Mild dependent atelectasis Liver: Normal size. No mass. Gallbladder: Surgically absent. No ductal dilation. Spleen: No splenomegaly. 13 mm inferior pole splenic cyst. Pancreas: Normal size without evidence of mass surrounding inflammation or ductal dilation. Adrenals: Unremarkable. Kidneys: Normal renal sizes. No hydronephrosis. Bladder: Unremarkable. Reproductive Organs: No pelvic mass. Bowel: Moderate hiatal hernia. No bowel dilation or significant wall thickening. Colonic diverticulosis without diverticulitis. Large colonic stool. Appendix: The appendix is not identified. There is no inflammatory process identified in the right lower quadrant to suggest appendicitis. Lymph nodes: No suspicious lymph node enlargement. Vasculature: Postoperative changes bifurcated aortoiliac stent. Stable appearance 6.7 x 5.5 cm infrarenal fusiform aneurysm. Peritoneum / Retroperitoneum: No pneumoperitoneum. No ascites. Bones: Degenerative changes of the spine. Postoperative changes L3-L4 posterior fusion and L4-L5 laminectomy. CT/Abdomen/Pelvis W IV Cont ONLY IMPRESSION: 1. No acute findings in the abdomen and pelvis. 2. Colonic diverticulosis without diverticulitis. 3. Stable 6.7 x 5.5 cm infrarenal aortic aneurysm. 4. Large colonic stool. Reading Location: [facility]
[2024-09-14] MEDS: 0.9% Normal Saline (1000mL) 1,000 ML 999 ML IV (16:26)
--- NOTE | 2024-09-14 16:30 | RAD_ITS ---
PROCEDURE: CHEST PA AND LATERAL 09/14/2024 REASON FOR EXAM: WEAKNESS TECHNIQUE: Frontal and lateral views of the chest. COMPARISON: Chest radiograph 08/10/2024. FINDINGS: Hardware: None. Heart: Heart size is mildly enlarged. Mediastinum: There are atherosclerotic calcifications of the thoracic aorta. Lungs: Bibasilar atelectasis. No focal consolidation, pleural effusion or pneumothorax. Bones: Mild degenerative changes are identified within the thoracic spine. Partially visualized stent within the upper abdomen. RAD/Chest PA and Lateral IMPRESSION: Stable mild cardiomegaly. No acute findings. Reading Location: [id number]
[2024-09-14 16:31] LABS: ALB/GLOB Ratio 1.4 RATIO (0.9-2.4); AST(SGOT) 19 U/L (<=31); Alanine Aminotransfer ALT/SGPT 9 U/L (<=34); Albumin, Serum 3.8 g/dL (3.4-4.8); Alkaline Phosphatase 65 U/L (35-104); Anion Gap 9 (5-15); BUN 30 mg/dL (4-19); Calcium,Total 9.2 mg/dL (7.6-11.0); Carbon Dioxide 23.9 mmol/L (21.0-32.0); Chloride 106 mmol/L (98-108); EST Glomerular Filtration Rate 56 (>60); Globulin 2.7 g/dL (2.2-4.2); Glucose 121 mg/dL (70-99); Protein, Total 6.4 g/dL (5.9-8.4); Sodium Level 139 mmol/L (133-145); Total Bilirubin 0.24 mg/dL (0.00-1.30)
[2024-09-14 16:43] LABS: Lactic Acid 1.2 mmol/L (0.0-2.0)
[2024-09-14] MEDS: Pantoprazole Sodium 40 MG in 0.9% Normal Saline (100mL MB+) 100 ML 330 MG IV ×2 (17:14→21:10)
--- NOTE | 2024-09-14 17:32 | HP.PCM.HOS_ITS ---
HPI - General General Date of Admission: 09/14/24 HPI Narrative YARITZA CHRISTINA, is a 83 F who presents to the hospital with hypotension and upper GI bleed. She presented to the ER few days ago with upper abdominal pain and a GI bleed at that time however her hemoglobin was stable so she was discharged home with outpatient GI follow-up. Today she was at the field trainer office when she was hypotensive so she was sent to the ER. Her blood pressures improved with IV fluids however her hemoglobin in those 4 days dropped from 11.9 to 7.6. Given that she is a cardiac patient she will get a unit of blood to try to maintain her hemoglobin above 8. Will continue with clear liquid diet and she was given a dose of Protonix in the ER. She denies any abdominal pain currently but she did have a bowel movement in the emergency room that was maroon and and fecal occult is currently pending. [facility] Medical History Wears hearing aid Wears glasses Depression History of steroid therapy Ambulates with cane Easy bruising Migraine headache History of hiatal hernia History of GI bleed Gastric reflux Smoker Hypertension History of echocardiogram History of stress test Cardiology follow-up encounter Elevated alanine aminotransferase (ALT) level Cellulitis of left arm Upper GI bleed Nonrheumatic aortic valve stenosis Abdominal aortic aneurysm without rupture SVT (supraventricular tachycardia) Palpitations Family history of ischemic heart disease Family history of hypertension Family history of sudden cardiac Mitral valve annular calcification Heart murmur, systolic Premature ventricular contraction Spinal stenosis Osteoarthritis Peptic ulcer disease History of upper gastrointestinal bleeding Atherosclerotic heart disease of [place] coronary artery without angina pectoris History of upper gastrointestinal bleeding HLD (hyperlipidemia) Hx of peptic ulcer CAD (coronary artery disease) COLD (chronic obstructive lung disease) Benign essential HTN Home Medications ?Medication ?Instructions ?Recorded ?Last Taken ?Type coenzyme Q10 100 mg capsule 100 mg PO QHS supplement 0 06/28/17 12/31/19 History rizatriptan 10 mg tablet (Maxalt) 10 mg PO QDAY PRN mi graines 06/28/17 Unknown History sertraline 50 mg tablet 50 mg PO QDAY mood 06/28/17 01/01/20 History aspirin 81 mg tablet,delayed 81 mg PO DAILY 04/17/20 1 07/08/23 History release (Adult Low Dose Aspirin) cholecalciferol (vitamin D3) 50 50 mcg PO DAILY Unknown History mcg (2,000 unit) capsule denosumab 60 mg/mL subcutaneous 60 mg subcut [id number] 11/07/21 Unknown History syringe (Prolia) amlodipine 2.5 mg tablet 2.5 mg PO QDAY blood pressur e #90 09/06/23 05/15/24 Rx tabs metoprolol succinate 25 mg 25 mg PO DAILY blood pressu re #90 04/10/24 05/15/24 Rx tablet,extended release 24 hr tabs clopidogrel 75 mg tablet 75 mg PO DAILY #90 tabs 07/11 Unknown Rx lisinopril 20 mg tablet 20 mg PO QDAY blood pressure #90 08/16/24 Unknown Rx tabs rosuvastatin 10 mg tablet 10 mg PO QHS cholesterol #90 tabs 08/16/24 Unknown Rx metoclopramide HCl 5 mg tablet 5 mg PO Q8H PRN PRN willem sea and 09/10/24 Unknown Rx (Reglan) vomiting 3 days #10 tabs pantoprazole 20 mg tablet,delayed 20 mg PO DAILY heart burn 09/10/24 Unknown History release sucralfate 1 gram tablet (Carafate) 1 g PO BID PRN upp er abdominal 09/10/24 Unknown Rx pain #14 tabs Allergy/AdvReac Type Severity Reaction Status Date / Time atorvastatin (From Lipitor) AdvReac Severe myalgias Verified 09/14/24 15:27 ciprofloxacin (From Cipro) AdvReac Unknown Unknown Verified 09/14/24 15:27 ondansetron AdvReac dizziness Verified 09/14/24 15:27 Family History Mother Sudden cardiac Father CAD (coronary artery disease) CVA (cerebral vascular accident) Surgical History S/P laparoscopic cholecystectomy History of back surgery History of colonoscopy History of aortic aneurysm repair History of esophagogastroduodenoscopy (EGD) (~02/2020) Presence of stent in coronary artery (~11/2010) History of hemorrhoidectomy Hx of appendectomy Social History (Updated 09/14/24 @ 16:21 by Skye Alexander) housing: house Smoking Status: Current some day smoker tobacco type: cigarettes alcohol intake: never substance use type: does not use ROS Constitutional Constitutional: Denies chills, fatigue, fever(s) or malaise Eyes Eyes: Denies blurry vision ENT HEENT: Denies headache(s) or nasal discharge Cardiovascular Cardiovascular: Reports lightheadedness; Denies chest pain, dyspnea on exertion or syncope Respiratory/Chest Respiratory/Chest: Denies cough, shortness of breath at rest or shortness of breath with exertion Gastrointestinal Gastrointestinal: Reports abdominal pain, hematemesis, melena and nausea; Denies constipation, diarrhea or vomiting Genitourinary Genitourinary: Denies dysuria Neurologic Neurologic: Denies focal weakness, numbness or tremor(s) Psychiatric Psychiatric: Denies anxiety or depression Vital Signs Vital Signs Vital Signs: 09/14/24 15:27 09/14/24 16:21 09/14/24 17:27 Temperature 98.5 F Temperature Source Oral Pulse Rate 83 87 Respiratory Rate 16 18 Respiratory Effort Normal Non-Labored Blood Pressure 82/49 L 112/75 Blood Pressure Mean 60 87 Pulse Ox 97 98 Oxygen Delivery Method Room Air Physical Exam Narrative General: Alert, Oriented x3, Cooperative, No apparent distress HEENT: Atraumatic, PERRLA, EOMI, Normocephalic Oral: Dry mucosa Neck: Supple, No JVD Lungs: Diminished, Normal air movement, No rhonchi, No wheeze, No rales Cardiovascular: Regular rate, Regular Rhythm, Normal S1, Normal S2, No murmurs Abdomen: Soft, Non Tender, Non-Distended, No Hepato-splenomegaly Extremities: No edema, Capillary Refill Less than 3 Seconds Skin: No rashes, No breakdown Musculoskeletal: No Tenderness to Palpation of Joints or Extremities Neurological: No focal neurological deficits, moves all extremities, sensation intact Psych/Mental Status: Normal Affect, Appropriate Results Lab / Micro Data 09/14/24 15:48 09/14/24 15:48 Labs: Laboratory Results - last 24 hr 09/14/24 15:48: WBC 9.2, RBC 2.38 L, Hgb 7.6 L, Hct 23.8 L, MCV 100.0 H, MCH 31.9, MCHC 31.9 L, RDW Std Deviation 57.8 H, RDW Coeff of Alexy 16.0 H, Plt Count 258, MPV 9.8, Immature Gran % (Auto) 0.500, Neut % (Auto) 73.1 H, Lymph % (Auto) 15.4 L, [place] % (Auto) 9.1, Eos % (Auto) 1.5, Baso % (Auto) 0.4, Absolute Neuts (auto) 6.7, Absolute Lymphs (auto) 1.41, Nucleated RBC % 0, Sodium 139, Potassium 4.0, Chloride 106, Carbon Dioxide 23.9, Anion Gap 9, BUN 30 H, Creatinine 1.00, Est GFR (MDRD) Non-Af 56 L, BUN/Creatinine Ratio 30.0 H, G lucose 121 H, Calcium 9.2, Total Bilirubin 0.24, AST 19, ALT 9, Alkaline Phosphatase 65, Total Protein 6.4, Albumin 3.8, Globulin 2.7, Albumin/Globulin Ratio 1.4 09/14/24 16:09: Lactic Acid 1.2 09/14/24 17:25: Crossmatch See Detail Imaging Radiology Impression Abdomen/Pelvis CT 09/14/24 16:15 IMPRESSION: 1. No acute findings in the abdomen and pelvis. 2. Colonic diverticulosis without diverticulitis. 3. Stable 6.7 x 5.5 cm infrarenal aortic aneurysm. 4. Large colonic stool. Reading [facility] Chest X-Ray 09/14/24 16:30 IMPRESSION: Stable mild cardiomegaly. No acute findings. Reading Location: [id number] Assessment & Plan Assessment/Plan (1) Weakness: (2) Acute upper GI bleed: PLAN: Plan 1. Acute blood loss anemia secondary to an upper GI bleed resulting in weakness ? Will continue with Protonix 40 mg IV twice daily ? Clear liquid diet for now and n.p.o. at midnight ? Will start IV fluids when she is n.p.o. ? Will consult GI for EGD in the morning ? Will hold all of her home medications secondary to the fact that they are antiplatelets and blood pressure medications however they are also still pending verification 2. Essential HTN/HLD/CAD status post stent ? Will hold her home blood pressure medication secondary to her hypotension on admission ? Can resume her statin when verified ? Will hold her aspirin and Plavix for her history of cardiac stent that was placed in 2010 ? Given that her anemia was 7.6 and she is a cardiac patient will transfuse 1 unit and try to maintain her hemoglobin above 8 3. Anxiety/depression ? Stable ? Can resume her home Zoloft when verified DVT: SCDs Had a 16-minute advance care planning discussion on CODE STATUS explaining the difference tween full code and DNR CCA. This had to be explained several times as the daughter kept trying to override the patient's decision however the patient is alert and oriented and has capacity to make this decision on her own and she has elected to be a DNR CCA no intubation. Charges/Coding Multi Select Codes Visit Charges Visit Charges: 62831 Init Hosp L2 Hospitalists' Procedures Procedures: 45501 Advncd Care Plan 30 Min
--- NOTE | 2024-09-14 17:55 | CASEMGMT ---
Care Management Face to Face with patient for initial transition planning/care coordination assessment in the ED. This justowriter operator introduced self and role at [facility]. Patient alert and oriented. Patient willing to participate in assessment and is able to answer all questions appropriately. Patient's daughterRosendo, bedside. Care providers, pharmacy, and demographics verified. Admitting Diagnosis: Weakness, Acute upper GI bleed Other diagnosis history: hiatal hernia, GI bleeds, CAD, COLD PCP: Chanell Specialists: Mateo with [facility]. Gianfranco Powers in [place], assistant auto center manager. Preferred Pharmacy: [facility] or mail in Insurance: Medicare A B (primary). Physician [place] (secondary). Prescription Benefit: yes Living Will/HPOA: daughterRosendo (primary). sonVan (secondary). LNOK: 2 daughters and 1 son Living Arrangements: lives alone in a 2 story home with first floor living; 3 steps to enter with a railing; independent with all ADLs/IADLs. Transportation: patient drives DME: walker, cane, shower seat, grab bars, raised toilet, blood pressure cuff, pulse ox HHC: stayed in [place] with relative and had HHC after a surgery (agency unknown) SNF/Rehab: none Community Resources: none Patient goals: Patient wishes to discharge home, denies need for home health care at this time. Patient denies any further needs or concerns at this time. Disposition Plan: admission to acute; RN CM/SW to follow for discharge planning needs that may arise. Desirae Kamara, ENVIRONMENTAL SCIENCES PROFESSOR, LINING CLEANER
[2024-09-14 19:09] LABS: Mucous, Urine 0 SEEN /hpf (<or=2+); Red Blood Cells-Urine 0 SEEN /hpf (0-5)
[2024-09-14 19:18] LABS: Color, Urine Yellow (Yellow); Glucose, Dipstick Normal (Normal); Ketone-Dipstick Negative (Negative); Leukocyte Esterase-Dipstick Negative /ul (Negative); Nitrite-Dipstick Negative (Negative); Occult Blood-Urine Negative /ul (Negative); Protein-Dipstick 15 mg/dl (Negative); Specific Gravity, Urine 1.005 (1.002-1.030); Urine Bilirubin Dipstick Negative (Negative); Urine Clarity Clear (Clear); Urine Urobilinogen 4 mg/dl (Normal); Urine pH 6.5 (5.0 - 8.0)
[2024-09-14 19:28] LABS: Squamous Epithelial Cells - UA 0-5 SEEN /hpf (5-10); White Blood Cells 0-5 SEEN /hpf (0-5)
[2024-09-14 19:29] LABS: Bacteria RARE /hpf (None Seen)
[2024-09-14] MEDS: 0.9% Saline Lock 10 ML Syringe IV (21:11)
--- NOTE | 2024-09-14 22:14 | PCM.HOSP.N ---
Hospitalist Note Patient requesting medication for anxiety. Will trial low dose ativan x 1.
[2024-09-14] MEDS: LORazepam 0.5 MG Tablet PO (22:37)
--- NOTE | 2024-09-14 23:02 | EX.PCM.CON.G ---
HPI Consult Data Date of Consult: 09/14/24 HPI Narrative Reason for Consultation: GI bleed HPI Narrative: YARITZA CHRISTINA, is a 83 F who presents with her daughter due to generalized weakness that she has had over the last few days. She was here on Wednesday due to dark-colored emesis, she does have a previous history of an upper GI bleed. She reports that she has a decreased appetite and is not wanting to eat or drink much because food/liquids does not seem appetizing. She has not had a bowel movement in several days but again is not eating. She denies fevers, chills, chest pain, shortness of breath, abdominal pain, and urinary symptoms. She is on aspirin and Plavix due to CAD history. She did see Giselle in the GI clinic, her blood pressure was low in the office and she advised she come here for evaluation. [facility] Medical History Osteoporosis Coronary artery disease Wears hearing aid Wears glasses Depression History of steroid therapy Ambulates with cane Easy bruising Migraine headache History of hiatal hernia History of GI bleed Gastric reflux Smoker Hypertension History of echocardiogram History of stress test Cardiology follow-up encounter Elevated alanine aminotransferase (ALT) level Cellulitis of left arm Upper GI bleed Nonrheumatic aortic valve stenosis Abdominal aortic aneurysm without rupture SVT (supraventricular tachycardia) Palpitations Family history of ischemic heart disease Family history of hypertension Family history of sudden cardiac Mitral valve annular calcification Heart murmur, systolic Premature ventricular contraction Spinal stenosis Osteoarthritis Peptic ulcer disease History of upper gastrointestinal bleeding Atherosclerotic heart disease of [place] coronary artery without angina pectoris History of upper gastrointestinal bleeding HLD (hyperlipidemia) Hx of peptic ulcer CAD (coronary artery disease) COLD (chronic obstructive lung disease) Benign essential HTN Home Medications ?Medication ?Instructions ?Recorded ?Last Taken ?Type coenzyme Q10 100 mg capsule 100 mg PO QHS supplement 06/28/17 12/31/19 History rizatriptan 10 mg tablet (Maxalt) 10 mg PO QDAY PRN migraines 06/28/17 Unknown History sertraline 50 mg tablet 50 mg PO QDAY mood 06/28/17 01/01/20 History aspirin 81 mg tablet,delayed 81 mg PO DAILY antiplt 04/17/20 05/07/24 History release (Adult Low Dose Aspirin) cholecalciferol (vitamin D3) 50 50 mcg PO DAILY vitamin 04/17/20 Unknown History mcg (2,000 unit) capsule denosumab 60 mg/mL subcutaneous 60 mg subcut [id number] bone health 11/07/21 Unknown History syringe (Prolia) amlodipine 2.5 mg tablet 2.5 mg PO QDAY blood pressure #90 09/06/23 05/15/24 Rx tabs metoprolol succinate 25 mg 25 mg PO DAILY blood pressure #90 04/10/24 05/15/24 Rx tablet,extended release 24 hr tabs clopidogrel 75 mg tablet 75 mg PO DAILY cholesterol #90 tabs 08/16/24 Unknown Rx lisinopril 20 mg tablet 20 mg PO QDAY blood pressure #90 08/16/24 Unknown Rx tabs rosuvastatin 10 mg tablet 10 mg PO QHS cholesterol #90 tabs 08/16/24 Unknown Rx metoclopramide HCl 5 mg tablet 5 mg PO Q8H PRN PRN nausea and 09/10/24 Unknown Rx (Reglan) vomiting 3 days #10 tabs pantoprazole 20 mg tablet,delayed 20 mg PO DAILY heartburn 09/10/24 Unknown History release sucralfate 1 gram tablet (Carafate) 1 g PO BID PRN upper abdominal 09/10/24 Unknown Rx pain #14 tabs Allergy/AdvReac Type Severity Reaction Status Date / Time atorvastatin (From Lipitor) AdvReac Severe myalgias Verified 09/14/24 15:27 ciprofloxacin (From Cipro) AdvReac Unknown Unknown Verified 09/14/24 15:27 ondansetron AdvReac dizziness Verified 09/14/24 15:27 Family History Mother Sudden cardiac Father CAD (coronary artery disease) CVA (cerebral vascular accident) Surgical History History of coronary artery stent placement S/P laparoscopic cholecystectomy History of back surgery History of colonoscopy History of aortic aneurysm repair History of esophagogastroduodenoscopy (EGD) (~02/2020) Presence of stent in coronary artery (~11/2010) History of hemorrhoidectomy Hx of appendectomy Social History housing: house Smoking Status: Current some day smoker tobacco type: cigarettes alcohol intake: never substance use type: does not use ROS Constitutional Constitutional: Denies fatigue, fever(s), poor appetite, weight gain or weight loss Gastrointestinal Gastrointestinal: Denies belching, bloating, change in bowel habits, change in stool character, chewing difficulty, coffee ground emesis, constipation, cramping, diarrhea, dyspepsia, dysphagia, early satiety, excessive flatus, fecal incontinence, heartburn, hematemesis, hematochezia, hemorrhoids, loose stools, melena, nausea, odynophagia, rectal bleeding, tenesmus, vomiting or weight changes Physical Exam Const alert, oriented x3, no apparent distress and healthy appearing General Appearance: cooperative GI normal to inspection, nondistended, normoactive bowel sounds, soft to palpation, non-tender and non-distended Percussion: normal to percussion Rectal Exam: deferred Lab / Micro Data 09/14/24 15:48 09/14/24 15:48 Labs: Laboratory Results - last 24 hr 09/14/24 15:48: WBC 9.2, RBC 2.38 L, Hgb 7.6 L, Hct 23.8 L, MCV 100.0 H, MCH 31.9, MCHC 31.9 L, RDW Std Deviation 57.8 H, RDW Coeff of Alexy 16.0 H, Plt Count 258, MPV 9.8, Immature Gran % (Auto) 0.500, Neut % (Auto) 73.1 H, Lymph % (Auto) 15.4 L, [place] % (Auto) 9.1, Eos % (Auto) 1.5, Baso % (Auto) 0.4, Absolute Neuts (auto) 6.7, Absolute Lymphs (auto) 1.41, Nucleated RBC % 0, Sodium 139, Potassium 4.0, Chloride 106, Carbon Dioxide 23.9, Anion Gap 9, BUN 30 H, Creatinine 1.00, Est GFR (MDRD) Non-Af 56 L, BUN/Creatinine Ratio 30.0 H, Glucose 121 H, Calcium 9.2, Total Bilirubin 0.24, AST 19, ALT 9, Alkaline Phosphatase 65, Total Protein 6.4, Albumin 3.8, Globulin 2.7, Albumin/Globulin Ratio 1.4 09/14/24 16:09: Lactic Acid 1.2 09/14/24 17:25: Blood Type A NEGATIVE, Antibody Screen NEGATIVE, Crossmatch See Detail 09/14/24 18:40: Urine Color Yellow, Urine Clarity Clear, Urine pH 6.5, Ur Specific [place] 1.005, Urine Protein 15 H, Urine Glucose (UA) Normal, Urine Ketones Negative, Urine Occult Blood Negative, Urine Nitrite Negative, Urine Bilirubin Negative, Urine Urobilinogen 4 H, Ur Leukocyte Esterase Negative, Urine RBC 0 SEEN, Urine WBC 0-5 SEEN, Ur Squamous Epith Cells 0-5 SEEN, Urine Bacteria RARE, Urine Mucus 0 SEEN Micro: Microbiology 09/14/24 17:01 Stool Stool Occult Blood (ANNE-MARIE) - Final Occult Blood Positive Imaging Radiology Impression Abdomen/Pelvis CT 09/14/24 16:15 IMPRESSION: 1. No acute findings in the abdomen and pelvis. 2. Colonic diverticulosis without diverticulitis. 3. Stable 6.7 x 5.5 cm infrarenal aortic aneurysm. 4. Large colonic stool. Reading [facility] Chest X-Ray 09/14/24 16:30 IMPRESSION: Stable mild cardiomegaly. No acute findings. Reading Location: [id number] Assessment & Plan Assessment/Plan (1) Weakness: (2) Acute upper GI bleed: PLAN: Plan 83-year-old with past medical history of aortic valve stenosis, abdominal aortic aneurysm, PTCA, with stunt on aspirin and Plavix, who presents with shortness of breath on exertion, fatigue, weakness, and with recent mematic stools. She should undergo an upper endoscopy to evaluate our PGA track. She was explaining alternatives, risk, benefits, including out with standing bleeding, infection, sepsis, perfusion, in . She have an ASA of three. Charges/Coding Visit Charges Inpatient E&M: 99869 Init Hosp L3
[2024-09-15] VITALS (14 sets, daily range): BP systolic 94–148; BP diastolic 54–76; PULSE 65–85; RESP 12–18; TEMP 36.3–36.8; O2SAT 94–98
[2024-09-15] MEDS: 0.9% Normal Saline (1000mL) 1,000 ML 75 ML IV ×2 (00:59→13:37)
[2024-09-15 05:13] LABS: Absolute Lymphocyte Count 1.43 X10^3/uL (0.83-4.51); Absolute Neutrophil Count 4.5 X10^3/uL (2.0-7.7); Basophil# 0.03 X10^3/uL; Basophil% 0.4 % (0-1); Eosinophil# 0.19 X10^3/uL; Eosinophils% 2.8 % (0-5); Hematocrit 24.8 % (37-47); Hemoglobin 7.9 g/dL (12.0-15.0); Lymphocyte # 1.43 X10^3/ul (0.83-4.51); Lymphocyte % 20.9 % (19-41); Mean Corp Hgb Conc 31.9 g/dL (32-36); Mean Corpuscular Volume 97.3 fL (81-99); Mean Platelet Vol. 9.9 fl (6.2-12.0); Monocyte# 0.66 X10^3/uL; Monocyte% 9.6 % (0-10); NRBC Flagged by Analyzer 0 % (0-5); Neutrophil # 4.51 X10^3/uL (2.7-7.7); Platelet Count 201 K/mm3 (150-450); RBC Distribution Width CV 18.5 % (11.6-14.6); RBC Distribution Width SD 63.4 fl (35.1-43.9); Red Blood Count 2.55 M/mm3 (4.2-5.4); White Blood Count 6.8 K/mm3 (4.4-11.0)
[2024-09-15 05:25] LABS: Prothrombin Time (Protime)PT. 13.8 SECONDS (11.7-14.9)
[2024-09-15 05:26] LABS: Partial Thromboplast Time 24.5 Seconds (24.1-36.2)
[2024-09-15 06:07] LABS: Anion Gap 9 (5-15); BUN 22 mg/dL (4-19); BUN/Creat Ratio 25.7 RATIO (10-20); Calcium,Total 8.3 mg/dL (7.6-11.0); Carbon Dioxide 21.2 mmol/L (21.0-32.0); Chloride 111 mmol/L (98-108); Creatinine, Serum 0.84 mg/dL (0.70-1.20); EST Glomerular Filtration Rate 69 (>60); Estimated Creatinine Clearance 41.96 ml/min (50-250); Glucose 93 mg/dL (70-99); Potassium 3.8 mmol/L (3.3-5.1); Sodium Level 141 mmol/L (133-145)
[2024-09-15] MEDS: Pantoprazole Sodium 40 MG in 0.9% Normal Saline (100mL MB+) 100 ML 330 MG IV ×2 (08:19→22:13)
--- NOTE | 2024-09-15 08:20 | PCM.PN.HOSP ---
Reason for Visit Reason for Visit: Diagnoses Gastrointestinal hemorrhage, unspecified (09/14/24) Weakness (09/14/24) Subjective Subjective Patient is an 83-year-old lady admitted with increasing generalized weakness, abdominal pain as well as coffee-ground emesis with hemoglobin of 7. Objective Data Objective Data Vital Signs: Vital Signs Temp Pulse Resp BP Pulse Ox O2 Del Method 97.8 F 80 16 130/76 H 96 Room Air 09/15/24 08:10 09/15/24 08:10 09/15/24 08:10 09/15/24 08:10 09/15/24 08:10 09/15/24 08:10 Oxygen Delivery Method Room Air Weight: 62.704 kg Body Mass Index (BMI) 26.9 Intake & Output: Intake and Output for Last 24 Hours 09/13/24 09/14/24 09/15/24 23:59 23:59 23:59 Intake Total 1220 / 1220 400 / 400 Balance 1220 / 1220 400 / 400 Lab / Micro Data 09/15/24 03:54 09/15/24 03:54 Labs: Laboratory Results - last 24 hr 09/14/24 15:48: WBC 9.2, RBC 2.38 L, Hgb 7.6 L, Hct 23.8 L, MCV 100.0 H, MCH 31.9, MCHC 31.9 L, RDW Std Deviation 57.8 H, RDW Coeff of Alexy 16.0 H, Plt Count 258, MPV 9.8, Immature Gran % (Auto) 0.500, Neut % (Auto) 73.1 H, Lymph % (Auto) 15.4 L, [place] % (Auto) 9.1, Eos % (Auto) 1.5, Baso % (Auto) 0.4, Absolute Neuts (auto) 6.7, Absolute Lymphs (auto) 1.41, Nucleated RBC % 0, Sodium 139, Potassium 4.0, Chloride 106, Carbon Dioxide 23.9, Anion Gap 9, BUN 30 H, Creatinine 1.00, Est GFR (MDRD) Non-Af 56 L, BUN/Creatinine Ratio 30.0 H, Glucose 121 H, Calcium 9.2, Total Bilirubin 0.24, AST 19, ALT 9, Alkaline Phosphatase 65, Total Protein 6.4, Albumin 3.8, Globulin 2.7, Albumin/Globulin Ratio 1.4 09/14/24 16:09: Lactic Acid 1.2 09/14/24 17:25: Blood Type A NEGATIVE, Antibody Screen NEGATIVE, Crossmatch See Detail 09/14/24 18:40: Urine Color Yellow, Urine Clarity Clear, Urine pH 6.5, Ur Specific [place] 1.005, Urine Protein 15 H, Urine Glucose (UA) Normal, Urine Ketones Negative, Urine Occult Blood Negative, Urine Nitrite Negative, Urine Bilirubin Negative, Urine Urobilinogen 4 H, Ur Leukocyte Esterase Negative, Urine RBC 0 SEEN, Urine WBC 0-5 SEEN, Ur Squamous Epith Cells 0-5 SEEN, Urine Bacteria RARE, Urine Mucus 0 SEEN 09/15/24 03:54: WBC 6.8, RBC 2.55 L, Hgb 7.9 L, Hct 24.8 L, MCV 97.3, MCH 31.0, MCHC 31.9 L, RDW Std Deviation 63.4 H, RDW Coeff of Alexy 18.5 H, Plt Count 201, MPV 9.9, Immature Gran % (Auto) 0.300, Neut % (Auto) 66.0, Lymph % (Auto) 20.9, [place] % (Auto) 9.6, Eos % (Auto) 2.8, Baso % (Auto) 0.4, Absolute Neuts (auto) 4.5, Absolute Lymphs (auto) 1.43, Nucleated RBC % 0, PT 13.8, INR 1.0, APTT 24.5, Sodium 141, Potassium 3.8, Chloride 111 H, Carbon Dioxide 21.2, Anion Gap 9, BUN 22 H, Creatinine 0.84, Estim Creat Clear Calc 41.96 L, Est GFR (MDRD) Non-Af 69, BUN/Creatinine Ratio 25.7 H, Glucose 93, Calcium 8.3 Micro: Microbiology 09/14/24 17:01 Stool Stool Occult Blood (ANNE-MARIE) - Final Occult Blood Positive Radiography Diagnostic Testing: Radiology Impression Abdomen/Pelvis CT 09/14/24 16:15 IMPRESSION: 1. No acute findings in the abdomen and pelvis. 2. Colonic diverticulosis without diverticulitis. 3. Stable 6.7 x 5.5 cm infrarenal aortic aneurysm. 4. Large colonic stool. Reading Location: [facility] Chest X-Ray 09/14/24 16:30 IMPRESSION: Stable mild cardiomegaly. No acute findings. Reading Location: [facility] Physical Exam Narrative GENERAL: cooperative HEENT: Atraumatic; normocephalic EYES; Anicteric, Normal Conjunctiva NECK; supple, normal thyroid, RESPIRATORY: Diminished to auscultation CARDIOVASCULAR: Regular S1 S2, GI: soft, normoactive bowel sounds, : No Renal angle tenderness; EXTREMITIES: No edema, no clubbing, MUSCULOSKELETAL: no muscle wasting NEURO: Awake; no lateralizing signs. SKIN: No Rash PSYCH; Flat affect Assessment & Plan Assessment/Plan (1) Weakness: (2) Acute upper GI bleed: PLAN: Plan Patient is an 83-year-old lady admitted with increasing generalized weakness, abdominal pain as well as coffee-ground emesis with hemoglobin of 7.6. 1. Upper GI bleed ? Suspected to be secondary to peptic ulcer disease exacerbated by the use of antiplatelet therapy with clopidogrel as well as aspirin. Suspected medications held. Admitted to a monitored bed. H&H ordered every 6 started on Protonix and consultation placed to GI for subsequent management 2. Anemia ? Secondary to acute blood loss monitoring H&H and transfuse if patient becomes symptomatic or hemoglobin falls below 7, in addition to management as discussed above 3. Hypertension ? Patient presented with episodes of hypotension patient antihypertensives subsequently held. 4. Coronary artery disease ? With previous PCI. Patient is on guideline directed medical therapy including dual antiplatelet therapy and statin therapy. Patient will antiplatelet therapy held given above 5. Dyslipidemia ?Patient is on statin therapy, continued at home dose 6. Depression with anxiety ? Patient is on sertraline did continue 7. Osteoporosis ? Patient is on denosumab 8. Hiatal hernia with GERD symptoms ? Patient is on PPI 9. DVT prophylaxis ? SCDs for now systemic anticoagulation held given patient presentation. Charges/Coding Visit Charges Inpatient E&M: 76611 Subs Hosp L2
--- NOTE | 2024-09-15 10:26 | PRE.ANES_ITS ---
ASA Classification* ASA Classification ASA Classification: 3 Assessment & Plan Anesthesia* Anesthesia Assessment Anesthesia Assessment: Discussed sedation and/or anesthesia options, risks, benefits, and alternatives with patient/parents/legal guardian/POA. Questions invited. The patient/parents/legal guardian/POA seems to understand and agrees to proceed with anesthesia plan. Reviewed the physical assessment, medical history, allergy history and patient home medications list prior to surgery/procedure/anesthetic and documented any changes. Performed airway and anesthesia risk assessments. Anesthesia Type Anesthesia Type: MAC Anesthesia Focused Assessment* Temperature: 97.8 F Pulse Rate: 80 Blood Pressure: 130/76 Respiratory Rate: 16 Pulse Ox: 96 Airway Assessment Mouth opens: >3 cm Mallampati Score: II Focused Labs Anesthesia Preop lab: CBC WBC 6.8 K/mm3 (4.4-11.0) 09/15/24 03:54 09/15/24 RBC 2.55 M/mm3 (4.2-5.4) L 09/15/24 03:54 09/15/24 Hgb 7.9 g/dL (12.0-15.0) L 09/15/24 03:54 09/15/24 Hct 24.8 % (37-47) L 09/15/24 03:54 09/15/24 Plt Count 201 K/mm3 (150-450) 09/15/24 03:54 09/15/24 CHEMISTRY Potassium 3.8 mmol/L (3.3-5.1) 09/15/24 03:54 09/15/24 Sodium 141 mmol/L (133-145) 09/15/24 03:54 09/15/24 BUN 22 mg/dL (4-19) H 09/15/24 03:54 09/15/24 Creatinine 0.84 mg/dL (0.70-1.20) 09/15/24 03:54 09/15/24 Glucose 93 mg/dL (70-99) 09/15/24 03:54 09/15/24 TSH 1.41 uIU/mL (0.358-3.74) 10/24/14 07:53 COAG PT 13.8 SECONDS (11.7-14.9) 09/15/24 03:54 Pre-Assessment Diagnosis/Proposed Procedure Planned Operative Procedure(s): EGD Anesthesia History Anesthesia History - operational intelligence officer: Anesthesia History - operational intelligence officer Hx Hospitalization No 05/09/24 09:14 Any Problems With Anesthesia No 05/09/24 09:14 Cholinesterase deficiency No 05/09/24 09:14 You/Your Family Experience No 05/09/24 09:14 fever (hyperthermia) with Relationship Recent Exposure to Contagious No 05/15/24 10:10 Disease Does patient have nerve No 05/09/24 09:14 stimulator Patient instructed to have device shut off --Does patient have Pacemaker or ICD? When Was Last Pacemaker Check QUESTION #4 FULL TEXT: You/Your Family Experience fever (hyperthermia) with Anesthesia Last Oral Intake Last Oral intake: Last Oral Intake NPO since Meds taken in AM with sips of water? Meds patient instructed to take am of surgery PONV PONV - operational intelligence officer: PONV - operational intelligence officer Female HX of Motion Sickness HX of N/V After Surgery Non-Smoker Duration of Surgery greater than 60 minutes Number of Risk Factors PONV Score Height & Weight Height & Weight: Anesthesia: Height & Weight Height 5 ft 09/15/24 10:08 Weight: 62.704 kg 09/15/24 10:08 Body Mass Index (BMI) 26.9 09/14/24 18:09 Respiratory Assessment Respiratory Assessment - operational intelligence officer: Respiratory Tract Infection Hx - operational intelligence officer Hx Respiratory Tract Infection No 05/09/24 09:14 STOP Sleep Apnea STOP Sleep Apnea - operational intelligence officer: STOP Sleep Apnea - operational intelligence officer Hx Hypertension Yes 09/14/24 18:09 Hx Sleep Apnea No 09/14/24 18:09 CPAP BIPAP Do you snore loudly (louder No 09/14/24 18:09 than talking or can be heard Do you often feel tired/ No 09/14/24 18:09 fatigued/ sleepy during daytime? Has anyone observed you stop No 09/14/24 18:09 breathing during sleep? STOP Results Negative 09/14/24 18:09 QUESTION #5 FULL TEXT : Do you snore loudly (louder than talking or can be heard through closed doors)? Tobacco Use History Tobacco Use History - operational intelligence officer: Tobacco Use History - operational intelligence officer Tobacco Use Non-smoker 02/19/20 10:33 Smoking Status Current some day smoker 09/14/24 22:24 Hx Tobacco Use Yes: once in a while 09/14/24 18:09 Years Smoking Packs Smoked per Day Smoking Cessation Date was within the last 15 years Hx Smoking Cessation Date Hx Smoking Cessation Yes 09/14/24 18:09 Counseling Hematologic Medial History Hematologic Hx - operational intelligence officer: Hematologic Medical Hx - finance admin Hx of Blood Transfusion Yes 09/14/24 18:09 Hx of Transfusion in last 3 No 09/14/24 18:09 Months Date of Last Transfusion (if within last 3 months) Ever experience any problems No 09/14/24 18:09 with transfusion(s)? Specify any problems Hx of Preganancy in last 3 N/A 09/14/24 18:09 Months Nurse Filling Out Transfusion SWILEY 09/14/24 18:09 & Questions: Date: 09/14/24 09/14/24 18:09 Time: 18:11 09/14/24 18:09 Patient unable to answer at this time (ie. confused, unrespo /Reproduction History /Reproductive History - operational intelligence officer: /Reproductive Hx- operational intelligence officer Hx Now Gestational Age (in weeks): EDC: Hx Hx Para Hx Section SAB No 05/09/24 09:14 Active Medications Active Medications: Current Medications Generic Name Dose Route Start Last Admin Trade Name Freq PRN Reason Stop Dose Admin Sodium Chloride 1,000 mls @ 75 mls/hr 09/15/24 01:00 09/15/24 00:59 IV 75 mls/hr .[id number] NIKKI Administration Pantoprazole Sodium 40 mg/ 110 mls @ 330 mls/hr 09/14/24 22:00 09/15/24 08:45 Sodium Chloride IV Infused Q12 NIKKI Infusion Sodium Chloride 250 mls @ 15 mls/hr 09/14/24 18:15 IV .[id number] PRN Saline Flush Sodium Chloride 250 mls @ 15 mls/hr 09/14/24 18:15 IV .[id number] PRN Additional IVPB Infusion Rosuvastatin Calcium 10 mg 09/15/24 22:00 Rosuvastatin Calcium 5 Mg Tablet PO QHS NIKKI Sertraline HCl 50 mg 09/15/24 10:00 Sertraline 50 Mg Tablet PO DAILY NIKKI Sodium Chloride 10 - 40 ml 09/14/24 18:15 09/14/24 21:11 0.9% Saline Lock 10 Ml Syringe IV 10 ml UD PRN Administration SALINE FLUSH PFSH Medical History Osteoporosis Coronary artery disease Wears hearing aid Wears glasses Depression History of steroid therapy Ambulates with cane Easy bruising Migraine headache History of hiatal hernia History of GI bleed Gastric reflux Smoker Hypertension History of echocardiogram History of stress test Cardiology follow-up encounter Elevated alanine aminotransferase (ALT) level Cellulitis of left arm Upper GI bleed Nonrheumatic aortic valve stenosis Abdominal aortic aneurysm without rupture SVT (supraventricular tachycardia) Palpitations Family history of ischemic heart disease Family history of hypertension Family history of sudden cardiac Mitral valve annular calcification Heart murmur, systolic Premature ventricular contraction Spinal stenosis Osteoarthritis Peptic ulcer disease History of upper gastrointestinal bleeding Atherosclerotic heart disease of [place] coronary artery without angina pectoris History of upper gastrointestinal bleeding HLD (hyperlipidemia) Hx of peptic ulcer CAD (coronary artery disease) COLD (chronic obstructive lung disease) Benign essential HTN Home Medications ?Medication ?Instructions ?Recorded ?Last Taken ?Type coenzyme Q10 100 mg capsule 100 mg PO QHS supplement 0 06/28/17 12/31/19 History rizatriptan 10 mg tablet (Maxalt) 10 mg PO QDAY PRN mi graines 06/28/17 Unknown History sertraline 50 mg tablet 50 mg PO QDAY mood 06/28/17 01/01/20 History aspirin 81 mg tablet,delayed 81 mg PO DAILY antiplt 05/07/24 History release (Adult Low Dose Aspirin) cholecalciferol (vitamin D3) 50 50 mcg PO DAILY vitami n 04/17/20 Unknown History mcg (2,000 unit) capsule denosumab 60 mg/mL subcutaneous 60 mg subcut [id number] bone health 11/07/21 Unknown History syringe (Prolia) amlodipine 2.5 mg tablet 2.5 mg PO QDAY blood pressur e #90 09/06/23 05/15/24 Rx tabs metoprolol succinate 25 mg 25 mg PO DAILY blood pressu re #90 04/10/24 05/15/24 Rx tablet,extended release 24 hr tabs clopidogrel 75 mg tablet 75 mg PO DAILY cholesterol # 90 tabs 08/16/24 Unknown Rx lisinopril 20 mg tablet 20 mg PO QDAY blood pressure #90 08/16/24 Unknown Rx tabs rosuvastatin 10 mg tablet 10 mg PO QHS cholesterol #90 tabs 08/16/24 Unknown Rx metoclopramide HCl 5 mg tablet 5 mg PO Q8H PRN PRN willem sea and 09/10/24 Unknown Rx (Reglan) vomiting 3 days #10 tabs pantoprazole 20 mg tablet,delayed 20 mg PO DAILY heart burn 09/10/24 Unknown History release sucralfate 1 gram tablet (Carafate) 1 g PO BID PRN upp er abdominal 09/10/24 Unknown Rx pain #14 tabs Allergy/AdvReac Type Severity Reaction Status Date / Time atorvastatin (From Lipitor) AdvReac Severe myalgias Verified 09/14/24 15:27 ciprofloxacin (From Cipro) AdvReac Unknown Unknown Verified 09/14/24 15:27 ondansetron AdvReac dizziness Verified 09/14/24 15:27 Family History Mother Sudden cardiac Father CAD (coronary artery disease) CVA (cerebral vascular accident) Surgical History History of coronary artery stent placement S/P laparoscopic cholecystectomy History of back surgery History of colonoscopy History of aortic aneurysm repair History of esophagogastroduodenoscopy (EGD) (~02/2020) Presence of stent in coronary artery (~11/2010) History of hemorrhoidectomy Hx of appendectomy Social History housing: house Smoking Status: Current some day smoker tobacco type: cigarettes alcohol intake: never substance use type: does not use Review of Systems (Anesthesia) ROS Narrative System reviewed and no additional complaints, except as documented.
--- NOTE | 2024-09-15 11:00 | EGD_PTH ---
PATIENT: YARITZA CHRISTINA LOC: [facility] U#:[id number] AGE/SX: 83/F ROOM: [facility] RE09/14/[address]: Dr. Alvarez Nelson MD : 1940 BED: 1 DIS: 09/17/2024 SPEC #: [id number] RECD: 09/15/24 13:10 STATUS: CHELSEY YI #: [id number] DOUGLAS: 09/15/24 11:[address]: Niraj Gaona DEPT: SURGICAL PATHOLOGY RECD BY: Lucio Davies ENTERED: 09/15/24 13:38 SP TYPE: EGD BIOPSY OTHR DR: MD Dr. Dianna Adame DO Dr. Nicholas F Kotsonis, MD Tissues: A - Gastric mucous membrane Procedures: Surgery Specimen Level IV Comments: @ Ordering doctor for KASSANDRA edited from to @ bill SANTILLAN at 09/15/24 1338 @ Submitting doctor edited from to @ by TYRELL at 09/15/24 1338 HEADER OPERATION: EGD with biopsy with cautery PRE-OP DIAGNOSIS: Acute upper GI bleed TISSUE SUBMITTED: A- Gastric mass biopsy MICROSCOPIC DIAGNOSIS A. Stomach, gastric mass, biopsy: * Fragments of gastric mucosa with features of reactive gastropathy - see note. * Note: if this biopsy represents only a portion of a larger lesion, these findings may not be treasury representative. MICROSCOPIC DESCRIPTION Slides are reviewed. GROSS DESCRIPTION A. Received in formalin in a container labeled with the patient's name, date of , and gastric mass biopsy are multiple red-pink fragments of soft tissue material measuring 1.0 x 0.7 x 0.3 cm in aggregate. Submitted in toto in A1. [facility] 09-15-2024 CPT:99350
--- NOTE | 2024-09-15 11:27 | PCM.PN.BLA ---
Progress Note Patient is for upper endoscopy today for continued blood loss anemia. Physical Exam Narrative GENERAL: cooperative HEENT: Atraumatic; normocephalic EYES; Anicteric, Normal Conjunctiva NECK; supple, normal thyroid, RESPIRATORY: Diminished to auscultation CARDIOVASCULAR: Regular S1 S2, GI: soft, normoactive bowel sounds, : No Renal angle tenderness; EXTREMITIES: No edema, no clubbing, MUSCULOSKELETAL: no muscle wasting NEURO: Awake; no lateralizing signs. SKIN: No Rash PSYCH; Flat affect Assessment & Plan Assessment/Plan (1) Weakness: (2) Acute upper GI bleed: PLAN: Plan 83-year-old with past medical history of aortic valve stenosis, abdominal aortic aneurysm, PTCA, with stunt on aspirin and Plavix, who presents with shortness of breath on exertion, fatigue, weakness, and with recent mematic stools. She should undergo an upper endoscopy to evaluate our PGA track. She was explaining alternatives, risk, benefits, including out with standing bleeding, infection, sepsis, perfusion, in . She have an ASA of three. Visit Charges Inpatient E&M: 66112 Subs Hosp L2
--- NOTE | 2024-09-15 12:04 | PCM.POST.ANE ---
Anesthesia: Postop Eval I Current Vital Signs Temperature: 97.3 F Pulse Rate: 75 Blood Pressure: 98/54 Respiratory Rate: 16 Pulse Ox: 98 Oxygen Delivery Method: Nasal Cannula Oxygen Flow Rate (L/min): 4 Assessment Airway patent: Yes Spontaneous unlabored respirations: Yes Mental status: Calm nausea: No Vomiting: No Anesthesia Complication: No Fluid Hydration Crystalloid volume administer (ml): 300 Total IV fluid infused: 300 Progress Note Anesthesia document: Postop Eval 1 completed: Yes
--- NOTE | 2024-09-15 12:19 | OP.EGD_ITS ---
Patient Name: Myesha Gong Procedure Date: 09/15/2024 11:18 AM Date of : 1940 Age: 83 Procedure: Upper GI endoscopy Indications: Epigastric abdominal pain, Melena Providers: Niraj Gaona DO Medicines: Monitored Anesthesia Care Patient Profile: This is an 83 year old female. Refer to note in patient chart for documentation of history and physical. Patient has symptoms of chronic epigastric abdominal pain. Complications: No immediate complications. Procedure: Pre-Anesthesia Assessment: - Prior to the procedure, a History and Physical was performed, and patient medications and allergies were reviewed. The patient is competent. The risks and benefits of the procedure and the sedation options and risks were discussed with the patient. All questions were answered and informed consent was obtained. Patient identification and proposed procedure were verified by the physician in the pre-procedure area. Mental Status Examination: alert and oriented. Airway Examination: normal oropharyngeal airway and neck mobility. Respiratory Examination: clear to auscultation. CV Examination: normal. Prophylactic Antibiotics: The patient does not require prophylactic antibiotics. Prior Anticoagulants: The patient has taken no anticoagulant or antiplatelet agents except for NSAID medication. ASA Grade Assessment: III - A patient with severe systemic disease. After reviewing the risks and benefits, the patient was deemed in satisfactory condition to undergo the procedure. The anesthesia plan was to use monitored anesthesia care (MAC). Immediately prior to administration of medications, the patient was re-assessed for adequacy to receive sedatives. The heart rate, respiratory rate, oxygen saturations, blood pressure, adequacy of pulmonary ventilation, and response to care were monitored throughout the procedure. The physical status of the patient was re-assessed after the procedure. After obtaining informed consent, the endoscope was passed under direct vision. Throughout the procedure, the patient's blood pressure, pulse, and oxygen saturations were monitored continuously. The Colonoscope was introduced through the mouth, and advanced to the third part of the duodenum. Small bowel enteroscopy was deemed necessary. The upper GI endoscopy was accomplished without difficulty. The patient tolerated the procedure well. Scope In: 11:42:45 AM Scope Out: 11:59:37 AM Total Procedure Duration Time 0 hours 16 minutes 52 seconds Findings: The examined esophagus was normal. A large hiatal hernia was present. One oozing cratered gastric ulcer with a visible vessel was found in the gastric antrum. The lesion was 30 mm in largest dimension. Coagulation for hemostasis using heater probe was successful. Biopsies were taken with a cold forceps for histology. Verification of patient identification for the specimen was done. Biopsies were taken with a cold forceps for Helicobacter pylori testing. Verification of patient identification for the specimen was done. Estimated blood loss was minimal. No gross lesions were noted in the entire examined duodenum. Impression: - Normal esophagus. - Large hiatal hernia. - Oozing gastric ulcer with a visible vessel. Treated with a heater probe. Biopsied. - No gross lesions in the entire examined duodenum. Recommendation: - Discharge patient to home. - Resume previous diet. - Continue present medications. - Use sucralfate tablets 1 gram PO QID for 3 months. Procedure Code(s): --- Professional --- 56383, 59, Small intestinal endoscopy, enteroscopy beyond second portion of duodenum, not including ileum; with control of bleeding (eg, injection, bipolar cautery, unipolar cautery, laser, heater probe, stapler, plasma hardening machine operator helper) 13467, 51, Small intestinal endoscopy, enteroscopy beyond second portion of duodenum, not including ileum; with biopsy, single or multiple CPT copyright 2021 [employer]. All rights reserved. The codes documented in this report are preliminary and upon audio/visual manager review may be revised to meet current compliance requirements. Niraj Gaona DO 09/15/2024 12:19:03 PM This report has been signed electronically. Number of Addenda: 0 Note Initiated On: 09/15/2024 11:18 AM
--- NOTE | 2024-09-15 12:19 | OP.CCLET_ITS ---
09/15/2024 Dianna Lua [address] [place] [address] Re : Upper GI endoscopy procedure for Myesha Gong Dear Dr. Lua This procedure was performed on Sunday, September 15, 2024. My impressions and recommendations are as follows: Impressions : - Normal esophagus. - Large hiatal hernia. - Oozing gastric ulcer with a visible vessel. Treated with a heater probe. Biopsied. - No gross lesions in the entire examined duodenum. Recommendations : - Discharge patient to home. - Resume previous diet. - Continue present medications. - Use sucralfate tablets 1 gram PO QID for 3 months. My findings are described in the full procedure note, which is enclosed. If I can be of further assistance, please feel free to contact me at . Sincerely, Niraj Gaona, 09/15/2024 12:19:03 PM This report has been signed electronically.
--- NOTE | 2024-09-15 13:00 | POSTOPAN2_ITS ---
Anesthesia Postop Eval I Sum Postop Eval Completion status Anesthesia document: Postop Eval 1 completed: Yes Anesthesia Postop Eval I Summary Anesthesia Postop Eval I Summary: Anesthesia Postop Eval I: Assessment Summary Airway patent Yes 09/15/24 12:09 SPEECH COMMUNICATION PROFESSOR.[email or web address] Spontaneous unlabored Yes 09/15/24 12:09 SPEECH COMMUNICATION PROFESSOR.[email or web address] respirations Mental status Calm 09/15/24 12:09 SPEECH COMMUNICATION PROFESSOR.LMIL nausea No 09/15/24 12:09 SPEECH COMMUNICATION PROFESSOR.[email or web address] Vomiting No 09/15/24 12:09 SPEECH COMMUNICATION PROFESSOR.[email or web address] Anesthesia Postop Eval I: Fluid Summary Crystalloid volume administer 300 09/15/24 12:09 SPEECH COMMUNICATION PROFESSOR.LMIL (ml) Colloids volume administered ( ml) Blood Product volume administered (ml) Total IV fluid infused 300 09/15/24 12:09 SPEECH COMMUNICATION PROFESSOR.[email or web address] Anesthesia Postop Eval I: Summary Notes Anesthesia Complication No 09/15/24 12:09 SPEECH COMMUNICATION PROFESSOR.LMIL Anesthesia Complication Comment: Post-operative progress note Anesthesia: Postop Eval II Evaluation Mental status: Awake Pain Level: 0 nausea: No Vomiting: No
--- NOTE | 2024-09-15 13:00 | PCM.POSTANE2 ---
Anesthesia Postop Eval I Sum Postop Eval Completion status Anesthesia document: Postop Eval 1 completed: Yes Anesthesia Postop Eval I Summary Anesthesia Postop Eval I Summary: Anesthesia Postop Eval I: Assessment Summary Airway patent Yes 09/15/24 12:09 TECHNOLOGIST DEVELOPMENT.[email or web address] Spontaneous unlabored Yes 09/15/24 12:09 TECHNOLOGIST DEVELOPMENT.LMIL respirations Mental status Calm 09/15/24 12:09 TECHNOLOGIST DEVELOPMENT.LMIL nausea No 09/15/24 12:09 TECHNOLOGIST DEVELOPMENT.LMIL Vomiting No 09/15/24 12:09 TECHNOLOGIST DEVELOPMENT.LMIL Anesthesia Postop Eval I: Fluid Summary Crystalloid volume administer 300 09/15/24 12:09 TECHNOLOGIST DEVELOPMENT.LMIL (ml) Colloids volume administered ( ml) Blood Product volume administered (ml) Total IV fluid infused 300 09/15/24 12:09 TECHNOLOGIST DEVELOPMENT.LMIL Anesthesia Postop Eval I: Summary Notes Anesthesia Complication No 09/15/24 12:09 TECHNOLOGIST DEVELOPMENT.LMIL Anesthesia Complication Comment: Post-operative progress note Anesthesia: Postop Eval II Evaluation Mental status: Awake Pain Level: 0 nausea: No Vomiting: No
[2024-09-15] MEDS: Bisacodyl 10 MG Suppository RC (14:18)
[2024-09-15] MEDS: Magnesium Citrate 300 ML PO (18:29)
[2024-09-15] MEDS: Sucralfate 1 GM Tablet PO (22:12)
[2024-09-15] MEDS: Rosuvastatin Calcium 5 MG Tablet 10 MG PO (22:12)
[2024-09-16] VITALS (7 sets, daily range): BP systolic 118–142; BP diastolic 70–88; PULSE 72–89; RESP 16–18; TEMP 36.3–37.1; O2SAT 93–97
[2024-09-16 04:50] LABS: Absolute Neutrophil Count 4.4 X10^3/uL (2.0-7.7); Basophil# 0.02 X10^3/uL; Basophil% 0.3 % (0-1); Eosinophil# 0.12 X10^3/uL; Eosinophils% 1.9 % (0-5); Hematocrit 23.7 % (37-47); Hemoglobin 7.4 g/dL (12.0-15.0); Lymphocyte % 17.7 % (19-41); Mean Corp Hgb Conc 31.2 g/dL (32-36); Mean Corpuscular Volume 99.2 fL (81-99); Monocyte# 0.57 X10^3/uL; Monocyte% 9.2 % (0-10); NRBC Flagged by Analyzer 0 % (0-5); Neutrophil # 4.36 X10^3/uL (2.7-7.7); Neutrophil % 70.4 % (47-70); Platelet Count 129 K/mm3 (150-450); RBC Distribution Width SD 64.1 fl (35.1-43.9); Red Blood Count 2.39 M/mm3 (4.2-5.4); White Blood Count 6.2 K/mm3 (4.4-11.0)
[2024-09-16 05:16] LABS: Magnesium 2.2 mg/dL (1.5-2.2); Phosphorus 1.8 mg/dL (2.7-4.5)
[2024-09-16 05:23] LABS: Anion Gap 9 (5-15); BUN 12 mg/dL (4-19); BUN/Creat Ratio 15.8 RATIO (10-20); Calcium,Total 7.6 mg/dL (7.6-11.0); Carbon Dioxide 16.7 mmol/L (21.0-32.0); Chloride 113 mmol/L (98-108); Creatinine, Serum 0.73 mg/dL (0.70-1.20); EST Glomerular Filtration Rate 82 (>60); Estimated Creatinine Clearance 44.06 ml/min (50-250); Glucose 90 mg/dL (70-99); Potassium 3.8 mmol/L (3.3-5.1); Sodium Level 139 mmol/L (133-145)
--- NOTE | 2024-09-16 08:21 | PCM.PN.HOSP ---
Reason for Visit Reason for Visit: Diagnoses Gastrointestinal hemorrhage, unspecified (09/14/24) Weakness (09/14/24) Subjective Subjective Patient underwent EGD day prior was found to have an oozing gastric ulcer with a visible vessel which was treated with a heater probe. Seen this a.m. patient complains of feeling tired hemoglobin continues to drop decision was made to transfuse patient with 1 unit PRBC Objective Data Objective Data Vital Signs: Vital Signs Temp Pulse Resp BP Pulse Ox O2 Del Method O2 Flow Rate 97.4 F L 82 18 135/72 H 96 Room Air 4 09/16/24 04:00 09/16/24 04:00 09/16/24 04:00 09/16/24 04:00 09/16/24 04:00 09/16/24 04:00 09/15/24 12:09 Oxygen Flow Rate (L/min) 4 Oxygen Delivery Method Room Air Weight: 62.704 kg Body Mass Index (BMI) 26.9 Intake & Output: Intake and Output for Last 24 Hours 09/14/24 09/15/24 09/16/24 23:59 23:59 23:59 Intake Total 1220 / 1220 2006.5 / 2207.5 1560 / 1560 Output Total 500 / 500 Balance 1220 / 1220 2006.5 / 2207.5 1060 / 1060 Lab / Micro Data 09/16/24 04:10 09/16/24 04:10 Labs: Laboratory Results - last 24 hr 09/16/24 04:10: WBC 6.2, RBC 2.39 L, Hgb 7.4 L, Hct 23.7 L, MCV 99.2 H, MCH 31.0, MCHC 31.2 L, RDW Std Deviation 64.1 H, RDW Coeff of Alexy 18.0 H, Plt Count 129 L, MPV 10.0, Immature Gran % (Auto) 0.500, Neut % (Auto) 70.4 H, Lymph % (Auto) 17.7 L, [place] % (Auto) 9.2, Eos % (Auto) 1.9, Baso % (Auto) 0.3, Absolute Neuts (auto) 4.4, Absolute Lymphs (auto) 1.10, Nucleated RBC % 0, Sodium 139, Potassium 3.8, Chloride 113 H, Carbon Dioxide 16.7 L, Anion Gap 9, BUN 12, Creatinine 0.73, Estim Creat Clear Calc 44.06 L, Est GFR (MDRD) Non-Af 82, BUN/Creatinine Ratio 15.8, Glucose 90, Calcium 7.6, Phosphorus 1.8 L, Magnesium 2.2 Micro: Microbiology 09/14/24 17:01 Stool Stool Occult Blood (ANNE-MARIE) - Final Occult Blood Positive Physical Exam Narrative GENERAL: cooperative HEENT: Atraumatic; normocephalic EYES; Anicteric, Normal Conjunctiva NECK; supple, normal thyroid, RESPIRATORY: Diminished to auscultation CARDIOVASCULAR: Regular S1 S2, GI: soft, normoactive bowel sounds, : No Renal angle tenderness; EXTREMITIES: No edema, no clubbing, MUSCULOSKELETAL: no muscle wasting NEURO: Awake; no lateralizing signs. SKIN: No Rash PSYCH; Flat affect Assessment & Plan Assessment/Plan (1) Weakness: (2) Acute upper GI bleed: PLAN: Plan Patient is an 83-year-old lady admitted with increasing generalized weakness, abdominal pain as well as coffee-ground emesis with hemoglobin of 7.6. 1. Upper GI bleed ? Suspected to be secondary to peptic ulcer disease exacerbated by the use of antiplatelet therapy with clopidogrel as well as aspirin. Suspected medications held. Admitted to a monitored bed. H&H ordered every 6 started on Protonix and consultation placed to GI for subsequent management ? 09/16/2024; patient underwent EGD on 09/15/2024 resulted recommendations as below - Normal esophagus. - Large hiatal hernia. - Oozing gastric ulcer with a visible vessel. Treated with a heater probe. Biopsied. - No gross lesions in the entire examined duodenum. Recommendations : - Discharge patient to home. - Resume previous diet. - Continue present medications. - Use sucralfate tablets 1 gram PO QID for 3 months. 2. Anemia ? Secondary to acute blood loss monitoring H&H and transfuse if patient becomes symptomatic or hemoglobin falls below 7, in addition to management as discussed above ? 09/16/2024;Patient hemoglobin continues to drop down to 7.4 patient also complains of feeling tired with patient deemed to be symptomatic and order was given for which to be transfused 1 unit PRBC repeat H&H ordered for a.m. 3. Hypertension ? Patient presented with episodes of hypotension patient antihypertensives subsequently held. 4. Coronary artery disease ? With previous PCI. Patient is on guideline directed medical therapy including dual antiplatelet therapy and statin therapy. Patient will antiplatelet therapy held given above 5. Dyslipidemia ?Patient is on statin therapy, continued at home dose 6. Depression with anxiety ? Patient is on sertraline did continue 7. Osteoporosis ? Patient is on denosumab 8. Hiatal hernia with GERD symptoms ? Patient is on PPI 9. DVT prophylaxis ? SCDs for now systemic anticoagulation held given patient presentation. Charges/Coding Visit Charges Inpatient E&M: 86940 Subs Hosp L2
[2024-09-16] MEDS: Sucralfate 1 GM Tablet PO ×4 (08:30→21:10)
[2024-09-16] MEDS: Na Biphos/Potassium Phosphate PACKET 1 PACKET PO ×2 (09:19→21:10)
[2024-09-16] MEDS: Pantoprazole Sodium 40 MG in 0.9% Normal Saline (100mL MB+) 100 ML 330 MG IV ×2 (09:19→21:12)
[2024-09-16] MEDS: Potassium Phosphate 40 MM in 0.9% Normal Saline (500mL Bag) 500 ML 62.5 MM IV (09:38)
[2024-09-16] MEDS: Sertraline 50 MG Tablet PO (09:40)
[2024-09-16] MEDS: Rosuvastatin Calcium 5 MG Tablet 10 MG PO (21:10)
[2024-09-16] MEDS: 0.9% Normal Saline (1000mL) 1,000 ML 75 ML IV (21:22)
[2024-09-16] MEDS: Acetaminophen 325 MG Tablet 650 MG PO (22:57)
[2024-09-16] MEDS: MELATONIN 3 MG TABLET PO (22:57)
[2024-09-17 03:45] VITALS: BP 137/79; PULSE 68; RESP 16; TEMP 36.7; O2SAT 96
[2024-09-17] MEDS: Sucralfate 1 GM Tablet PO ×2 (04:52→10:52)
[2024-09-17 05:55] LABS: Absolute Lymphocyte Count 1.32 X10^3/uL (0.83-4.51); Absolute Neutrophil Count 4.4 X10^3/uL (2.0-7.7); Basophil# 0.04 X10^3/uL; Basophil% 0.6 % (0-1); Eosinophil# 0.22 X10^3/uL; Eosinophils% 3.3 % (0-5); Hematocrit 29.5 % (37-47); Hemoglobin 9.6 g/dL (12.0-15.0); Lymphocyte # 1.32 X10^3/ul (0.83-4.51); Lymphocyte % 19.8 % (19-41); Mean Corp Hgb Conc 32.5 g/dL (32-36); Mean Corpuscular Hgb 30.5 pg (27.0-32.0); Mean Corpuscular Volume 93.7 fL (81-99); Mean Platelet Vol. 9.8 fl (6.2-12.0); Monocyte# 0.69 X10^3/uL; Monocyte% 10.3 % (0-10); NRBC Flagged by Analyzer 0 % (0-5); Neutrophil # 4.37 X10^3/uL (2.7-7.7); Neutrophil % 65.4 % (47-70); Platelet Count 211 K/mm3 (150-450); RBC Distribution Width CV 17.9 % (11.6-14.6); RBC Distribution Width SD 60.3 fl (35.1-43.9); Red Blood Count 3.15 M/mm3 (4.2-5.4); White Blood Count 6.7 K/mm3 (4.4-11.0)
[2024-09-17 06:20] LABS: Anion Gap 9 (5-15); BUN 5 mg/dL (4-19); BUN/Creat Ratio 6.5 RATIO (10-20); Calcium,Total 7.8 mg/dL (7.6-11.0); Carbon Dioxide 17.7 mmol/L (21.0-32.0); Chloride 114 mmol/L (98-108); Creatinine, Serum 0.71 mg/dL (0.70-1.20); EST Glomerular Filtration Rate 85 (>60); Estimated Creatinine Clearance 44.06 ml/min (50-250); Glucose 94 mg/dL (70-99); Sodium Level 141 mmol/L (133-145)
[2024-09-17 07:00] VITALS: PULSE 64
--- NOTE | 2024-09-17 08:17 | PN.HOSP_ITS ---
Reason for Visit Reason for Visit: Diagnoses Gastrointestinal hemorrhage, unspecified (09/14/24) Weakness (09/14/24) Subjective Subjective Patient was transfused 1 unit PRBC the day prior. Hemoglobin up to 9.6. Objective Data Objective Data Vital Signs: Vital Signs Temp Pulse Resp BP Pulse Ox O2 Del Method O2 Flow Rate 98.1 F 64 16 137/79 H 96 Room Air 4 09/17/24 03:45 09/17/24 07:00 09/17/24 03:45 09/17/24 03:45 09/17/24 03:45 09/17/24 03:45 09/15/24 12:09 Oxygen Flow Rate (L/min) 4 Oxygen Delivery Method Room Air Weight: 62.704 kg Body Mass Index (BMI) 26.9 Intake & Output: Intake and Output for Last 24 Hours 09/15/24 09/16/24 09/17/24 23:59 23:59 23:59 Intake Total 2206.5 2693.3333 / 2943.3333 250 / 250 Output Total 500 / 500 Balance 2206. 2193.3333 / 2443.3333 250 / 250 Lab / Micro Data 09/17/24 05:11 09/17/24 05:11 Labs: Laboratory Results - last 24 hr 09/14/24 17:25: Crossmatch See Detail 09/17/24 05:11: WBC 6.7, RBC 3.15 L, Hgb 9.6 L, Hct 29.5 L, MCV 93.7 D, MCH 30.5, MCHC 32.5, RDW Std Deviation 60.3 H, RDW Coeff of Alexy 17.9 H, Plt Count 211, MPV 9.8, Immature Gran % (Auto) 0.600, Neut % (Auto) 65.4, Lymph % (Auto) 19.8, Johnston % (Auto) 10.3 H, Eos % (Auto) 3.3, Baso % (Auto) 0.6, Absolute Neuts (auto) 4.4, Absolute Lymphs (auto) 1.32, Nucleated RBC % 0, Sodium 141, Potassium 4.0, Chloride 114 H, Carbon Dioxide 17.7 L, Anion Gap 9, BUN 5, Creatinine 0.71, Estim Creat Clear Calc 44.06 L, Est GFR (MDRD) Non-Af 85, B UN/Creatinine Ratio 6.5 L, Glucose 94, Calcium 7.8 Micro: Microbiology 09/14/24 17:01 Stool Stool Occult Blood (ANNE-MARIE) - Final Occult Blood Positive Physical Exam Narrative GENERAL: cooperative HEENT: Atraumatic; normocephalic EYES; Anicteric, Normal Conjunctiva NECK; supple, normal thyroid, RESPIRATORY: Diminished to auscultation CARDIOVASCULAR: Regular S1 S2, GI: soft, normoactive bowel sounds, : No Renal angle tenderness; EXTREMITIES: No edema, no clubbing, MUSCULOSKELETAL: no muscle wasting NEURO: Awake; no lateralizing signs. SKIN: No Rash PSYCH; Flat affect Assessment & Plan Assessment/Plan (1) Weakness: (2) Acute upper GI bleed: PLAN: Plan Patient is an 83-year-old lady admitted with increasing generalized weakness, abdominal pain as well as coffee-ground emesis with hemoglobin of 7.6. 1. Upper GI bleed ? Suspected to be secondary to peptic ulcer disease exacerbated by the use of antiplatelet therapy with clopidogrel as well as aspirin. Suspected medications held. Admitted to a monitored bed. H&H ordered every 6 started on Protonix and consultation placed to GI for subsequent management ? 09/16/2024; patient underwent EGD on 09/15/2024 resulted recommendations as below - Normal esophagus. - Large hiatal hernia. - Oozing gastric ulcer with a visible vessel. Treated with a heater probe. Biopsied. - No gross lesions in the entire examined duodenum. Recommendations : - Discharge patient to home. - Resume previous diet. - Continue present medications. - Use sucralfate tablets 1 gram PO QID for 3 months. 2. Anemia ? Secondary to acute blood loss monitoring H&H and transfuse if patient becomes symptomatic or hemoglobin falls below 7, in addition to management as discussed above ? 09/16/2024;Patient hemoglobin continues to drop down to 7.4 patient also complains of feeling tired with patient deemed to be symptomatic and order was given for which to be transfused 1 unit PRBC repeat H&H ordered for a.m. ? 09/17/2024; Patient was transfused 1 unit PRBC the day prior. Hemoglobin up to 9.6 3. Hypertension ? Patient presented with episodes of hypotension patient antihypertensives subsequently held. 4. Coronary artery disease ? With previous PCI. Patient is on guideline directed medical therapy including dual antiplatelet therapy and statin therapy. Patient will antiplatelet therapy held given above 5. Dyslipidemia ?Patient is on statin therapy, continued at home dose 6. Depression with anxiety ? Patient is on sertraline did continue 7. Osteoporosis ? Patient is on denosumab 8. Hiatal hernia with GERD symptoms ? Patient is on PPI 9. DVT prophylaxis ? SCDs for now systemic anticoagulation held given patient presentation. Charges/Coding Visit Charges Inpatient E&M: 01886 Subs Hosp L2
--- NOTE | 2024-09-17 08:51 | DS.PCM_ITS ---
Providers Date of Admission: 09/14/24 Date of Discharge: 09/17/24 Primary Care Physician: Dr. Dianna Lua, DO Consultations 09/14/24 17:52 Consult: Gastroenterology Routine Consulting Provider: [facility] Reason for Consult: UGI Bleed EMERGENT Consult: No MD Notified: Yes Date Notified: 09/14/24 Time Notified: 17:54 Method of Notification: ED Physician Initiated Reason For Visit: GI BLEED Diagnosis Discharge Diagnosis (1) Weakness: Status: Acute Code(s): R53.1 - Weakness (2) Acute upper GI bleed: Status: Acute Code(s): K92.2 - Gastrointestinal hemorrhage, unspecified Plan Patient is an 83-year-old lady admitted with increasing generalized weakness, abdominal pain as well as coffee-ground emesis with hemoglobin of 7.6. 1. Upper GI bleed ? Suspected to be secondary to peptic ulcer disease exacerbated by the use of antiplatelet therapy with clopidogrel as well as aspirin. Suspected medications held. Admitted to a monitored bed. H&H ordered every 6 started on Protonix and consultation placed to GI for subsequent management ? 09/16/2024; patient underwent EGD on 09/15/2024 resulted recommendations as below - Normal esophagus. - Large hiatal hernia. - Oozing gastric ulcer with a visible vessel. Treated with a heater probe. Biopsied. - No gross lesions in the entire examined duodenum. Recommendations : - Discharge patient to home. - Resume previous diet. - Continue present medications. - Use sucralfate tablets 1 gram PO QID for 3 months. ? Patient was instructed to avoid ibuprofen and naproxen 2. Anemia ? Secondary to acute blood loss monitoring H&H and transfuse if patient becomes symptomatic or hemoglobin falls below 7, in addition to management as discussed above ? 09/16/2024;Patient hemoglobin continues to drop down to 7.4 patient also complains of feeling tired with patient deemed to be symptomatic and order was given for which to be transfused 1 unit PRBC repeat H&H ordered for a.m. ? 09/17/2024; Patient was transfused 1 unit PRBC the day prior. Hemoglobin up to 9.6 ? Patient was prescribed iron on discharge 3. Hypertension ? Patient presented with episodes of hypotension patient antihypertensives subsequently held. ? Adjusted patient antihypertensives on discharge did continue with metoprolol and amlodipine from her previous home dose decrease lisinopril from 20 to 5 mg daily 4. Coronary artery disease ? With previous PCI. Patient is on guideline directed medical therapy including dual antiplatelet therapy and statin therapy. Patient will antiplatelet therapy held given above ? 09/17/2024; held patient antiplatelet therapy for a week 5. Dyslipidemia ?Patient is on statin therapy, continued at home dose 6. Depression with anxiety ? Patient is on sertraline did continue 7. Osteoporosis ? Patient is on denosumab 8. Hiatal hernia with GERD symptoms ? Patient is on PPI 9. DVT prophylaxis ? SCDs for now systemic anticoagulation held given patient presentation. Medications at Discharge Home Medications coenzyme Q10 100 mg capsule 100 mg PO QHS supplement 06/28/17 rizatriptan 10 mg tablet (Maxalt) 10 mg PO QDAY PRN migraines 06/28/17 sertraline 50 mg tablet 50 mg PO QDAY mood 06/28/17 aspirin 81 mg tablet,delayed release (Adult Low Dose Aspirin) 81 mg PO DAILY antiplt 04/17/20 Held on 09/17/24. Instructions: Resume on 09/25/24. cholecalciferol (vitamin D3) 50 mcg (2,000 unit) capsule 50 mcg PO DAILY vitamin 04/17/20 Held on 09/17/24. Instructions: Resume on 09/25/24. denosumab 60 mg/mL subcutaneous syringe (Prolia) 60 mg subcut [id number] bone health 11/07/21 amlodipine 2.5 mg tablet 2.5 mg PO QDAY blood pressure #90 tabs 09/06/23 metoprolol succinate 25 mg tablet,extended release 24 hr 25 mg PO DAILY blood pressure #90 tabs 04/10/24 clopidogrel 75 mg tablet 75 mg PO DAILY cholesterol #90 tabs 08/16/24 rosuvastatin 10 mg tablet 10 mg PO QHS cholesterol #90 tabs 08/16/24 metoclopramide HCl 5 mg tablet (Reglan) 5 mg PO Q8H PRN PRN nausea and vomiting 3 days #10 tabs 09/10/24 sucralfate 1 gram tablet (Carafate) 1 g PO BID PRN upper abdominal pain #14 tabs 09/10/24 lisinopril 5 mg tablet 5 mg PO DAILY #60 tabs 09/17/24 pantoprazole 40 mg tablet,delayed release (Protonix) 40 mg PO DAILY #90 tabs 09/17/24 polysaccharide iron complex 150 mg iron capsule (Ferrex) 150 mg PO DAILY 90 days #90 caps 09/17/24 Hospital Course Summary of Care Provided Minutes Spent on Discharge: 35 Physical Exam Narrative GENERAL: cooperative HEENT: Atraumatic; normocephalic EYES; Anicteric, Normal Conjunctiva NECK; supple, normal thyroid, RESPIRATORY: Diminished to auscultation CARDIOVASCULAR: Regular S1 S2, GI: soft, normoactive bowel sounds, : No Renal angle tenderness; EXTREMITIES: No edema, no clubbing, MUSCULOSKELETAL: no muscle wasting NEURO: Awake; no lateralizing signs. SKIN: No Rash PSYCH; Flat affect Weight / BMI Weight Weight: 62.704 kg Body Mass Index (BMI) 26.9 ABG / Lab / Microbiology Data 09/17/24 05:11 09/17/24 05:11 Laboratory: Laboratory Results - last 24 hr 09/14/24 17:25: Crossmatch See Detail 09/17/24 05:11: WBC 6.7, RBC 3.15 L, Hgb 9.6 L, Hct 29.5 L, MCV 93.7 D, MCH 30.5, MCHC 32.5, RDW Std Deviation 60.3 H, RDW Coeff of Alexy 17.9 H, Plt Count 211, MPV 9.8, Immature Gran % (Auto) 0.600, Neut % (Auto) 65.4, Lymph % (Auto) 19.8, [place] % (Auto) 10.3 H, Eos % (Auto) 3.3, Baso % (Auto) 0.6, Absolute Neuts (auto) 4.4, Absolute Lymphs (auto) 1.32, Nucleated RBC % 0, Sodium 141, Potassium 4.0, Chloride 114 H, Carbon Dioxide 17.7 L, Anion Gap 9, BUN 5, Creatinine 0.71, Estim Creat Clear Calc 44.06 L, Est GFR (MDRD) Non-Af 85, B UN/Creatinine Ratio 6.5 L, Glucose 94, Calcium 7.8 Microbiology: Microbiology 09/14/24 17:01 Stool Stool Occult Blood (ANNE-MARIE) - Final Occult Blood Positive D/C Instructions Discharge Diet: No restrictions Discharge Activity: Return to Normal Activity Call your doctor if you observe: Fever of 101 or Higher, Shortness of breath, Fainting spells and Chest pain DC O2, CPAP, BIPAP Needs Home O2 Discharge instructions: No Meaningful Use Info Meaningful Use Meaningful Use Diagnoses (Choose all that apply): None applicable Ischemic Stroke Statin Dosing Therapy Reference: STATIN DOSE THERAPY REFERENCE: * Patients > 75 years receive moderate or high dose statin therapy. * Patients 75 years or YOUNGER should receive HIGH intensity statin dose unless contraindicated. You will be required to document reason for non-treatment if statin daily dose does not meet guidelines. HIGH DOSE STATIN THERAPY DAILY Atorvastatin > than or = to 40 mg Rosuvastatin > than or = to 20 mg Amlodipine + Atorvastatin > than or = to 2.5/40 mg Ezetimibe + Simvastatin 10/80 mg Simvastatin 80mg Discharge Plan Admission Admit Date/Time: 09/14/24 17:23 Attending Provider: Alvarez Nelson Primary Care Provider: Dianna Lua Consulting Providers: Levi Raymond Discharge Orders/Prescriptions Prescriptions: New polysaccharide iron complex [Ferrex 150] 150 mg iron Capsule 150 mg PO DAILY 90 Days Qty: 90 0RF pantoprazole [Protonix] 40 mg tablet,delayed release (DR/EC) 40 mg PO DAILY Qty: 90 0RF lisinopril 5 mg tablet 5 mg PO DAILY Qty: 60 0RF Continued sertraline 50 mg tablet 50 mg PO QDAY coenzyme Q10 100 mg capsule 100 mg PO QHS rizatriptan [Maxalt] 10 mg tablet 10 mg PO QDAY PRN (Reason: migraines) Prolia 60 mg/mL syringe 60 mg subcut [id number] sucralfate [Carafate] 1 gram tablet 1 g PO BID PRN (Reason: upper abdominal pain) Qty: 14 0RF metoclopramide HCl [Reglan] 5 mg tablet 5 mg PO Q8H PRN PRN (Reason: nausea and vomiting) 3 Days Qty: 10 0RF amlodipine 2.5 mg tablet 2.5 mg PO QDAY Qty: 90 3RF metoprolol succinate 25 mg tablet extended release 24 hr 25 mg PO DAILY Qty: 90 3RF clopidogrel 75 mg tablet 75 mg PO DAILY Qty: 90 3RF rosuvastatin 10 mg tablet 10 mg PO QHS Qty: 90 3RF Held aspirin [Adult Low Dose Aspirin] 81 mg tablet,delayed release (DR/EC) 81 mg PO DAILY Hold Instructions: Resume on 09/25/24. cholecalciferol (vitamin D3) 50 mcg (2,000 unit) capsule 50 mcg PO DAILY Hold Instructions: Resume on 09/25/24. Discontinued pantoprazole 20 mg tablet,delayed release (DR/EC) 20 mg PO DAILY lisinopril 20 mg tablet 20 mg PO QDAY Qty: 90 3RF Referrals / Follow Up: Dianna Lua DO [Primary Care Provider] - Within 1 Week Disposition Disposition (needs filled in before D/C Order can be placed): Home, Self Care Charges/Coding Visit Charges Inpatient E&M: 19571 Disch Hosp >30min
[2024-09-17] MEDS: Pantoprazole Sodium 40 MG in 0.9% Normal Saline (100mL MB+) 100 ML 330 MG IV (09:10)
[2024-09-17 09:15] VITALS: BP 140/86; PULSE 87; RESP 18; TEMP 36.6; O2SAT 95
[2024-09-17] MEDS: Na Biphos/Potassium Phosphate PACKET 1 PACKET PO (09:22)
[2024-09-17] MEDS: Iron Polysaccharide Complex 150 MG CAPSULE PO (09:22)
[2024-09-17] MEDS: Sertraline 50 MG Tablet PO (09:22)
[2024-09-17 09:27] VITALS: PULSE 87; RESP 18; O2SAT 95
[2024-09-17 10:46] VITALS: BP 140/75; PULSE 89; RESP 18; TEMP 36.6; O2SAT 95
== END 2024-09-17 12:21 | disposition home or self-care (01) | DRG 378 ==
LOC: ED 17:20 → PCU 17:36
PROVIDERS: Anesthesiology; Internal Medicine Gastroenterology; Physician Assistant; Admitting Provider Family Medicine; Emergency Provider Surgery; PCP Internal Medicine; Visit Provider Internal Medicine
PROC: 0DJ08ZZ Inspection of Upper Intestinal Tract, Via Natural or Artificial Opening Endoscopic (ICD-10-PCS; CPT 43235; principal; 2024-09-15 10:55)
DX: K25.4 Chronic or unspecified gastric ulcer with hemorrhage (principal); D68.32 Hemorrhagic disorder due to extrinsic circulating anticoagulants; D62 Acute posthemorrhagic anemia; J44.9 Chronic obstructive pulmonary disease, unspecified; I10 Essential (primary) hypertension; I71.43 Infrarenal abdominal aortic aneurysm, without rupture; E78.5 Hyperlipidemia, unspecified; I25.10 Atherosclerotic heart disease of native coronary artery without angina pectoris; I95.9 Hypotension, unspecified; K21.9 Gastro-esophageal reflux disease without esophagitis; T45.515A Adverse effect of anticoagulants, initial encounter; Z82.49 Family history of ischemic heart disease and other diseases of the circulatory system; Z79.82 Long term (current) use of aspirin; Z95.5 Presence of coronary angioplasty implant and graft; Z79.2 Long term (current) use of antibiotics; Z79.02 Long term (current) use of antithrombotics/antiplatelets; R01.1 Cardiac murmur, unspecified; Z79.899 Other long term (current) drug therapy; Z88.8 Allergy status to other drugs, medicaments and biological substances
CPT/HCPCS: 36415; 71046; 74177; 80048; 80053; 81001; 82274; 83605; 83735; 84100; 85025; 85610; 85730; 86850; 86900; 86901; 88305; 93005; 99284; C1889; P9016; Q9967; A4216

== ENCOUNTER → 2024-10-20 | Outpatient (CLI) | payer MEDICARE, OTHER, SELFPAY ==
--- NOTE | 2024-10-20 08:54 | AAVD_ITS ---
Reason For Study Reason For Study: S/P EVAR, Aorta Measurements Aorta Doppler Measurements Proximal aorta measures2.02x2.18cm. in cross-sectional axis.Peak systolic flow velocities within the proximal aorta Proximal aorta measures1.74cm. in longitudinal axis. measure 50.6 cm/sec. Ao Mid Ao Mid Rt Limb, 0.94x0.98x1.13 cm Rt Limb, 42.8 cm/s Lt Limb, 1.06x0.91x1.28 cm Lt Limb, 94.2 cm/s Residual Sac, 4.76x7.21x4.97 cm Ao Dist Ao Dist Rt Limb, 34.3 cm/s Rt Limb,1.30x1.40x1.15 cm Lt Limb, 85.6 cm/s. Lt Limb,1.15x1.35x1.42 cm Residual Sac,3.95x4.73x4.00 cm. Left Iliac Artery Left iliac artery measures 1.37x1.40 cm. in the cross-sectional axis. Left iliac artery measures 1.35 cm. in the longitudinal axis. Peak systolic velocity in the left iliac artery measures 46.5 cm/sec. Right Iliac Artery Right iliac artery measures 1.09x1.16 cm. in the cross-sectional axis. Right iliac artery measures 1.17 cm. in the longitudinal axis. Peak systolic velocity in the right iliac artery measures 46.5 cm/sec. Procedure Aorta IVC Iliac vasculature or bypass grafts 47570. Exam performed in department. VL/Abd Aortic/IVC Duplex scan Interpretation Summary Aortic endograft patent with normal velocities and no evidence of stenosis. Residual aneurysm sac 7.21 cm without endoleak visualized. Ordering Physician: Suha Gilliam Referring Physician: Dianna Lua M.D. Performed By: Terra Noel RVT
== END | disposition home or self-care (01) ==
LOC: CVS 08:52
PROVIDERS: PCP Internal Medicine; Referring Provider Physician Assistant; Visit Provider Physician Assistant
DX: Z48.812 Encounter for surgical aftercare following surgery on the circulatory system (principal); Z98.890 Other specified postprocedural states; Z86.79 Personal history of other diseases of the circulatory system
CPT/HCPCS: 93978

== ENCOUNTER 2024-11-22 09:57 | Day surgery (SDC) | payer MEDICARE, OTHER, SELFPAY ==
[2024-11-21 09:09] VITALS: BMI 27.3
[2024-11-22 10:17] LABS: Hematocrit 38.9 % (37-47); Hemoglobin 12.0 g/dL (12.0-15.0); Mean Corp Hgb Conc 30.8 g/dL (32-36); Mean Corpuscular Volume 94.6 fL (81-99); Mean Platelet Vol. 9.3 fl (6.2-12.0); Platelet Count 272 K/mm3 (150-450); RBC Distribution Width CV 15.7 % (11.6-14.6); RBC Distribution Width SD 54.2 fl (35.1-43.9); Red Blood Count 4.11 M/mm3 (4.2-5.4); White Blood Count 6.8 K/mm3 (4.4-11.0)
[2024-11-22 10:35] LABS: Anion Gap 9 (5-15); BUN 16 mg/dL (4-19); BUN/Creat Ratio 17.4 RATIO (10-20); Calcium,Total 9.6 mg/dL (7.6-11.0); Carbon Dioxide 26.5 mmol/L (21.0-32.0); Chloride 105 mmol/L (98-108); Estimated Creatinine Clearance 37.07 ml/min (50-250); Glucose 110 mg/dL (70-99); Potassium 5.2 mmol/L (3.3-5.1)
--- NOTE | 2024-11-22 14:38 | PCM.OPRPT ---
Operative Report (Standard) Operative Information Date of Procedure: 11/22/24 Pre-Operative Diagnosis: Infrarenal abdominal aortic aneurysm with prior stent graft repair Increasing residual aneurysm sac size with prior identified type II endoleak Post-Operative Diagnosis: Same, no endoleak visualized Surgery/Procedure Performed: Abdominal aortogram peoplesoft crm developer: No Type of Anesthesia: Local and Sedation,Conscious Procedure Start Time: 11:35 Procedure Stop Time: 12:40 Select all DRAINS/GRAFTS/IMPLANTS that apply: None Estimated Blood Loss: 3 Specimen collected: No Description of surgery: HPI: Patient is an 84-year-old female who previously underwent endovascular exclusion of her infrarenal abdominal aortic aneurysm. She had previous imaging that had demonstrated a type II endoleak. Her more recent imaging has suggested growth of the aneurysm sac compared to prior imaging however there is significant amount of angulation of the vessel when assessed with CT angiography. There also is no longer a visualized endoleak. She presents now for diagnostic angiography to confirm whether there is an endoleak present. Description of procedure: Upon obtaining informed consent and verification correct patient procedure and site the patient was taken to the Software Quality Assurance Engineer where she was positioned prepped and draped in usual sterile fashion. Timeout was performed consultation administered Versed and fentanyl. The right radial artery was then accessed with a micropuncture needle wire which were then exchanged for the 6 Mongolian slender sheath. Through this a J-wire and pigtail catheter were advanced though there was some resistance to both the wire catheter in the mid upper arm. We then exchanged the pigtail catheter for a glide catheter which advanced more easily traversing the upper arm vasculature and ultimately advancing into the ascending aorta. From this position we attempted to navigate the aortic arch which was a type III with significant calcification. We ultimately were able to traverse into the descending thoracic aorta with a an angled Glidewire however we had some difficulty advancing the pigtail catheter. The pigtail catheter was exchanged for a glide catheter which also would not advance beyond the proximal descending thoracic aorta due to friction on the atherosclerotic burden of the vessel. We attempted to reach the position and readvanced wires and catheters without success and we actually had difficulty advancing our pigtail catheter through the proximal upper arm. 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 It was felt that this vessel anatomy did not support radial access to perform our aortogram so the wire and catheter were withdrawn. The patient's groins were then prepped and the patient redraped. Skin overlying the right common femoral artery was anesthetized with 1% lidocaine and the vessel accessed with a micropuncture needle wire under ultrasound guidance. This then exchanged for a 5 Mongolian Halo sheath which was advanced without resistance. Through this the J-wire and pigtail catheter were then advanced and positioned just cephalad to the leading edge of the stent graft. Multiple oblique view and magnified view subtraction aortogram's were performed which did not demonstrate any endoleak or filling of the aneurysm sac with contrast. After we had exhausted efforts it was felt that no endoleak was present. Wire and catheter were then withdrawn after which the sheath was withdrawn and manual pressure held for 10 minutes till hemostasis was observed. The patient was then taken to the recovery area for bedrest prior to discharge to home. Surgical Findings: Patent endovascular stent graft with brisk contrast transit through the iliac limbs and into the outflow iliac vessels. No endoleak identified. Complications Complications: No
== END 2024-11-22 16:56 | disposition home or self-care (01) ==
PROVIDERS: PCP Internal Medicine; Referring Provider Surgery Trauma Surgery; Visit Provider Surgery Trauma Surgery
DX: I71.43 Infrarenal abdominal aortic aneurysm, without rupture (principal); K21.9 Gastro-esophageal reflux disease without esophagitis; I10 Essential (primary) hypertension; I25.10 Atherosclerotic heart disease of native coronary artery without angina pectoris; E78.5 Hyperlipidemia, unspecified; F17.210 Nicotine dependence, cigarettes, uncomplicated; Z95.5 Presence of coronary angioplasty implant and graft; Z79.01 Long term (current) use of anticoagulants; Z86.79 Personal history of other diseases of the circulatory system; I70.0 Atherosclerosis of aorta; Z98.890 Other specified postprocedural states
CPT/HCPCS: 36200; 36415; 75625; 76937; 80048; 85027; 99152; 99153; C1894; Q9967; C1769

== ENCOUNTER 2024-12-27 10:44 | Day surgery (SDC) | payer MEDICARE, OTHER, SELFPAY ==
--- NOTE | 2024-12-26 15:37 | PAT.ANESEVAL ---
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 When Was Last Pacemaker Check QUESTION #4 FULL TEXT: You/Your Family Experience fever (hyperthermia) with Anesthesia Last Oral Intake Last Oral intake: Last Oral Intake NPO since Meds taken in AM with sips of water? 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 Female Yes 12/26/24 08:55 HX of Motion Sickness No 12/26/24 08:55 HX of N/V After Surgery No 12/26/24 08:55 Non-Smoker No 12/26/24 08:55 Duration of Surgery greater No 12/26/24 08:55 than 60 minutes Number of Risk Factors 1 12/26/24 08:55 PONV Score Low Risk 12/26/24 08:55 Height & Weight Height & Weight: Anesthesia: Height & Weight Height 5 ft 11/22/24 10:29 Respiratory Assessment Respiratory Assessment - wheelabrator operator: Respiratory Tract Infection Hx - wheelabrator operator Hx Respiratory Tract Infection No 12/26/24 08:55 STOP Sleep Apnea STOP Sleep Apnea - wheelabrator operator: STOP Sleep Apnea - wheelabrator operator Hx Hypertension Yes: CONTROLLED ON MED 12/26/24 08:55 Hx Sleep Apnea No 12/26/24 08:55 CPAP BIPAP Do you snore loudly (louder No 12/26/24 08:55 than talking or can be heard Do you often feel tired/ No 12/26/24 08:55 fatigued/ sleepy during daytime? Has anyone observed you stop No 12/26/24 08:55 breathing during sleep? STOP Results Negative 12/26/24 08:55 QUESTION #5 FULL TEXT : Do you snore loudly (louder than talking or can be heard through closed doors)? 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 Specify any problems Hx of Preganancy in last 3 No 12/26/24 08:55 Months Nurse Filling Out Transfusion VCHRISTIN 12/26/24 08:55 & Questions: Date: 12/26/24 12/26/24 08:55 Time: 08:58 12/26/24 08:55 Patient unable to answer at this time (ie. confused, unrespo /Reproduction History /Reproductive History - wheelabrator operator: /Reproductive Hx- wheelabrator operator Hx Now No 12/26/24 08:55 Gestational Age (in weeks): EDC: Hx Hx Para Hx Section SAB No 12/26/24 08:55 PFSH Medical History (Updated 12/26/24 @ 08:54 by Kyara River) Osteoporosis Coronary artery disease Wears hearing aid Wears glasses Depression History of steroid therapy Ambulates with cane Easy bruising Migraine headache History of hiatal hernia History of GI bleed Gastric reflux Smoker Hypertension History of echocardiogram History of stress test Cardiology follow-up encounter Elevated alanine aminotransferase (ALT) level Cellulitis of left arm Upper GI bleed Nonrheumatic aortic valve stenosis Abdominal aortic aneurysm without rupture SVT (supraventricular tachycardia) Palpitations Family history of ischemic heart disease Family history of hypertension Family history of sudden cardiac Mitral valve annular calcification Heart murmur, systolic Premature ventricular contraction Spinal stenosis Osteoarthritis Peptic ulcer disease History of upper gastrointestinal bleeding Atherosclerotic heart disease of [place] coronary artery without angina pectoris History of upper gastrointestinal bleeding HLD (hyperlipidemia) Hx of peptic ulcer CAD (coronary artery disease) COLD (chronic obstructive lung disease) Benign essential HTN Home Medications ?Medication ?Instructions ?Recorded ?Last Taken ?Type coenzyme Q10 100 mg capsule 100 mg PO QHS supplement 06/28/17 12/31/19 History rizatriptan 10 mg tablet (Maxalt) 10 mg PO QDAY PRN migraines 06/28/17 Unknown History sertraline 50 mg tablet 50 mg PO QDAY mood 06/28/17 01/01/20 History cholecalciferol (vitamin D3) 50 50 mcg PO DAILY vitamin 04/17/20 Unknown History mcg (2,000 unit) capsule denosumab 60 mg/mL subcutaneous 60 mg subcut [id number] bone health 11/07/21 Unknown History syringe (Prolia) metoprolol succinate 25 mg 25 mg PO DAILY blood pressure #90 04/10/24 11/22/24 Rx tablet,extended release 24 hr tabs clopidogrel 75 mg tablet 75 mg PO DAILY cholesterol #90 tabs 08/16/24 12/22/24 Rx rosuvastatin 10 mg tablet 10 mg PO QHS cholesterol #90 tabs 08/16/24 Unknown Rx metoclopramide HCl 5 mg tablet 5 mg PO Q8H PRN PRN nausea and 09/10/24 Unknown Rx (Reglan) vomiting 3 days #10 tabs polysaccharide iron complex 150 mg 150 mg PO DAILY 90 days #90 caps 09/17/24 Unknown Rx iron capsule (Ferrex) lisinopril 10 mg tablet 10 mg PO DAILY #90 tabs 11/20/24 11/22/24 Rx amlodipine 2.5 mg tablet 2.5 mg PO QDAY blood pressure #90 11/21/24 11/22/24 Rx tabs pantoprazole 40 mg tablet,delayed 20 mg PO DAILY 12/26/24 Unknown History release (Protonix) Allergy/AdvReac Type Severity Reaction Status Date / Time atorvastatin (From Lipitor) AdvReac Severe myalgias Verified 12/26/24 08:43 ciprofloxacin (From Cipro) AdvReac Unknown Unknown Verified 12/26/24 08:43 ondansetron AdvReac dizziness Verified 12/26/24 08:43 Family History Mother Sudden cardiac Father CAD (coronary artery disease) CVA (cerebral vascular accident) Surgical History (Updated 12/26/24 @ 08:54 by Kyara River) History of laparoscopic cholecystectomy History of esophagogastroduodenoscopy (EGD) History of coronary artery stent placement S/P laparoscopic cholecystectomy History of back surgery History of colonoscopy History of aortic aneurysm repair History of esophagogastroduodenoscopy (EGD) (~02/2020) Presence of stent in coronary artery (~11/2010) History of hemorrhoidectomy Hx of appendectomy Social History housing: house Smoking Status: Light Smoker (<10/day) alcohol intake: never substance use type: does not use Audit: Pertinent Findings Pertinent Findings EKG Perinent findings: September 14, 2024. Normal sinus rhythm. Nonspecific ST and T wave abnormality. Stress test pertinent findings: December 03, 2022. EF is 74%. Rest and stress SPECT nuclear images are within normal limits. Echo (EF%) pertinent findings: July 14, 2023. EF of 65%. PASP is 28 mmHg. Mild aortic stenosis. Consult pertinent findings: November 20, 2024. Karri [employer]ACH[employer] O[employer]. 1. Atherosclerotic heart disease of [place] coronary artery without angina pectoralis. Status post PTCA/RAYSHAWN to the left circumflex and RCA. Stress test in November 2022 was normal. Patient appears stable. Continue to monitor. 2. Nonrheumatic aortic valve stenosis-mild. 3. SVT-no obvious recurrence of any SVT. Continue medical management. 4. Hypertension-continue medical management. Recommendation Anesthesia Recommendation Anesthesia recommendation: OPTIMIZED for anesthesia
[2024-12-27] VITALS (8 sets, daily range): BP systolic 87–127; BP diastolic 60–64; PULSE 64–66; RESP 12–16; TEMP 36.2–36.7; O2SAT 92–98; BMI 26.6
[2024-12-27] MEDS: Lactated Ringers 1,000 ML 15 ML IV (11:24)
--- NOTE | 2024-12-27 11:39 | PRE.ANES_ITS ---
ASA Classification* ASA Classification ASA Classification: 2 Assessment & Plan Anesthesia* Anesthesia Assessment Anesthesia Assessment: Discussed sedation and/or anesthesia options, risks, benefits, and alternatives with patient/parents/legal guardian/POA. Questions invited. The patient/parents/legal guardian/POA seems to understand and agrees to proceed with anesthesia plan. Reviewed the physical assessment, medical history, allergy history and patient home medications list prior to surgery/procedure/anesthetic and documented any changes. Performed airway and anesthesia risk assessments. Anesthesia Type Anesthesia Type: MAC History Source History Obtained from:: Patient, Chart and Significant Other Anesthesia Focused Assessment* Temperature: 98.1 F Pulse Rate: 65 Blood Pressure: 127/63 Respiratory Rate: 12 Pulse Ox: 98 Oxygen Delivery Method: Room Air Airway Assessment Mouth opens: >3 cm Mallampati Score: II Teeth Condition: Caps/Crowns Neck Range of motion (ROM): Limited ROM Labs Anesthesia Preop lab: CBC WBC 6.8 K/mm3 (4.4-11.0) 11/22/24 10:11/22/24 RBC 4.11 M/mm3 (4.2-5.4) L 11/22/24 10:11/22/24 Hgb 12.0 g/dL (12.0-15.0) 11/22/24 10:11/22/24 Hct 38.9 % (37-47) 11/22/24 10:04 11/22/24 Plt Count 272 K/mm3 (150-450) 11/22/24 10:04 11/22/24 CHEMISTRY Potassium 5.2 mmol/L (3.3-5.1) H 11/22/24 10:11/22/24 Sodium 140 mmol/L (133-145) 11/22/24 10:04 11/22/24 Magnesium 2.2 mg/dL (1.5-2.2) 09/16/24 04:10 09/16/24 Phosphorus 1.8 mg/dL (2.7-4.5) L 09/16/24 04:10 09/16/24 BUN 16 mg/dL (4-19) 11/22/24 10:04 11/22/24 Creatinine 0.94 mg/dL (0.70-1.20) 11/22/24 10:04 11/22/24 Glucose 110 mg/dL (70-99) H 11/22/24 10:04 11/22/24 TSH 1.41 uIU/mL (0.358-3.74) 10/24/14 07:53 COAG PT 13.8 SECONDS (11.7-14.9) 09/15/24 03:54 Pre-Assessment Diagnosis/Proposed Procedure Planned Operative Procedure(s): EGD Anesthesia History 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 When Was Last Pacemaker Check QUESTION #4 FULL TEXT: You/Your Family Experience fever (hyperthermia) with Anesthesia Last Oral Intake Last Oral intake: Last Oral Intake NPO since 05:30 12/27/24 11:12 Meds taken in AM with sips of Yes 12/27/24 11:12 water? 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 Female Yes 12/26/24 08:55 HX of Motion Sickness No 12/26/24 08:55 HX of N/V After Surgery No 12/26/24 08:55 Non-Smoker No 12/26/24 08:55 Duration of Surgery greater No 12/26/24 08:55 than 60 minutes Number of Risk Factors 1 12/26/24 08:55 PONV Score Low Risk 12/26/24 08:55 Height & Weight Height & Weight: Anesthesia: Height & Weight Height 5 ft 12/27/24 11:12 Weight: 62 kg 12/27/24 11:12 Body Mass Index (BMI) 26.6 12/27/24 11:12 Respiratory Assessment Respiratory Assessment - plant care worker: Respiratory Tract Infection Hx - plant care worker Hx Respiratory Tract Infection No 12/26/24 08:55 STOP Sleep Apnea STOP Sleep Apnea - plant care worker: STOP Sleep Apnea - plant care worker Hx Hypertension Yes: CONTROLLED ON MED 12/26/24 08:55 Hx Sleep Apnea No 12/26/24 08:55 CPAP BIPAP Do you snore loudly (louder No 12/26/24 08:55 than talking or can be heard Do you often feel tired/ No 12/26/24 08:55 fatigued/ sleepy during daytime? Has anyone observed you stop No 12/26/24 08:55 breathing during sleep? STOP Results Negative 12/26/24 08:55 QUESTION #5 FULL TEXT : Do you snore loudly (louder than talking or can be heard through closed doors)? 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 Specify any problems Hx of Preganancy in last 3 No 12/26/24 08:55 Months Nurse Filling Out Transfusion VCHRISTIN 12/26/24 08:55 & Questions: Date: 12/26/24 12/26/24 08:55 Time: 08:58 12/26/24 08:55 Patient unable to answer at this time (ie. confused, unrespo /Reproduction History /Reproductive History - plant care worker: /Reproductive Hx- plant care worker Hx Now No 12/26/24 08:55 Gestational Age (in weeks): EDC: Hx Hx Para Hx Section SAB No 12/26/24 08:55 Active Medications Active Medications: Current Medications Generic Name Dose Route Start Last Admin Trade Name Freq PRN Reason Stop Dose Admin Lactated Ringer's 1,000 mls @ 15 mls/hr 12/27/24 11:00 12/27/24 11:24 IV 15 mls/hr .Q48H NIKKI Administration PFSH Medical History Osteoporosis Coronary artery disease Wears hearing aid Wears glasses Depression History of steroid therapy Ambulates with cane Easy bruising Migraine headache History of hiatal hernia History of GI bleed Gastric reflux Smoker Hypertension History of echocardiogram History of stress test Cardiology follow-up encounter Elevated alanine aminotransferase (ALT) level Cellulitis of left arm Upper GI bleed Nonrheumatic aortic valve stenosis Abdominal aortic aneurysm without rupture SVT (supraventricular tachycardia) Palpitations Family history of ischemic heart disease Family history of hypertension Family history of sudden cardiac Mitral valve annular calcification Heart murmur, systolic Premature ventricular contraction Spinal stenosis Osteoarthritis Peptic ulcer disease History of upper gastrointestinal bleeding Atherosclerotic heart disease of [place] coronary artery without angina pectoris History of upper gastrointestinal bleeding HLD (hyperlipidemia) Hx of peptic ulcer CAD (coronary artery disease) COLD (chronic obstructive lung disease) Benign essential HTN Home Medications ?Medication ?Instructions ?Recorded ?Last Taken ?Type coenzyme Q10 100 mg capsule 100 mg PO QHS supplement 0 06/28/17 12/26/24 History rizatriptan 10 mg tablet (Maxalt) 10 mg PO QDAY PRN mi graines 06/28/17 Unknown History sertraline 50 mg tablet 50 mg PO QDAY mood 06/28/17 12/26/24 History cholecalciferol (vitamin D3) 50 50 mcg PO DAILY vitami n 04/17/20 12/26/24 His tory mcg (2,000 unit) capsule denosumab 60 mg/mL subcutaneous 60 mg subcut [id number] bone health 11/07/21 Unknown History syringe (Prolia) metoprolol succinate 25 mg 25 mg PO DAILY blood pressu re #90 04/10/24 12/27/24 Rx tablet,extended release 24 hr tabs clopidogrel 75 mg tablet 75 mg PO DAILY cholesterol # 90 tabs 08/16/24 12/22/24 Rx rosuvastatin 10 mg tablet 10 mg PO QHS cholesterol #90 tabs 08/16/24 12/26/24 Rx metoclopramide HCl 5 mg tablet 5 mg PO Q8H PRN PRN willem sea and 09/10/24 Unknown Rx (Reglan) vomiting 3 days #10 tabs polysaccharide iron complex 150 mg 150 mg PO DAILY 90 days #90 caps 09/17/24 Unknown Rx iron capsule (Ferrex) lisinopril 10 mg tablet 10 mg PO DAILY #90 tabs 07/0 12/0812/26/24 Rx amlodipine 2.5 mg tablet 2.5 mg PO QDAY blood pressur e #90 11/21/24 12/27/24 Rx tabs pantoprazole 40 mg tablet,delayed 20 mg PO DAILY 12/2612/27/24 History release (Protonix) Allergy/AdvReac Type Severity Reaction Status Date / Time atorvastatin (From Lipitor) AdvReac Severe myalgias Verified 12/27/24 11:10 ciprofloxacin (From Cipro) AdvReac Unknown Unknown Verified 12/27/24 11:10 ondansetron AdvReac dizziness Verified 12/27/24 11:10 Family History Mother Sudden cardiac Father CAD (coronary artery disease) CVA (cerebral vascular accident) Surgical History History of laparoscopic cholecystectomy History of esophagogastroduodenoscopy (EGD) History of coronary artery stent placement S/P laparoscopic cholecystectomy History of back surgery History of colonoscopy History of aortic aneurysm repair History of esophagogastroduodenoscopy (EGD) (~02/2020) Presence of stent in coronary artery (~11/2010) History of hemorrhoidectomy Hx of appendectomy Social History housing: house Smoking Status: Light Smoker (<10/day) alcohol intake: never substance use type: does not use Review of Systems (Anesthesia) ROS Narrative System reviewed and no additional complaints, except as documented.
--- NOTE | 2024-12-27 11:55 | PCM.HP.STD ---
HPI - General General Date of Admission: 12/27/24 Date of Service: 12/27/24 Chief Complaint: Anemia HPI Narrative YARITZA CHRISTINA, is a 84 F who [id number] F who presents with her daughter due to generalized weakness that she has had over the last few days. She has been having to dark-colored emesis, she does have a previous history of an upper GI bleed. She reports that she has a decreased appetite and is not wanting to eat or drink much because food/liquids does not seem appetizing. She has not had a bowel movement in several days but again is not eating. She denies fevers, chills, chest pain, shortness of breath, abdominal pain, and urinary symptoms. She is on aspirin and Plavix due to CAD history. . [facility] Medical History Osteoporosis Coronary artery disease Wears hearing aid Wears glasses Depression History of steroid therapy Ambulates with cane Easy bruising Migraine headache History of hiatal hernia History of GI bleed Gastric reflux Smoker Hypertension History of echocardiogram History of stress test Cardiology follow-up encounter Elevated alanine aminotransferase (ALT) level Cellulitis of left arm Upper GI bleed Nonrheumatic aortic valve stenosis Abdominal aortic aneurysm without rupture SVT (supraventricular tachycardia) Palpitations Family history of ischemic heart disease Family history of hypertension Family history of sudden cardiac Mitral valve annular calcification Heart murmur, systolic Premature ventricular contraction Spinal stenosis Osteoarthritis Peptic ulcer disease History of upper gastrointestinal bleeding Atherosclerotic heart disease of [place] coronary artery without angina pectoris History of upper gastrointestinal bleeding HLD (hyperlipidemia) Hx of peptic ulcer CAD (coronary artery disease) COLD (chronic obstructive lung disease) Benign essential HTN Home Medications ?Medication ?Instructions ?Recorded ?Last Taken ?Type coenzyme Q10 100 mg capsule 100 mg PO QHS supplement 06/28/17 12/26/24 History rizatriptan 10 mg tablet (Maxalt) 10 mg PO QDAY PRN migraines 06/28/17 Unknown History sertraline 50 mg tablet 50 mg PO QDAY mood 06/28/17 12/26/24 History cholecalciferol (vitamin D3) 50 50 mcg PO DAILY vitamin 04/17/20 12/26/24 History mcg (2,000 unit) capsule denosumab 60 mg/mL subcutaneous 60 mg subcut [id number] bone health 11/07/21 Unknown History syringe (Prolia) metoprolol succinate 25 mg 25 mg PO DAILY blood pressure #90 04/10/24 12/27/24 Rx tablet,extended release 24 hr tabs clopidogrel 75 mg tablet 75 mg PO DAILY cholesterol #90 tabs 08/16/24 12/22/24 Rx rosuvastatin 10 mg tablet 10 mg PO QHS cholesterol #90 tabs 08/16/24 12/26/24 Rx metoclopramide HCl 5 mg tablet 5 mg PO Q8H PRN PRN nausea and 09/10/24 Unknown Rx (Reglan) vomiting 3 days #10 tabs polysaccharide iron complex 150 mg 150 mg PO DAILY 90 days #90 caps 09/17/24 Unknown Rx iron capsule (Ferrex) lisinopril 10 mg tablet 10 mg PO DAILY #90 tabs 11/20/24 12/26/24 Rx amlodipine 2.5 mg tablet 2.5 mg PO QDAY blood pressure #90 11/21/24 12/27/24 Rx tabs pantoprazole 40 mg tablet,delayed 20 mg PO DAILY 12/26/24 12/27/24 History release (Protonix) Allergy/AdvReac Type Severity Reaction Status Date / Time atorvastatin (From Lipitor) AdvReac Severe myalgias Verified 12/27/24 11:10 ciprofloxacin (From Cipro) AdvReac Unknown Unknown Verified 12/27/24 11:10 ondansetron AdvReac dizziness Verified 12/27/24 11:10 Family History Mother Sudden cardiac Father CAD (coronary artery disease) CVA (cerebral vascular accident) Surgical History History of laparoscopic cholecystectomy History of esophagogastroduodenoscopy (EGD) History of coronary artery stent placement S/P laparoscopic cholecystectomy History of back surgery History of colonoscopy History of aortic aneurysm repair History of esophagogastroduodenoscopy (EGD) (~02/2020) Presence of stent in coronary artery (~11/2010) History of hemorrhoidectomy Hx of appendectomy Social History housing: house Smoking Status: Light Smoker (<10/day) alcohol intake: never substance use type: does not use ROS Constitutional Constitutional: Denies fatigue, fever(s), poor appetite, weight gain or weight loss Gastrointestinal Gastrointestinal: Denies belching, bloating, change in bowel habits, change in stool character, chewing difficulty, coffee ground emesis, constipation, cramping, diarrhea, dyspepsia, dysphagia, early satiety, excessive flatus, fecal incontinence, heartburn, hematemesis, hematochezia, hemorrhoids, loose stools, melena, nausea, odynophagia, rectal bleeding, tenesmus, vomiting or weight changes Vital Signs Vital Signs Vital Signs: 12/27/24 11:12 12/27/24 11:12 12/27/24 11:41 Temperature 98.1 F 98.1 F Temperature Source Temporal Pulse Rate 65 65 Respiratory Rate 12 12 Respiratory Pattern Normal Blood Pressure 127/63 H 127/63 H Blood Pressure Mean 84 Blood Pressure Source Monitor Blood Pressure Position Semi-Fowlers Blood Pressure Location Right Arm Pulse Ox 98 98 Oxygen Delivery Method Room Air Room Air Weight Weight: 136 lb 10.986 oz Body Mass Index (BMI) 26.6 Physical Exam Const alert, oriented x3, no apparent distress and healthy appearing General Appearance: cooperative GI normal to inspection, nondistended, normoactive bowel sounds, soft to palpation, non-tender and non-distended Percussion: normal to percussion Rectal Exam: deferred Assessment & Plan Assessment/Plan (1) Weakness: (2) Acute upper GI bleed: PLAN: Plan Patient is an 83-year-old lady admitted with increasing generalized weakness, abdominal pain as well as coffee-ground emesis with hemoglobin of 7.6. 1. Upper GI bleed ? Suspected to be secondary to peptic ulcer disease exacerbated by the use of antiplatelet therapy with clopidogrel as well as aspirin. Suspected medications held. Admitted to a monitored bed. H&H ordered every 6 started on Protonix and consultation placed to GI for subsequent management ? 09/16/2024; patient underwent EGD on 09/15/2024 resulted recommendations as below - Normal esophagus. - Large hiatal hernia. - Oozing gastric ulcer with a visible vessel. Treated with a heater probe. Biopsied. - No gross lesions in the entire examined duodenum. Recommendations : - Resume previous diet. - Continue present medications. - Use sucralfate tablets 1 gram PO QID for 3 months. The patient will undergo repeat upper endoscopy by Dr. JANNETH thomas. She was explained alternatives, risk and benefits to surgery. Pressure on suction appropriately, partially blood. She will have an ASA 3.
--- NOTE | 2024-12-27 12:00 | EGD_PTH ---
PATIENT: YARITZA CHRISTINA LOC: EN U#:[id number] AGE/SX: 84/F ROOM: RE12/27/[address]: Dr. Niraj Gaona DO : 1940 BED: DIS: 12/27/2024 SPEC #: [id number] RECD: 12/27/24 14:13 STATUS: CHELSEY YI #: [id number] DOUGLAS: 12/27/24 12:[address]: Niraj Gaona DEPT: SURGICAL PATHOLOGY RECD BY: Lucio Davies ENTERED: 12/27/24 14:36 SP TYPE: EGD BIOPSY LYNETTE DR: Dr. Dianna Lua DO Tissues: A - Gastric mucous membrane Procedures: Immunohistochemical Stains Surgery Specimen Level IV HEADER OPERATION: EGD with biopsy PRE-OP DIAGNOSIS: Weakness, upper acute GI bleed TISSUE SUBMITTED: A- Gastric antrum biopsy MICROSCOPIC DIAGNOSIS A. Gastric antrum, biopsy: - Features of reactive gastropathy. - IHC negative for H. pylori organisms. MICROSCOPIC DESCRIPTION Slides are reviewed. All matched controls reacted appropriately. These tests were developed and their performance characteristics determined by [facility]. They may not have been cleared or approved by the U.S. Food and Drug Administration. The FDA has determined that such clearance or approval is not necessary. The above immunohistochemical markers are reviewed by the Pathologist. GROSS DESCRIPTION A. Received in fixative is one container labeled with the patient's name and designated Gastric antrum biopsy. The specimen consists of three irregular fragments of light means soft tissue that measure 0.2 to 0.3 cm. The specimen is totally submitted in one cassette. DE 12/27/2024 CPT:78611,92248
--- NOTE | 2024-12-27 12:22 | OP.EGD_ITS ---
Patient Name: Myesha Gong Procedure Date: 12/27/2024 12:01 PM Date of : 1940 Age: 84 Procedure: Upper GI endoscopy Indications: Follow-up of chronic peptic ulcer Providers: Niraj Gaona DO Referring MD: Dianna Lua Medicines: Monitored Anesthesia Care Patient Profile: This is an 84 year old female. Refer to note in patient chart for documentation of history and physical. Patient has symptoms. Complications: No immediate complications. Procedure: Pre-Anesthesia Assessment: - Prior to the procedure, a History and Physical was performed, and patient medications and allergies were reviewed. The patient is competent. The risks and benefits of the procedure and the sedation options and risks were discussed with the patient. All questions were answered and informed consent was obtained. Patient identification and proposed procedure were verified by the physician in the pre-procedure area. Mental Status Examination: alert and oriented. Airway Examination: normal oropharyngeal airway and neck mobility. Respiratory Examination: clear to auscultation. CV Examination: normal. Prophylactic Antibiotics: The patient does not require prophylactic antibiotics. Prior Anticoagulants: The patient has taken no anticoagulant or antiplatelet agents. ASA Grade Assessment: II - A patient with mild systemic disease. After reviewing the risks and benefits, the patient was deemed in satisfactory condition to undergo the procedure. The anesthesia plan was to use monitored anesthesia care (MAC). Immediately prior to administration of medications, the patient was re-assessed for adequacy to receive sedatives. The heart rate, respiratory rate, oxygen saturations, blood pressure, adequacy of pulmonary ventilation, and response to care were monitored throughout the procedure. The physical status of the patient was re-assessed after the procedure. After obtaining informed consent, the endoscope was passed under direct vision. Throughout the procedure, the patient's blood pressure, pulse, and oxygen saturations were monitored continuously. The Endoscope was introduced through the mouth, and advanced to the second part of duodenum. The upper GI endoscopy was accomplished without difficulty. The patient tolerated the procedure well. Scope In: 12:14:18 PM Scope Out: 12:16:51 PM Total Procedure Duration Time 0 hours 2 minutes 33 seconds Findings: No gross lesions were noted in the entire esophagus. A large hiatal hernia was present. Localized mildly erythematous mucosa without bleeding was found in the gastric antrum. Biopsies were taken with a cold forceps for histology. Verification of patient identification for the specimen was done. Estimated blood loss was minimal. Biopsies were taken with a cold forceps for Helicobacter pylori testing. Verification of patient identification for the specimen was done. Estimated blood loss was minimal. No gross lesions were noted in the entire examined duodenum. Impression: - No gross lesions in the entire esophagus. - Large hiatal hernia. - Erythematous mucosa in the antrum. Biopsied. - No gross lesions in the entire examined duodenum. Recommendation: - Discharge patient to home. - Resume previous diet. - Continue present medications. - Await pathology results. Procedure Code(s): --- Professional --- 37466, Esophagogastroduodenoscopy, flexible, transoral; with biopsy, single or multiple CPT copyright 2021 [employer]. All rights reserved. The codes documented in this report are preliminary and upon licensing and registration director review may be revised to meet current compliance requirements. Niraj Gaona DO 12/27/2024 12:21:47 PM This report has been signed electronically. Number of Addenda: 0 Note Initiated On: 12/27/2024 12:01 PM
--- NOTE | 2024-12-27 12:22 | OP.PROVAT_ITS ---
12/27/2024 Dianna Lua [address] [place] [address] Re : Upper GI endoscopy procedure for Myesha Gong Dear Dr. Lua This procedure was performed on Friday, December 27, 2024. My impressions and recommendations are as follows: Impressions : - No gross lesions in the entire esophagus. - Large hiatal hernia. - Erythematous mucosa in the antrum. Biopsied. - No gross lesions in the entire examined duodenum. Recommendations : - Discharge patient to home. - Resume previous diet. - Continue present medications. - Await pathology results. My findings are described in the full procedure note, which is enclosed. If I can be of further assistance, please feel free to contact me at . Sincerely, Niraj Gaona, 12/27/2024 12:21:47 PM This report has been signed electronically.
--- NOTE | 2024-12-27 12:27 | PCM.POST.ANE ---
Anesthesia: Postop Eval I Current Vital Signs Temperature: 97.1 F Pulse Rate: 65 Blood Pressure: 89/60 Respiratory Rate: 16 Pulse Ox: 97 Oxygen Delivery Method: Room Air Assessment Airway patent: Yes Spontaneous unlabored respirations: Yes Mental status: Asleep nausea: No Vomiting: No Anesthesia Complication: No Fluid Hydration Crystalloid volume administer (ml): 200 Total IV fluid infused: 200 Progress Note Anesthesia document: Postop Eval 1 completed: Yes
--- NOTE | 2024-12-27 16:30 | PCM.POSTANE2 ---
Anesthesia Postop Eval I Sum Postop Eval Completion status Anesthesia document: Postop Eval 1 completed: Yes Anesthesia Postop Eval I Summary Anesthesia Postop Eval I Summary: Anesthesia Postop Eval I: Assessment Summary Airway patent Yes 12/27/24 12:27 [email or web address] Spontaneous unlabored Yes 12/27/24 12:27 [email or web address] respirations Mental status Asleep 12/27/24 12:27 [email or web address] nausea No 12/27/24 12:27 [email or web address] Vomiting No 12/27/24 12:27 [email or web address] Anesthesia Postop Eval I: Fluid Summary Crystalloid volume administer 200 12/27/24 12:27 [email or web address] (ml) Colloids volume administered ( ml) Blood Product volume administered (ml) Total IV fluid infused 200 12/27/24 12:27 [email or web address] Anesthesia Postop Eval I: Summary Notes Anesthesia Complication No 12/27/24 12:27 [email or web address] Anesthesia Complication Comment: Post-operative progress note Anesthesia: Postop Eval II Evaluation Mental status: Awake Pain Level: 0 nausea: No Vomiting: No
== END 2024-12-27 13:01 | disposition home or self-care (01) ==
LOC: EN 10:44 → AC 10:46
PROVIDERS: PCP Internal Medicine; Referring Provider Internal Medicine; Visit Provider Internal Medicine Gastroenterology
PROC: 0DJ08ZZ Inspection of Upper Intestinal Tract, Via Natural or Artificial Opening Endoscopic (ICD-10-PCS; CPT 43235; principal; 2024-12-27 11:55)
DX: K31.89 Other diseases of stomach and duodenum (principal); J44.9 Chronic obstructive pulmonary disease, unspecified; K92.2 Gastrointestinal hemorrhage, unspecified; K21.9 Gastro-esophageal reflux disease without esophagitis; R53.1 Weakness; E78.5 Hyperlipidemia, unspecified; I25.10 Atherosclerotic heart disease of native coronary artery without angina pectoris; Z79.02 Long term (current) use of antithrombotics/antiplatelets; D64.9 Anemia, unspecified; F17.200 Nicotine dependence, unspecified, uncomplicated; K44.9 Diaphragmatic hernia without obstruction or gangrene; Z79.899 Other long term (current) drug therapy; I10 Essential (primary) hypertension; Z79.82 Long term (current) use of aspirin
CPT/HCPCS: 43239; 88305; 88342; J2405

== ENCOUNTER → 2025-02-23 | Outpatient (CLI) | payer MEDICARE, OTHER, SELFPAY ==
[2025-02-23 10:50] LABS: AST(SGOT) 21 U/L (<=31); Alanine Aminotransfer ALT/SGPT 10 U/L (<=34); Albumin, Serum 4.1 g/dL (3.4-4.8); Alkaline Phosphatase 67 U/L (35-104); Bilirubin, Direct 0.17 mg/dL (0.00-0.30); Cholesterol 155 mg/dL (<=200); Globulin 3.3 g/dL (2.2-4.2); Low Density Lipoprotein Calc. 86 mg/dL; Triglycerides 97 mg/dL; Very Low Density Lipoprotein 19 mg/dL (5-40); cholesterol:hdl ratio screen 3.10
== END | disposition home or self-care (01) ==
LOC: LAB 09:27
PROVIDERS: PCP Internal Medicine; Referring Provider Physician Assistant Medical; Visit Provider Physician Assistant Medical
DX: E78.00 Pure hypercholesterolemia, unspecified (principal)
CPT/HCPCS: 36415; 80061; 80076

== ENCOUNTER 2025-03-02 10:40 | Outpatient (CLI) | payer MEDICARE, OTHER, SELFPAY ==
[2025-03-02 11:04] VITALS: BP 141/92; PULSE 74; RESP 16; TEMP 35.6; O2SAT 96; BMI 26.2
[2025-03-02] MEDS: DENOSUMAB 60 MG/ML SC (11:06)
== END 2025-03-02 23:59 | disposition home or self-care (01) ==
LOC: MEDOUTP 10:40
PROVIDERS: PCP Internal Medicine; Referring Provider Internal Medicine; Visit Provider Internal Medicine
DX: M81.8 Other osteoporosis without current pathological fracture (principal)
CPT/HCPCS: 96372; J0897

== ENCOUNTER → 2025-04-03 | Outpatient (CLI) | payer MEDICARE, OTHER, SELFPAY ==
--- NOTE | 2025-04-03 14:05 | BI_ITS ---
EXAM: SCRN MAMM (CAD)W/[place] BILAT DATE: 04/03/2025 CLINICAL HISTORY: F, Age 84 y/o , SCREENING Sister with breast cancer. TECHNIQUE: Procedure Code: [id number] Modality: MG Procedure: SCRN MAMM (CAD)W/[place] BILAT COMPARISON: Prior exam(s) dated March 30, 2024.. FINDINGS: TISSUE DENSITY: There are scattered areas of fibroglandular density. Bilateral Breast Mammographic Findings: No significant masses, calcifications or other abnormalities are identified. No suspicious masses, areas of developing architectural distortion, or suspicious calcifications. There has been no significant interval change. BI/SCRN MAMM (CAD)W/[place] BILAT IMPRESSION: Stable bilateral screening mammogram. OVERALL FINAL ASSESSMENT BI-RADS 1: NEGATIVE. RECOMMENDATION: Routine annual follow-up in 1 Year Additional Recommendation none A letter with findings and recommendations will be mailed to the patient. Reading Location: [facility]
--- NOTE | 2025-04-03 14:17 | BD_ITS ---
PROCEDURE: DEXA BONE DENSITY STUDY 04/03/2025 REASON FOR EXAM: F, age 84 y/o . Postmenopausal. TECHNIQUE: Procedure Code: BDDBD Modality: DX Procedure: DEXA BONE DENSITY STUDY COMPARISON: February 18, 2023. FINDINGS: BMD and T-SCORES Left femoral neck: 0.635 g/cm2, T-score -1.9 Femoral neck comparison data not recommended for monitoring change. Left total hip: 0.768 g/cm2, T-score -1.4 Change from prior: Loss of 1.4%. Right femoral neck: 0.619 g/cm2, T-score -2.1 Femoral neck comparison data not recommended for monitoring change. Right total hip: 0.791 g/cm2, T-score -1.2 Change from prior: Improvement of 3.8%. Left 1/3 radius: 0.550 g/cm2, T-score -0.5 Change from prior: Improvement of 3.6%. The World Health Organization has defined the following categories based on bone density: Normal bone density: T-score equal to or greater than -1.0 Osteopenia: T-score between -1.0 and -2.5 Osteoporosis: T-score equal to or less than -2.5 FRAX (or Comparable) Fracture Risk Assessment: 10 Year Probability of Fracture: Major Osteoporotic Fracture: 16% Hip Fracture: 4.9% (Note: FRAX is not to be reported in setting of normal range bone density, osteoporosis on DEXA, known history of osteoporosis, prior osteoporotic hip or vertebral fracture, or for any patient undergoing pharmacological treatment for bone loss.) The National Osteoporosis Foundation (NOF) recommends pharmacological treatment for patients with a FRAX 10-year risk of 3% or higher for a hip fracture, or 20% or higher for a major osteoporotic fracture, to prevent osteoporosis and reduce fracture risk. The patient does meet the pharmacological treatment recommendations for prevention of osteoporosis. BD/Dexa Bone Density Study IMPRESSION: OSTEOPENIA. Recommend follow-up as clinically warranted. Reading Location: [id number]
== END | disposition home or self-care (01) ==
LOC: OPBD 14:03
PROVIDERS: PCP Internal Medicine; Referring Provider Internal Medicine; Visit Provider Internal Medicine
DX: Z12.31 Encounter for screening mammogram for malignant neoplasm of breast (principal); Z78.0 Asymptomatic menopausal state
CPT/HCPCS: 77063; 77067; 77080